=== PATIENT | female | born 1935 | race Caucasian/White ===

== ENCOUNTER → 2016-08-19 | Outpatient (CLI) | payer BC ==
[~2016-08-19] MED LIST: ALBU1AER9 IN; CALC-51 PO; CMD5 PO; DILT120C PO; FURO-85 PO; GLC500 PO; IPRASOL4 INH; MAGN500C PO; METO25TA56 PO; MULT-506 PO; OXYB15TA12 PO; PANT40TA PO; POTA20TA16 PO; RANI150T2 PO
--- NOTE | 2016-08-19 17:13 | MAMMOGRAPHY REPORT ---
BILATERAL DIGITAL SCREENING MAMMOGRAM WITH CAD: 08/19/2016 CLINICAL HISTORY: Routine screening. Patient has no complaints. TECHNIQUE: Lateral CC and MLO views were obtained. Current study was also evaluated with a Computer Aided Detection (CAD) system. COMPARISON: Comparison is made to exams dated: 02/14/2015 mammogram, 01/31/2014 mammogram, 04/18/2013 m ammogram, 01/30/2013 mammogram, 01/28/2012 mammogram, and 01/26/2011 mammogram - [facility]. BREAST COMPOSITION: The tissue of both breasts is almost entirely fatty. FINDINGS: There are diffuse vascular calcifications in the breasts. No new suspicious mass, archite ctural distortion or cluster of microcalcifications is seen. IMPRESSION: ACR BI-RADS CATEGORY 1: NEGATIVE There is no mammographic evidence of malignancy. A 1 year screening mammogram is recommended. The pa tient will receive written notification of the results. Approximately 10% of breast cancers are not detected with mammography. A negative mammographic report should not delay biopsy if a clinically suggestive mass is present. Briana Clayton M.D. ay/:08/19/2016 15:25:28 Event Marketing Assistant: Gee Mckee M, [facility] letter sent: Normal 1/2 BI-RADS Code: ACR BI-RADS Category 1: Negative
== END | disposition home or self-care (01) ==
LOC: C.MAMM 14:51
PROVIDERS: ATTEND Family Medicine
DX: Z12.31 Encounter for screening mammogram for malignant neoplasm of breast (principal)

== ENCOUNTER → 2016-10-16 | Outpatient (CLI) | payer BC, OTHER ==
[2016-10-16 16:00] LABS: ALT/SGPT 21 U/L (12-78); BLOOD UREA NITROGEN 17 mg/dl (7-18); BUN/CREATININE RATIO 24.6 (10-20); CALCIUM 8.6 mg/dl (8.5-10.1); CARBON DIOXIDE 29 mmol/L (21-32); CHLORIDE 107 mmol/L (98-107); CREATININE 0.67 mg/dl (0.60-1.20); GLUCOSE 99 mg/dl (70-99); POTASSIUM 3.9 mmol/L (3.5-5.1); SODIUM 142 mmol/L (136-145)
[2016-10-16 16:01] LABS: CHOLESTEROL 214 mg/dl (0-200); CHOLESTEROL/HDL RATIO 3.2; HDL CHOLESTEROL 67 mg/dl; LDL CHOLESTEROL CALCULATED 104 mg/dl; TRIGLYCERIDES 216 mg/dl (0-150); VERY LOW DENSITY LIPOPROT CALC 43 mg/dl
[2016-10-17 08:09] LABS: ESTIMATED AVERAGE GLUCOSE 137 mg/dl; HA1C FLAG Normal (Normal)
== END | disposition home or self-care (01) ==
LOC: C.LAB 14:29
PROVIDERS: ATTEND Family Medicine
DX: E11.9 Type 2 diabetes mellitus without complications (principal); E78.5 Hyperlipidemia, unspecified

== ENCOUNTER 2020-02-15 18:04 | Inpatient (IN) ==
[2020-02-15] MEDS ORDERED: ALBUTEROL 0.083% NEBU SOLN 3 ML VIAL INH STA (18:12)
[2020-02-15] MEDS ORDERED: methylPREDNISolone 125 MG/2 ML VIAL IV STA (18:12)
--- NOTE | 2020-02-15 18:18 | Emergency Department Note ---
History of Present Illness General Chief complaint: Shortness of Breath/Dyspnea Stated complaint: SOB, CHEST PRESSURE Time Seen by Provider: 02/15/20 18:05 Source: patient and EMS History of Present Illness Provider complaint: Shortness of breath Onset (ago): hour(s) Location: chest Pain Consistency: + now resolved Quality: + other (Shortness of breath) Relieved By: + other (CPAP and her inhaler) Associated symptoms: + chest pain and + cough (For 3 months at least); no fever/chills and no nausea/vomiting This is an 84-year-old female who presents with shortness of breath starting this afternoon. She does have a history of asthma and CHF and uses oxygen only at night. She states that this afternoon she became very short of breath. She states that she used her CPAP and her inhaler and she started to feel much better. She does have a prior history of clots in her lungs but states that she is on warfarin. She denied having any chest discomfort or pain but when questioned further she did state that her chest was uncomfortable. She states the reason she did not say she had just comfort was because she did not know if it was just from having difficulty breathing. She has had a cough for at least 3 to 4 months and states that she had a negative Covid test in the spring. She denies loss of taste or smell, myalgias, fevers, chills, abdominal pain or diarrhea. Home Medications Medication Instructions Recorded Confirmed Type albuterol sulfate 2 puff INHALATION Q4H PRN 07/14/19 02/15/20 History aspirin [Aspirin Low Dose] 81 mg PO QAM 07/14/19 02/15/20 History diltiazem HCl 120 mg PO BID 07/14/19 02/15/20 History ezetimibe 10 mg PO QAM 07/14/19 02/15/20 History metformin 750 mg PO DAILY 07/14/19 02/15/20 History warfarin See Rx Instructions .ROUTE .COMPLEX 07/14/19 02/15/20 History lisinopril 10 mg PO QAM 02/15/20 02/15/20 History Allergies Allergy/AdvReac Type Severity Reaction Status Date / Time amoxicillin [From Augmentin] Allergy Intermediate Hives Verified 02/15/20 19:44 clavulanic acid Allergy Intermediate Hives Verified 12/03/20 19:44 [From Augmentin] Penicillins Allergy Intermediate Hives Verified 02/15/20 19:44 gabapentin Allergy Unknown Itching Verified 02/15/20 19:44 Past Med/Surg History Medical History Asthma Deep vein thrombosis Myocardial Infarction Sleep apnea 1 liter o2 Surgical History History of cardiac cath History of colonoscopy History of heart artery stent History of heart valve replacement Social History Smoking Status: Never smoker Hx Alcohol Use: No Hx Substance Use: No Preferred Language: Macedonian Current Living Situation: Spouse current occupation: Retired Feels Safe at Home: Yes Review of Systems See HPI for pertinent positives & negatives. and A total of 10 systems reviewed and were otherwise negative Physical Exam Vital Signs Vital Signs - 24 hr 02/15/20 17:25 02/15/20 17:55 02/15/20 18:12 Temperature 36.7 C Temperature Source Oral Pulse Rate 96 H Pulse Rate [Right Radial] Pulse Rate from SpO2 Sensor Respiratory Rate 18 Respiratory Effort / Characteristics Non-Labored Spontaneous Respiratory Depth Normal Normal Blood Pressure 163/114 H Blood Pressure Mean 130 Pulse Oximetry 92 92 Oxygen Delivery Method Room Air Room Air Room Air Sepsis Recent Fever Within 48 Hours No Sepsis New/Unexplained Change in Mental Status No Sepsis Action Taken by Nursing No Action Required Oxygen Flow Rate - Titration Pulse Oximetry Post Tiitration 02/15/20 18:20 02/15/20 18:21 02/15/20 18:30 Temperature Temperature Source Pulse Rate 95 H 93 H 98 H Pulse Rate [Right Radial] Pulse Rate from SpO2 Sensor 94 H 87 94 H Respiratory Rate 16 20 23 Respiratory Effort / Characteristics Respiratory Depth Blood Pressure 155/83 H 148/88 H Blood Pressure Mean 122 109 Pulse Oximetry 93 92 92 Oxygen Delivery Method Sepsis Recent Fever Within 48 Hours Sepsis New/Unexplained Change in Mental Status Sepsis Action Taken by Nursing Oxygen Flow Rate - Titration Pulse Oximetry Post Tiitration 02/15/20 18:31 02/15/20 18:41 02/15/20 19:00 Temperature Temperature Source Pulse Rate 98 H 110 H Pulse Rate [Right Radial] 97 H Pulse Rate from SpO2 Sensor 97 H Respiratory Rate 19 23 24 Respiratory Effort / Characteristics Spontaneous Respiratory Depth Blood Pressure 128/73 Blood Pressure Mean 94 Pulse Oximetry 92 97 90 Oxygen Delivery Method Room Air Sepsis Recent Fever Within 48 Hours Sepsis New/Unexplained Change in Mental Status Sepsis Action Taken by Nursing Oxygen Flow Rate - Titration Pulse Oximetry Post Tiitration 02/15/20 19:01 02/15/20 19:30 02/15/20 19:31 Temperature Temperature Source Pulse Rate 110 H 106 H 106 H Pulse Rate [Right Radial] Pulse Rate from SpO2 Sensor Respiratory Rate 22 22 22 Respiratory Effort / Characteristics Respiratory Depth Blood Pressure 130/63 Blood Pressure Mean 81 Pulse Oximetry 90 93 92 Oxygen Delivery Method Sepsis Recent Fever Within 48 Hours Sepsis New/Unexplained Change in Mental Status Sepsis Action Taken by Nursing Oxygen Flow Rate - Titration Pulse Oximetry Post Tiitration 02/15/20 20:00 02/15/20 20:01 02/15/20 20:45 Temperature Temperature Source Pulse Rate 102 H 104 H Pulse Rate [Right Radial] Pulse Rate from SpO2 Sensor 103 H 104 H Respiratory Rate 16 18 Respiratory Effort / Characteristics Respiratory Depth Blood Pressure 133/65 Blood Pressure Mean 83 Pulse Oximetry 91 94 88 L Oxygen Delivery Method Nasal Cannula Sepsis Recent Fever Within 48 Hours Sepsis New/Unexplained Change in Mental Status Sepsis Action Taken by Nursing Oxygen Flow Rate - Titration 2 Pulse Oximetry Post Tiitration 95 02/15/20 20:50 02/15/20 21:00 Temperature Temperature Source Pulse Rate 108 H 112 H Pulse Rate [Right Radial] Pulse Rate from SpO2 Sensor 107 H 111 H Respiratory Rate 19 20 Respiratory Effort / Characteristics Respiratory Depth Blood Pressure 136/84 155/85 H Blood Pressure Mean 95 109 Pulse Oximetry 90 96 Oxygen Delivery Method Sepsis Recent Fever Within 48 Hours Sepsis New/Unexplained Change in Mental Status Sepsis Action Taken by Nursing Oxygen Flow Rate - Titration Pulse Oximetry Post Tiitration Constitutional: Vital signs reviewed. Eyes: Pupils are equal round reactive to light. Conjunctiva are noninjected. ENT: Pharynx is clear without erythema or exudate. Mucous membranes are moist. Neck supple without meningeal signs. Respiratory: Bibasilar rales. Breath sounds are equal bilaterally. Cardiovascular: Regular rate and rhythm. No rubs or gallops. GI: Soft, nondistended and nontender. Bowel sounds are present. Musculoskeletal: No peripheral edema. No lower extremity tenderness. Integumentary: No cyanosis. or jaundice. Neurological: The patient is awake and alert. No focal deficits. Psychiatric: Normal affect. Not anxious appearing. Course Administered Medications Lactated Ringer's (Lr) 1,000 mls @ 100 mls/hr IV .Q10H ONE Stop: 02/16/20 06:44 Last Admin: 02/15/20 21:26 Dose: 100 mls/hr Documented by: [id number] Heparin Sodium/Dextrose (Heparin Sodium/Dextrose) 25,000 units in 500 mls @ 24 mls/hr IV .[id number] [facility]; Protocol Stop: 03/16/20 21:44 Last Admin: 02/15/20 21:51 Dose: 1,200 units/hr, 24 mls/hr Documented by: [id number] Cosigned by: [id number] Discontinued Medications Albuterol (Albuterol 0.083% Nebu Soln 3 Ml Vial) 2.5 mg INH NOW STA Stop: 02/15/20 18:13 Last Admin: 02/15/20 18:40 Dose: 2.5 mg Documented by: [id number] Diltiazem HCl (Diltiazem Hcl 120 Mg Capcr) 120 mg PO NOW STA Stop: 02/15/20 19:49 Last Admin: 02/15/20 21:00 Dose: 120 mg Documented by: [id number] Heparin Sodium/Dextrose (Heparin 91184 Unit/500 Ml D5w) Confirm Administered Dose 25,000 units IV .STK-MED ONE Stop: 02/15/20 21:42 Last Admin: 02/15/20 21:45 Dose: Not Given Documented by: [id number] Doxycycline Hyclate 100 mg/ (Dextrose) 110 mls @ 50 mls/hr IV NOW STA Stop: 02/15/20 22:56 Last Admin: 02/15/20 23:06 Dose: 50 mls/hr Documented by: [id number] Ceftriaxone Sodium (Rocephin) 2,000 mg in 70 mls @ 140 mls/hr IV NOW STA Stop: 02/15/20 21:14 Last Infusion: 02/15/20 23:06 Dose: 0 mls/hr Documented by: [id number] Admin: 02/15/20 21:26 Dose: 140 mls/hr Documented by: [id number] Methylprednisolone (Methylprednisolone 125 Mg/2 Ml Vial) 125 mg IV NOW STA Stop: 02/15/20 18:13 Last Admin: 02/15/20 18:54 Dose: Not Given Documented by: [id number] Potassium Chloride (Potassium Chloride Crtab 20 Meq Tabcr) 20 meq PO NOW STA Stop: 02/15/20 20:45 Last Admin: 02/15/20 21:06 Dose: Not Given Documented by: [id number] Medical Decision Making Differential Diagnosis Asthma exacerbation, CHF exacerbation, pulmonary embolism, pneumonia, bronchitis, anemia, ACS Medical Records Attestation: I reviewed the patient's medical records. I did perform a limited focused review of portions of the patient's old chart on the electronic medical record. The patient has had no recent pertinent visits to this hospital. Home Medications Current Medication List: was personally reviewed by me Laboratory Data Attestation: I reviewed the patient's lab results. Result diagrams: 02/15/20 18:20 02/15/20 19:25 Lab Results 02/15/20 02/15/20 02/15/20 Range/Units 18:20 18:20 18:20 WBC 9.49 (4.8-10.8) K/uL RBC 4.50 (4.2-5.4) M/uL Hgb 14.2 (12.0-16.0) g/dL Hct 43.4 (37-47) % MCV 96.4 (80-100) fL MCH 31.6 (25-34) pg MCHC 32.7 (32-36) g/dL RDW Std Deviation 52.7 H (36.4-46.3) fL RDW Coeff of Linda 15.0 H (11.5-14.5) % Plt Count 283 (130-400) K/uL MPV 11.0 H (7.4-10.4) fL Immature Gran % (Auto) 0.3 % Neut % (Auto) 69.1 % Lymph % (Auto) 22.8 % Coleman % (Auto) 6.2 % Eos % (Auto) 1.4 % Baso % (Auto) 0.2 % Neut # (Auto) 6.56 H (1.4-6.5) K/uL Lymph # (Auto) 2.16 (1.2-3.4) K/uL Coleman # (Auto) 0.59 (0.11-0.59) K/uL Eos # (Auto) 0.13 (0-0.5) K/uL Baso # (Auto) 0.02 (0-0.2) K/uL Immature Gran # (Auto) 0.03 H (0.00-0.02) K/uL PT Cancelled INR Cancelled APTT Cancelled PTT Ratio Cancelled ABG pH (7.35-7.45) ABG pCO2 (35-46) mmHg ABG pO2 (80-95) mmHg ABG HCO3 (19-24) mmol/L ABG O2 Saturation (90-95) % ABG Base Excess (-9-1.8) mEq/L Melvin Test (Pos) Barometric Pressure mm/Hg Oxygen Given Sodium 139 (136-145) mmol/L Potassium (3.5-5.1) mmol/L Chloride 105 (98-107) mmol/L Carbon Dioxide 27 (21-32) mmol/L Anion Gap 7.0 (3-11) BUN 15 (7-18) mg/dl Creatinine 0.70 (0.6-1.2) mg/dl Est Cr Clr Drug Dosing 61.8 ml/min Est GFR ( Amer) 90.9 Est GFR (Non-Af Amer) 78.5 BUN/Creatinine Ratio 21.9 H (10-20) Glucose 96 (70-99) mg/dl Lactate (0.4-2.0) mmol/L Calcium 9.3 (8.5-10.1) mg/dl Magnesium (1.8-2.4) mg/dl Total Bilirubin 0.4 (0.2-1) mg/dl AST (15-37) U/L ALT 25 (12-78) U/L Alkaline Phosphatase 86 (45-117) U/L Troponin I < 0.015 (0-0.045) ng/ml NT-Pro-B Natriuret Pep 80 (0-1800) pg/ml Total Protein 7.8 (6.4-8.2) gm/dl Albumin 3.3 L (3.4-5.0) gm/dl Globulin 4.5 H (2.5-4.0) gm/dl Albumin/Globulin Ratio 0.7 L (0.9-2) COVID-19 Eval Order SARS-CoV-2, RNA, NAAT (NEGATIVE) 02/15/20 02/15/20 02/15/20 Range/Units 19:25 19:36 19:36 WBC (4.8-10.8) K/uL RBC (4.2-5.4) M/uL Hgb (12.0-16.0) g/dL Hct (37-47) % MCV (80-100) fL MCH (25-34) pg MCHC (32-36) g/dL RDW Std Deviation (36.4-46.3) fL RDW Coeff of Linda (11.5-14.5) % Plt Count (130-400) K/uL MPV (7.4-10.4) fL Immature Gran % (Auto) % Neut % (Auto) % Lymph % (Auto) % Coleman % (Auto) % Eos % (Auto) % Baso % (Auto) % Neut # (Auto) (1.4-6.5) K/uL Lymph # (Auto) (1.2-3.4) K/uL Coleman # (Auto) (0.11-0.59) K/uL Eos # (Auto) (0-0.5) K/uL Baso # (Auto) (0-0.2) K/uL Immature Gran # (Auto) (0.00-0.02) K/uL PT INR APTT PTT Ratio ABG pH (7.35-7.45) ABG pCO2 (35-46) mmHg ABG pO2 (80-95) mmHg ABG HCO3 (19-24) mmol/L ABG O2 Saturation (90-95) % ABG Base Excess (-9-1.8) mEq/L Melvin Test (Pos) Barometric Pressure mm/Hg Oxygen Given Sodium (136-145) mmol/L Potassium 3.9 (3.5-5.1) mmol/L Chloride (98-107) mmol/L Carbon Dioxide (21-32) mmol/L Anion Gap (3-11) BUN (7-18) mg/dl Creatinine (0.6-1.2) mg/dl Est Cr Clr Drug Dosing ml/min Est GFR ( Amer) Est GFR (Non-Af Amer) BUN/Creatinine Ratio (10-20) Glucose (70-99) mg/dl Lactate (0.4-2.0) mmol/L Calcium (8.5-10.1) mg/dl Magnesium 2.0 (1.8-2.4) mg/dl Total Bilirubin (0.2-1) mg/dl AST 16 (15-37) U/L ALT (12-78) U/L Alkaline Phosphatase (45-117) U/L Troponin I < 0.015 (0-0.045) ng/ml NT-Pro-B Natriuret Pep (0-1800) pg/ml Total Protein (6.4-8.2) gm/dl Albumin (3.4-5.0) gm/dl Globulin (2.5-4.0) gm/dl Albumin/Globulin Ratio (0.9-2) COVID[email or web address] SARS-[facility]-2, RNA, NAAT NEGATIVE (NEGATIVE) 02/15/20 02/15/20 02/15/20 Range/Units 20:20 21:12 21:14 WBC (4.8-10.8) K/uL RBC (4.2-5.4) M/uL Hgb (12.0-16.0) g/dL Hct (37-47) % MCV (80-100) fL MCH (25-34) pg MCHC (32-36) g/dL RDW Std Deviation (36.4-46.3) fL RDW Coeff of Linda (11.5-14.5) % Plt Count (130-400) K/uL MPV (7.4-10.4) fL Immature Gran % (Auto) % Neut % (Auto) % Lymph % (Auto) % Coleman % (Auto) % Eos % (Auto) % Baso % (Auto) % Neut # (Auto) (1.4-6.5) K/uL Lymph # (Auto) (1.2-3.4) K/uL Coleman # (Auto) (0.11-0.59) K/uL Eos # (Auto) (0-0.5) K/uL Baso # (Auto) (0-0.2) K/uL Immature Gran # (Auto) (0.00-0.02) K/uL PT 17.5 H INR 1.7 H APTT 33.9 H PTT Ratio 1.2 ABG pH 7.39 (7.35-7.45) ABG pCO2 45 (35-46) mmHg ABG pO2 89 (80-95) mmHg ABG HCO3 27 H (19-24) mmol/L ABG O2 Saturation 96.8 H (90-95) % ABG Base Excess 1.3 (-9-1.8) mEq/L Melvin Test Neg A (Pos) Barometric Pressure 736.6 mm/Hg Oxygen Given 2 LITERS Sodium (136-145) mmol/L Potassium (3.5-5.1) mmol/L Chloride (98-107) mmol/L Carbon Dioxide (21-32) mmol/L Anion Gap (3-11) BUN (7-18) mg/dl Creatinine (0.6-1.2) mg/dl Est Cr Clr Drug Dosing ml/min Est GFR ( Amer) Est GFR (Non-Af Amer) BUN/Creatinine Ratio (10-20) Glucose (70-99) mg/dl Lactate 1.9 (0.4-2.0) mmol/L Calcium (8.5-10.1) mg/dl Magnesium (1.8-2.4) mg/dl Total Bilirubin (0.2-1) mg/dl AST (15-37) U/L ALT (12-78) U/L Alkaline Phosphatase (45-117) U/L Troponin I (0-0.045) ng/ml NT-Pro-B Natriuret Pep (0-1800) pg/ml Total Protein (6.4-8.2) gm/dl Albumin (3.4-5.0) gm/dl Globulin (2.5-4.0) gm/dl Albumin/Globulin Ratio (0.9-2) COVID-19 Eval Order SARS-CoV-2, RNA, NAAT (NEGATIVE) Imaging Data Radiologist's Impression: XR chest 1V portable CLINICAL HISTORY: Dyspnea COMPARISON STUDY: 07/14/2019 FINDINGS: The cardiac and mediastinal contours remain stable. Aortic valve stent graft is again visualized. There is no failure. There is no lobar consolidation. There is bilateral interstitial thickening with subtle left basilar nodularity. Diagnostic considerations include mild interstitial edema, a pneumonia, or developing interstitial lung disease. IMPRESSION: Mild interstitial thickening with subtle left basilar nodularity. Although nonspecific, a Covid-19 pneumonia is within the differential. Clinical and radiographic follow-up is recommended ACT 112: Negative or not required by law. Electronically signed by: Frank Galloway M.D. 02/15/2020 6:36 PM Dictated: 02/15/201831 Transcribed: 02/15/201831 ECG Data Attestation: I personally reviewed and interpreted this ECG as follows: Indication: + chest pain and + SOB/dyspnea Rate (beats per minute): 94 Rhythm: + normal sinus ECG [place]: + Left axis deviation ECG ST segments: no ST elevation ECG Findings: + PVCs and + Other (Limited interpretation due to motion artifact but no obvious acute ischemic changes) MDM Narrative I did evaluate the patient as noted above. The patient initially said she did not have any chest discomfort. She later told the nurse that she did have chest discomfort. I asked her again if she had chest discomfort and she stated yes she did feel uncomfortable in her chest. This is now resolved. I did place an order for continuous cardiac monitoring. The monitor showed normal sinus rhythm at a rate of 94 bpm. I did order and personally review the patient's 12-lead EKG as described above. There are no obvious acute ischemic changes but there is some motion artifact limiting interpretation. I did order and personally reviewed the images of the patient's chest x-ray as described above. She has interstitial thickening concerning for a COVID-19 pneumonia. She was placed in respiratory isolation. I did order a COVID-19 test which came back negative later. I did order and review the patient's blood work as noted in the electronic medical record. She does not have anemia or leukocytosis. Her electrolytes are unremarkable. Troponin is negative. INR subtherapeutic at 1.7. I did discuss the test results with the patient. I did recommend hospitalization for further care and evaluation including repeat cardiac biomarkers. I did order a CT angiogram of the chest which she was agreeable with to rule out PE given her prior history of PEs and subtherapeutic INR. I did discuss case with the hospitalist and case sealer. The patient was admitted to the floor. I did see later that the CT angiogram was canceled by the hospitalist. I did discuss this with him. He stated that he would be anticoagulating her anyway and did not feel the CT angiogram was necessary at t his time. Impression & Plan Chest pain, Subtherapeutic international normalized ratio (INR), Abnormal chest x-ray Discharge Plan Visit Data Chief Complaint: Shortness of Breath/Dyspnea Stated Complaint: SOB, CHEST PRESSURE ED Provider: Glynn Rae Discharge Problem: Chest pain, Subtherapeutic international normalized ratio (INR), Abnormal chest x-ray Patient Disposition: Being Evaluated by Hospitalist Forms Stand Alone Forms: [facility] Prescriptions Prescriptions: No Action aspirin [Aspirin Low Dose] 81 mg Tablet,Delayed Release (Dr/Ec) 81 mg PO QAM RF: 0 warfarin 5 mg tablet See Rx Instructions .ROUTE .COMPLEX RF: 0 diltiazem HCl 120 mg capsule,extended release 24hr 120 mg PO BID RF: 0 albuterol sulfate 90 mcg/actuation HFA aerosol inhaler 2 puff INHALATION Q4H PRN (Reason: Wheeze/Cough) RF: 0 ezetimibe 10 mg tablet 10 mg PO QAM RF: 0 metformin 750 mg tablet extended release 24 hr 750 mg PO DAILY RF: 0 lisinopril 10 mg tablet 10 mg PO QAM RF: 0 Referrals Referrals: Jamie Vela DO [Primary Care Provider] - Discharge Problem: Chest pain Qualifiers: Chest pain type: unspecified Qualified Code(s): R07.9 - Chest pain, unspecified
[2020-02-15 18:30] LABS: Basophils # (auto) 0.02 K/uL (0-0.2); Basophils % (auto) 0.2 %; Eosinophils # (auto) 0.13 K/uL (0-0.5); Eosinophils % (auto) 1.4 %; Hematocrit (blood only) 43.4 % (37-47); Hemoglobin 14.2 g/dL (12.0-16.0); Immature Granulocytes # (auto) 0.03 K/uL (0.00-0.02); Immature Granulocytes % (auto) 0.3 %; Lymphocytes # (auto) 2.16 K/uL (1.2-3.4); Lymphocytes % (auto) 22.8 %; Mean Corpuscular Hemoglobin 31.6 pg (25-34); Mean Corpuscular Hgb Conc 32.7 g/dL (32-36); Mean Corpuscular Volume 96.4 fL (80-100); Monocytes # (auto) 0.59 K/uL (0.11-0.59); Monocytes % (auto) 6.2 %; Neutrophils # (auto) 6.56 K/uL (1.4-6.5); Neutrophils % (auto) 69.1 %; Platelet Count 283 K/uL (130-400); RDW Standard Deviation 52.7 fL (36.4-46.3); White Blood Count 9.49 K/uL (4.8-10.8)
--- NOTE | 2020-02-15 18:38 | XRay Report ---
XR chest 1V portable CLINICAL HISTORY: Dyspnea COMPARISON STUDY: 07/14/2019 FINDINGS: The cardiac and mediastinal contours remain stable. Aortic valve stent graft is again visua lized. There is no failure. There is no lobar consolidation. There is bilateral interstitial thickeni ng with subtle left basilar nodularity. Diagnostic considerations include mild interstitial edema, a pneumonia, or developing interstitial lung disease. IMPRESSION: Mild interstitial thickening with subtle left basilar nodularity. Although nonspecific, a Covid-19 pneumonia is within the differential. Clinical and radiographic follow-up is recommended ACT 112: Negative or not required by law. Electronically signed by: Frank Galloway M.D. 02/15/2020 6:36 PM
[2020-02-15 19:01] LABS: Alanine Aminotransferase 25 U/L (12-78); Albumin Globulin Ratio 0.7 (0.9-2); Albumin Level 3.3 gm/dl (3.4-5.0); Alkaline Phosphatase 86 U/L (45-117); BUN Creatinine Ratio 21.9 (10-20); Bilirubin,Total 0.4 mg/dl (0.2-1); Blood Urea Nitrogen 15 mg/dl (7-18); Calcium 9.3 mg/dl (8.5-10.1); Carbon Dioxide 27 mmol/L (21-32); Chloride 105 mmol/L (98-107); Creatinine Clr Calc Pharmacy 61.8 ml/min; Est GFR (African American) 90.9; Est GFR (Non-African American) 78.5; Globulin 4.5 gm/dl (2.5-4.0); Glucose 96 mg/dl (70-99); NT Pro B Type Natriuretic Pept 80 pg/ml (0-1800); Sodium 139 mmol/L (136-145); Total Protein 7.8 gm/dl (6.4-8.2); Troponin I < 0.015 ng/ml (0-0.045)
[2020-02-15] MEDS ORDERED: dilTIAZem HCL 120 MG CAPCR PO STA (19:48)
[2020-02-15 20:01] LABS: Potassium 3.9 mmol/L (3.5-5.1)
[2020-02-15 20:06] LABS: Aspartate Aminotransferase 16 U/L (15-37)
[2020-02-15 20:24] LABS: Troponin I < 0.015 ng/ml (0-0.045)
[2020-02-15 20:41] LABS: INR 1.7 (0.9-1.1); Partial Thromboplastin Ratio 1.2; Partial Thromboplastin Time 33.9 Seconds (21.0-31.0); Prothrombin Time 17.5 Seconds (9.0-12.0)
[2020-02-15] MEDS ORDERED: POTASSIUM CHLORIDE CRTAB 20 MEQ TABCR PO STA (20:44)
[2020-02-15] MEDS ORDERED: LACTATED RINGER'S 1,000 ML IV ONE (20:45)
[2020-02-15] MEDS ORDERED: DOXYCYCLINE HYCLATE 100 MG in DEXTROSE 5% 100 ML IV STA (20:45)
[2020-02-15] MEDS ORDERED: cefTRIAXone SODIUM 2,000 MG/70 ML BAG IV STA (20:45)
--- NOTE | 2020-02-15 20:47 | History & Physical Report ---
Date of Service February 15, 2020 Assessment & Plan (1) Acute hypoxemic respiratory failure: Secondary to COPD exacerbation secondary to community-acquired pneumonia Possible sepsis. 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 IV heparin Coumadin bridge therapy Full code Text document was generated using [employer] voice recognition software. It may contain grammatical or spelling errors. Kindly contact undersigned for clarification of any documentation item in question. History of Present Illness Chief Complaint: Worsening cough, shortness of breath Primary Care Provider: Jamie Vela DO History obtained from patient, family, and records. 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 Last confinement 2015 for recurrent PE DVT. Patient discharged on Coumadin. Patient had worsening cough productive of junky sputum and shortness of breath the last few days. No unusual fluid retention. No chest pain. Denies aspiration. No known recent COVID-19 contacts. At the ER, patient received Solu-Medrol and neb treatment for COPD exacerbation. MEDICAL HISTORY: As above. SURGERIES: TAVR, FAMILY HISTORY: Heart disease. PERSONAL AND SOCIAL HISTORY: Nonsmoker, no chronic intake of alcoholic beverages. Homemaker in her younger years. Allergies Allergy/AdvReac Type Severity Reaction Status Date / Time amoxicillin [From Augmentin] Allergy Intermediate Hives Verified 02/15/20 19:44 clavulanic acid Allergy Intermediate Hives Verified 02/15/20 19:44 [From Augmentin] Penicillins Allergy Intermediate Hives Verified 02/15/20 19:44 gabapentin Allergy Unknown Itching Verified 02/15/20 19:44 Home Medications Medication Instructions Recorded Confirmed Type albuterol sulfate 2 puff INHALATION Q4H PRN 07/14/19 02/15/20 History aspirin [Aspirin Low Dose] 81 mg PO QAM 07/14/19 02/15/20 History diltiazem HCl 120 mg PO BID 07/14/19 02/15/20 History ezetimibe 10 mg PO QAM 07/14/19 02/15/20 History metformin 750 mg PO DAILY 07/14/19 02/15/20 History warfarin See Rx Instructions .ROUTE .COMPLEX 07/14/19 02/15/20 History lisinopril 10 mg PO QAM 02/15/20 02/15/20 History Past Med/Surg History Medical History Asthma Deep vein thrombosis Myocardial Infarction Sleep apnea 1 liter o2 Surgical History History of cardiac cath History of colonoscopy History of heart artery stent History of heart valve replacement Social History Smoking Status: Never smoker Second Hand Exposure: No; Do You Dip or Chew Tobacco: No; Tobacco Cessation Education Requested by Patient: No Hx Alcohol Use: No Hx Substance Use: No Preferred Language: British Communication Ability: Effective Mat Linker Required: No Beliefs That Will Affect Care: None Current Living Situation: Spouse and Family Current Living Situation Comment: Lives w/ and son current occupation: Retired Other Information That Helps Us Care for You: No Feels Safe at Home: Yes Safety Concerns: Feels Safe At This Time Assistive Devices: Cane and CPAP Assistive Devices Comment: Wears CPAP HS at home / ambulates independently and with cane Review of Systems Review of Systems: As per HPI, all 10 systems reviewed, all other ROS negative Physical Exam Physical Exam: GENERAL: Pleasant, obese, no respiratory distress SKIN: Normal color, warm HEENT: [place] palpebral conjunctivae, no ptosis, dry buccal mucosa NECK : Supple, short neck, no tenderness CHEST : Decreased breath sounds, occasional expiratory wheezes, no tenderness HEART : RRR, no obvious murmurs ABDOMEN: Some distention, nontender EXTREMITIES : Minimal LE swelling, no LE tenderness, no other conspicuous deformities noted NEUROLOGIC : Coherent, no facial asymmetry, no other gross focality Results & Data Results & Data ([facility]) Vital Signs (Past 12 Hours) Vital Signs Temp Pulse Pulse Resp BP Pulse Ox 02/15/20 20:45 88 L 02/15/20 19:31 106 H 22 92 02/15/20 19:30 106 H 22 130/63 93 02/15/20 19:01 110 H 22 90 02/15/20 19:00 110 H 24 128/73 90 02/15/20 18:41 97 H 23 97 02/15/20 18:31 98 H 19 92 02/15/20 18:30 98 H 23 148/88 H 92 02/15/20 18:21 93 H 20 92 02/15/20 18:20 95 H 16 155/83 H 93 02/15/20 18:12 92 02/15/20 17:25 36.7 C 96 H 18 163/114 H 92 Laboratory Results Laboratory Results WBC 9.49 K/uL (4.8-10.8) 02/15/20 18:20 RBC 4.50 M/uL (4.2-5.4) 02/15/20 18:20 Hgb 14.2 g/dL (12.0-16.0) 02/15/20 18:20 Hct 43.4 % (37-47) 02/15/20 18:20 MCV 96.4 fL (80-100) 02/15/20 18:20 MCH 31.6 pg (25-34) 02/15/20 18:20 MCHC 32.7 g/dL (32-36) 02/15/20 18:20 RDW Std Deviation 52.7 fL (36.4-46.3) H 02/15/20 18:20 RDW Coeff of Linda 15.0 % (11.5-14.5) H 02/15/20 18:20 Plt Count 283 K/uL (130-400) 02/15/20 18:20 MPV 11.0 fL (7.4-10.4) H 02/15/20 18:20 Immature Gran % (Auto) 0.3 % 02/15/20 18:20 Neut % (Auto) 69.1 % 02/15/20 18:20 Lymph % (Auto) 22.8 % 02/15/20 18:20 [place] % (Auto) 6.2 % 02/15/20 18:20 Eos % (Auto) 1.4 % 02/15/20 18:20 Baso % (Auto) 0.2 % 02/15/20 18:20 Neut # (Auto) 6.56 K/uL (1.4-6.5) H 02/15/20 18:20 Lymph # (Auto) 2.16 K/uL (1.2-3.4) 02/15/20 18:20 [place] # (Auto) 0.59 K/uL (0.11-0.59) 02/15/20 18:20 Eos # (Auto) 0.13 K/uL (0-0.5) 02/15/20 18:20 Baso # (Auto) 0.02 K/uL (0-0.2) 02/15/20 18:20 Immature Gran # (Auto) 0.03 K/uL (0.00-0.02) H 02/15/20 18:20 PT 17.5 Seconds (9.0-12.0) H 02/15/20 20:20 INR 1.7 (0.9-1.1) H 02/15/20 20:20 APTT 33.9 Seconds (21.0-31.0) H 02/15/20 20:20 PTT Ratio 1.2 02/15/20 20:20 Sodium 139 mmol/L (136-145) 02/15/20 18:20 Potassium 3.9 mmol/L (3.5-5.1) 02/15/20 19:25 Chloride 105 mmol/L (98-107) 02/15/20 18:20 Carbon Dioxide 27 mmol/L (21-32) 02/15/20 18:20 Anion Gap 7.0 (3-11) 02/15/20 18:20 BUN 15 mg/dl (7-18) 02/15/20 18:20 Creatinine 0.70 mg/dl (0.6-1.2) 02/15/20 18:20 Est Cr Clr Drug Dosing 61.8 ml/min 02/15/20 18:20 Est GFR ( Amer) 90.9 02/15/20 18:20 Est GFR (Non-Af Amer) 78.5 02/15/20 18:20 BUN/Creatinine Ratio 21.9 (10-20) H 02/15/20 18:20 Glucose 96 mg/dl (70-99) 02/15/20 18:20 Calcium 9.3 mg/dl (8.5-10.1) 02/15/20 18:20 Magnesium 2.0 mg/dl (1.8-2.4) 02/15/20 19:25 Total Bilirubin 0.4 mg/dl (0.2-1) 02/15/20 18:20 AST 16 U/L (15-37) 02/15/20 19:25 ALT 25 U/L (12-78) 02/15/20 18:20 Alkaline Phosphatase 86 U/L (45-117) 02/15/20 18:20 Troponin I < 0.015 ng/ml (0-0.045) 02/15/20 19:25 NT-Pro-B Natriuret Pep 80 pg/ml (0-1800) 02/15/20 18:20 Total Protein 7.8 gm/dl (6.4-8.2) 02/15/20 18:20 Albumin 3.3 gm/dl (3.4-5.0) L 02/15/20 18:20 Globulin 4.5 gm/dl (2.5-4.0) H 02/15/20 18:20 Albumin/Globulin Ratio 0.7 (0.9-2) L 02/15/20 18:20 COVID-19 Eval Order [facility] 02/15/20 19:36 SARS-CoV-2, RNA, NAAT NEGATIVE (NEGATIVE) 02/15/20 19:36 Diagnostic Findings Chest x-ray : Mild interstitial thickening with subtle left basilar nodularity. Although nonspecific, a Covid-19 pneumonia is within the differential. Clinical and radiographic follow-up is recommended EKG as per my interpretation : Rate 95, LAD, LAFB, no ischemia, PVCs
[2020-02-15 21:29] LABS: Allen Test Neg (Pos); Base Excess ABG 1.3 mEq/L (-9-1.8); HCO3 ABG 27 mmol/L (19-24); Oxygen Saturation ABG 96.8 % (90-95); PCO2 ABG 45 mmHg (35-46); PO2 ABG 89 mmHg (80-95); pH ABG 7.39 (7.35-7.45)
[2020-02-15] MEDS ORDERED: HEPARIN 25000 UNIT/500 ML D5W IV ONE (21:41)
[2020-02-15] MEDS ORDERED: Heparin IV Standard *NO* Bolus IV SCH (21:45)
[2020-02-15] MEDS: HEPARIN SODIUM/DEXTROSE 25,000 UNITS/500 ML BAG IV SCH (21:51)
[2020-02-16] MEDS ORDERED: GLUCOSE 40% GEL 15 GM TUBE PO PRN (01:04)
[2020-02-16] MEDS ORDERED: PROMETHAZINE HCL 12.5 MG in SODIUM CHLORIDE 0.9% 50 ML IV PRN (01:04)
[2020-02-16] MEDS ORDERED: traMADol HCL 50 MG TABLET PO PRN (01:04)
[2020-02-16] MEDS ORDERED: GLUCAGON FOR INJ 1 MG VIAL SQ PRN (01:04)
[2020-02-16] MEDS ORDERED: DEXTROSE 50% 50 ML SYRINGE IV PRN (01:04)
[2020-02-16] MEDS ORDERED: XOPENEX/ATROVENT 1.25mg/0.5MG NEB COMBO NEB SCH (01:04)
[2020-02-16] MEDS ORDERED: CARBOHYDRATES FOR HYPOGLYCEMIA PO PRN (01:04)
[2020-02-16] MEDS ORDERED: GLUCOSE 10 TABS/TUBE PO PRN (01:04)
[2020-02-16] MEDS ORDERED: WARFARIN SOD 5 MG TAB PO ONE (01:04)
[2020-02-16] MEDS ORDERED: ACETAMINOPHEN 325 MG TAB PO PRN (01:04)
[2020-02-16] MEDS: LEVALBUTEROL 1.25MG/0.5ML NEB INH SCH ×4 (01:39→19:55)
[2020-02-16] MEDS: IPRATROPIUM BROMIDE NEB SOLN 0.02% 2.5 ML VIAL INH SCH ×4 (01:39→19:55)
[2020-02-16] MEDS ORDERED: dilTIAZem HCL 120 MG CAPCR PO SCH ×2 (01:40→09:00)
[2020-02-16] MEDS: DOXYCYCLINE HYCLATE 100 MG CAP PO SCH ×3 (01:59→22:08)
[2020-02-16] MEDS: INSULIN ASPART 100 UNITS/ML 3 ML PEN SC SCH ×5 (02:00→22:06)
[2020-02-16] MEDS: lisinopril 10 MG TAB PO SCH (02:00)
[2020-02-16] MEDS: INSULIN GLARGINE SOLOSTAR 100 UNITS/ML 3 ML PEN SC SCH ×2 (02:01→22:05)
[2020-02-16 02:52] LABS: Appearance Urine Clear (Clear); Bilirubin Urine Negative (Negative); Blood Urine Negative (Negative); Color Urine Yellow; Glucose Urine UA Negative (Negative); Ketones Urine Negative (Negative); Leukocyte Esterase Urine Negative (Negative); Nitrite Urine Negative (Negative); Protein Urine Negative (Negative); Specific Gravity Urine 1.026 (1.000-1.030); Urobilinogen Urine Negative (Negative)
[2020-02-16] MEDS ORDERED: SODIUM CHLORIDE 0.65% NA SOLN 45 ML (OCEAN) ONE (03:36)
[2020-02-16 04:36] LABS: Basophils # (auto) 0.02 K/uL (0-0.2); Basophils % (auto) 0.2 %; Eosinophils # (auto) 0.04 K/uL (0-0.5); Eosinophils % (auto) 0.3 %; Hematocrit (blood only) 38.3 % (37-47); Hemoglobin 12.4 g/dL (12.0-16.0); Immature Granulocytes # (auto) 0.03 K/uL (0.00-0.02); Immature Granulocytes % (auto) 0.3 %; Lymphocytes # (auto) 1.22 K/uL (1.2-3.4); Lymphocytes % (auto) 10.4 %; Mean Corpuscular Hemoglobin 31.1 pg (25-34); Mean Corpuscular Hgb Conc 32.4 g/dL (32-36); Mean Platelet Volume 10.9 fL (7.4-10.4); Monocytes # (auto) 0.74 K/uL (0.11-0.59); Monocytes % (auto) 6.3 %; Neutrophils # (auto) 9.65 K/uL (1.4-6.5); Neutrophils % (auto) 82.5 %; Platelet Count 216 K/uL (130-400); RDW Standard Deviation 52.6 fL (36.4-46.3); Red Blood Count 3.99 M/uL (4.2-5.4)
[2020-02-16 05:11] LABS: BUN Creatinine Ratio 20.5 (10-20); Calcium 8.1 mg/dl (8.5-10.1); Creatinine Clr Calc Pharmacy 59.2 ml/min; Est GFR (African American) 89.4; Est GFR (Non-African American) 77.1
[2020-02-16 05:32] LABS: INR 1.8 (0.9-1.1); Prothrombin Time 18.7 Seconds (9.0-12.0)
[2020-02-16 05:41] LABS: Partial Thromboplastin Time 54.9 Seconds (21.0-31.0)
--- NOTE | 2020-02-16 07:44 | Electrocardiogram Report ---
Test Reason : Blood Pressure : / mmHG Vent. Rate : 094 BPM Atrial Rate : 094 BPM P-R Int : 184 ms QRS Dur : 088 ms QT Int : 348 ms P-R-T Axes : 095 -46 022 degrees QTc Int : 435 ms Poor data quality, interpretation may be adversely affected Sinus rhythm with occasional Premature ventricular complexes Left anterior fascicular block Poor R wave progression, consider anterior [place] vs. lead placement vs. LVH Abnormal ECG When compared with ECG of 14-JUL-2019 08:49, Premature ventricular complexes are now Present Premature atrial complexes are no longer Present Non-specific change in ST segment in Lateral leads Confirmed by Matt Simon ([id number]) on 02/16/2020 7:44:20 AM Referred By: REFERRED SELF Confirmed By:Tommy Simon
[2020-02-16] MEDS: dilTIAZem HCL 120 MG CAPCR PO SCH ×2 (08:36→22:08)
[2020-02-16] MEDS: predniSONE 20 MG TAB PO SCH (08:37)
[2020-02-16] MEDS: EZETIMIBE 10 MG TABLET PO SCH (08:37)
[2020-02-16] MEDS: ASPIRIN 81 MG ECTAB PO SCH (08:37)
[2020-02-16] MEDS ORDERED: lisinopril 10 MG TAB PO SCH (09:00)
[2020-02-16] MEDS: WARFARIN SOD 5 MG TAB PO SCH (15:50)
--- NOTE | 2020-02-16 16:21 | Hospitalist Progress Note ---
Date of Service February 16, 2020 Assessment & Plan (1) COPD exacerbation: No wheezing on exam today and she is appearing very comfortable. Still requiring a small amount of oxygen, on 2 L/min. Continues on scheduled nebulizer treatment, antibiotics and prednisone daily. (2) Pneumonia: Rocephin, doxycycline. Blood cultures pending. Mild hypoxia present. Wean as tolerated. (3) Atrial fibrillation: Rate control with diltiazem, continue warfarin for stroke prophylaxis. (4) Current use of retirement anticoagulation: Long-term warfarin in setting of chronic pulmonary emboli. Her INR slightly subtherapeutic at 1.8 and she remains on a heparin drip. Last blood clot she reports was greater than 1 year ago, but will continue to bridge while in hospital until INR greater than 2. This also helps prevent stroke in setting of atrial fibrillation. (5) DMII (diabetes mellitus, type 2): Metformin held on admission and she was initiated on NovoLog and Lantus. Currently at inpatient goal. Continue current therapy. Repeat A1C in am. (6) S/P TAVR (transcatheter aortic valve replacement): (7) DVT prophylaxis: Coumadin Full code Dispo-to home in 1 to 2 days after resolution of hypoxia Lili Bustillos DO [facility] Hospitalist Admission and Anticipated Discharge Date Admission Date: February 15, 2020 Subjective cc: COPD exacerbation 2/2 pneumonia -patient feels better than yesterday -she is not working to breathe and denies shortness of breath -she denies any recent buildup to current illness -denies fevers -tolerating PO Review of Systems Review of Systems: All systems reviewed & are unremarkable except as noted in Subjective Physical Exam Physical Exam: CONSTITUTIONAL: obese, vitals as above, generally well- appearing EYES: normal conjunctivae, no scleral icterus ENT: external ear and nose normal, oropharynx clear, MMM RESPIRATORY: clear to auscultation bilaterally, no crackles, rales or wheezes, normal respiratory effort CARDIOVASCULAR: regular rate and rhythm, S1 and 2 heard without murmurs, gallops or rubs, no JVD, no peripheral edema GASTROINTESTINAL: normal bowel sounds, soft, nontender, nondistended, no guarding MUSCULOSKELETAL: strength 5/5 throughout, head is normocephalic and atraumatic SKIN: warm and dry NEUROLOGIC: CN 2-12 grossly intact, normal cognition, normal speech, no gross focal deficits. PSYCHIATRIC: alert cooperative and oriented to person, place and time. Results & Data Results & Data ([facility]) Vital Signs (Past 12 Hours) Vital Signs Temp Pulse Pulse Pulse Resp BP Pulse Ox 02/16/20 15:28 36.8 C 73 20 122/59 L 95 02/16/20 13:28 82 18 94 02/16/20 11:00 37.0 C 85 20 126/84 90 02/16/20 08:30 71 02/16/20 07:54 78 18 91 02/16/20 07:00 36.6 C 77 20 142/68 H 97 Laboratory Results Short CBC 02/15/20 02/16/20 Range/Units 18:20 04:00 WBC 9.49 11.70 H (4.8-10.8) K/uL Hgb 14.2 12.4 (12.0-16.0) g/dL Hct 43.4 38.3 (37-47) % Plt Count 283 216 (130-400) K/uL BMP 02/15/20 02/15/20 02/16/20 18:20 19:25 04:00 Sodium 139 138 Potassium 3.9 Chloride 105 105 Carbon Dioxide 27 29 BUN 15 14 Creatinine 0.70 0.71 Glucose 96 141 H Calcium 9.3 8.1 L 02/16/20 06:04 Sodium Potassium 3.9 Chloride Carbon Dioxide BUN Creatinine Glucose Calcium Cardiac Enzymes 02/15/20 02/15/20 Range/Units 18:20 19:25 Troponin I < 0.015 < 0.015 (0-0.045) ng/ml Liver Function 02/15/20 02/15/20 Range/Units 18:20 19:25 Total Bilirubin 0.4 (0.2-1) mg/dl AST 16 (15-37) U/L ALT 25 (12-78) U/L Alkaline Phosphatase 86 (45-117) U/L Albumin 3.3 L (3.4-5.0) gm/dl Urine 02/16/20 Range/Units 02:30 Urine Color Yellow Urine Appearance Clear (Clear) Urine pH 5.0 (4.5-7.5) Ur Specific [place] 1.026 (1.000-1.030) Urine Protein Negative (Negative) Urine Glucose (UA) Negative (Negative) Medications Administered Current Inpatient Medications Acetaminophen (Acetaminophen 325 Mg Tab) 650 mg PO Q4H PRN PRN Reason: Pain or Fever Stop: 03/17/20 01:03 Aspirin (Aspirin 81 Mg Ectab) 81 mg PO QAM [facility] Stop: 03/17/20 08:59 Last Admin: 02/16/20 08:37 Dose: 81 mg Documented by: Dextrose (Dextrose 50% 50 Ml Syringe) 25 - 50 ml IV UD PRN; Protocol PRN Reason: Hypoglycemia Protocol Stop: 03/17/20 01:03 Diltiazem HCl (Diltiazem Hcl 120 Mg Capcr) 120 mg PO BID [facility] Stop: 03/17/20 08:59 Last Admin: 02/16/20 08:36 Dose: 120 mg Documented by: Doxycycline Hyclate (Doxycycline Hyclate 100 Mg Cap) 100 mg PO BID [facility] Stop: 02/23/20 01:03 Last Admin: 02/16/20 08:37 Dose: 100 mg Documented by: Ezetimibe (Ezetimibe 10 Mg Tablet) 10 mg PO [facility] Stop: 03/17/20 08:59 Last Admin: 02/16/20 08:37 Dose: 10 mg Documented by: Glucagon (Glucagon For Inj 1 Mg Vial) 1 mg SQ UD PRN; Protocol PRN Reason: Hypoglycemia Protocol Stop: 03/17/20 01:03 Glucose (Glucose 10 Tabs/Tube) 4 - 8 tabs PO UD PRN; Protocol PRN Reason: Hypoglycemia Protocol Stop: 03/17/20 01:03 Glucose (Glucose 40% Gel 15 Gm Tube) 15 - 30 gm PO UD PRN; Protocol PRN Reason: Hypoglycemia Protocol Stop: 03/17/20 01:03 Heparin Sodium/Dextrose (Heparin Sodium/Dextrose) 25,000 units in 500 mls @ 24 mls/hr IV .[id number] [facility]; Protocol Stop: 03/16/20 21:44 Last Titration: 02/16/20 15:11 Dose: 1,200 units/hr, 24 mls/hr Documented by: Promethazine HCl 12.5 mg/ (Sodium Chloride) 50.5 mls @ 202 mls/hr IV Q6H PRN PRN Reason: Nausea And Vomiting Stop: 03/17/20 01:03 Ceftriaxone Sodium 2,000 mg/ (Dextrose) 70 mls @ 100 mls/hr IV Q24H [facility]; Protocol Stop: 12/11/20 20:59 Insulin Aspart (Insulin Aspart 100 Units/Ml 3 Ml Pen) 0 units SC ACHS [facility] Stop: 03/17/20 01:03 Last Admin: 02/16/20 12:06 Dose: 2 units Documented by: Insulin Glargine (Insulin Glargine Solostar 100 Units/Ml 3 Ml Pen) 5 units SC HS [facility] Stop: 03/17/20 01:03 Last Admin: 02/16/20 02:01 Dose: 5 units Documented by: Ipratropium Hickman (Ipratropium [place]ick[place] Neb Soln 0.02% 2.5 Ml Vial) 0.5 mg INH Q6R [facility] Stop: 03/17/20 01:03 Last Admin: 02/16/20 13:28 Dose: 0.5 mg Documented by: Levalbuterol HCl (Levalbuterol 1.25mg/0.5ml Neb) 1.25 mg INH Q6R [facility] Stop: 03/17/20 01:03 Last Admin: 02/16/20 13:28 Dose: 1.25 mg Documented by: Lisinopril (Lisinopril 10 Mg Tab) 10 mg PO QAM [facility] Stop: 03/17/20 01:49 Last Admin: 02/16/20 02:00 Dose: 10 mg Documented by: Miscellaneous (Carbohydrates For Hypoglycemia ) 15 - 30 gm PO UD PRN PRN Reason: Hypoglycemia Protocol Stop: 03/17/20 01:03 Prednisone (Prednisone 20 Mg Tab) 40 mg PO DAILY [facility] Stop: 02/20/20 08:59 Last Admin: 02/16/20 08:37 Dose: 40 mg Documented by: Tramadol HCl (Tramadol Hcl 50 Mg Tablet) 25 mg PO Q4H PRN PRN Reason: Pain Stop: 03/17/20 01:03 Warfarin Sodium (Warfarin Sod 5 Mg Tab) 5 mg PO DAILY@1600 [facility] Stop: 03/17/20 15:59 Last Admin: 02/16/20 15:50 Dose: 5 mg Documented by:
[2020-02-16] MEDS: HEPARIN SODIUM/DEXTROSE 25,000 UNITS/500 ML BAG IV SCH (17:15)
[2020-02-16] MEDS: cefTRIAXone SODIUM 2,000 MG in DEXTROSE 5% 50 ML IV SCH (22:17)
[2020-02-17] MEDS: LEVALBUTEROL 1.25MG/0.5ML NEB INH SCH ×3 (01:29→20:42)
[2020-02-17] MEDS: IPRATROPIUM BROMIDE NEB SOLN 0.02% 2.5 ML VIAL INH SCH ×3 (01:29→20:41)
[2020-02-17 04:42] LABS: Basophils # (auto) 0.01 K/uL (0-0.2); Basophils % (auto) 0.1 %; Eosinophils # (auto) 0.01 K/uL (0-0.5); Eosinophils % (auto) 0.1 %; Hematocrit (blood only) 34.5 % (37-47); Hemoglobin 11.4 g/dL (12.0-16.0); Immature Granulocytes # (auto) 0.02 K/uL (0.00-0.02); Immature Granulocytes % (auto) 0.2 %; Lymphocytes # (auto) 2.12 K/uL (1.2-3.4); Lymphocytes % (auto) 22.5 %; Mean Corpuscular Hemoglobin 31.8 pg (25-34); Mean Corpuscular Volume 96.1 fL (80-100); Mean Platelet Volume 11.2 fL (7.4-10.4); Monocytes # (auto) 0.75 K/uL (0.11-0.59); Neutrophils # (auto) 6.51 K/uL (1.4-6.5); Neutrophils % (auto) 69.1 %; Platelet Count 230 K/uL (130-400); RDW Coefficient of Variation 15.3 % (11.5-14.5); RDW Standard Deviation 53.5 fL (36.4-46.3); Red Blood Count 3.59 M/uL (4.2-5.4); White Blood Count 9.42 K/uL (4.8-10.8)
[2020-02-17] MEDS: INSULIN ASPART 100 UNITS/ML 3 ML PEN SC SCH ×5 (09:10→20:42)
[2020-02-17] MEDS: ASPIRIN 81 MG ECTAB PO SCH (09:15)
[2020-02-17] MEDS: predniSONE 20 MG TAB PO SCH (09:15)
[2020-02-17] MEDS: lisinopril 10 MG TAB PO SCH (09:15)
[2020-02-17] MEDS: dilTIAZem HCL 120 MG CAPCR PO SCH ×2 (09:15→20:40)
[2020-02-17] MEDS: DOXYCYCLINE HYCLATE 100 MG CAP PO SCH ×2 (09:15→20:40)
[2020-02-17] MEDS: EZETIMIBE 10 MG TABLET PO SCH (09:15)
[2020-02-17] MEDS ORDERED: ALBUT/IPRATROP 3MG/0.5MG NEB 3 ML VIAL INH PRN (10:00)
[2020-02-17] MEDS: WARFARIN SOD 5 MG TAB PO SCH (16:21)
[2020-02-17] MEDS: HEPARIN SODIUM/DEXTROSE 25,000 UNITS/500 ML BAG IV SCH (18:23)
[2020-02-17 20:36] LABS: Prothrombin Time 24.2 Seconds (9.0-12.0)
[2020-02-17 20:37] LABS: INR 2.4 (0.9-1.1); Partial Thromboplastin Ratio 4.9
[2020-02-17] MEDS: cefTRIAXone SODIUM 2,000 MG in DEXTROSE 5% 50 ML IV SCH (20:42)
[2020-02-17] MEDS: INSULIN GLARGINE SOLOSTAR 100 UNITS/ML 3 ML PEN SC SCH (20:43)
[2020-02-17 20:55] LABS: Partial Thromboplastin Time 138.1 Seconds (21.0-31.0)
[2020-02-18] MEDS: IPRATROPIUM BROMIDE NEB SOLN 0.02% 2.5 ML VIAL INH SCH ×2 (02:11→07:22)
[2020-02-18] MEDS: LEVALBUTEROL 1.25MG/0.5ML NEB INH SCH ×2 (02:11→07:22)
[2020-02-18 06:15] LABS: INR 2.2 (0.9-1.1); Prothrombin Time 22.1 Seconds (9.0-12.0)
[2020-02-18 06:26] LABS: Estimated Average Glucose 140 mg/dl; Hemoglobin A1C 6.5 % (4.5-5.6)
[2020-02-18] MEDS: dilTIAZem HCL 120 MG CAPCR PO SCH (09:21)
[2020-02-18] MEDS: predniSONE 20 MG TAB PO SCH (09:22)
[2020-02-18] MEDS: DOXYCYCLINE HYCLATE 100 MG CAP PO SCH (09:22)
[2020-02-18] MEDS: ASPIRIN 81 MG ECTAB PO SCH (09:22)
[2020-02-18] MEDS: EZETIMIBE 10 MG TABLET PO SCH (09:22)
[2020-02-18] MEDS: lisinopril 10 MG TAB PO SCH (09:22)
[2020-02-18] MEDS: INSULIN ASPART 100 UNITS/ML 3 ML PEN SC SCH ×2 (09:40→12:35)
--- NOTE | 2020-02-18 14:15 | Discharge Summary ---
Date of Service February 18, 2020 Admission HPI Per Admitting Provider History obtained from patient, family, and records. 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 Last confinement 2015 for recurrent PE DVT. Patient discharged on Coumadin. Patient had worsening cough productive of junky sputum and shortness of breath the last few days. No unusual fluid retention. No chest pain. Denies aspiration. No known recent COVID-19 contacts. At the ER, patient received Solu-Medrol and neb treatment for COPD exacerbation. MEDICAL HISTORY: As above. SURGERIES: TAVR, FAMILY HISTORY: Heart disease. PERSONAL AND SOCIAL HISTORY: Nonsmoker, no chronic intake of alcoholic beverages. Homemaker in her younger years. Admission Exam Per Admitting Provider GENERAL: Pleasant, obese, no respiratory distress SKIN: Normal color, warm HEENT: [place] palpebral conjunctivae, no ptosis, dry buccal mucosa NECK : Supple, short neck, no tenderness CHEST : Decreased breath sounds, occasional expiratory wheezes, no tenderness HEART : RRR, no obvious murmurs ABDOMEN: Some distention, nontender EXTREMITIES : Minimal LE swelling, no LE tenderness, no other conspicuous deformities noted NEUROLOGIC : Coherent, no facial asymmetry, no other gross focality Principal Diagnosis COPD exacerbation Pneumonia Hypoxia Discharge Exam CONSTITUTIONAL: obese, vitals as above, generally well-appearing EYES: normal conjunctivae, no scleral icterus ENT: external ear and nose normal, oropharynx clear, MMM RESPIRATORY: clear to auscultation bilaterally, no crackles, rales or wheezes, normal respiratory effort CARDIOVASCULAR: regular rate and rhythm, S1 and 2 heard without murmurs, gallops or rubs, no JVD, no peripheral edema GASTROINTESTINAL: normal bowel sounds, soft, nontender, nondistended, no guarding MUSCULOSKELETAL: strength 5/5 throughout, head is normocephalic and atraumatic SKIN: warm and dry NEUROLOGIC: CN 2-12 grossly intact, normal cognition, normal speech, no gross focal deficits. PSYCHIATRIC: alert cooperative and oriented to person, place and time. Discharge Data Allergies Allergy/AdvReac Type Severity Reaction Status Date / Time amoxicillin [From Augmentin] Allergy Intermediate Hives Verified 02/15/20 19:44 clavulanic acid Allergy Intermediate Hives Verified 02/15/20 19:44 [From Augmentin] Penicillins Allergy Intermediate Hives Verified 02/15/20 19:44 gabapentin Allergy Unknown Itching Verified 02/15/20 19:44 Consultations 02/15/20 19:24 ED Decision to Admit Stat Hospital Course (1) COPD exacerbation: (2) Pneumonia: The patient is an 84-year-old female who presented to the ER with shortness of breath and chest pressure. She was admitted to the hospitalist service for COPD exacerbation secondary to community-acquired pneumonia. The patient did not become septic during her hospital stay she felt better on hospital day 2 with treatment including Rocephin, doxycycline and bronchodilator therapy. She did require supplemental oxygen at 2 L/min for the majority of her hospital stay. On day of discharge a two-step test was performed and she was placed on 2 L/min with ambulation going home. She is notably on 2 L/min at night with sleep of oxygen at baseline. At time of discharge she was hemodynamically stable and afebrile and tolerating p.o. She was mentating and ambulating at baseline and sent home in stable condition with close primary care follow-up recommended. Total Time Total Time Spent Total Time Spent (In Minutes): 60 Total Time Includes: Examination of the Patient, Discharge Planning, Medication Reconciliation and Communication With Other Providers Discharge Plan Discharge Items Patient Disposition: Home - Self-Care Reason For Visit: RESP FAILURE, COVID NEG, DC ISOL Discharge Diagnosis: COPD exacerbation Pneumonia Hypoxia Condition on Discharge: Good Activity: Resume your previous activity Non-emergency contact: Primary Care Provider Call non-emergency contact if: you have any medication questions, your symptoms worsen, your pain is not controlled and you have a fever Follow-up/Referrals: Jamie Vela, [Primary Care Provider] - Diet: Carb Consistent or DM2 and Heart Healthy Addtl Attending Provider Instructions: Please take all medications as instructed on discharge list below. It is recommended that you follow-up with your primary care provider (PCP) within 1-2 weeks of discharge to ensure you are still doing well after going home. It is recommended that you have a repeat chest xray in 4-6 weeks to ensure complete resolution of pneumonia. Please followup with the Anticoagulation clinic some time this week for a repeat INR check. Continue warfarin dosing without changes. It was a pleasure taking care of you! Please call if you have any questions or problems. You can reach a [facility] hospitalist on duty at [facility] 24 hours a day by calling [phone]. Take care of yourself. Lili Bustillos, [facility] Hospitalist Pending Studies at Discharge: No Stand-Alone Forms: My [facility] Medications and DC Order Prescriptions: New doxycycline hyclate 100 mg Capsule 100 mg PO BID Qty: 8 RF: 0 cefdinir 300 mg capsule 300 mg PO BID Qty: 8 RF: 0 Continued aspirin [Aspirin Low Dose] 81 mg Tablet,Delayed Release (Dr/Ec) 81 mg PO QAM RF: 0 warfarin 5 mg tablet See Rx Instructions .ROUTE .COMPLEX RF: 0 diltiazem HCl 120 mg capsule,extended release 24hr 120 mg PO BID RF: 0 albuterol sulfate 90 mcg/actuation HFA aerosol inhaler 2 puff INHALATION Q4H PRN (Reason: Wheeze/Cough) RF: 0 ezetimibe 10 mg tablet 10 mg PO QAM RF: 0 metformin 750 mg tablet extended release 24 hr 750 mg PO DAILY RF: 0 lisinopril 10 mg tablet 10 mg PO QAM RF: 0 Discharge Orders: Discharge Order (Routine); Ordered 02/18/20 Ordered By: Lili Bustillos Admission Data Admit Date/Time: 02/15/20 20:49 Attending Provider: Lili Bustillos Admit Provider: Abhi Gomez Primary Care Provider: Jamie Vela Other Providers: Abhi Gomez Other Interventions: Discharge Summary Assessment (RN) Last Done: 02/18/20 15:09
== END 2020-02-18 15:44 | disposition home or self-care (01) | DRG 193 ==
LOC: ED 18:04 → 2N 20:49 → SUATTDRO 20:49 → 2N 02-16 00:05

== ENCOUNTER 2020-06-29 09:34 | Inpatient (IN) ==
--- NOTE | 2020-06-29 09:40 | Emergency Department Note ---
Impression & Plan Fall, Knee pain, Inability to walk ED Provider Note NAME: KELSI MOTA AGE: 85 SEX: F : 1935 ARRIVES VIA: Ambulance INFORMANT: patient, ED PROVIDER(S): Luciano Mccartney MD Chief Complaint: Knee pain HPI: Patient does present with right knee pain that she describes as sharp and in the posterior aspect of the knee. The patient states that yesterday she was in the kitchen between 5 and 6 PM at which point the patient was talking to her and then her knee gave out. The patient states that since then she had had some pain but had taken some Tylenol which mildly improved her symptoms. The patient does complain of some thigh pain as well. The patient states she has had some difficulty with walking. The patient denies any fevers chills chest pain shortness of breath nausea or vomiting. Patient denies any head strike. The patient does take Coumadin for history of A. fib ROS: See HPI for pertinent positives and negatives. A total of 10 systems were reviewed and otherwise negative. Past medical history: See below Surgical history: See below Social history: See below Physical Exam: GENERAL: Wearing a mask. NAD, non-toxic. EYE EXAM: Normal conjunctiva. PERRL, no anisocoria and EOM's grossly intact w/o pain. NECK: Supple, no nuchal rigidity, no adenopathy, non-tender. No signs of meningismus. LUNGS: Clear to auscultation. Normal chest wall mechanics. HEART: NSR, no MRG. ABDOMEN: Abdomen soft, non-tender, normo-active bowel sounds, no masses, no rebound or guarding. BACK: No CVA TTP. SKIN: No rashes and no bruising. UPPER EXTREMITIES: Upper extremities are grossly normal. LOWER EXTREMITIES: No obvious deformity, mild pain to the posterior aspect of the knee with no obvious patella pain, neurovascular intact distally, decreased range of motion secondary to pain, mild pain to the mid lateral thigh without obvious deformity, no hip or pelvis pain. NEURO EXAM: A&O x3, cranial nerves II-XII grossly intact, normal speech, moves all 4 extremities on command w/o issue. Differential diagnoses: Fracture, subluxation, dislocation, contusion, ligamentous injury, neurovascular, compartment syndrome, rhabdomyolysis, as well as other pathologies. Course: Patient was seen and evaluated the bedside. Full history physical exam was performed. EKG Indication: Dizziness Sinus rhythm first-degree AV block, rate 68, prolonged MO, normal QRS and QT, left axis deviation, T wave flattening in V2. No obvious ST changes. MDM: Patient was seen due to concern for knee pain. X-rays were obtained and the patient was treated symptomatically. Patient had no head strike or LOC. Patient denies any head or neck pain. Patient's x-rays are negative. The patient was unable to be ambulatory so CT of the knee was ordered. Patient did have some dizziness. EKG and BSG obtained. EKG without obvious arrhythmia. BSG 114. Patient has been nauseous Zofran was given. CT the knee is negative for acute fracture or dislocation. Given the concern for the patient's inability to walk I did speak with the case investigator to discuss possible rehab. Unable to place today. Blood work is obtained along with a Covid swab. Did speak with the on-call hospitalist and the patient was admitted by Dr. Lara. Covid flu RSV negative. Past Med/Surg History Medical History Abnormal chest x-ray Asthma Chest pain Deep vein thrombosis Myocardial Infarction Sleep apnea 1 liter o2 Subtherapeutic international normalized ratio (INR) Surgical History History of cardiac cath History of colonoscopy History of heart artery stent History of heart valve replacement Social History Smoking Status: Never smoker Second Hand Exposure: No; Hx Alcohol Use: No Hx Substance Use: No Preferred Language: Greenlandic Communication Ability: Effective Roof Technician Required: No Beliefs That Will Affect Care: None Current Living Situation: Spouse and Family Current Living Situation Comment: Lives w/ and son current occupation: Retired Feels Safe at Home: Yes Assistive Devices: Cane and Oxygen - at Night Allergies Allergies Allergy/AdvReac Type Severity Reaction Status Date / Time amoxicillin [From Augmentin] Allergy Intermediate Hives Verified 06/29/20 10:55 clavulanic acid Allergy Intermediate Hives Verified 06/29/20 10:55 [From Augmentin] Penicillins Allergy Intermediate Hives Verified 06/29/20 10:55 gabapentin Allergy Unknown Itching Verified 06/29/20 10:55 Home Meds Home Medications Medication Instructions Recorded Confirmed albuterol sulfate 2 puff INHALATION Q4H PRN 07/14/19 06/29/20 aspirin [Aspirin Low Dose] 81 mg PO QAM 07/14/19 06/29/20 diltiazem HCl 120 mg PO BID 07/14/19 06/29/20 ezetimibe 10 mg PO QAM 07/14/19 06/29/20 metformin 750 mg PO QAM 07/14/19 06/29/20 warfarin See Rx Instructions .ROUTE .COMPLEX 07/14/19 06/29/20 lisinopril 10 mg PO QAM 02/15/20 06/29/20 pantoprazole [Protonix] 40 mg PO DAILY 06/29/20 06/29/20 potassium chloride [Klor-Con] 20 meq PO DAILY 06/29/20 06/29/20 Results & Data (ED) Vital Signs Vital Signs - 24 hr 06/29/20 09:50 06/29/20 11:19 06/29/20 11:21 Temperature 36.7 C Temperature Source Oral Pulse Rate 75 Pulse Rate [Right Finger] 76 Pulse Rate from SpO2 Sensor Respiratory Rate 18 18 Respiratory Effort / Characteristics Non-Labored Respiratory Depth Normal Blood Pressure 168/94 H Blood Pressure [Right Arm] 175/66 H Blood Pressure Mean 118 Blood Pressure Mean [Right Arm] 102 Pulse Oximetry 95 95 93 Oxygen Delivery Method Room Air Room Air Room Air Oxygen Flow Rate Sepsis Recent Fever Within 48 Hours No Sepsis New/Unexplained Change in Mental Status N/A Sepsis Action Taken by Nursing No Action Required 06/29/20 13:09 06/29/20 13:12 06/29/20 13:30 Temperature Temperature Source Pulse Rate 70 63 Pulse Rate [Right Finger] Pulse Rate from SpO2 Sensor 66 63 Respiratory Rate 19 20 Respiratory Effort / Characteristics Respiratory Depth Blood Pressure 142/73 H 125/67 Blood Pressure [Right Arm] Blood Pressure Mean 96 86 Blood Pressure Mean [Right Arm] Pulse Oximetry 88 L 93 98 Oxygen Delivery Method Room Air Nasal Cannula Nasal Cannula Oxygen Flow Rate 2 2 Sepsis Recent Fever Within 48 Hours Sepsis New/Unexplained Change in Mental Status Sepsis Action Taken by [facility] Medications Current Medication List: was personally reviewed by me Laboratory Data Attestation: I reviewed the patient's lab results. Result diagrams: 06/29/20 12:39 06/29/20 12:39 Lab Results 06/29/20 06/29/20 06/29/20 Range/Units 11:15 12:39 12:39 WBC 7.74 (4.8-10.8) K/uL RBC 4.11 L (4.2-5.4) M/uL Hgb 12.8 (12.0-16.0) g/dL Hct 38.3 (37-47) % MCV 93.2 (80-100) fL MCH 31.1 (25-34) pg MCHC 33.4 (32-36) g/dL RDW Std Deviation 52.8 H (36.4-46.3) fL RDW Coeff of Linda 15.7 H (11.5-14.5) % Plt Count 242 (130-400) K/uL MPV 10.9 H (7.4-10.4) fL Immature Gran % (Auto) 0.1 % Neut % (Auto) 74.7 % Lymph % (Auto) 14.9 % [place] % (Auto) 9.2 % Eos % (Auto) 1.0 % Baso % (Auto) 0.1 % Neut # (Auto) 5.78 (1.4-6.5) K/uL Lymph # (Auto) 1.15 L (1.2-3.4) K/uL [place] # (Auto) 0.71 H (0.11-0.59) K/uL Eos # (Auto) 0.08 (0-0.5) K/uL Baso # (Auto) 0.01 (0-0.2) K/uL Immature Gran # (Auto) 0.01 (0.00-0.02) K/uL PT (9.0-12.0) Seconds INR (0.9-1.1) APTT (21.0-31.0) Seconds PTT Ratio Sodium 142 (136-145) mmol/L Potassium 4.3 (3.5-5.1) mmol/L Chloride 108 H (98-107) mmol/L Carbon Dioxide 29 (21-32) mmol/L Anion Gap 5.0 (3-11) BUN 16 (7-18) mg/dl Creatinine 0.56 L (0.6-1.2) mg/dl Est Cr Clr Drug Dosing 74.5 ml/min Est GFR ( Amer) 97.2 Est GFR (Non-Af Amer) 83.8 BUN/Creatinine Ratio 29.2 H (10-20) Glucose 125 H (70-99) mg/dl POC Glucose 114 H (70-99) mg/dl Calcium 8.6 (8.5-10.1) mg/dl TSH 0.692 (0.300-4.500) uIu/ml COVID-19 Eval Order SARS-CoV-2 (PCR) (Negative) Influenza Type A (PCR) (Neg) Influenza Type B (PCR) (Neg) RSV (RT-PCR) (Neg) 06/29/20 06/29/20 06/29/20 Range/Units 12:39 12:40 12:40 WBC (4.8-10.8) K/uL RBC (4.2-5.4) M/uL Hgb (12.0-16.0) g/dL Hct (37-47) % MCV (80-100) fL MCH (25-34) pg MCHC (32-36) g/dL RDW Std Deviation (36.4-46.3) fL RDW Coeff of Linda (11.5-14.5) % Plt Count (130-400) K/uL MPV (7.4-10.4) fL Immature Gran % (Auto) % Neut % (Auto) % Lymph % (Auto) % [place] % (Auto) % Eos % (Auto) % Baso % (Auto) % Neut # (Auto) (1.4-6.5) K/uL Lymph # (Auto) (1.2-3.4) K/uL [place] # (Auto) (0.11-0.59) K/uL Eos # (Auto) (0-0.5) K/uL Baso # (Auto) (0-0.2) K/uL Immature Gran # (Auto) (0.00-0.02) K/uL PT 19.5 H (9.0-12.0) Seconds INR 2.0 H (0.9-1.1) APTT 35.2 H (21.0-31.0) Seconds PTT Ratio 1.3 Sodium (136-145) mmol/L Potassium (3.5-5.1) mmol/L Chloride (98-107) mmol/L Carbon Dioxide (21-32) mmol/L Anion Gap (3-11) BUN (7-18) mg/dl Creatinine (0.6-1.2) mg/dl Est Cr Clr Drug Dosing ml/min Est GFR ( Amer) Est GFR (Non-Af Amer) BUN/Creatinine Ratio (10-20) Glucose (70-99) mg/dl POC Glucose (70-99) mg/dl Calcium (8.5-10.1) mg/dl TSH (0.300-4.500) uIu/ml COVID-19 Eval Order CovFluRsv at [facility] SARS-CoV-2 (PCR) NEGATIVE (Negative) Influenza Type A (PCR) Negative (Neg) Influenza Type B (PCR) Negative (Neg) RSV (RT-PCR) Negative (Neg) Administered Medications Discontinued Medications Acetaminophen (Acetaminophen 500 Mg Tab) 1,000 mg PO NOW STA Stop: 06/29/20 09:55 Last Admin: 06/29/20 10:03 Dose: 1,000 mg Documented by: [id number] Ondansetron HCl (Ondansetron Inj 2 Mg/Ml 2 Ml Vial) 4 mg IV NOW STA Stop: 06/29/20 11:57 Last Admin: 06/29/20 12:09 Dose: Not Given Documented by: [id number] Ondansetron HCl (Ondansetron 4 Mg Od Tab) 4 mg PO NOW STA Stop: 06/29/20 12:05 Last Admin: 06/29/20 12:11 Dose: 4 mg Documented by: [id number] Tramadol HCl (Tramadol Hcl 50 Mg Tablet) 50 mg PO NOW STA Stop: 06/29/20 09:55 Last Admin: 06/29/20 10:03 Dose: 50 mg Documented by: [id number] Imaging Data Radiologist's Impression: Femur X-Ray 06/29/20 09:54 XR hip RT 2V w pelvis, XR femur RT 2V routine, XR knee RT 3V HISTORY: 85 years-old Female s/p knee gave out and pain, inability to bear weig acute pelvic, right hip, femur and knee pain COMPARISON: CT abdomen and pelvis 02/04/2010 TECHNIQUE: AP view of the pelvis with 2 views of the right hip, 2 views of the right femur and 3 views of the right knee FINDINGS: PELVIS/RIGHT HIP: Demineralized appearance the bones. Mild right and zjju-qw-wnvsckuy left hip osteoarthritis. No acute fracture, dislocation or avascular necrosis. Arterial calcifications. There is a 7.3 x 2.3 cm circumscribed ovoid calcification of the central uterus which is new from comparison and likely uterine or bladder in origin. RIGHT FEMUR: No acute fracture, or dislocation. RIGHT KNEE: There are 2 subadjacent metallic density foreign bodies within the lateral tissues measuring up to 4 mm. Small joint effusion. Moderate medial with mild lateral patellofemoral compartment osteoarthritis. No acute fracture or dislocation. IMPRESSION: 1. No acute fracture or dislocation. 2. There are 2 subcentimeter metallic density foreign bodies of the lateral tissues of the knee 3. Small right knee joint effusion. 4. Osteoarthritis as above. ACT 112: Negative or not required by law. The above report was generated using voice recognition software. It may contain grammatical, syntax or spelling errors. Electronically signed by: Felix Santoyo M.D. 06/29/2020 10:47 AM Hip/Pelvis X-Ray 06/29/20 09:54 XR hip RT 2V w pelvis, XR femur RT 2V routine, XR knee RT 3V HISTORY: 85 years-old Female s/p knee gave out and pain, inability to bear weig acute pelvic, right hip, femur and knee pain COMPARISON: CT abdomen and pelvis 02/04/2010 TECHNIQUE: AP view of the pelvis with 2 views of the right hip, 2 views of the right femur and 3 views of the right knee FINDINGS: PELVIS/RIGHT HIP: Demineralized appearance the bones. Mild right and fljt-wy-jgwttwup left hip osteoarthritis. No acute fracture, dislocation or avascular necrosis. Arterial calcifications. There is a 7.3 x 2.3 cm circumscribed ovoid calcification of the central uterus which is new from comparison and likely uterine or bladder in origin. RIGHT FEMUR: No acute fracture, or dislocation. RIGHT KNEE: There are 2 subadjacent metallic density foreign bodies within the lateral tissues measuring up to 4 mm. Small joint effusion. Moderate medial with mild lateral patellofemoral compartment osteoarthritis. No acute fracture or dislocation. IMPRESSION: 1. No acute fracture or dislocation. 2. There are 2 subcentimeter metallic density foreign bodies of the lateral tissues of the knee 3. Small right knee joint effusion. 4. Osteoarthritis as above. ACT 112: Negative or not required by law. The above report was generated using voice recognition software. It may contain grammatical, syntax or spelling errors. Electronically signed by: Felix Santoyo M.D. 06/29/2020 10:47 AM Knee X-Ray 06/29/20 09:54 XR hip RT 2V w pelvis, XR femur RT 2V routine, XR knee RT 3V HISTORY: 85 years-old Female s/p knee gave out and pain, inability to bear weig acute pelvic, right hip, femur and knee pain COMPARISON: CT abdomen and pelvis 02/04/2010 TECHNIQUE: AP view of the pelvis with 2 views of the right hip, 2 views of the right femur and 3 views of the right knee FINDINGS: PELVIS/RIGHT HIP: Demineralized appearance the bones. Mild right and ygvs-[id number]-lhbltbnw left hip osteoarthritis. No acute fracture, dislocation or avascular necrosis. Arterial calcifications. There is a 7.3 x 2.3 cm circumscribed ovoid calcification of the central uterus which is new from comparison and likely uterine or bladder in origin. RIGHT FEMUR: No acute fracture, or dislocation. RIGHT KNEE: There are 2 subadjacent metallic density foreign bodies within the lateral tissues measuring up to 4 mm. Small joint effusion. Moderate medial with mild lateral patellofemoral compartment osteoarthritis. No acute fracture or dislocation. IMPRESSION: 1. No acute fracture or dislocation. 2. There are 2 subcentimeter metallic density foreign bodies of the lateral tissues of the knee 3. Small right knee joint effusion. 4. Osteoarthritis as above. ACT 112: Negative or not required by law. The above report was generated using voice recognition software. It may contain grammatical, syntax or spelling errors. Electronically signed by: Felix Santoyo M.D. 06/29/2020 10:[address] 06/29/20 11:13 CT knee RT wo con HISTORY: 85 years-old Female pain, non weight bearing, neg XRs acute right knee pain COMPARISON: Right knee radiographs of same day TECHNIQUE: Multiple axial CT images of the right knee were obtained without the use of IV contrast. A dose lowering technique was used consistent with the principals of ALARA. FINDINGS: Arterial calcifications. There are 2 subadjacent versus a single metallic density foreign body of the lateral knee subcutaneous tissues conglomerate measuring 5 x 2 mm. Mild anterior subcutaneous edema. Small to moderate joint effusion. The tendons and ligaments of the knee are not well evaluated by CT technique. No intra-articular loose body identified. No intramuscular hematoma or large Vaughan's cyst identified. Demineralized appearance of the bones. There is moderate medial with mild to moderate lateral and patellofemoral compartment osteoarthritis. No acute fractu re or dislocation. 6 mm bone island of the tibial tuberosity. No osteochondral defect. IMPRESSION: 1. No acute fracture or dislocation. 2. 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 3. Small to moderate joint effusion. 4. Two subadjacent metallic density foreign bodies of the lateral knee c onglomerate measure up to 5 mm. ACT 112: Negative or not required by law. The above report was generated using voice recognition software. It may contain grammatical, syntax or spelling errors. Electronically signed by: Felix Santoyo M.D. 06/29/2020 12:01 PM Discharge Plan Visit Data Chief Complaint: Knee Injury/Pain ED Provider: Luciano Mccartney Discharge Problem: Fall, Knee pain, Inability to walk Forms Stand Alone Forms: [id number] Prescriptions Prescriptions: No Action aspirin [Aspirin Low Dose] 81 mg Tablet,Delayed Release (Dr/Ec) 81 mg PO QAM RF: 0 warfarin 5 mg tablet See Rx Instructions .ROUTE .COMPLEX RF: 0 diltiazem HCl 120 mg capsule,extended release 24hr 120 mg PO BID RF: 0 albuterol sulfate 90 mcg/actuation HFA aerosol inhaler 2 puff INHALATION Q4H PRN (Reason: Wheeze/Cough) RF: 0 ezetimibe 10 mg tablet 10 mg PO QAM RF: 0 metformin 750 mg tablet extended release 24 hr 750 mg PO QAM RF: 0 lisinopril 10 mg tablet 10 mg PO QAM RF: 0 potassium chloride [Klor-Con] 20 mEq Packet 20 meq PO DAILY RF: 0 pantoprazole [Protonix] 40 mg Tablet,Delayed Release (Dr/Ec) 40 mg PO DAILY RF: 0 Discharge Problem: Fall Qualifiers: Encounter type: initial encounter Qualified Code(s): W19.XXXA - Unspecified fall, initial encounter Knee pain Qualifiers: Chronicity: acute Laterality: right Qualified Code(s): M25.561 - Pain in right knee
[2020-06-29] MEDS ORDERED: ACETAMINOPHEN 500 MG TAB PO STA (09:54)
[2020-06-29] MEDS ORDERED: traMADol HCL 50 MG TABLET PO STA (09:54)
--- NOTE | 2020-06-29 10:48 | XRay Report ---
XR hip RT 2V w pelvis, XR femur RT 2V routine, XR knee RT 3V HISTORY: 85 years-old Female s/p knee gave out and pain, inability to bear weig acute pelvic, right hip, femur and knee pain COMPARISON: CT abdomen and pelvis 02/04/2010 TECHNIQUE: AP view of the pelvis with 2 views of the right hip, 2 views of the right femur and 3 view s of the right knee FINDINGS: PELVIS/RIGHT HIP: Demineralized appearance the bones. Mild right and kfvu-bp-tuchennq left hip osteoarthritis. No acute fracture, dislocation or avascular necrosis. Arterial calcifications. There is a 7.3 x 2.3 cm circum scribed ovoid calcification of the central uterus which is new from comparison and likely uterine or bladder in origin. RIGHT FEMUR: No acute fracture, or dislocation. RIGHT KNEE: There are 2 subadjacent metallic density foreign bodies within the lateral tissues measuring up to 4 mm. Small joint effusion. Moderate medial with mild lateral patellofemoral compartment osteoarthritis . No acute fracture or dislocation. IMPRESSION: 1. No acute fracture or dislocation. 2. There are 2 subcentimeter metallic density foreign bodies of the lateral tissues of the knee 3. Small right knee joint effusion. 4. Osteoarthritis as above. ACT 112: Negative or not required by law. The above report was generated using voice recognition software. It may contain grammatical, syntax o r spelling errors. Electronically signed by: Felix Santoyo M.D. 06/29/2020 10:47 AM
[2020-06-29] MEDS ORDERED: ONDANSETRON INJ 2 MG/ML 2 ML VIAL IV STA (11:56)
--- NOTE | 2020-06-29 12:02 | CT Scan Report ---
CT knee RT wo con HISTORY: 85 years-old Female pain, non weight bearing, neg XRs acute right knee pain COMPARISON: Right knee radiographs of same day TECHNIQUE: Multiple axial CT images of the right knee were obtained without the use of IV contrast. A dose lowering technique was used consistent with the principals of MARCELA. FINDINGS: Arterial calcifications. There are 2 subadjacent versus a single metallic density foreign body of the lateral knee subcutaneous tissues conglomerate measuring 5 x 2 mm. Mild anterior subcutaneous edema. Small to moderate joint effusion. The tendons and ligaments of the knee are not well evaluated by CT technique. No intra-articular loose body identified. No intramuscular hematoma or large Vaughan's cyst identified. Demineralized appearance of the bones. There is moderate medial with mild to moderate lateral and pat ellofemoral compartment osteoarthritis. No acute fracture or dislocation. 6 mm bone island of the tib ial tuberosity. No osteochondral defect. IMPRESSION: 1. No acute fracture or dislocation. 2. 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 3. Small to moderate joint effusion. 4. Two subadjacent metallic density foreign bodies of the lateral knee conglomerate measure up to 5 m m. ACT 112: Negative or not required by law. The above report was generated using voice recognition software. It may contain grammatical, syntax o r spelling errors. Electronically signed by: Felix Santoyo M.D. 06/29/2020 12:01 PM
[2020-06-29] MEDS ORDERED: ONDANSETRON 4 MG OD TAB PO STA (12:04)
[2020-06-29 12:50] LABS: Basophils # (auto) 0.01 K/uL (0-0.2); Basophils % (auto) 0.1 %; Eosinophils # (auto) 0.08 K/uL (0-0.5); Hematocrit (blood only) 38.3 % (37-47); Hemoglobin 12.8 g/dL (12.0-16.0); Immature Granulocytes # (auto) 0.01 K/uL (0.00-0.02); Immature Granulocytes % (auto) 0.1 %; Lymphocytes # (auto) 1.15 K/uL (1.2-3.4); Lymphocytes % (auto) 14.9 %; Mean Corpuscular Hemoglobin 31.1 pg (25-34); Mean Corpuscular Hgb Conc 33.4 g/dL (32-36); Mean Corpuscular Volume 93.2 fL (80-100); Mean Platelet Volume 10.9 fL (7.4-10.4); Monocytes # (auto) 0.71 K/uL (0.11-0.59); Monocytes % (auto) 9.2 %; Neutrophils # (auto) 5.78 K/uL (1.4-6.5); Neutrophils % (auto) 74.7 %; Platelet Count 242 K/uL (130-400); RDW Coefficient of Variation 15.7 % (11.5-14.5); RDW Standard Deviation 52.8 fL (36.4-46.3); Red Blood Count 4.11 M/uL (4.2-5.4); White Blood Count 7.74 K/uL (4.8-10.8)
[2020-06-29 13:07] LABS: BUN Creatinine Ratio 29.2 (10-20); Calcium 8.6 mg/dl (8.5-10.1); Creatinine Clr Calc Pharmacy 74.5 ml/min; Est GFR (African American) 97.2; Est GFR (Non-African American) 83.8; Potassium 4.3 mmol/L (3.5-5.1)
[2020-06-29 13:17] LABS: Thyroid Stimulating Hormone 0.692 uIu/ml (0.300-4.500)
--- NOTE | 2020-06-29 13:38 | History & Physical Report ---
Date of Service June 29, 2020 Assessment & Plan (1) Knee pain: -Admit to [facility] on OBS -PT/OT -Pain control ordered, Tylenol, lidocaine patch, Voltaren gel, heat/ice -Start prednisone 40 mg p.o. now, possibly continue with this proves to improve her pain -Consider orthopedic consult -Patient may require home health rehab, to assist with discharge planning (2) S/P TAVR (transcatheter aortic valve replacement): -History of such in February [address] Argueta, follows with Dr. Mcarthur as an outpatient (3) Atrial fibrillation: -Continue Coumadin: Take 7.5 mg Wednesday and Wednesdays, 5 mg all other days of the week -Follow INR. today 2.0 (4) Hypertension: Hold, continue diltiazem, lisinopril (5) Dyslipidemia: -Continue acetamide 10 mg daily (6) COPD (chronic obstructive pulmonary disease): Had bout of pneumonia in March, . -Diagnosed 10 years ago, follows with pulmonology as an outpatient. Present on Admission?: No (7) DM type 2 (diabetes mellitus, type 2): -Hold Metformin [facility] = 6.9 on 03/20/2020, will check (8) GERD (gastroesophageal reflux disease): -Continue diet control, protonix 40 daily (9) Diabetic neuropathy: -History of such, stable, PT/OT (10) DVT prophylaxis: - teds, Coumadin CODE: DNR/DNI Dispo: From home, likely to remain in the hospital x 1-2 days History of Present Illness Primary Care Provider: Jamie Vela, This is an 85-year-old female with PMHx of COPD, HTN, HLD, A. fib on Coumadin, CAD, s/p TAVR, GERD, morbid obesity with BMI of 39.6, osteoarthritis, anemia, diabetic neuropathy who presents with right knee pain, generalized weakness and inability to walk well since last night s/p sliding down to the floor in the middle of her kitchen. She suddenly just could not walk like she wanted to, denies recent falls or other trauma to the R knee or leg. This was witnessed by her , denies any LOC, dizziness, lightheadedness, and did not hit her head. She typically uses a cane at home to assist with ambulation. She took a Tylenol last evening which improved her pain slightly however this morning she still was unable to walk so presented to the ER. Allergies Allergy/AdvReac Type Severity Reaction Status Date / Time amoxicillin [From Augmentin] Allergy Intermediate Hives Verified 06/29/20 10:55 clavulanic acid Allergy Intermediate Hives Verified 06/29/20 10:55 [From Augmentin] Penicillins Allergy Intermediate Hives Verified 06/29/20 10:55 gabapentin Allergy Unknown Itching Verified 06/29/20 10:55 Home Medications Medication Instructions Recorded Confirmed Type albuterol sulfate 2 puff INHALATION Q4H PRN 07/14/19 06/29/20 History aspirin [Aspirin Low Dose] 81 mg PO QAM 07/14/19 06/29/20 History diltiazem HCl 120 mg PO BID 07/14/19 06/29/20 History ezetimibe 10 mg PO QAM 07/14/19 06/29/20 History metformin 750 mg PO QAM 07/14/19 06/29/20 History warfarin See Rx Instructions .ROUTE .COMPLEX 07/14/19 06/29/20 History lisinopril 10 mg PO QAM 02/15/20 06/29/20 History pantoprazole [Protonix] 40 mg PO DAILY 06/29/20 06/29/20 History potassium chloride [Klor-Con] 20 meq PO DAILY 06/29/20 06/29/20 History Past Med/Surg History Medical History Abnormal chest x-ray Asthma Chest pain Deep vein thrombosis Myocardial Infarction Sleep apnea 1 liter o2 Subtherapeutic international normalized ratio (INR) Surgical History History of cardiac cath History of colonoscopy History of heart artery stent History of heart valve replacement Social History Smoking Status: Never smoker Second Hand Exposure: No; Hx Alcohol Use: No Hx Substance Use: No Preferred Language: [place] Zealander Communication Ability: Effective Sponsorship Coordinator Required: No Beliefs That Will Affect Care: None Current Living Situation: Spouse and Family Current Living Situation Comment: Lives w/ and son current occupation: Retired Feels Safe at Home: Yes Assistive Devices: Cane and Oxygen - at Night Review of Systems Review of Systems: Constitutional: No fever, sweats or chills Eyes: No diplopia, no worsening or blurred vision ENT: normal hearing, no trouble swallowing Respiratory: No cough, sputum, dyspnea at rest or on exertion. Wears 2 L via NC at all times, 1 L via CPAP HS for copd and stephen. Cardiovascular: No chest pain, tightness or palpitations Abdomen: No pain, nausea, vomiting, diarrhea or constipation Musculoskeletal:See HPI. R knee and calf pain, R hip weakness, Otherwise No joint pain, calf pain, swelling Neurologic: As per HPI. No weakness, numbness/tingling, or balance problems Psychiatric: No anxiety or depression Skin: No rash or itch Physical Exam Physical Exam: General: awake, alert, no apparent distress, obese with BMI 39.6 Head: Normocephalic, atraumatic ENT: PERRL, EOMI, no pharyngeal exudate, mucous membranes moist Chest: Clear to auscultation, on 2L via NC with O2 sats equal to 98%, + inspiratory and expiratory wheeze at the left base, faint rales bibasilarly. Cardiac: Regular rate and rhythm, + murmur s/p TAVR, no JVD, normal peripheral pulses, good capillary refill Abdominal: NABS x 4 quadrants, soft, nondistended, nontender to palpation, no rebound or guarding Extremities: Normal inspection, possible small right knee effusion, no pain with palpation, + pain with knee flexion, + inability to straight leg raise with right hip, no peripheral edema or erythema, calfs nontender to palpation Psych: Normal mood and affect Neuro: AAO x 3, strength intact bilaterally and rated 5/5 in upper extremities, rated 2/5 in the right hip, 3/5 in the right knee, speech is clear, no peripheral sensory deficits Results & Data Results & Data ([facility]) Vital Signs (Past 12 Hours) Vital Signs Temp Pulse Pulse Resp BP BP Pulse Ox 06/29/20 13:12 93 06/29/20 13:09 70 19 142/73 H 88 L 06/29/20 11:21 93 06/29/20 11:19 76 18 175/66 H 95 06/29/20 09:50 36.7 C 75 18 168/94 H 95 Diagnostic Findings Femur X-Ray 06/29/20 09:54 XR hip RT 2V w pelvis, XR femur RT 2V routine, XR knee RT 3V HISTORY: 85 years-old Female s/p knee gave out and pain, inability to bear weig acute pelvic, right hip, femur and knee pain COMPARISON: CT abdomen and pelvis 02/04/2010 TECHNIQUE: AP view of the pelvis with 2 views of the right hip, 2 views of the right femur and 3 views of the right knee FINDINGS: PELVIS/RIGHT HIP: Demineralized appearance the bones. Mild right and pxvn-fi-ekqxxxgk left hip osteoarthritis. No acute fracture, dislocation or avascular necrosis. Arterial calcifications. There is a 7.3 x 2.3 cm circumscribed ovoid calcification of the central uterus which is new from comparison and likely uterine or bladder in origin. RIGHT FEMUR: No acute fracture, or dislocation. RIGHT KNEE: There are 2 subadjacent metallic density foreign bodies within the lateral tissues measuring up to 4 mm. Small joint effusion. Moderate medial with mild lateral patellofemoral compartment osteoarthritis. No acute fracture or dislocation. IMPRESSION: 1. No acute fracture or dislocation. 2. There are 2 subcentimeter metallic density foreign bodies of the lateral tissues of the knee 3. Small right knee joint effusion. 4. Osteoarthritis as above. ACT 112: Negative or not required by law. The above report was generated using voice recognition software. It may contain grammatical, syntax or spelling errors. Electronically signed by: Felix Santoyo M.D. 06/29/2020 10:47 AM Hip/Pelvis X-Ray 06/29/20 09:54 XR hip RT 2V w pelvis, XR femur RT 2V routine, XR knee RT 3V HISTORY: 85 years-old Female s/p knee gave out and pain, inability to bear weig acute pelvic, right hip, femur and knee pain COMPARISON: CT abdomen and pelvis 02/04/2010 TECHNIQUE: AP view of the pelvis with 2 views of the right hip, 2 views of the right femur and 3 views of the right knee FINDINGS: PELVIS/RIGHT HIP: Demineralized appearance the bones. Mild right and iabi-pc-ohgkbxib left hip osteoarthritis. No acute fracture, dislocation or avascular necrosis. Arterial calcifications. There is a 7.3 x 2.3 cm circumscribed ovoid calcification of the central uterus which is new from comparison and likely uterine or bladder in origin. RIGHT FEMUR: No acute fracture, or dislocation. RIGHT KNEE: There are 2 subadjacent metallic density foreign bodies within the lateral tissues measuring up to 4 mm. Small joint effusion. Moderate medial with mild lateral patellofemoral compartment osteoarthritis. No acute fracture or dislocation. IMPRESSION: 1. No acute fracture or dislocation. 2. There are 2 subcentimeter metallic density foreign bodies of the lateral tissues of the knee 3. Small right knee joint effusion. 4. Osteoarthritis as above. ACT 112: Negative or not required by law. The above report was generated using voice recognition software. It may contain grammatical, syntax or spelling errors. Electronically signed by: Felix Santoyo M.D. 06/29/2020 10:47 AM Knee X-Ray 06/29/20 09:54 XR hip RT 2V w pelvis, XR femur RT 2V routine, XR knee RT 3V HISTORY: 85 years-old Female s/p knee gave out and pain, inability to bear weig acute pelvic, right hip, femur and knee pain COMPARISON: CT abdomen and pelvis 02/04/2010 TECHNIQUE: AP view of the pelvis with 2 views of the right hip, 2 views of the right femur and 3 views of the right knee FINDINGS: PELVIS/RIGHT HIP: Demineralized appearance the bones. Mild right and cjnc-ne-efpbqrhe left hip osteoarthritis. No acute fracture, dislocation or avascular necrosis. Arterial calcifications. There is a 7.3 x 2.3 cm circumscribed ovoid calcification of the central uterus which is new from comparison and likely uterine or bladder in origin. RIGHT FEMUR: No acute fracture, or dislocation. RIGHT KNEE: There are 2 subadjacent metallic density foreign bodies within the lateral tissues measuring up to 4 mm. Small joint effusion. Moderate medial with mild lateral patellofemoral compartment osteoarthritis. No acute fracture or dislocation. IMPRESSION: 1. No acute fracture or dislocation. 2. There are 2 subcentimeter metallic density foreign bodies of the lateral tissues of the knee 3. Small right knee joint effusion. 4. Osteoarthritis as above. ACT 112: Negative or not required by law. The above report was generated using voice recognition software. It may contain grammatical, syntax or spelling errors. Electronically signed by: Felix Santoyo M.D. 06/29/2020 10:[address] 06/29/20 11:13 CT knee RT wo con HISTORY: 85 years-old Female pain, non weight bearing, neg XRs acute right knee pain COMPARISON: Right knee radiographs of same day TECHNIQUE: Multiple axial CT images of the right knee were obtained without the use of IV contrast. A dose lowering technique was used consistent with the principals of MARCELA. FINDINGS: Arterial calcifications. There are 2 subadjacent versus a single metallic density foreign body of the lateral knee subcutaneous tissues conglomerate measuring 5 x 2 mm. Mild anterior subcutaneous edema. Small to moderate joint effusion. The tendons and ligaments of the knee are not well evaluated by CT technique. No intra-articular loose body identified. No intramuscular hematoma or large Vaughan's cyst identified. Demineralized appearance of the bones. There is moderate medial with mild to moderate lateral and patellofemoral compartment osteoarthritis. No acute fracture or dislocation. 6 mm bone island of the tibial tuberosity. No osteochondral defect. IMPRESSION: 1. No acute fracture or dislocation. 2. 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 3. Small to moderate joint effusion. 4. Two subadjacent metallic density foreign bodies of the lateral knee conglomerate measure up to 5 mm. ACT 112: Negative or not required by law. The above report was generated using voice recognition software. It may contain grammatical, syntax or spelling errors. Electronically signed by: Felix Santoyo M.D. 06/29/2020 12:01 PM ECG Additional Comments: 29-JUN-2020 11:17:40 [facility]-EDSTAT ROUTINE RETRIEVAL Poor data quality, interpretation may be adversely affected Sinus rhythm with 1st degree A-V block Incomplete right bundle branch block Left anterior fascicular block Cannot rule out Anterior infarct (cited on or before 29-JUN-2020) Abnormal ECG When compared with ECG of 15-FEB-2020 18:17, Premature ventricular complexes are no longer Present TN interval has increased Incomplete right bundle branch block is now Present ... 25mm/s 10mm/mV 150Hz 9.0.9 12SL 241 ALAINA: 15 Referred by: REFERRED SELF Unconfirmed Vent. rate 68 BPM TN interval 222 ms QRS duration 96 ms QT/QTc 412/438 ms Code Status & VTE Plan Code Status DNR/DNI-discussed with the patient at bedside Supervising Physician Co-Signing Physician Notes Patient seen and examined, labs and images reviewed 85-year-old female came to ER with acute onset of right knee pain weakness, No recent trauma or injury Images of right knee hip and femur shows no evidence of fracture We will admit to medical floor, for pain control/PT OT Started on a trial of low-dose prednisone for possible arthritis If symptoms continues to worsen/worsening of right knee pain, weakness - orthopedics will be consulted for further evaluation Please refer to further documentation by the when Giovana Zaldivar PA-C for discussion of other medical issues Rehana Lara MD
[2020-06-29 13:49] LABS: Partial Thromboplastin Ratio 1.3; Partial Thromboplastin Time 35.2 Seconds (21.0-31.0); Prothrombin Time 19.5 Seconds (9.0-12.0)
[2020-06-29 13:52] LABS: Influenza A virus by PCR Negative (Neg); Influenza B virus by PCR Negative (Neg); RSV by PCR Negative (Neg); SARS CoV2 RNA(COVID-19) InHosp NEGATIVE (Negative)
[2020-06-29] MEDS ORDERED: GLUCAGON FOR INJ 1 MG VIAL SQ PRN (15:53)
[2020-06-29] MEDS ORDERED: GLUCOSE 10 TABS/TUBE PO PRN (15:53)
[2020-06-29] MEDS ORDERED: GLUCOSE 40% GEL 15 GM TUBE PO PRN (15:53)
[2020-06-29] MEDS ORDERED: ALBUTEROL HFA 8 GM INHALER INH PRN (15:53)
[2020-06-29] MEDS ORDERED: CARBOHYDRATES FOR HYPOGLYCEMIA PO PRN (15:53)
[2020-06-29] MEDS ORDERED: predniSONE 20 MG TAB PO STA (15:53)
[2020-06-29] MEDS ORDERED: DEXTROSE 50% 50 ML SYRINGE IV PRN (15:53)
[2020-06-29] MEDS ORDERED: ACETAMINOPHEN 325 MG TAB PO PRN (15:53)
[2020-06-29] MEDS ORDERED: MoRPHine SULFATE 2 MG/ML CARP IV PRN (15:53)
[2020-06-29] MEDS ORDERED: ONDANSETRON INJ 2 MG/ML 2 ML VIAL IV PRN (15:53)
[2020-06-29] MEDS: WARFARIN SOD 5 MG TAB PO SCH (17:03)
[2020-06-29] MEDS: DICLOFENAC SOD 1% GEL 100 GM TUBE EXT SCH ×2 (17:04→20:58)
[2020-06-29] MEDS: INSULIN ASPART 100 UNITS/ML 3 ML PEN SC SCH ×2 (18:05→20:48)
--- NOTE | 2020-06-29 18:46 | Electrocardiogram Report ---
Test Reason : Blood Pressure : / mmHG Vent. Rate : 068 BPM Atrial Rate : 068 BPM P-R Int : 222 ms QRS Dur : 096 ms QT Int : 412 ms P-R-T Axes : 063 -46 025 degrees QTc Int : 438 ms Poor data quality, interpretation may be adversely affected Sinus rhythm with 1st degree A-V block Incomplete right bundle branch block Left anterior fascicular block Poor R wave progression, consider anterior NV vs. lead placement vs. LVH Abnormal ECG When compared with ECG of 15-FEB-2020 18:17, Premature ventricular complexes are no longer Present MN interval has increased Incomplete right bundle branch block is now Present Nonspecific T wave abnormality now evident in Anterior leads Confirmed by Matt Simon ([id number]) on 06/29/2020 6:46:11 PM Referred By: REFERRED SELF Confirmed By:Tommy Simon
[2020-06-29] MEDS: dilTIAZem HCL 120 MG CAPCR PO SCH (20:58)
[2020-06-29] MEDS ORDERED: NYSTATIN POWDER 15GM BTL EXT PRN (23:33)
[2020-06-30] MEDS ORDERED: MICONAZOLE NITRATE POWDER 43 GM EXT PRN (00:12)
[2020-06-30 06:00] LABS: Hematocrit (blood only) 37.5 % (37-47); Hemoglobin 12.4 g/dL (12.0-16.0); Mean Corpuscular Hemoglobin 31.2 pg (25-34); Mean Corpuscular Hgb Conc 33.1 g/dL (32-36); Mean Corpuscular Volume 94.2 fL (80-100); Mean Platelet Volume 10.9 fL (7.4-10.4); Platelet Count 224 K/uL (130-400); RDW Coefficient of Variation 15.7 % (11.5-14.5); RDW Standard Deviation 54.2 fL (36.4-46.3); Red Blood Count 3.98 M/uL (4.2-5.4); White Blood Count 7.23 K/uL (4.8-10.8)
[2020-06-30 06:11] LABS: INR 2.2 (0.9-1.1); Prothrombin Time 21.4 Seconds (9.0-12.0)
[2020-06-30 06:25] LABS: Albumin Level 2.9 gm/dl (3.4-5.0); Calcium 8.8 mg/dl (8.5-10.1); Creatinine Clr Calc Pharmacy 74.7 ml/min; Est GFR (African American) 96.6; Est GFR (Non-African American) 83.4; Potassium 4.2 mmol/L (3.5-5.1)
[2020-06-30 06:28] LABS: Albumin Globulin Ratio 0.8 (0.9-2); Bilirubin,Total 0.3 mg/dl (0.2-1); Globulin 3.7 gm/dl (2.5-4.0); Total Protein 6.6 gm/dl (6.4-8.2)
[2020-06-30] MEDS: dilTIAZem HCL 120 MG CAPCR PO SCH ×2 (08:41→20:53)
[2020-06-30] MEDS: lisinopril 10 MG TAB PO SCH (08:42)
[2020-06-30] MEDS: MICONAZOLE NITRATE POWDER 43 GM EXT SCH ×2 (08:42→20:54)
[2020-06-30] MEDS: EZETIMIBE 10 MG TABLET PO SCH (08:42)
[2020-06-30] MEDS: ASPIRIN 81 MG ECTAB PO SCH (08:42)
[2020-06-30] MEDS: DICLOFENAC SOD 1% GEL 100 GM TUBE EXT SCH ×3 (08:42→20:54)
[2020-06-30] MEDS: INSULIN ASPART 100 UNITS/ML 3 ML PEN SC SCH ×4 (08:43→21:05)
--- NOTE | 2020-06-30 11:58 | Hospitalist Progress Note ---
Date of Service June 30, 2020 Assessment & Plan (1) Knee pain: -Possible secondary to arthritis -Patient started on prednisone 40 mg daily-reports markedly improvement of symptoms We will try to taper down steroids from tomorrow, Continue PT OT (2) S/P TAVR (transcatheter aortic valve replacement): -History of such in February [address] Argueta, follows with Dr. Mcarthur as an outpatient No complaint of shortness of breath or chest pain (3) Atrial fibrillation: -Continue Coumadin: Take 7.5 mg Wednesday and Wednesdays, 5 mg all other days of the week INR therapeutic (4) Hypertension: , continue diltiazem, lisinopril (5) Dyslipidemia: -Continue acetamide 10 mg daily (6) COPD (chronic obstructive pulmonary disease): Had bout of pneumonia in March,. -Diagnosed 10 years ago, follows with pulmonology as an outpatient. No active issue, no cough shortness of breath no wheeze or rales (7) DM type 2 (diabetes mellitus, type 2): -Hold Metformin [facility] - (8) GERD (gastroesophageal reflux disease): -Continue diet control, protonix 40 daily (9) Diabetic neuropathy: (10) DVT prophylaxis: - teds, Coumadin CODE: DNR/DNI Dispo: Continue PT OT Case management consulted for discharge planning Admission and Anticipated Discharge Date Admission Date: June 29, 2020 Subjective Follow-up visit for right knee pain/right leg weakness: Patient seen sitting up on chair, states that she is doing much better and since yesterday No pain or discomfort on right kidney Still have a little bit weakness on right leg Worked with physical therapist this morning, feels she did well No complaint of chest pain or shortness of breath, no fever chills or cough Review of Systems Review of Systems: All systems reviewed & are unremarkable except as noted in Subjective Physical Exam Physical Exam: Physical exam: General: No acute distress, alert awake oriented x3 HEENT: PERRLA, EOMI, Heart: Regular S1-S2, no carotid bruit, no JVD, no lower extremity edema Lungs: Clear to auscultate, no wheeze or rales Abdomen: Soft nontender, no organomegaly Extremity: No cyanosis, no deformity, Right knee: No overlying swelling erythema noted, no tenderness, Right leg 4/5 strength Normal exam of left knee, normal strength on left leg Neuro: No focal neurological deficit normal speech, normal visual field, Motor strength : normal both upper and lower extremity, sensation intact Psych: Alert awake oriented x3, normal affect Results & Data Results & Data ([facility]) Vital Signs (Past 12 Hours) Vital Signs Temp Pulse Resp BP Pulse Ox 06/30/20 07:46 36.5 C 65 18 163/73 H 98
[2020-06-30] MEDS ORDERED: predniSONE 10 MG TABLET PO STA (14:32)
[2020-06-30] MEDS ORDERED: predniSONE 20 MG TAB PO ONE (15:00)
[2020-06-30] MEDS ORDERED: WARFARIN SOD 7.5 MG TAB PO SCH (16:00)
[2020-07-01 06:06] LABS: Estimated Average Glucose 151 mg/dl; Hemoglobin A1C 6.9 % (4.5-5.6)
[2020-07-01 06:26] LABS: Hematocrit (blood only) 39.8 % (37-47); Mean Corpuscular Hemoglobin 30.9 pg (25-34); Mean Corpuscular Hgb Conc 32.7 g/dL (32-36); Mean Corpuscular Volume 94.5 fL (80-100); Mean Platelet Volume 11.1 fL (7.4-10.4); Platelet Count 248 K/uL (130-400); RDW Coefficient of Variation 15.8 % (11.5-14.5); RDW Standard Deviation 54.6 fL (36.4-46.3); Red Blood Count 4.21 M/uL (4.2-5.4); White Blood Count 8.78 K/uL (4.8-10.8)
[2020-07-01 06:40] LABS: INR 2.3 (0.9-1.1); Prothrombin Time 22.2 Seconds (9.0-12.0)
[2020-07-01 06:59] LABS: Albumin Level 3.1 gm/dl (3.4-5.0); Calcium 8.4 mg/dl (8.5-10.1); Creatinine Clr Calc Pharmacy 62.6 ml/min; Est GFR (African American) 91.2; Est GFR (Non-African American) 78.6; Potassium 4.1 mmol/L (3.5-5.1)
[2020-07-01 07:02] LABS: Albumin Globulin Ratio 0.8 (0.9-2); Bilirubin,Total 0.3 mg/dl (0.2-1); Globulin 4.1 gm/dl (2.5-4.0); Total Protein 7.2 gm/dl (6.4-8.2)
[2020-07-01] MEDS: dilTIAZem HCL 120 MG CAPCR PO SCH ×2 (08:44→20:03)
[2020-07-01] MEDS: ASPIRIN 81 MG ECTAB PO SCH (08:45)
[2020-07-01] MEDS: predniSONE 10 MG TABLET PO SCH (08:45)
[2020-07-01] MEDS: EZETIMIBE 10 MG TABLET PO SCH (08:45)
[2020-07-01] MEDS: lisinopril 10 MG TAB PO SCH (08:45)
[2020-07-01] MEDS: DICLOFENAC SOD 1% GEL 100 GM TUBE EXT SCH ×3 (08:46→20:02)
[2020-07-01] MEDS: MICONAZOLE NITRATE POWDER 43 GM EXT SCH ×2 (08:46→20:02)
[2020-07-01] MEDS: PANTOprazole 40 MG TAB PO SCH (08:46)
[2020-07-01] MEDS: INSULIN ASPART 100 UNITS/ML 3 ML PEN SC SCH ×4 (08:49→21:47)
[2020-07-01] MEDS ORDERED: oxyCODONE HCL IR 5 MG TAB (IMMEDIATE RELEASE) PO PRN (12:48)
[2020-07-01] MEDS ORDERED: CYCLOBENZAPRINE HCL 10 MG TAB PO PRN (13:04)
--- NOTE | 2020-07-01 13:04 | Hospitalist Progress Note ---
Date of Service July 01, 2020 Assessment & Plan (1) Knee pain: -Presented with a right knee pain, her right leg gave away, has been experiencing weakness on her right leg and right knee for several weeks No history of trauma, no knee surgery CT of knee: Shows evidence of arthritis/avpdl-dm-liwxsflj joint effusion, no fracture -Patient started on p.o. prednisone: Knee pain has improved, still has right leg weakness Consult orthopedics for further recommendation (2) S/P TAVR (transcatheter aortic valve replacement): -History of such in February [address] Argueta, follows with Dr. Mcarthur as an outpatient Stable (3) Atrial fibrillation: -Continue Coumadin: Take 7.5 mg Wednesday and Wednesdays, 5 mg all other days of the week INR therapeutic (4) Hypertension: , continue diltiazem, lisinopril (5) Dyslipidemia: -Continue acetamide 10 mg daily (6) COPD (chronic obstructive pulmonary disease): Had bout of pneumonia in March, . -Diagnosed 10 years ago, follows with pulmonology as an outpatient. No active issue, no cough shortness of breath no wheeze or rales (7) DM type 2 (diabetes mellitus, type 2): -Hold Metformin -ISS with [facility] - (8) GERD (gastroesophageal reflux disease): -Continue diet control, protonix 40 daily (9) Diabetic neuropathy: (10) DVT prophylaxis: - teds, Coumadin CODE: DNR/DNI Dispo: Continue PT OT Case management consulted for discharge planning Admission and Anticipated Discharge Date Admission Date: June 29, 2020 Subjective Follow-up visit for right knee pain/right leg weakness: Patient reports of feeling better, Right knee pain has improved, complains of sharp pain on back of right leg when standing up. Still experiencing some weakness on the right leg, Mentions she remains standing for a bit longer time, pain radiates up to right hip No shortness of breath no cough no fever or chills Stable vitals Review of Systems Review of Systems: All systems reviewed & are unremarkable except as noted in Subjective Physical Exam Physical Exam: Physical exam: General: No acute distress, alert awake oriented x3 HEENT: PERRLA, EOMI, Heart: Regular S1-S2, no carotid bruit, no JVD, no lower extremity edema Lungs: Clear to auscultate, no wheeze or rales Abdomen: Soft nontender, no organomegaly Extremity: No cyanosis, no deformity, Right knee: No overlying swelling erythema noted, no tenderness,/right leg strength 4 out of 5 against resistance Normal exam of left knee, normal strength on left leg Neuro: No focal neurological deficit normal speech, normal visual field, Motor strength : normal both upper and lower extremity, sensation intact Psych: Alert awake oriented x3, normal affect Results & Data Results & Data ([facility]) Vital Signs (Past 12 Hours) Vital Signs Temp Pulse Resp BP Pulse Ox 07/01/20 07:37 36.4 C L 60 18 146/75 H 96
[2020-07-01] MEDS: ACETAMINOPHEN 500 MG TAB PO SCH ×2 (13:57→21:53)
--- NOTE | 2020-07-01 15:09 | Orthopedic Consultation ---
Date of Consultation July 01, 2020 Assessment & Plan (1) Inability to walk: Right lower extremity pain with ambulation. X-rays have been reviewed showing no fractures or dislocations. She does have moderate right knee osteoarthritis however this does not seem to bother her during range of motion. Mild right hip osteoarthritis again which is not bothersome to her during range of motion. She does not appear to be having radiculopathy from the lumbar spine with no obvious pains radiating down into her extremity. Patient states that since she has been on steroids medication, that she has noticed a pretty good improvement with her discomfort and her ambulation ability. This may be simply muscular in nature that occurred during the fall. I will have one of our [place] orthopedic physician see the patient this afternoon to confirm with the patient. Continue steroids at this t aura. Continue PT and OT. History of Present Illness Reason for Consultation: Right lower extremity pain Attending Physician: Rehana Lara MD History of Present Illness Patient is an 85-year-old white female with PMHx of COPD, HTN, HLD, A. fib on Coumadin, CAD, s/p TAVR, GERD, morbid obesity with BMI of 39.6, osteoarthritis, anemia, diabetic neuropathy, who was admitted over the weekend after what sounds like to be a mechanical fall. Patient states that it occurred on Wednesday evening. She had gotten up to ambulate and as she tried to walk, she felt that her leg was weak and or her knee buckled and gave out on her. She states that she did not fall quickly and was more like a sliding fall fall. She feels that her legs were twisted across each other as she fell. She states that she ended up on her buttocks. She denies loss of consciousness. She denies hitting her head. She denies any shortness of breath, chest pain, lightheadedness prior to or after the fall. She states that the time she was having difficulty doing a straight leg raise. By the following day, she was having difficulty ambulating with pain that was radiating up the leg and with some weakness and she came into the emergency room. [facility] and we have been asked to see her for right lower extremity pain. Currently she states that it is much better today. He was able to go through PT and OT and ambulate in the room. She describes the pain as sharp and would start at the posterior calf and radiate up the lateral aspect of the leg almost to the hip. She denies low back pain and denies pain radiating from the buttock downward. She denies any recent illnesses. No recent injuries. Allergies Allergy/AdvReac Type Severity Reaction Status Date / Time amoxicillin [From Augmentin] Allergy Intermediate Hives Verified 06/29/20 10:55 clavulanic acid Allergy Intermediate Hives Verified 06/29/20 10:55 [From Augmentin] Penicillins Allergy Intermediate Hives Verified 06/29/20 10:55 gabapentin Allergy Unknown Itching Verified 06/29/20 10:55 Home Medications Medication Instructions Recorded Confirmed Type albuterol sulfate 2 puff INHALATION Q4H PRN 07/14/19 06/29/20 History aspirin [Aspirin Low Dose] 81 mg PO QAM 07/14/19 06/29/20 History diltiazem HCl 120 mg PO BID 07/14/19 06/29/20 History ezetimibe 10 mg PO QAM 07/14/19 06/29/20 History metformin 750 mg PO QAM 07/14/19 06/29/20 History warfarin See Rx Instructions .ROUTE .COMPLEX 07/14/19 06/29/20 History lisinopril 10 mg PO QAM 02/15/20 06/29/20 History pantoprazole [Protonix] 40 mg PO DAILY 06/29/20 06/29/20 History potassium chloride [Klor-Con] 20 meq PO DAILY 06/29/20 06/29/20 History Patient History Medical History Abnormal chest x-ray Asthma Chest pain Deep vein thrombosis Myocardial Infarction Sleep apnea 1 liter o2 Subtherapeutic international normalized ratio (INR) Surgical History History of cardiac cath History of colonoscopy History of heart artery stent History of heart valve replacement Social History Smoking Status: Never smoker Second Hand Exposure: No; Do You Dip or Chew Tobacco: No; Hx Alcohol Use: No Hx Substance Use: No Preferred Language: Trinidadian Communication Ability: Effective Lamp Tester And Inspector Required: No Beliefs That Will Affect Care: None Current Living Situation: Spouse Current Living Situation Comment: Lives w/ and son current occupation: Retired Feels Safe at Home: Yes Safety Concerns: Feels Safe At This Time Assistive Devices: Walker Review of Systems Review of Systems: All systems reviewed & are unremarkable except as noted in HPI & below Physical Exam Physical Exam: Currently the patient is sitting in her chair at the bedside. She appears very comfortable. She denies any knee or hip pain at this time. On examining the right lower extremity starting at the ankle she has good range of motion of the ankle. Dorsiflexion and plantar flexion are strong. Some mild neuropathy. She has no pain on palpation of the ankle or foot but does states she has some discomfort in her toes which is something that is normal for her. She has no pain on palpation of the posterior calf or palpation over the anterior tibia is nontender. I can take the right knee through gentle range of motion with only mild crepitus and no pain during range of motion. Patient is able to do full extension of her knee at this time and is able to do straight leg raise off of the seat in her chair at this time but this causes a little bit of her discomfort. Passive extension of the hip elicits some discomfort starting in the calf laterally that goes proximally up to the lateral femur and stopping just prior to the hip. She denies any groin pain with range of motion of the hip. She has no pain on palpation over the lateral thigh/hip. No pain over the greater trochanteric bursa. She denies low back pain and has no pain in her right buttock. Than her neuropathy, there is no gross motor or sensory loss seen at this time. Axial loading of the right lower extremity does not cause discomfort. Homans exam is negative for discomfort up the extremity. Results & Data ([facility]) Vital Signs (Past 12 Hours) Vital Signs Temp Pulse Resp BP Pulse Ox 07/01/20 07:37 36.4 C L 60 18 146/75 H 96 Laboratory Results Laboratory Results WBC 8.78 K/uL (4.8-10.8) 07/01/20 05:56 RBC 4.21 M/uL (4.2-5.4) 07/01/20 05:56 Hgb 13.0 g/dL (12.0-16.0) 07/01/20 05:56 Hct 39.8 % (37-47) 07/01/20 05:56 MCV 94.5 fL (80-100) 07/01/20 05:56 MCH 30.9 pg (25-34) 07/01/20 05:56 MCHC 32.7 g/dL (32-36) 07/01/20 05:56 RDW Std Deviation 54.6 fL (36.4-46.3) H 07/01/20 05:56 RDW Coeff of Linda 15.8 % (11.5-14.5) H 07/01/20 05:56 Plt Count 248 K/uL (130-400) 07/01/20 05:56 MPV 11.1 fL (7.4-10.4) H 07/01/20 05:56 Immature Gran % (Auto) 0.1 % 06/29/20 12:39 Neut % (Auto) 74.7 % 06/29/20 12:39 Lymph % (Auto) 14.9 % 06/29/20 12:39 Alexander % (Auto) 9.2 % 06/29/20 12:39 Eos % (Auto) 1.0 % 06/29/20 12:39 Baso % (Auto) 0.1 % 06/29/20 12:39 Neut # (Auto) 5.78 K/uL (1.4-6.5) 06/29/20 12:39 Lymph # (Auto) 1.15 K/uL (1.2-3.4) L 06/29/20 12:39 Alexander # (Auto) 0.71 K/uL (0.11-0.59) H 06/29/20 12:39 Eos # (Auto) 0.08 K/uL (0-0.5) 06/29/20 12:39 Baso # (Auto) 0.01 K/uL (0-0.2) 06/29/20 12:39 Immature Gran # (Auto) 0.01 K/uL (0.00-0.02) 06/29/20 12:39 PT 22.2 Seconds (9.0-12.0) H 07/01/20 05:56 INR 2.3 (0.9-1.1) H 07/01/20 05:56 APTT 35.2 Seconds (21.0-31.0) H 06/29/20 12:39 PTT Ratio 1.3 06/29/20 12:39 Sodium 138 mmol/L (136-145) 07/01/20 05:56 Potassium 4.1 mmol/L (3.5-5.1) 07/01/20 05:56 Chloride 106 mmol/L (98-107) 07/01/20 05:56 Carbon Dioxide 29 mmol/L (21-32) 07/01/20 05:56 Anion Gap 3.0 (3-11) 07/01/20 05:56 BUN 24 mg/dl (7-18) H D 07/01/20 05:56 Creatinine 0.68 mg/dl (0.6-1.2) 07/01/20 05:56 Est Cr Clr Drug Dosing 62.6 ml/min 07/01/20 05:56 Est GFR ( Amer) 91.2 07/01/20 05:56 Est GFR (Non-Af Amer) 78.6 07/01/20 05:56 BUN/Creatinine Ratio 35.0 (10-20) H 07/01/20 05:56 Glucose 113 mg/dl (70-99) H 07/01/20 05:56 POC Glucose 98 mg/dl (70-99) 07/01/20 11:59 Estimat Average Glucose 151 mg/dl 06/30/20 05:23 Hemoglobin A1c 6.9 % (4.5-5.6) H 06/30/20 05:23 Calcium 8.4 mg/dl (8.5-10.1) L 07/01/20 05:56 Total Bilirubin 0.3 mg/dl (0.2-1) 07/01/20 05:56 AST 14 U/L (15-37) L 07/01/20 05:56 ALT 20 U/L (12-78) 07/01/20 05:56 Alkaline Phosphatase 71 U/L (45-117) 07/01/20 05:56 Total Protein 7.2 gm/dl (6.4-8.2) 07/01/20 05:56 Albumin 3.1 gm/dl (3.4-5.0) L 07/01/20 05:56 Globulin 4.1 gm/dl (2.5-4.0) H 07/01/20 05:56 Albumin/Globulin Ratio 0.8 (0.9-2) L 07/01/20 05:56 TSH 0.692 uIu/ml (0.300-4.500) 06/29/20 12:39 COVID-19 Eval Order CovFluRsv at [facility] 06/29/20 12:40 SARS-CoV-2 (PCR) NEGATIVE (Negative) 06/29/20 12:40 Influenza Type A (PCR) Negative (Neg) 06/29/20 12:40 Influenza Type B (PCR) Negative (Neg) 06/29/20 12:40 RSV (RT-PCR) Negative (Neg) 06/29/20 12:40 Impressions Femur X-Ray 06/29/20 09:54 XR hip RT 2V w pelvis, XR femur RT 2V routine, XR knee RT 3V HISTORY: 85 years-old Female s/p knee gave out and pain, inability to bear weig acute pelvic, right hip, femur and knee pain COMPARISON: CT abdomen and pelvis 02/04/2010 TECHNIQUE: AP view of the pelvis with 2 views of the right hip, 2 views of the right femur and 3 views of the right knee FINDINGS: PELVIS/RIGHT HIP: Demineralized appearance the bones. Mild right and [id number] left hip osteoarthritis. No acute fracture, dislocation or avascular necrosis. Arterial calcifications. There is a 7.3 x 2.3 cm circumscribed ovoid calcification of the central uterus which is new from comparison and likely uterine or bladder in origin. RIGHT FEMUR: No acute fracture, or dislocation. RIGHT KNEE: There are 2 subadjacent metallic density foreign bodies within the lateral tissues measuring up to 4 mm. Small joint effusion. Moderate medial with mild lateral patellofemoral compartment osteoarthritis. No acute fracture or dislocation. IMPRESSION: 1. No acute fracture or dislocation. 2. There are 2 subcentimeter metallic density foreign bodies of the lateral tissues of the knee 3. Small right knee joint effusion. 4. Osteoarthritis as above. ACT 112: Negative or not required by law. The above report was generated using voice recognition software. It may contain grammatical, syntax or spelling errors. Electronically signed by: Felix Santoyo M.D. 06/29/2020 10:47 AM Hip/Pelvis X-Ray 06/29/20 09:54 XR hip RT 2V w pelvis, XR femur RT 2V routine, XR knee RT 3V HISTORY: 85 years-old Female s/p knee gave out and pain, inability to bear weig acute pelvic, right hip, femur and knee pain COMPARISON: CT abdomen and pelvis 02/04/2010 TECHNIQUE: AP view of the pelvis with 2 views of the right hip, 2 views of the right femur and 3 views of the right knee FINDINGS: PELVIS/RIGHT HIP: Demineralized appearance the bones. Mild right and [id number]-sp-[id number] left hip osteoarthritis. No acute fracture, dislocation or avascular necrosis. Arterial calcifications. There is a 7.3 x 2.3 cm circumscribed ovoid calcification of the central uterus which is new from comparison and likely uterine or bladder in origin. RIGHT FEMUR: No acute fracture, or dislocation. RIGHT KNEE: There are 2 subadjacent metallic density foreign bodies within the lateral tissues measuring up to 4 mm. Small joint effusion. Moderate medial with mild lateral patellofemoral compartment osteoarthritis. No acute fracture or dislocation. IMPRESSION: 1. No acute fracture or dislocation. 2. There are 2 subcentimeter metallic density foreign bodies of the lateral tissues of the knee 3. Small right knee joint effusion. 4. Osteoarthritis as above. ACT 112: Negative or not required by law. The above report was generated using voice recognition software. It may contain grammatical, syntax or spelling errors. Electronically signed by: Felix Santoyo M.D. 06/29/2020 10:47 AM Knee X-Ray 06/29/20 09:54 XR hip RT 2V w pelvis, XR femur RT 2V routine, XR knee RT 3V HISTORY: 85 years-old Female s/p knee gave out and pain, inability to bear weig acute pelvic, right hip, femur and knee pain COMPARISON: CT abdomen and pelvis 02/04/2010 TECHNIQUE: AP view of the pelvis with 2 views of the right hip, 2 views of the right femur and 3 views of the right knee FINDINGS: PELVIS/RIGHT HIP: Demineralized appearance the bones. Mild right and maci-hb-pvxjqfwl left hip osteoarthritis. No acute fracture, dislocation or avascular necrosis. Arterial calcifications. There is a 7.3 x 2.3 cm circumscribed ovoid calcification of the central uterus which is new from comparison and likely uterine or bladder in origin. RIGHT FEMUR: No acute fracture, or dislocation. RIGHT KNEE: There are 2 subadjacent metallic density foreign bodies within the lateral tissues measuring up to 4 mm. Small joint effusion. Moderate medial with mild lateral patellofemoral compartment osteoarthritis. No acute fracture or dislocation. IMPRESSION: 1. No acute fracture or dislocation. 2. There are 2 subcentimeter metallic density foreign bodies of the lateral tissues of the knee 3. Small right knee joint effusion. 4. Osteoarthritis as above. ACT 112: Negative or not required by law. The above report was generated using voice recognition software. It may contain grammatical, syntax or spelling errors. Electronically signed by: Felix Santoyo M.D. 06/29/2020 10:[address] 06/29/20 11:13 CT knee RT wo con HISTORY: 85 years-old Female pain, non weight bearing, neg XRs acute right knee pain COMPARISON: Right knee radiographs of same day TECHNIQUE: Multiple axial CT images of the right knee were obtained without the use of IV contrast. A dose lowering technique was used consistent with the principals of ALARA. FINDINGS: Arterial calcifications. There are 2 subadjacent versus a single metallic density foreign body of the lateral knee subcutaneous tissues conglomerate measuring 5 x 2 mm. Mild anterior subcutaneous edema. Small to moderate joint effusion. The tendons and ligaments of the knee are not well evaluated by CT technique. No intra-articular loose body identified. No intramuscular hematoma or large Vaughan's cyst identified. Demineralized appearance of the bones. There is moderate medial with mild to moderate lateral and patellofemoral compartment osteoarthritis. No acute fracture or dislocation. 6 mm bone island of the tibial tuberosity. No osteochondral defect. IMPRESSION: 1. No acute fracture or dislocation. 2. 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 3. Small to moderate joint effusion. 4. Two subadjacent metallic density foreign bodies of the lateral knee conglomerate measure up to 5 mm. ACT 112: Negative or not required by law. The above report was generated using voice recognition software. It may contain grammatical, syntax or spelling errors. Electronically signed by: Felix Santoyo M.D. 06/29/2020 12:01 PM
[2020-07-01] MEDS: WARFARIN SOD 5 MG TAB PO SCH (16:23)
[2020-07-02] MEDS: ACETAMINOPHEN 500 MG TAB PO SCH (06:05)
[2020-07-02 06:28] LABS: INR 2.9 (0.9-1.1); Prothrombin Time 26.9 Seconds (9.0-12.0)
[2020-07-02] MEDS: ASPIRIN 81 MG ECTAB PO SCH (09:28)
[2020-07-02] MEDS: PANTOprazole 40 MG TAB PO SCH (09:28)
[2020-07-02] MEDS: predniSONE 10 MG TABLET PO SCH (09:28)
[2020-07-02] MEDS: lisinopril 10 MG TAB PO SCH (09:28)
[2020-07-02] MEDS: dilTIAZem HCL 120 MG CAPCR PO SCH (09:28)
[2020-07-02] MEDS: EZETIMIBE 10 MG TABLET PO SCH (09:28)
[2020-07-02] MEDS: DICLOFENAC SOD 1% GEL 100 GM TUBE EXT SCH (09:29)
[2020-07-02] MEDS: MICONAZOLE NITRATE POWDER 43 GM EXT SCH (09:29)
[2020-07-02] MEDS: INSULIN ASPART 100 UNITS/ML 3 ML PEN SC SCH ×2 (09:32→12:46)
--- NOTE | 2020-07-02 12:47 | Discharge Summary ---
Date of Service July 02, 2020 Admission HPI Per Admitting Provider This is an 85-year-old female with PMHx of COPD, HTN, HLD, A. fib on Coumadin, CAD, s/p TAVR, GERD, morbid obesity with BMI of 39.6, osteoarthritis, anemia, diabetic neuropathy who presents with right knee pain, generalized weakness and inability to walk well since last night s/p sliding down to the floor in the middle of her kitchen. She suddenly just could not walk like she wanted to, denies recent falls or other trauma to the R knee or leg. This was witnessed by her , denies any LOC, dizziness, lightheadedness, and did not hit her head. She typically uses a cane at home to assist with ambulation. She took a Tylenol last evening which improved her pain slightly however this morning she still was unable to walk so presented to the ER. Principal Diagnosis RIGHT KNEE PAIN DUE TO JOINT ARTHRITIS LOWER EXTREMITY WEAKNESS MOSTLY ON RIGHT -CAUSING AMBULATORY DYSFUNCTION HX OF AFIB ON COUMADIN Discharge Exam Physical exam: General: No acute distress, alert awake oriented x3 HEENT: PERRLA, EOMI, Heart: Regular S1-S2, no carotid bruit, no JVD, no lower extremity edema Lungs: Clear to auscultate, no wheeze or rales Abdomen: Soft nontender, no organomegaly Extremity: No cyanosis, no deformity, normal strength 5 out of 5 with upper and lower Neuro: No focal neurological deficit normal speech, normal visual field, Motor strength : normal both upper and lower extremity, sensation intact Psych: Alert awake oriented x3, normal affect Discharge Data Allergies Allergy/AdvReac Type Severity Reaction Status Date / Time amoxicillin [From Augmentin] Allergy Intermediate Hives Verified 06/29/20 10:55 clavulanic acid Allergy Intermediate Hives Verified 06/29/20 10:55 [From Augmentin] Penicillins Allergy Intermediate Hives Verified 06/29/20 10:55 gabapentin Allergy Unknown Itching Verified 06/29/20 10:55 Consultations 06/29/20 13:18 ED Decision to Admit Stat 07/01/20 12:49 Consult Orthopedic Surgery Routine Ordered Studies 06/29/20 11:13 CT knee RT wo con Stat Hospital Course (1) Knee pain: -Presented with a right knee pain, her right leg gave away, has been experiencing weakness on her right leg and right knee for several weeks No history of trauma, no knee surgery CT of knee: Shows evidence of arthritis/rdwjk-uk-oyxecckl joint effusion, no fracture -Patient started on p.o. prednisone: Knee pain has improved, still has right leg weakness Orthopedics consulted appreciate input Patient has advanced arthritis on right knee, in future may need surgery for knee replacement At present recommend continue pain control, PT OT, Clinic follow-up with orthopedics in 1 to 2 weeks (2) S/P TAVR (transcatheter aortic valve replacement): - in February [address] Argueta, follows with Dr. Mcarthur as an outpatient Stable (3) Atrial fibrillation: -Continue Coumadin: Take 7.5 mg Wednesday and Wednesdays, 5 mg all other days of the week INR therapeutic (4) Hypertension: , continue diltiazem, lisinopril (5) Dyslipidemia: -Continue acetamide 10 mg daily (6) COPD (chronic obstructive pulmonary disease): No active issue, no cough shortness of breath no wheeze or rales (7) DM type 2 (diabetes mellitus, type 2): -Hold Metformin -ISS with Accu-Cheks ACHS - (8) GERD (gastroesophageal reflux disease): -Continue diet control, protonix 40 daily (9) Diabetic neuropathy: (10) DVT prophylaxis: - teds, Coumadin CODE: DNR/DNI Dispo: Stable to be discharged home today Total Time Total Time Spent Total Time Spent (In Minutes): 35 minutes Total Time Includes: Examination of the Patient, Discharge Planning and Medication Reconciliation Discharge Plan Discharge Items Patient Disposition: Home - Home Health Services Reason For Visit: CHEST PAIN Discharge Diagnosis: RIGHT KNEE PAIN DUE TO JOINT ARTHRITIS LOWER EXTREMITY WEAKNESS MOSTLY ON RIGHT -CAUSING AMBULATORY DYSFUNCTION HX OF AFIB ON COUMADIN Activity: As commented below Activity Comment: As tolerated Non-emergency contact: Primary Care Provider Call non-emergency contact if: you have any medication questions Follow-up/Referrals: Wyatt Martin MD [Surgeon] - 07/19/20 11:40 am (ortho follow up in 2-3 weeks ) Jamie Vela DO [Primary Care Provider] - (Date & Time 07/09/2020 1:40 PM Provider Jamie Vela DO [facility] ) Diet: Heart Healthy Addtl Attending Provider Instructions: Please take all medications as instructed on discharge list below. It is recommended that you follow-up with your primary care physician within 1-2 weeks of hospital discharge to ensure you are still doing well. Please call if you have any questions or problems. You can reach a [facility] hospitalist on duty at [facility] 24 hours a day by calling [phone] Pending Studies at Discharge: No Stand-Alone Forms: My [facility], Smoking Cessation Medications and DC Order Prescriptions: New methylprednisolone [Medrol (Alexey)] 4 mg tablets,dose pack 4 mg PO UD Qty: 21 RF: 0 Continued aspirin [Aspirin Low Dose] 81 mg Tablet,Delayed Release (Dr/Ec) 81 mg PO QAM RF: 0 warfarin 5 mg tablet See Rx Instructions .ROUTE .COMPLEX RF: 0 diltiazem HCl 120 mg capsule,extended release 24hr 120 mg PO BID RF: 0 albuterol sulfate 90 mcg/actuation HFA aerosol inhaler 2 puff INHALATION Q4H PRN (Reason: Wheeze/Cough) RF: 0 ezetimibe 10 mg tablet 10 mg PO QAM RF: 0 metformin 750 mg tablet extended release 24 hr 750 mg PO QAM RF: 0 lisinopril 10 mg tablet 10 mg PO QAM RF: 0 potassium chloride [Klor-Con] 20 mEq Packet 20 meq PO DAILY RF: 0 pantoprazole [Protonix] 40 mg Tablet,Delayed Release (Dr/Ec) 40 mg PO DAILY RF: 0 Discharge Orders: Discharge Order (Routine); Ordered 07/02/20 Ordered By: Rehana Tobias/Other Patient Handouts: Managing Type 2 Diabetes, What Is Arthritis?, Living with Osteoarthritis, Managing Diabetes: The A1C Test Admission Data Admit Date/Time: 07/01/20 16:41 Attending Provider: Rehana Lara Admit Provider: Rehana Lara Primary Care Provider: Jamie Vela Other Providers: Rehana Lara ; Delmi Garcia at [facility] ; Reggie Laurent ; Jax López ; William Sousa ; Melissa Walter ; Glynn Ambrocio ; Alesha Sorensen ; Cristiano Ellis ; Man Dunaway ; Ulisses Soriano ; Arthur Hull. ; Man Williamson ; Jayy Truong ; Fletcher Solorio ; Wyatt Martin ; Cassius Ramirez ; Alesha Lazcano ; Mario Cook ; Shukri Stewart ; Anne-Marie Lombardo ; Simon Kerr ; Teresa Huynh ; [facility] Other Interventions: Discharge Summary Assessment (RN) Last Done: 07/02/20 13:12
== END 2020-07-02 14:04 | disposition home health service (06) | DRG 554 ==
LOC: ED 09:34 → 3W 09:34

== ENCOUNTER 2020-09-24 15:37 | Inpatient (IN) ==
[2020-09-24] MEDS ORDERED: dilTIAZem HCl 5 MG/ML 5 ML VIAL IV STA (15:53)
[2020-09-24] MEDS ORDERED: ALBUT/IPRATROP 3MG/0.5MG NEB 3 ML VIAL INH STA (15:53)
[2020-09-24] MEDS ORDERED: STAT IV Infusion **Titration per Protocol STA (15:53)
[2020-09-24] MEDS ORDERED: methylPREDNISolone 125 MG/2 ML VIAL IV STA (15:53)
--- NOTE | 2020-09-24 16:01 | Emergency Department Note ---
Impression & Plan SOB (shortness of breath), COPD exacerbation, Atrial fibrillation with rapid ventricular response, Failure of outpatient treatment ED Provider Note NAME: KELSI MOTA AGE: 85 SEX: F : 1935 ARRIVES VIA: Ambulance INFORMANT: [Patient][nursing] ED PROVIDER(S): [Freddy Camacho MD] CHIEF COMPLAINT: Short of breath HISTORY OF PRESENT ILLNESS: The patient is a 85-year-old female presents to the ER by EMS for shortness of breath. She was seen in the ED 2 days ago for rapid A. fib and COPD flare. She did well in the ED and was sent home. She states that yesterday, she again began noticing some dyspnea and some shortness of breath, today things were even worse. There has been no fever, she is using her inhalers as prescribed. She is on all her medications as prescribed. It appears that she was started on doxycycline and prednisone with her last ED visit. The patient states that she is not really in any pain. Is more just her difficulty breathing. She typically wears 2 L of oxygen during the day. REVIEW OF SYSTEMS: See HPI for pertinent positives and negatives. A total of ten systems were reviewed and were otherwise negative. PMHx/PSHx: See Below SOCIAL HISTORY: See Below. PHYSICAL EXAM: GENERAL: Patient is in moderate respiratory distress. HEENT: No acute trauma, normocephalic atraumatic, mucous membranes moist, no nasal congestion, no scleral icterus. NECK: No stridor, no adenopathy, no meningismus, trachea is midline. LUNGS: There is an increased respiratory rate and wheezing bilaterally. She appears in moderate respiratory distress. She speaks in very short sentences. HEART: Without murmurs gallops or rubs, irregular with a tachycardia ABDOMEN: Soft, nontender, bowel sounds positive, no hernias, no peritonitis. EXTREMITIES: No cyanosis or edema, full range of motion of all the joints without pain or difficulty, no signs for acute trauma. NEUROLOGIC: Oriented x 3, no acute motor or sensory deficits, no focal weakness. SKIN: No rash, no jaundice, no diaphoresis. DIFFERENTIAL DIAGNOSIS: Reactive airway disease, pneumonia, pneumothorax, COPD, COVID-19, dysrhythmia, A. fib or a flutter, CHF, infection, cardiac ischemia, pulmonary embolism, bronchitis, musculoskeletal, gastrointestinal, as well as other pathologies. EMERGENCY DEPARTMENT COURSE/PROCEDURES: ECG: Indication was shortness of breath. The ECG shows a rapid A. fib with a rate of 133. I see no ST elevation, there is some poor R wave progression. There are no PVCs. The QTc is 440. Continuous Cardiac Monitoring: An order was placed for continuous cardiac mo nitoring. The monitor shows a rate of 152 with rapid A. fib. Critical Care Note: I have personally spent 43 minutes of critical care time in the direct management of this patient. This includes bedside care, interpretation of diagnostic studies, and testing, discussion with consultants, patient, and family members, and other required patient management activities. This 43 minutes is in excess of all separately billable procedures. MEDICAL DECISION MAKING: There is a mild leukocytosis which could be consistent with infection or her r ecent steroid use. There is a normal hemoglobin and platelet count. INR is slightly over the therapeutic window at 3.3. There is no significant electrolyte abnormality or kidney failure. Lactic acid level was somewhat elevated, consistent with infection and/or dehydration. There were some subtle liver enzyme elevations however, the bilirubin was normal. TSH somewhat low but the T4 was normal. Covid testing was negative. BNP was not elevated making CHF less likely. ECG showed a rapid A. fib, no acute ischemia. Cardiac enzyme testing x1 is not consistent with acute cardiac injury. Chest x-ray shows some congestion to the lungs, no obvious focal pneumonia. No pneumothorax. On exam, the patient appeared in some respiratory distress. She was speaking in short sentences. She was wheezing. Her heart rate was quite quick. The patient received a DuoNeb, a second DuoNeb was given. She received a 500 cc saline bolus. She was given IV ceftriaxone as empiric antibiotic coverage. She received Solu-Medrol IV to help with her COPD flare. She was given a bolus of diltiazem IV and then placed on a diltiazem drip. The drip was titrated to effect. The patient does seem improved. She is resting more comfortably. I do think a hospital stay is warranted. She is short of breath as result of her COPD and COPD flare. She is short of breath as a result of her rapid A. fib. Further care inside the hospital is warranted. I spoke to the patient and case management. The on-call hospitalist has been consulted. Past Med/Surg History Medical History Aortic stenosis Asthma Chest pain Chronic respiratory failure with hypoxia, on home oxygen therapy COPD (chronic obstructive pulmonary disease) Deep vein thrombosis Diabetic neuropathy DM type 2 (diabetes mellitus, type 2) Dyslipidemia Incomplete uterovaginal prolapse Moderate obstructive sleep apnea Myocardial Infarction PAF (paroxysmal atrial fibrillation) Recurrent pulmonary embolism Sleep apnea 1 liter o2 Subtherapeutic international normalized ratio (INR) Surgical History History of cardiac cath History of colonoscopy History of heart artery stent History of heart valve replacement Family History Other Family history non-contributory Social History Smoking Status: Never smoker Second Hand Exposure: No; Hx Alcohol Use: No Hx Substance Use: No Preferred Language: Ukrainian Communication Ability: Effective Computer Repairer Required: No Beliefs That Will Affect Care: None Current Living Situation: Spouse Current Living Situation Comment: Lives w/ and son current occupation: Retired Other Information That Helps Us Care for You: No Feels Safe at Home: Yes Safety Concerns: Feels Safe At This Time Assistive Devices: Cane, Glasses, Oxygen - at Night, Oxygen - Continuous and Walker Allergies Allergies Allergy/AdvReac Type Severity Reaction Status Date / Time amoxicillin [From Augmentin] Allergy Intermediate Hives Verified 09/24/20 17:44 clavulanic acid Allergy Intermediate Hives Verified 09/24/20 17:44 [From Augmentin] gabapentin Allergy Intermediate Itching Verified 09/24/20 17:44 Penicillins Allergy Intermediate Hives Verified 09/24/20 17:44 Home Meds Home Medications Medication Instructions Recorded Confirmed albuterol sulfate 2 puff INHALATION Q4H PRN 07/14/19 09/24/20 aspirin [Aspirin Low Dose] 81 mg PO QAM 07/14/19 09/24/20 diltiazem HCl 120 mg PO BID 07/14/19 09/24/20 ezetimibe 10 mg PO QAM 07/14/19 09/24/20 metformin 750 mg PO QAM 07/14/19 09/24/20 warfarin See Rx Instructions .ROUTE .COMPLEX 07/14/19 09/24/20 lisinopril 10 mg PO QAM 02/15/20 09/24/20 pantoprazole [Protonix] 40 mg PO BID 06/29/20 09/24/20 acetaminophen [Tylenol Extra 500 mg PO DIRECTED PRN 09/21/20 09/24/20 Strength] diclofenac sodium 1 ea TOPICAL BID PRN 09/24/20 09/24/20 nitroglycerin [Nitrostat] 0.4 mg SUBLINGUAL UD PRN 09/24/20 09/24/20 polyethylene glycol 3350 [Miralax] 17 g PO DAILY PRN 09/24/20 09/24/20 Previous Rx's Medication Instructions Recorded doxycycline hyclate 100 mg PO BID 7 Days #14 tab 09/21/20 prednisone 60 mg PO DAILY 4 Days #12 tab 09/21/20 Results & Data (ED) Vital Signs Vital Signs - 24 hr 09/24/20 15:44 09/24/20 15:53 09/24/20 16:07 Temperature 36.4 C L Temperature Source Temporal Artery Scan Pulse Rate 133 H 143 H Pulse Rate [Right Finger] Pulse Rate from SpO2 Sensor 152 H Respiratory Rate 33 H 29 H Respiratory Effort / Characteristics Non-Labored Spontaneous Respiratory Depth Normal Blood Pressure 180/131 H 180/131 H Blood Pressure Mean 147 147 Blood Pressure Position Sitting Pulse Oximetry 93 91 Oxygen Delivery Method Nasal Cannula Nasal Cannula Nasal Cannula Oxygen Flow Rate 2 2 2 Sepsis Recent Fever Within 48 Hours No Sepsis New/Unexplained Change in Mental Status N/A Sepsis Action Taken by Nursing Physician Notified 09/24/20 16:22 09/24/20 16:32 09/24/20 16:40 Temperature Temperature Source Pulse Rate 127 H 122 H Pulse Rate [Right Finger] 119 H Pulse Rate from SpO2 Sensor 123 H 138 H Respiratory Rate 24 25 H 25 H Respiratory Effort / Characteristics Spontaneous Labored Short of Breath Respiratory Depth Blood Pressure Blood Pressure Mean Blood Pressure Position Pulse Oximetry 96 93 92 Oxygen Delivery Method Nasal Cannula Nasal Cannula Nasal Cannula Oxygen Flow Rate 2 2 2 Sepsis Recent Fever Within 48 Hours Sepsis New/Unexplained Change in Mental Status Sepsis Action Taken by Nursing 09/24/20 17:00 09/24/20 17:16 09/24/20 17:25 Temperature Temperature Source Pulse Rate 131 H 130 H Pulse Rate [Right Finger] 126 H Pulse Rate from SpO2 Sensor 136 H 122 H Respiratory Rate 24 25 H 20 Respiratory Effort / Characteristics Spontaneous Labored Respiratory Depth Blood Pressure 163/122 H 157/89 H Blood Pressure Mean 135 111 Blood Pressure Position Pulse Oximetry 93 94 95 Oxygen Delivery Method Nasal Cannula Nasal Cannula Nasal Cannula Oxygen Flow Rate 2 2 2 Sepsis Recent Fever Within 48 Hours Sepsis New/Unexplained Change in Mental Status Sepsis Action Taken by Nursing 09/24/20 17:31 09/24/20 17:46 09/24/20 18:00 Temperature Temperature Source Pulse Rate 127 H 132 H 122 H Pulse Rate [Right Finger] Pulse Rate from SpO2 Sensor 140 H 127 H 126 H Respiratory Rate 27 H 26 H 27 H Respiratory Effort / Characteristics Respiratory Depth Blood Pressure 232/185 H 170/117 H 150/110 H Blood Pressure Mean 200 134 123 Blood Pressure Position Pulse Oximetry 94 96 96 Oxygen Delivery Method Room Air Room Air Room Air Oxygen Flow Rate Sepsis Recent Fever Within 48 Hours Sepsis New/Unexplained Change in Mental Status Sepsis Action Taken by Nursing 09/24/20 18:15 Temperature Temperature Source Pulse Rate 127 H Pulse Rate [Right Finger] Pulse Rate from SpO2 Sensor 129 H Respiratory Rate 25 H Respiratory Effort / Characteristics Respiratory Depth Blood Pressure 153/104 H Blood Pressure Mean 120 Blood Pressure Position Pulse Oximetry 95 Oxygen Delivery Method Room Air Oxygen Flow Rate Sepsis Recent Fever Within 48 Hours Sepsis New/Unexplained Change in Mental Status Sepsis Action Taken by [facility] Medications Current Medication List: was personally reviewed by me Laboratory Data Attestation: I reviewed the patient's lab results. Result diagrams: 09/24/20 16:19 09/24/20 16:19 Lab Results 09/24/20 09/24/20 09/24/20 Range/Units 16:19 16:19 16:19 WBC 13.34 H (4.8-10.8) K/uL RBC 4.23 (4.2-5.4) M/uL Hgb 12.8 (12.0-16.0) g/dL Hct 40.6 (37-47) % MCV 96.0 (80-100) fL MCH 30.3 (25-34) pg MCHC 31.5 L (32-36) g/dL RDW Std Deviation 57.8 H (36.4-46.3) fL RDW Coeff of Linda 16.4 H (11.5-14.5) % Plt Count 264 (130-400) K/uL MPV 10.9 H (7.4-10.4) fL Immature Gran % (Auto) 0.1 % Neut % (Auto) 96.0 % Lymph % (Auto) 2.8 % [place] % (Auto) 1.0 % Eos % (Auto) 0.0 % Baso % (Auto) 0.1 % Neut # (Auto) 12.80 H (1.4-6.5) K/uL Lymph # (Auto) 0.38 L (1.2-3.4) K/uL [place] # (Auto) 0.13 (0.11-0.59) K/uL Eos # (Auto) 0.00 (0-0.5) K/uL Baso # (Auto) 0.01 (0-0.2) K/uL Immature Gran # (Auto) 0.02 (0.00-0.02) K/uL PT 30.5 H (9.0-12.0) Seconds INR 3.3 H (0.9-1.1) APTT 32.2 H (21.0-31.0) Seconds PTT Ratio 1.2 Sodium 139 (136-145) mmol/L Potassium 4.5 (3.5-5.1) mmol/L Chloride 107 (98-107) mmol/L Carbon Dioxide 26 (21-32) mmol/L Anion Gap 6.0 (3-11) BUN 21 H (7-18) mg/dl Creatinine 0.67 (0.6-1.2) mg/dl Est Cr Clr Drug Dosing 63.2 ml/min Est GFR ( Amer) 91.6 ml/min Est GFR (Non-Af Amer) 79.0 ml/min BUN/Creatinine Ratio 31.9 H (10-20) Glucose 192 H (70-99) mg/dl Lactate (0.4-2.0) mmol/L Calcium 8.3 L (8.5-10.1) mg/dl Magnesium 2.0 (1.8-2.4) mg/dl Total Bilirubin 0.4 (0.2-1) mg/dl AST 78 H (15-37) U/L ALT 118 H (12-78) U/L Alkaline Phosphatase 61 (45-117) U/L Troponin I < 0.015 (0-0.045) ng/ml NT-Pro-B Natriuret Pep 993 (0-1800) pg/ml Total Protein 7.0 (6.4-8.2) gm/dl Albumin 3.3 L (3.4-5.0) gm/dl Globulin 3.7 (2.5-4.0) gm/dl Albumin/Globulin Ratio 0.9 (0.9-2) TSH 0.188 L (0.300-4.500) uIu/ml Free T4 1.07 (0.8-1.6) ng/dl COVID-19 Eval Order SARS-CoV-2 (PCR) (Negative) 09/24/20 09/24/20 09/24/20 Range/Units 16:19 16:51 16:51 WBC (4.8-10.8) K/uL RBC (4.2-5.4) M/uL Hgb (12.0-16.0) g/dL Hct (37-47) % MCV (80-100) fL MCH (25-34) pg MCHC (32-36) g/dL RDW Std Deviation (36.4-46.3) fL RDW Coeff of Linda (11.5-14.5) % Plt Count (130-400) K/uL MPV (7.4-10.4) fL Immature Gran % (Auto) % Neut % (Auto) % Lymph % (Auto) % [place] % (Auto) % Eos % (Auto) % Baso % (Auto) % Neut # (Auto) (1.4-6.5) K/uL Lymph # (Auto) (1.2-3.4) K/uL [place] # (Auto) (0.11-0.59) K/uL Eos # (Auto) (0-0.5) K/uL Baso # (Auto) (0-0.2) K/uL Immature Gran # (Auto) (0.00-0.02) K/uL PT (9.0-12.0) Seconds INR (0.9-1.1) APTT (21.0-31.0) Seconds PTT Ratio Sodium (136-145) mmol/L Potassium (3.5-5.1) mmol/L Chloride (98-107) mmol/L Carbon Dioxide (21-32) mmol/L Anion Gap (3-11) BUN (7-18) mg/dl Creatinine (0.6-1.2) mg/dl Est Cr Clr Drug Dosing ml/min Est GFR ( Amer) ml/min Est GFR (Non-Af Amer) ml/min BUN/Creatinine Ratio (10-20) Glucose (70-99) mg/dl Lactate 2.4 H* (0.4-2.0) mmol/L Calcium (8.5-10.1) mg/dl Magnesium (1.8-2.4) mg/dl Total Bilirubin (0.2-1) mg/dl AST (15-37) U/L ALT (12-78) U/L Alkaline Phosphatase (45-117) U/L Troponin I (0-0.045) ng/ml NT-Pro-B Natriuret Pep (0-1800) pg/ml Total Protein (6.4-8.2) gm/dl Albumin (3.4-5.0) gm/dl Globulin (2.5-4.0) gm/dl Albumin/Globulin Ratio (0.9-2) TSH (0.300-4.500) uIu/ml Free T4 (0.8-1.6) ng/dl COVID-19 Eval Order Covid19 at [facility] [place] SARS-CoV-2 (PCR) NEGATIVE (Negative) Administered Medications Acetaminophen (Acetaminophen 325 Mg Tab) 650 mg PO Q4H PRN PRN Reason: Pain or Fever Stop: 10/24/20 21:40 Last Admin: 09/24/20 22:51 Dose: 650 mg Documented by: [id number] Guaifenesin (Guaifenesin 600 Mg Tabcr) 1,200 mg PO BID [facility] Stop: 10/24/20 21:40 Last Admin: 09/24/20 22:40 Dose: 1,200 mg Documented by: [id number] Diltiazem HCl 125 mg/ Dextrose 125 mls @ 15 mls/hr IV .[id number] BRYN; Protocol Stop: 10/24/20 15:59 Last Titration: 09/24/20 17:52 Dose: 15 mg/hr, 15 mls/hr Documented by: [id number] Cosigned by: [id number] Titration: 09/24/20 17:14 Dose: 10 mg/hr, 10 mls/hr Documented by: [id number] Cosigned by: [id number] Admin: 07/13/21 16:45 Dose: 5 mg/hr, 5 mls/hr Documented by: [id number] Cosigned by: [id number] Azithromycin 500 mg/ Dextrose 255 mls @ 125 mls/hr IV Q24H BRYN Stop: 09/27/20 00:03 Last Admin: 09/24/20 22:40 Dose: 125 mls/hr Documented by: [id number] Methylprednisolone 40 mg/ (Syringe) 0.64 mls @ 1.5 mls/min IV Q6H BRYN Stop: 10/24/20 21:59 Last Admin: 09/24/20 22:51 Dose: 1.5 mls/min Documented by: [id number] Pantoprazole Sodium (Pantoprazole 40 Mg Tab) 40 mg PO BID BRYN Stop: 10/24/20 21:40 Last Admin: 09/24/20 22:39 Dose: 40 mg Documented by: [id number] Discontinued Medications Albuterol (Albut/Ipratrop 3mg/0.5mg Neb 3 Ml Vial) 3 ml INH NOW STA Stop: 09/24/20 15:54 Last Admin: 09/24/20 16:22 Dose: 3 ml Documented by: [id number] Albuterol (Albut/Ipratrop 3mg/0.5mg Neb 3 Ml Vial) 3 ml NEB NOW STA Stop: 09/24/20 17:18 Last Admin: 09/24/20 17:25 Dose: 3 ml Documented by: [id number] Diltiazem HCl (Diltiazem Hcl 5 Mg/Ml 5 Ml Vial) 10 mg IV NOW STA Stop: 09/24/20 15:54 Last Admin: 09/24/20 16:12 Dose: 10 mg Documented by: [id number] Cosigned by: [id number] Sodium Chloride (Nss 1000ml) 500 mls @ 999 mls/hr IV .Q31M ONE Stop: 09/24/20 17:39 Last Infusion: 09/24/20 17:52 Dose: 0 mls/hr Documented by: [id number] Admin: 09/24/20 17:19 Dose: 999 mls/hr Documented by: [id number] Ceftriaxone Sodium (Rocephin) 2,000 mg in 70 mls @ 140 mls/hr IV NOW STA Stop: 09/24/20 17:38 Last Infusion: 09/24/20 17:51 Dose: 0 mls/hr Documented by: [id number] Admin: 09/24/20 17:19 Dose: 140 mls/hr Documented by: [id number] Digoxin 500 mcg/ Syringe 11 mls @ 2 mls/min IV ONE ONE Stop: 09/24/20 19:05 Last Admin: 09/24/20 19:08 Dose: 2 mls/min Documented by: [id number] Methylprednisolone (Methylprednisolone 125 Mg/2 Ml Vial) 60 mg IV NOW STA Stop: 09/24/20 15:54 Last Admin: 09/24/20 16:13 Dose: 60 mg Documented by: [id number] Imaging Data Radiologist's Impression: Chest X-Ray 09/24/20 15:53 XR chest 1V portable CLINICAL HISTORY: SOB COMPARISON STUDY: 09/21/2020 FINDINGS: The heart remains enlarged. There is persistent elevation of interstitium. Mild chronic congestive failure versus chronic interstitial lung disease.. There is no lobar consolidation. There is minor blunting of the lateral costophrenic angles. An aortic valve prosthesis is visualized. There are old left-sided rib deformities.[ IMPRESSION: 1. No significant change from the prior study 2. Stable cardiomegaly and interstitial thickening: mild congestive failure versus chronic interstitial lung disease. ACT 112: Negative or not required by law. Electronically signed by: Frank Galloway M.D. 09/24/2020 5:01 PM Discharge Plan Visit Data Chief Complaint: Cardiac Assessment ED Provider: Freddy Camacho Discharge Problem: SOB (shortness of breath), COPD exacerbation, Atrial fibrillation with rapid ventricular response, Failure of outpatient treatment Patient Disposition: Admitted As Inpatient Condition: Fair Discharge Instructions Interventions: ED Discharge Assessment Last Done: 09/24/20 19:32
[2020-09-24 16:31] LABS: Basophils # (auto) 0.01 K/uL (0-0.2); Basophils % (auto) 0.1 %; Hematocrit (blood only) 40.6 % (37-47); Hemoglobin 12.8 g/dL (12.0-16.0); Immature Granulocytes # (auto) 0.02 K/uL (0.00-0.02); Immature Granulocytes % (auto) 0.1 %; Lymphocytes # (auto) 0.38 K/uL (1.2-3.4); Lymphocytes % (auto) 2.8 %; Mean Corpuscular Hemoglobin 30.3 pg (25-34); Mean Corpuscular Hgb Conc 31.5 g/dL (32-36); Mean Platelet Volume 10.9 fL (7.4-10.4); Monocytes # (auto) 0.13 K/uL (0.11-0.59); Platelet Count 264 K/uL (130-400); RDW Coefficient of Variation 16.4 % (11.5-14.5); RDW Standard Deviation 57.8 fL (36.4-46.3); Red Blood Count 4.23 M/uL (4.2-5.4); White Blood Count 13.34 K/uL (4.8-10.8)
[2020-09-24] MEDS: dilTIAZem HCL 125 MG in DEXTROSE 5% 100 ML IV SCH (16:45)
[2020-09-24 16:47] LABS: Alanine Aminotransferase 118 U/L (12-78); Albumin Level 3.3 gm/dl (3.4-5.0); Aspartate Aminotransferase 78 U/L (15-37); BUN Creatinine Ratio 31.9 (10-20); Blood Urea Nitrogen 21 mg/dl (7-18); Calcium 8.3 mg/dl (8.5-10.1); Carbon Dioxide 26 mmol/L (21-32); Chloride 107 mmol/L (98-107); Creatinine Clr Calc Pharmacy 63.2 ml/min; Est GFR (African American) 91.6 ml/min; Glucose 192 mg/dl (70-99); INR 3.3 (0.9-1.1); Partial Thromboplastin Ratio 1.2; Partial Thromboplastin Time 32.2 Seconds (21.0-31.0); Potassium 4.5 mmol/L (3.5-5.1); Prothrombin Time 30.5 Seconds (9.0-12.0); Sodium 139 mmol/L (136-145)
[2020-09-24 16:54] LABS: Albumin Globulin Ratio 0.9 (0.9-2); Alkaline Phosphatase 61 U/L (45-117); Bilirubin,Total 0.4 mg/dl (0.2-1); Globulin 3.7 gm/dl (2.5-4.0); NT Pro B Type Natriuretic Pept 993 pg/ml (0-1800); Troponin I < 0.015 ng/ml (0-0.045)
--- NOTE | 2020-09-24 17:03 | XRay Report ---
XR chest 1V portable CLINICAL HISTORY: SOB COMPARISON STUDY: 09/21/2020 FINDINGS: The heart remains enlarged. There is persistent elevation of interstitium. Mild chronic con gestive failure versus chronic interstitial lung disease.. There is no lobar consolidation. There is minor blunting of the lateral costophrenic angles. An aortic valve prosthesis is visualized. There ar e old left-sided rib deformities.[ IMPRESSION: 1. No significant change from the prior study 2. Stable cardiomegaly and interstitial thickening: mild congestive failure versus chronic interstiti al lung disease. ACT 112: Negative or not required by law. Electronically signed by: Frank Galloway M.D. 09/24/2020 5:01 PM
[2020-09-24] MEDS ORDERED: SODIUM CHLORIDE 0.9% 1000ML 500 ML IV ONE (17:09)
[2020-09-24] MEDS ORDERED: cefTRIAXone SODIUM 2,000 MG/70 ML BAG IV STA (17:09)
[2020-09-24] MEDS ORDERED: ALBUT/IPRATROP 3MG/0.5MG NEB 3 ML VIAL NEB STA (17:17)
--- NOTE | 2020-09-24 17:57 | History & Physical Report ---
Date of Service September 24, 2020 Assessment & Plan (1) Atrial fibrillation with rapid ventricular response: h/o PAF with known valvular disease on coumadin, now with RVR in setting of a COPD exacerbation. Placed on diltiazem drip with bolus in the ER, but heart rate still 130bpm on average despite this. Discussed with cardiology who is consulted. Proceed with digoxin load. May consider very small amount of beta tho if needed later this evening but would prefer to avoid in the setting of acute bronchospasm. Cont with coumadin, INR therapeutic. Cont to monitor this daily. (2) COPD exacerbation: She has been suffering from bronchospasm, productive cough and dyspnea for the past several days now. Symptoms were not improved with recent course of doxycycline and prednisone 60mg PO daily. Convert to IV methylprednisolone 40mg IV q6h, Rocephin given in ER. Start short course of azithromycin, monitor QTc with daily EKG. (3) Chronic respiratory failure with hypoxia, on home oxygen therapy: Cont supplemental oxygen. (4) S/P TAVR (transcatheter aortic valve replacement): (5) Current use of long-term anticoagulation: cont coumadin, daily INR. Of note, she has a h/o PAF and recurrent pulmonary emboli in the past. (6) DMII (diabetes mellitus, type 2): Place on #3 tight control insulin coverage in setting of steroid administration. (7) Hypertension: Slightly uncontrolled, recheck when patient arrives on the floor. Recent bronchodilator therapies and transition from the ER may be affecting this somewhat. Cont lisinopril per home regimen. (8) Moderate obstructive sleep apnea: CPAP nightly-reports 6cm H2O home setting with 1LPM pumped through mask for support. (9) DVT prophylaxis: Coumadin Full Code as discussed with patient and her on admission. Dispo-PCU Lili Bustillos DO [facility] Hospitalist History of Present Illness Chief Complaint: SOB, fatigue, palpitations Primary Care Provider: Jamie Vela DO The patient is an 85 yo F with a h/o aortic valve stenosis s/p TAVR, PAF on coumadin, and COPD on chronic home oxygen who presented to the ER today for heart rate control. She was at her PCP office for an ER followup a few days ago and was found to be in afib with RVR with a heart rate of 143. She takes coumadin with INR 3.3 today, and takes diltiazem 120mg PO BID. She is with her today and they endorse that she has not felt well since her hospital discharge back in June 2020. Specifically, she reports chronically feeling "played out" and reports that even though she loves to cook and is an avid michelle, she has not been able to cook one full meal in three months. She reports a productive cough of yellowish mucus in the past week, fatigue, palpitations. She was given a course of doxycycline and prednisone 60mg PO daily Sat evening upon DC from the ER. She has been compliant with this, but not improved. She uses an albuterol rescue in haler at home but no other inhalers despite having Advair on her list. She denies chest pain, nausea, vomiting, abdominal discomfort. She has had some loose stools "from all the antibiotics recently." She denies any dysuria, fevers, chills, sinus pain, sore throat or other overt infectious symptoms. She does not check her blood sugar daily and takes metformin. She sleeps with a CPAP (6cm H2O) with 1LPM oxygen pumped in and uses 2L continuously during the day. She ambulates with a walker and a cane. She lives at home with her . Allergies Allergy/AdvReac Type Severity Reaction Status Date / Time amoxicillin [From Augmentin] Allergy Intermediate Hives Verified 09/24/20 17:44 clavulanic acid Allergy Intermediate Hives Verified 09/24/20 17:44 [From Augmentin] gabapentin Allergy Intermediate Itching Verified 09/24/20 17:44 Penicillins Allergy Intermediate Hives Verified 09/24/20 17:44 Home Medications Medication Instructions Recorded Confirmed Type albuterol sulfate 2 puff INHALATION Q4H PRN 07/14/19 09/24/20 History aspirin [Aspirin Low Dose] 81 mg PO QAM 07/14/19 09/24/20 History diltiazem HCl 120 mg PO BID 07/14/19 09/24/20 History ezetimibe 10 mg PO QAM 07/14/19 09/24/20 History metformin 750 mg PO QAM 07/14/19 09/24/20 History warfarin See Rx Instructions .ROUTE .COMPLEX 07/14/19 09/24/20 History lisinopril 10 mg PO QAM 02/15/20 09/24/20 History pantoprazole [Protonix] 40 mg PO BID 06/29/20 09/24/20 History acetaminophen [Tylenol Extra 500 mg PO DIRECTED PRN 09/21/20 09/24/20 History Strength] doxycycline hyclate 100 mg PO BID 7 Days #14 tab 09/21/20 09/24/20 Rx prednisone 60 mg PO DAILY 4 Days #12 tab 09/21/20 09/24/20 Rx diclofenac sodium 1 ea TOPICAL BID PRN 09/24/20 09/24/20 History nitroglycerin [Nitrostat] 0.4 mg SUBLINGUAL UD PRN 09/24/20 09/24/20 History polyethylene glycol 3350 [Miralax] 17 g PO DAILY PRN 09/24/20 09/24/20 History Past Med/Surg History Medical History Aortic stenosis Asthma Chest pain Chronic respiratory failure with hypoxia, on home oxygen therapy COPD (chronic obstructive pulmonary disease) Deep vein thrombosis Diabetic neuropathy DM type 2 (diabetes mellitus, type 2) Dyslipidemia Incomplete uterovaginal prolapse Moderate obstructive sleep apnea Myocardial Infarction PAF (paroxysmal atrial fibrillation) Recurrent pulmonary embolism Sleep apnea 1 liter o2 Subtherapeutic international normalized ratio (INR) Surgical History History of cardiac cath History of colonoscopy History of heart artery stent History of heart valve replacement Family History Other Family history non-contributory Social History Smoking Status: Unknown if ever smoked Second Hand Exposure: No; Hx Alcohol Use: No Hx Substance Use: No Preferred Language: Mongolian Communication Ability: Effective 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 Beliefs That Will Affect Care: None Current Living Situation: Spouse Current Living Situation Comment: Lives w/ and son current occupation: Retired Feels Safe at Home: Yes Assistive Devices: Walker Review of Systems Review of Systems: All systems reviewed & are unremarkable except as noted in Subjective Physical Exam Physical Exam: CONSTITUTIONAL: WNWD, vitals as above, NAD, appears euvolemic EYES: PERRL, normal conjunctivae, no scleral icterus ENT: external ear and nose normal, oropharynx clear, MMM NECK: trachea midline, no lymphadenopathy RESPIRATORY: coarse rhonchi throughout, occasional wheezes, no rales, normal respiratory effort, no conversational dyspnea on supplemental oxygen. CARDIOVASCULAR: tachy rate and irregular rhythm, S1 and 2 heard without murmurs, gallops or rubs, no JVD, no peripheral edema GASTROINTESTINAL: soft, nontender, nondistended, no guarding. MUSCULOSKELETAL: strength 5/5 throughout, head is normocephalic and atraumatic SKIN: warm and dry NEUROLOGIC: CN 2-12 grossly intact, no sensory deficit, normal cognition, normal speech, no tremor, no gross focal deficits. PSYCHIATRIC: alert cooperative and oriented to person, place and time. Results & Data Results & Data ([facility]) Vital Signs (Past 12 Hours) Vital Signs Temp Pulse Pulse Resp BP Pulse Ox 09/24/20 17:25 126 H 20 95 09/24/20 17:16 130 H 25 H 157/89 H 94 09/24/20 17:00 131 H 24 163/122 H 93 09/24/20 16:40 122 H 25 H 92 09/24/20 16:32 127 H 25 H 93 09/24/20 16:22 119 H 24 96 09/24/20 15:53 36.4 C L 143 H 29 H 180/131 H 91 09/24/20 15:44 133 H 33 H 180/131 H 93 Laboratory Results Short CBC 09/24/20 Range/Units 16:19 WBC 13.34 H (4.8-10.8) K/uL Hgb 12.8 (12.0-16.0) g/dL Hct 40.6 (37-47) % Plt Count 264 (130-400) K/uL BMP 09/24/20 16:19 Sodium 139 Potassium 4.5 Chloride 107 Carbon Dioxide 26 BUN 21 H Creatinine 0.67 Glucose 192 H Calcium 8.3 L Cardiac Enzymes 09/24/20 Range/Units 16:19 Troponin I < 0.015 (0-0.045) ng/ml Liver Function 09/24/20 Range/Units 16:19 Total Bilirubin 0.4 (0.2-1) mg/dl AST 78 H (15-37) U/L ALT 118 H (12-78) U/L Alkaline Phosphatase 61 (45-117) U/L Albumin 3.3 L (3.4-5.0) gm/dl Diagnostic Findings XR chest 1V portable CLINICAL HISTORY: SOB COMPARISON STUDY: 09/21/2020 FINDINGS: The heart remains enlarged. There is persistent elevation of interstitium. Mild chronic congestive failure versus chronic interstitial lung disease.. There is no lobar consolidation. There is minor blunting of the lateral costophrenic angles. An aortic valve prosthesis is visualized. There are old left-sided rib deformities.[ IMPRESSION: 1. No significant change from the prior study 2. Stable cardiomegaly and interstitial thickening: mild congestive failure versus chronic interstitial lung disease.
[2020-09-24 18:33] LABS: Thyroid Stimulating Hormone 0.188 uIu/ml (0.300-4.500)
[2020-09-24] MEDS ORDERED: DIGOXIN 500 MCG/2 ML AMP IV STA (18:35)
--- NOTE | 2020-09-24 18:35 | Electrocardiogram Report ---
Test Reason : Blood Pressure : / mmHG Vent. Rate : 133 BPM Atrial Rate : 156 BPM P-R Int : 000 ms QRS Dur : 090 ms QT Int : 296 ms P-R-T Axes : 000 -43 043 degrees QTc Int : 440 ms Atrial fibrillation with rapid ventricular response Left axis deviation Low voltage QRS Poor R wave progression, consider anterior FL vs. lead placement vs. LVH Abnormal ECG When compared with ECG of 21-SEP-2020 20:56, No significant change was found Confirmed by Matt Simon ([id number]) on 09/24/2020 6:34:46 PM Referred By: ED Confirmed By:Tommy Simon
[2020-09-24 18:45] LABS: T4 Free Thyroxine 1.07 ng/dl (0.8-1.6)
[2020-09-24] MEDS ORDERED: DIGOXIN 500 MCG/2 ML AMP IV ONE (18:54)
[2020-09-24] MEDS ORDERED: DIGOXIN 500 MCG in SYRINGE 9 ML IV ONE (19:00)
[2020-09-24] MEDS ORDERED: GLUCAGON FOR INJ 1 MG VIAL SQ PRN (21:41)
[2020-09-24] MEDS ORDERED: ENOXAPARIN INJ 40 MG/0.4 ML SYR SQ SCH (21:41)
[2020-09-24] MEDS ORDERED: POLYETHYLENE (MIRALAX) 17 GM PACK PO PRN (21:41)
[2020-09-24] MEDS ORDERED: DICLOFENAC SOD 1% GEL 100 GM TUBE EXT PRN (21:41)
[2020-09-24] MEDS ORDERED: GLUCOSE 40% GEL 15 GM TUBE PO PRN (21:41)
[2020-09-24] MEDS ORDERED: DEXTROSE 50% 50 ML SYRINGE IV PRN (21:41)
[2020-09-24] MEDS ORDERED: GLUCOSE 10 TABS/TUBE PO PRN (21:41)
[2020-09-24] MEDS: PANTOprazole 40 MG TAB PO SCH (22:39)
[2020-09-24] MEDS: AZITHROMYCIN 500 MG in DEXTROSE 5% 250 ML IV SCH (22:40)
[2020-09-24] MEDS: guaiFENesin 600 MG TABCR PO SCH (22:40)
[2020-09-24] MEDS: ACETAMINOPHEN 325 MG TAB PO PRN (22:51)
[2020-09-24] MEDS: methylPREDNISolone 40 MG in SYRINGE 0 ML IV SCH (22:51)
[2020-09-24] MEDS: INSULIN GLARGINE SOLOSTAR 100 UNITS/ML 3 ML PEN SC SCH (22:55)
[2020-09-24] MEDS: INSULIN ASPART 100 UNITS/ML 3 ML PEN SC SCH (22:55)
[2020-09-25] MEDS: ALBUT/IPRATROP 3MG/0.5MG NEB 3 ML VIAL INH SCH ×5 (00:14→19:15)
[2020-09-25] MEDS: dilTIAZem HCL 125 MG in DEXTROSE 5% 100 ML IV SCH ×2 (04:33→10:24)
[2020-09-25] MEDS: methylPREDNISolone 40 MG in SYRINGE 0 ML IV SCH ×4 (04:34→21:50)
[2020-09-25 07:14] LABS: Hematocrit (blood only) 41.4 % (37-47); Hemoglobin 13.2 g/dL (12.0-16.0); Mean Corpuscular Hemoglobin 29.9 pg (25-34); Mean Corpuscular Hgb Conc 31.9 g/dL (32-36); Mean Corpuscular Volume 93.7 fL (80-100); Mean Platelet Volume 10.8 fL (7.4-10.4); Platelet Count 237 K/uL (130-400); RDW Coefficient of Variation 16.2 % (11.5-14.5); RDW Standard Deviation 56.1 fL (36.4-46.3); Red Blood Count 4.42 M/uL (4.2-5.4); White Blood Count 10.18 K/uL (4.8-10.8)
[2020-09-25 07:17] LABS: Estimated Average Glucose 154 mg/dl
[2020-09-25 07:24] LABS: INR 2.7 (0.9-1.1); Prothrombin Time 25.5 Seconds (9.0-12.0)
[2020-09-25 07:49] LABS: Albumin Level 3.4 gm/dl (3.4-5.0); BUN Creatinine Ratio 24.5 (10-20); Calcium 8.6 mg/dl (8.5-10.1); Creatinine Clr Calc Pharmacy 66.9 ml/min; Est GFR (African American) 93.5 ml/min; Est GFR (Non-African American) 80.6 ml/min; Magnesium 2.2 mg/dl (1.8-2.4); Potassium 4.1 mmol/L (3.5-5.1)
[2020-09-25 07:52] LABS: Albumin Globulin Ratio 0.9 (0.9-2); Bilirubin,Total 0.5 mg/dl (0.2-1); Globulin 3.7 gm/dl (2.5-4.0); Total Protein 7.1 gm/dl (6.4-8.2)
[2020-09-25] MEDS ORDERED: DIGOXIN 0.125 MG TAB PO ONE (08:00)
[2020-09-25] MEDS: INSULIN ASPART 100 UNITS/ML 3 ML PEN SC SCH ×4 (08:52→21:49)
[2020-09-25] MEDS: EZETIMIBE 10 MG TABLET PO SCH (08:53)
[2020-09-25] MEDS: PANTOprazole 40 MG TAB PO SCH ×2 (08:53→21:50)
[2020-09-25] MEDS: lisinopril 10 MG TAB PO SCH (08:53)
[2020-09-25] MEDS: guaiFENesin 600 MG TABCR PO SCH ×2 (08:53→21:48)
[2020-09-25] MEDS: ASPIRIN 81 MG ECTAB PO SCH (08:54)
[2020-09-25] MEDS: INSULIN GLARGINE SOLOSTAR 100 UNITS/ML 3 ML PEN SC SCH ×2 (08:54→21:50)
--- NOTE | 2020-09-25 09:39 | Hospitalist Progress Note ---
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 On diltiazem drip with bolus in the ER, heart rate still low 100s. Cardiology is consulted. Digoxin load. (2) COPD exacerbation: She has been suffering from bronchospasm, productive cough and dyspnea for the past several days now. Symptoms were not improved with recent course of doxycycline and prednisone 60mg PO daily. On IV methylprednisolone 40mg IV q6h, Rocephin given in ER. Short course of azithromycin, monitor QTc with daily EKG. (3) Chronic respiratory failure with hypoxia, on home oxygen therapy: Cont supplemental oxygen. 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 Of note, she has a h/o PAF and recurrent pulmonary emboli in the past. (6) DMII (diabetes mellitus, type 2): Place on #3 tight control insulin coverage in setting of steroid administration. (7) Hypertension: Slightly uncontrolled, recheck when patient arrives on the floor. Recent bronchodilator therapies and transition from the ER may be affecting this somewhat. Cont lisinopril per home regimen. (8) Moderate obstructive sleep apnea: CPAP nightly-reports 6cm H2O home setting with 1LPM pumped through mask for support. (9) DVT prophylaxis: Coumadin Full Code was discussed with patient and her on admission. Dispo-PCU Labs Checked ROS-No Headache, No Visual Changes, No Nausea, No Vomiting, No Fever, No Chills, No Neck Pain or Stiffness, No Chest Pain, No Palpitations, No SOB, No AHN, No Cough, No Sputum, No Wheezing, +Abdominal Pain, No Diarrhea, No Hematemesis, No Hemoptysis, No Unexpected Weight Loss, No Flank pain, No Melena, No Hematochezia, No Frequency, No Urgency, No Burning, No Hematuria, No Rashes, No Diaphoresis. Appetite is Normal Physical Exam Gen-AAO x 3, NAD, Afebrile Head-NCAT, EOMI, PERRLA, Anicteric Sclera, No Posterior Pharyngeal Erythema Neck-Supple, No JVD, No Thyromegaly, No Masses, No LAD, No Bruits Lungs-Clear to Auscultation Bilaterally, No Rales, No Rhonchi, No Wheezing, No Crepitus Chest-Tachy Irreg/Irreg, No S4, +S1, +S2, No S3, No Murmurs, No Rubs, No Gallops Abdomen-Soft, Bowel Sounds Hypoactive, Tender, Non Distended, No Hepatomegaly, Incision CDI No Splenomegaly, No Palpable Masses, No Rebound, No Rigidity, No Guarding Musculoskeletal-Full Range of Motion Bilaterally, No CVAT Extremities-No Cyanosis, No Clubbing, No Edema Nuero-Cranial Nerves II-XII grossly intact, Motor WNL, DTRs WNL, Strength WNL, Non Focal Psych-Normal Mood Admission and Anticipated Discharge Date Admission Date: September 24, 2020 Results & Data Results & Data ([facility]) Vital Signs (Past 12 Hours) Vital Signs Temp Pulse Pulse Resp BP Pulse Ox 09/25/20 08:00 104 H 09/25/20 07:22 36.4 C L 103 H 19 159/95 H 95 09/25/20 07:05 99 H 16 95 09/25/20 04:56 36.6 C 103 H 18 152/94 H 94 09/24/20 21:41 36.5 C 90 24 153/80 H 94
--- NOTE | 2020-09-25 10:40 | Cardiology Consultation ---
Date of Consultation September 25, 2020 Assessment & Plan (1) COPD exacerbation: (2) Atrial fibrillation with rapid ventricular response: (3) S/P TAVR (transcatheter aortic valve replacement): (4) ASCVD (arteriosclerotic cardiovascular disease): Complex 85-year-old female with history of coronary artery disease, aortic valve stenosis status post TAVR, and paroxysmal atrial fibrillation who was admitted to the hospital with an acute on chronic obstructive pulmonary disease exacerbation, lapsing into atrial fibrillation on or prior to 09/21/2020, with a rapid ventricular response. Heart rates have improved with oral as well as IV diltiazem and digoxin. INRs have been therapeutic on chart review dating back to April 2020. Recommend continuing calcium channel tho as well as digoxin for rate control as well as maintaining proper anticoagulation with an INR goal of 2.0-3.0. Recommend avoiding beta-tho therapy at this time given observed acute bronchospasm. Suspect heart rates will improve, possibly with spontaneous conversion, with improvement in the acute pulmonary exacerbation. May need to consider referral for cardioversion after pulmonary status improved. Resting echocardiography requested to assess systolic function and TAVR. No evidence of an acute coronary syndrome. No overt evidence of volume overload. Supervising Physician Co-Signing Physician Notes I have seen and examined the patient. I have reviewed the history and medical record. I discussed the case with Mr. Ogden and agree with his assessment and plan. History of Present Illness Reason for Consultation: s/p TAVR, +CAD, afib w RVR, h/o PAF, on Coumadin Requesting Physician: Apollo Attending Physician: Dada History of Present Illness Kasie Elena is a complex 85-year-old female who is somewhat of a limited historian. She notes not feeling well over the last few days, describing trouble breathing, cough productive of yellow mucus, increased shortness of breath, malaise and fatigue. She was seen in the ER on 09/22/2019. EKG on arrival revealed atrial fibrillation with a mildly elevated ventricular response. She was given IV fluid hydration, guaifenesin, Solu-Medrol, and an hour-long nebulizer treatment. She was discharged from the ER to complete a course of doxycycline as well as prednisone for a COPD exacerbation. Unfortunately, the patient's symptoms continued despite antibiotic and steroid therapies. She returned to the ER with ongoing symptoms and was admitted. She was given IV diltiazem as well as IV digoxin with improvement in rates. This morning, she feels considerably better though continues to have cough, chest congestion, productive sputum, and intermittent expiratory wheezing. She remains in atrial fibrillation with heart rates currently in the 80s and 90s. She denies chest pain, palpitations, orthopnea, PND, peripheral edema, fevers, chills, dizziness, syncope, melena or hematochezia. Cardiac Problem List: ASCVD. Status post PCI of the mid LAD with a 2.5 x 23 mm Xience drug-eluting stent at [facility] on 01/08/2017 Aortic valve stenosis status post February 15, 2018 TAVR with a #26 mm Reed Rosaura S3 valve Paroxysmal atrial fibrillation Chronic Coumadin Anticoagulation Hypertension Dyslipidemia She also notably has a history of oxygen dependent COPD, recurrent pulmonary embolism and DVT, type II diabetes mellitus, obstructive sleep apnea on CPAP therapy with supplemental oxygen, cody's esophagus, GERD, and pulmonary nodules Allergies Allergy/AdvReac Type Severity Reaction Status Date / Time amoxicillin [From Augmentin] Allergy Intermediate Hives Verified 09/24/20 17:44 clavulanic acid Allergy Intermediate Hives Verified 09/24/20 17:44 [From Augmentin] gabapentin Allergy Intermediate Itching Verified 09/24/20 17:44 Penicillins Allergy Intermediate Hives Verified 09/24/20 17:44 Home Medications Medication Instructions Recorded Confirmed Type albuterol sulfate 90 mcg/actuation 2 puff INHALATION Q4H PRN 07/14/19 09/24/20 History aerosol inhaler aspirin 81 mg tablet,delayed 81 mg PO QAM 07/14/19 09/24/20 History release (Aspirin Low Dose) diltiazem HCl 120 mg 120 mg PO BID 07/14/19 09/24/20 History capsule,extended release 24 hr ezetimibe 10 mg tablet 10 mg PO QAM 07/14/19 09/24/20 History metformin 750 mg tablet,extended 750 mg PO QAM 07/14/19 09/24/20 History release 24 hr warfarin 5 mg tablet See Rx Instructions .ROUTE .COMPLEX 07/14/19 09/24/20 History lisinopril 10 mg tablet 10 mg PO QAM 02/15/20 09/24/20 History pantoprazole 40 mg tablet,delayed 40 mg PO BID 06/29/20 09/24/20 History release (Protonix) acetaminophen 500 mg tablet 500 mg PO DIRECTED PRN 09/21/20 09/24/20 History (Tylenol Extra Strength) doxycycline hyclate 100 mg tablet 100 mg PO BID 7 Days #14 tab 09/21/20 09/24/20 Rx prednisone 20 mg tablet 60 mg PO DAILY 4 Days #12 tab 09/21/20 09/24/20 Rx diclofenac sodium 1 % topical gel 1 ea TOPICAL BID PRN 09/24/20 09/24/20 History nitroglycerin 0.4 mg sublingual 0.4 mg SUBLINGUAL UD PRN 09/24/20 09/24/20 History tablet (Nitrostat) polyethylene glycol 3350 17 gram 17 g PO DAILY PRN 09/24/20 09/24/20 History oral powder packet (Miralax) Patient History Medical History (Updated 09/25/20 @ 10:57 by Ulisses Ogden) Aortic stenosis ASCVD (arteriosclerotic cardiovascular disease) Asthma Chest pain Chronic respiratory failure with hypoxia, on home oxygen therapy COPD (chronic obstructive pulmonary disease) Deep vein thrombosis Diabetic neuropathy DM type 2 (diabetes mellitus, type 2) Dyslipidemia Incomplete uterovaginal prolapse Moderate obstructive sleep apnea Myocardial Infarction PAF (paroxysmal atrial fibrillation) Recurrent pulmonary embolism Sleep apnea 1 liter o2 Subtherapeutic international normalized ratio (INR) Surgical History History of cardiac cath History of colonoscopy History of heart artery stent History of heart valve replacement Family History Other Family history non-contributory Social History Smoking Status: Never smoker Second Hand Exposure: No; Hx Alcohol Use: No Hx Substance Use: No Preferred Language: Portuguese Communication Ability: Effective Consumer Advocate Required: No Beliefs That Will Affect Care: None Current Living Situation: Spouse Current Living Situation Comment: Lives w/ and son current occupation: Retired Other Information That Helps Us Care for You: No Feels Safe at Home: Yes Safety Concerns: Feels Safe At This Time Assistive Devices: Cane, Glasses, Oxygen - at Night, Oxygen - Continuous and Walker Review of Systems Review of Systems: Complete Review of Systems is as stated above, negative, or noncontributory. Physical Exam Physical Exam: General: A&Ox3. NAD. Elevated BMI. HENT: Normocephalic. Atraumatic. Eyes: PER. Conjunctiva pink, sclera clear. Neck: No carotid bruits. No overt JVD. Heart: Irregularly irregular in the 80's. Grade II/ systolic ejection murmur. No rub. Lungs: Markedly diminished. Diffuse expiratory wheeze. Diffuse rhonchi. Abdomen: +BS. Soft. Nontender. No masses or organomegaly. Extremities: No clubbing, cyanosis, or edema. Limited neurological examination is without focal deficits. Pulses: radial=2/4, posterior tibial=1/4. Results & Data ([facility]) Vital Signs (Past 12 Hours) Vital Signs Temp Pulse Pulse Resp BP Pulse Ox 09/25/20 08:00 104 H 09/25/20 07:22 36.4 C L 103 H 19 159/95 H 95 09/25/20 07:05 99 H 16 95 09/25/20 04:56 36.6 C 103 H 18 152/94 H 94 Laboratory Results Laboratory Results - last 24 hr 09/24/20 09/24/20 09/24/20 16:19 16:19 16:19 WBC 13.34 H RBC 4.23 Hgb 12.8 Hct 40.6 MCV 96.0 MCH 30.3 MCHC 31.5 L RDW Std Deviation 57.8 H RDW Coeff of Linda 16.4 H Plt Count 264 MPV 10.9 H Immature Gran % (Auto) 0.1 Neut % (Auto) 96.0 Lymph % (Auto) 2.8 Amite % (Auto) 1.0 Eos % (Auto) 0.0 Baso % (Auto) 0.1 Neut # (Auto) 12.80 H Lymph # (Auto) 0.38 L Amite # (Auto) 0.13 Eos # (Auto) 0.00 Baso # (Auto) 0.01 Immature Gran # (Auto) 0.02 PT 30.5 H INR 3.3 H APTT 32.2 H PTT Ratio 1.2 Sodium 139 Potassium 4.5 Chloride 107 Carbon Dioxide 26 Anion Gap 6.0 BUN 21 H Creatinine 0.67 Est Cr Clr Drug Dosing 63.2 Est GFR ( Amer) 91.6 Est GFR (Non-Af Amer) 79.0 BUN/Creatinine Ratio 31.9 H Glucose 192 H POC Glucose Estimat Average Glucose Hemoglobin A1c Lactate Calcium 8.3 L Magnesium 2.0 Total Bilirubin 0.4 AST 78 H ALT 118 H Alkaline Phosphatase 61 Troponin I < 0.015 NT-Pro-B Natriuret Pep 993 Total Protein 7.0 Albumin 3.3 L Globulin 3.7 Albumin/Globulin Ratio 0.9 TSH 0.188 L Free T4 1.07 COVID-19 Eval Order SARS-CoV-2 (PCR) 09/24/20 09/24/20 09/24/20 16:19 16:19 16:51 WBC RBC Hgb Hct MCV MCH MCHC RDW Std Deviation RDW Coeff of Linda Plt Count MPV Immature Gran % (Auto) Neut % (Auto) Lymph % (Auto) Amite % (Auto) Eos % (Auto) Baso % (Auto) Neut # (Auto) Lymph # (Auto) Amite # (Auto) Eos # (Auto) Baso # (Auto) Immature Gran # (Auto) PT INR APTT PTT Ratio Sodium Potassium Chloride Carbon Dioxide Anion Gap BUN Creatinine Est Cr Clr Drug Dosing Est GFR ( Amer) Est GFR (Non-Af Amer) BUN/Creatinine Ratio Glucose POC Glucose Estimat Average Glucose 154 Hemoglobin A1c 7.0 H Lactate 2.4 H* Calcium Magnesium Total Bilirubin AST ALT Alkaline Phosphatase Troponin I NT-Pro-B Natriuret Pep Total Protein Albumin Globulin Albumin/Globulin Ratio TSH Free T4 COVID-19 Eval Order Covid19 at [facility] SARS-CoV-2 (PCR) 09/24/20 09/24/20 09/24/20 16:51 18:47 20:29 WBC RBC Hgb Hct MCV MCH MCHC RDW Std Deviation RDW Coeff of Linda Plt Count MPV Immature Gran % (Auto) Neut % (Auto) Lymph % (Auto) Amite % (Auto) Eos % (Auto) Baso % (Auto) Neut # (Auto) Lymph # (Auto) Amite # (Auto) Eos # (Auto) Baso # (Auto) Immature Gran # (Auto) PT INR APTT PTT Ratio Sodium Potassium Chloride Carbon Dioxide Anion Gap BUN Creatinine Est Cr Clr Drug Dosing Est GFR ( Amer) Est GFR (Non-Af Amer) BUN/Creatinine Ratio Glucose POC Glucose 176 H Estimat Average Glucose Hemoglobin A1c Lactate 2.8 H* Calcium Magnesium Total Bilirubin AST ALT Alkaline Phosphatase Troponin I NT-Pro-B Natriuret Pep Total Protein Albumin Globulin Albumin/Globulin Ratio TSH Free T4 COVID-19 Eval Order SARS-CoV-2 (PCR) NEGATIVE 09/25/20 09/25/20 09/25/20 06:58 06:58 06:58 WBC 10.18 RBC 4.42 Hgb 13.2 Hct 41.4 MCV 93.7 MCH 29.9 MCHC 31.9 L RDW Std Deviation 56.1 H RDW Coeff of Linda 16.2 H Plt Count 237 MPV 10.8 H Immature Gran % (Auto) Neut % (Auto) Lymph % (Auto) Amite % (Auto) Eos % (Auto) Baso % (Auto) Neut # (Auto) Lymph # (Auto) Amite # (Auto) Eos # (Auto) Baso # (Auto) Immature Gran # (Auto) PT 25.5 H INR 2.7 H APTT PTT Ratio Sodium 138 Potassium 4.1 Chloride 103 Carbon Dioxide 31 Anion Gap 4.0 BUN 15 Creatinine 0.63 Est Cr Clr Drug Dosing 66.9 Est GFR ( Amer) 93.5 Est GFR (Non-Af Amer) 80.6 BUN/Creatinine Ratio 24.5 H Glucose 180 H POC Glucose Estimat Average Glucose Hemoglobin A1c Lactate Calcium 8.6 Magnesium 2.2 Total Bilirubin 0.5 AST 50 H ALT 106 H Alkaline Phosphatase 62 Troponin I NT-Pro-B Natriuret Pep Total Protein 7.1 Albumin 3.4 Globulin 3.7 Albumin/Globulin Ratio 0.9 TSH Free T4 COVID-19 Eval Order SARS-CoV-2 (PCR) 09/25/20 07:26 WBC RBC Hgb Hct MCV MCH MCHC RDW Std Deviation RDW Coeff of Linda Plt Count MPV Immature Gran % (Auto) Neut % (Auto) Lymph % (Auto) Amite % (Auto) Eos % (Auto) Baso % (Auto) Neut # (Auto) Lymph # (Auto) Amite # (Auto) Eos # (Auto) Baso # (Auto) Immature Gran # (Auto) PT INR APTT PTT Ratio Sodium Potassium Chloride Carbon Dioxide Anion Gap BUN Creatinine Est Cr Clr Drug Dosing Est GFR ( Amer) Est GFR (Non-Af Amer) BUN/Creatinine Ratio Glucose POC Glucose 154 H Estimat Average Glucose Hemoglobin A1c Lactate Calcium Magnesium Total Bilirubin AST ALT Alkaline Phosphatase Troponin I NT-Pro-B Natriuret Pep Total Protein Albumin Globulin Albumin/Globulin Ratio TSH Free T4 COVID-19 Eval Order SARS-CoV-2 (PCR) Diagnostic Findings December 01, 2016 Catheterization Conclusions (as per Dr. Bhatt): LAD: 30% mLAD, 60% dLAD lesion, D1: small with a 90% lesion EKG on 06/29/2020 revealed sinus rhythm at 68 bpm with a first-degree AV block, incomplete right bundle branch block, left anterior fascicular block. QTc was 438 ms. EKG on 09/21/2020 revealed atrial fibrillation with a rapid ventricular response. Ventricular rate was 152 bpm. Left axis deviation. Low voltage QRS. Poor R wave progression across the anterior precordial leads. EKG on 09/24/2020 revealed atrial fibrillation with a rapid ventricular response. Ventricular rate 133 bpm. Left axis deviation. Low voltage QRS. Poor R wave progression. QTC is 440 ms. Continuous telemetry monitoring reveals atrial fibrillation ranging from 80 bpm to 150 bpm.
[2020-09-25] MEDS: WARFARIN SOD 5 MG TAB PO SCH (17:23)
[2020-09-25] MEDS: AZITHROMYCIN 500 MG in DEXTROSE 5% 250 ML IV SCH (21:54)
[2020-09-26] MEDS: dilTIAZem HCL 125 MG in DEXTROSE 5% 100 ML IV SCH ×2 (01:15→12:09)
[2020-09-26] MEDS: CAPSAICIN CR 0.075% 60 GM TUBE EXT SCH ×5 (01:15→20:31)
[2020-09-26] MEDS: ALBUT/IPRATROP 3MG/0.5MG NEB 3 ML VIAL INH SCH ×4 (01:18→19:02)
[2020-09-26] MEDS: methylPREDNISolone 40 MG in SYRINGE 0 ML IV SCH ×3 (04:07→17:07)
[2020-09-26 07:01] LABS: Hematocrit (blood only) 40.9 % (37-47); Hemoglobin 12.7 g/dL (12.0-16.0); Mean Corpuscular Hemoglobin 29.9 pg (25-34); Mean Corpuscular Hgb Conc 31.1 g/dL (32-36); Mean Corpuscular Volume 96.2 fL (80-100); Platelet Count 257 K/uL (130-400); RDW Coefficient of Variation 16.1 % (11.5-14.5); RDW Standard Deviation 57.2 fL (36.4-46.3); Red Blood Count 4.25 M/uL (4.2-5.4); White Blood Count 12.87 K/uL (4.8-10.8)
[2020-09-26 07:20] LABS: INR 2.6 (0.9-1.1); Prothrombin Time 24.1 Seconds (9.0-12.0)
[2020-09-26 07:39] LABS: Calcium 8.6 mg/dl (8.5-10.1); Creatinine Clr Calc Pharmacy 54.7 ml/min; Est GFR (African American) 80.5 ml/min; Est GFR (Non-African American) 69.4 ml/min; Potassium 4.1 mmol/L (3.5-5.1)
--- NOTE | 2020-09-26 07:41 | Hospitalist Progress Note ---
Date of Service September 26, 2020 Assessment & Plan (1) Atrial fibrillation with rapid ventricular response: (2) COPD exacerbation: (3) Chronic respiratory failure with hypoxia, on home oxygen therapy: (4) S/P TAVR (transcatheter aortic valve replacement): (5) Current use of jail anticoagulation: (6) DMII (diabetes mellitus, type 2): (7) Hypertension: (8) Moderate obstructive sleep apnea: (9) DVT prophylaxis: Plan: (1) Atrial fibrillation with rapid ventricular response: h/o PAF with known valvular disease on Coumadin, now with RVR in setting of a COPD exacerbation. On diltiazem drip with bolus in the ER, heart rate now in mid to high 90s. Cardiology on case. Digoxin load. (2) COPD exacerbation: She has been suffering from bronchospasm, productive cough and dyspnea for the past several days now. Symptoms were not improved with recent course of doxycycline and prednisone 60mg PO daily. On IV methylprednisolone 40mg IV q6h, Rocephin given in ER. Short course of azithromycin, monitor QTc with daily EKG. Still tight during breathing (3) Chronic respiratory failure with hypoxia, on home oxygen therapy: Cont supplemental oxygen. (4) S/P TAVR (transcatheter aortic valve replacement): (5) Current use of jail anticoagulation: cont coumadin, daily INR. Of note, she has a h/o PAF and recurrent pulmonary emboli in the past. (6) DMII (diabetes mellitus, type 2):Place on #3 tight control insulin coverage in setting of steroid administration. (7) Hypertension: Slightly uncontrolled, recheck when patient arrives on the floor. Recent bronchodilator therapies and transition from the ER may be affecting this somewhat. Cont lisinopril per home regimen. (8) Moderate obstructive sleep apnea:CPAP nightly-reports 6cm H2O home setting with 1LPM pumped through mask for support. (9) DVT prophylaxis:Coumadin Full Code was discussed with patient and her on admission. Dispo-PCU Labs Checked ROS-No Headache, No Visual Changes, No Nausea, No Vomiting, No Fever, No Chills, No Neck Pain or Stiffness, No Chest Pain, No Palpitations, + SOB, + AHN, No Cough, No Sputum, No Wheezing, +Abdominal Pain, No Diarrhea, No Hematemesis, No Hemoptysis, No Unexpected Weight Loss, No Flank pain, No Melena, No Hematochezia, No Frequency, No Urgency, No Burning, No Hematuria, No Rashes, No Diaphoresis. Appetite is Normal Physical Exam Gen-AAO x 3, NAD, Afebrile Head-NCAT, EOMI, PERRLA, Anicteric Sclera, No Posterior Pharyngeal Erythema Neck-Supple, No JVD, No Thyromegaly, No Masses, No LAD, No Bruits Lungs- +Wheezing B/L, No Crepitus Chest-Tachy Irreg/Irreg, No S4, +S1, +S2, No S3, No Murmurs, No Rubs, No Gallops Abdomen-Soft, Bowel Sounds Hypoactive, Tender, Non Distended, No Hepatomegaly, Incision CDI No Splenomegaly, No Palpable Masses, No Rebound, No Rigidity, No Guarding Musculoskeletal-Full Range of Motion Bilaterally, No CVAT Extremities-No Cyanosis, No Clubbing, No Edema Nuero-Cranial Nerves II-XII grossly intact, Motor WNL, DTRs WNL, Strength WNL, Non Focal Psych-Normal Mood Admission and Anticipated Discharge Date Admission Date: September 24, 2020 Results & Data Results & Data ([facility]) Vital Signs (Past 12 Hours) Vital Signs Temp Pulse Pulse Resp BP BP Pulse Ox 09/26/20 07:19 104 H 18 94 09/26/20 07:17 36.6 C 95 H 20 140/95 94 09/26/20 04:52 97 H 20 149/110 H 95 09/26/20 02:02 113 H 26 H 96 09/26/20 01:19 96 H 12 96 09/25/20 23:44 36.6 C 98 H 20 152/98 H 95
[2020-09-26] MEDS ORDERED: DIGOXIN 500 MCG in SYRINGE 9 ML IV STA (07:47)
[2020-09-26] MEDS: INSULIN ASPART 100 UNITS/ML 3 ML PEN SC SCH ×4 (08:06→20:23)
[2020-09-26] MEDS: INSULIN GLARGINE SOLOSTAR 100 UNITS/ML 3 ML PEN SC SCH ×2 (08:07→20:24)
[2020-09-26] MEDS: PANTOprazole 40 MG TAB PO SCH ×2 (08:09→20:31)
[2020-09-26] MEDS: lisinopril 10 MG TAB PO SCH (08:09)
[2020-09-26] MEDS: ASPIRIN 81 MG ECTAB PO SCH (08:09)
[2020-09-26] MEDS: EZETIMIBE 10 MG TABLET PO SCH (08:09)
[2020-09-26] MEDS: guaiFENesin 600 MG TABCR PO SCH ×2 (08:09→20:31)
--- NOTE | 2020-09-26 09:13 | Cardiology Progress Note ---
Date of Service September 26, 2020 Assessment & Plan (1) COPD exacerbation: (2) Atrial fibrillation with rapid ventricular response: (3) S/P TAVR (transcatheter aortic valve replacement): (4) ASCVD (arteriosclerotic cardiovascular disease): Plan: COPD exacerbation. As per Hospitalist. No overt evidence of volume overload. Paroxysmal atrial fibrillation. On IV diltiazem and digoxin. Continue as prescribed for now, likely transitioning to oral diltiazem in the morning along with digoxin. Recommend avoiding beta-tho therapy at this time given ongoing bronchospasm. Maintain proper anticoagulation (INR goal of 2.0-3.0). INR 2.6 today. Following improvement in the pulmonary exacerbation would consider referral for cardioversion versus proceeding with a rate control strategy. Aortic stenosis status post transcatheter aortic valve replacement. Arteriosclerotic cardiovascular disease. Stable. No evidence of an acute coronary syndrome. Admission and Anticipated Discharge Date Admission Date: September 24, 2020 Supervising Physician Co-Signing Physician Notes I have seen and evaluated the patient. I reviewed the medical record and discussed the case with Mr. Ogden. I agree with the plan as outlined. I do not believe that her atrial arrhythmias will improve until her underlying pneumonia and pulmonary problems have improved. Subjective Patient seen and examined. Chart, medications, and telemetry reviewed. She notes, overall, feeling better today as compared to yesterday - less trouble breathing, improved dyspnea, improved cough. She denies chest pain, palpitations, orthopnea, PND, peripheral edema, fevers, chills, dizziness, syncope, melena or hematochezia. Telemetry: Atrial fibrillation in the 80's to low 100's Review of Systems Review of Systems: Complete Review of Systems is as stated above, negative, or noncontributory. Physical Exam Physical Exam: General: A&Ox3. NAD. Elevated BMI. HENT: Normocephalic. Atraumatic. Eyes: PER. Conjunctiva pink, sclera clear. Neck: No carotid bruits. No overt JVD. Heart: Irregularly irregular in the 90's. Grade II/ systolic ejection murmur. No rub. Lungs: Markedly diminished. Diffuse expiratory wheeze. Less rhonchi Abdomen: +BS. Soft. Nontender. No masses or organomegaly. Extremities: No clubbing, cyanosis, or edema. Limited neurological examination is without focal deficits. Pulses: radial=2/4, posterior tibial=1/4. Results & Data ([facility]) Vital Signs (Past 12 Hours) Vital Signs Temp Pulse Pulse Resp BP BP Pulse Ox 09/26/20 07:19 104 H 18 94 09/26/20 07:17 36.6 C 95 H 20 140/95 94 09/26/20 04:52 97 H 20 149/110 H 95 09/26/20 02:02 113 H 26 H 96 09/26/20 01:19 96 H 12 96 09/25/20 23:44 36.6 C 98 H 20 152/98 H 95 Laboratory Results Laboratory Results - last 24 hr 09/25/20 09/25/20 09/25/20 11:21 16:21 20:51 WBC RBC Hgb Hct MCV MCH MCHC RDW Std Deviation RDW Coeff of Linda Plt Count MPV PT INR Sodium Potassium Chloride Carbon Dioxide Anion Gap BUN Creatinine Est Cr Clr Drug Dosing Est GFR ( Amer) Est GFR (Non-Af Amer) BUN/Creatinine Ratio Glucose POC Glucose 195 H 168 H 217 H Calcium 09/26/20 09/26/20 09/26/20 06:27 06:27 06:27 WBC 12.87 H RBC 4.25 Hgb 12.7 Hct 40.9 MCV 96.2 MCH 29.9 MCHC 31.1 L RDW Std Deviation 57.2 H RDW Coeff of Linda 16.1 H Plt Count 257 MPV 11.0 H PT 24.1 H INR 2.6 H Sodium 138 Potassium 4.1 Chloride 101 Carbon Dioxide 34 H Anion Gap 3.0 BUN 21 H Creatinine 0.77 Est Cr Clr Drug Dosing 54.7 Est GFR ( Amer) 80.5 Est GFR (Non-Af Amer) 69.4 BUN/Creatinine Ratio 27.0 H Glucose 180 H POC Glucose Calcium 8.6 09/26/20 07:16 WBC RBC Hgb Hct MCV MCH MCHC RDW Std Deviation RDW Coeff of Linda Plt Count MPV PT INR Sodium Potassium Chloride Carbon Dioxide Anion Gap BUN Creatinine Est Cr Clr Drug Dosing Est GFR ( Amer) Est GFR (Non-Af Amer) BUN/Creatinine Ratio Glucose POC Glucose 168 H Calcium
[2020-09-26] MEDS: WARFARIN SOD 5 MG TAB PO SCH (17:08)
[2020-09-27] MEDS: AZITHROMYCIN 500 MG in DEXTROSE 5% 250 ML IV SCH (01:19)
[2020-09-27] MEDS: methylPREDNISolone 40 MG in SYRINGE 0 ML IV SCH ×4 (01:19→17:39)
[2020-09-27] MEDS: dilTIAZem HCL 125 MG in DEXTROSE 5% 100 ML IV SCH ×4 (01:19→06:10)
[2020-09-27] MEDS: ALBUT/IPRATROP 3MG/0.5MG NEB 3 ML VIAL INH SCH ×4 (01:25→19:19)
[2020-09-27 07:58] LABS: Hematocrit (blood only) 40.7 % (37-47); Hemoglobin 12.6 g/dL (12.0-16.0); Mean Corpuscular Hemoglobin 29.8 pg (25-34); Mean Corpuscular Volume 96.2 fL (80-100); Mean Platelet Volume 10.9 fL (7.4-10.4); Platelet Count 261 K/uL (130-400); RDW Coefficient of Variation 16.2 % (11.5-14.5); RDW Standard Deviation 56.8 fL (36.4-46.3); Red Blood Count 4.23 M/uL (4.2-5.4); White Blood Count 13.53 K/uL (4.8-10.8)
[2020-09-27 08:17] LABS: INR 3.6 (0.9-1.1); Prothrombin Time 32.7 Seconds (9.0-12.0)
[2020-09-27 08:27] LABS: Calcium 8.2 mg/dl (8.5-10.1); Creatinine Clr Calc Pharmacy 63.5 ml/min; Est GFR (African American) 91.6 ml/min; Potassium 3.8 mmol/L (3.5-5.1)
[2020-09-27] MEDS: ASPIRIN 81 MG ECTAB PO SCH (08:32)
[2020-09-27] MEDS: lisinopril 10 MG TAB PO SCH (08:33)
[2020-09-27] MEDS: guaiFENesin 600 MG TABCR PO SCH ×2 (08:33→20:46)
[2020-09-27] MEDS: CAPSAICIN CR 0.075% 60 GM TUBE EXT SCH ×4 (08:33→20:47)
[2020-09-27] MEDS: EZETIMIBE 10 MG TABLET PO SCH (08:33)
[2020-09-27] MEDS: PANTOprazole 40 MG TAB PO SCH ×2 (08:34→20:45)
[2020-09-27] MEDS: INSULIN ASPART 100 UNITS/ML 3 ML PEN SC SCH ×4 (08:35→20:48)
[2020-09-27] MEDS: INSULIN GLARGINE SOLOSTAR 100 UNITS/ML 3 ML PEN SC SCH ×2 (08:35→20:47)
--- NOTE | 2020-09-27 09:36 | Cardiology Progress Note ---
Date of Service September 27, 2020 Assessment & Plan (1) COPD exacerbation: (2) Atrial fibrillation with rapid ventricular response: (3) S/P TAVR (transcatheter aortic valve replacement): (4) ASCVD (arteriosclerotic cardiovascular disease): Plan: COPD exacerbation. As per Hospitalist. No overt evidence of volume overload. Paroxysmal atrial fibrillation. Attempt conversion from IV to oral diltiazem, 180 mg twice per day. Continue digoxin. Beta-tho therapy is being avoided due to ongoing bronchospasm. Maintain proper anticoagulation. Future options of management discussed, leaning towards rate control strategy given underlying pulmonary issues and echo findings. Aortic stenosis status post transcatheter aortic valve replacement. OK via TTE. Arteriosclerotic cardiovascular disease. Stable. No evidence of an acute coronary syndrome. Admission and Anticipated Discharge Date Admission Date: September 24, 2020 Supervising Physician Co-Signing Physician Notes I have seen and evaluated the patient. I have discussed the case with Mr. Ogden and reviewed the medical record. I agree with the plan of rate control for the patient's atrial fibrillation. Subjective Patient seen and examined. Chart, medications, and telemetry reviewed. Feeling better overall. Less dyspnea and congestion. Ongoing cough productive of yellow mucus. No chest pain. No palpitations. No orthopnea or PND. No peripheral edema. No fevers or chills. No melena or hematochezia. Telemetry reviewed, revealing atrial fibrillation ranging from 80 to 140 bpm. Review of Systems Review of Systems: Complete Review of Systems is as stated above, negative, or noncontributory. Physical Exam Physical Exam: General: A&Ox3. NAD. Elevated BMI. HENT: Normocephalic. Atraumatic. Eyes: PER. Conjunctiva pink, sclera clear. Neck: No carotid bruits. No overt JVD. Heart: Irregularly irregular 120 bpm. Grade I/ systolic ejection murmur. No rub. Lungs: Diffuse expiratory wheeze. No rales. No rhonchi. Abdomen: +BS. Soft. Nontender. No masses or organomegaly. Extremities: No clubbing, cyanosis, or edema. Limited neurological examination is without focal deficits. Pulses: radial=2/4, posterior tibial=1/4. Results & Data ([facility]) Vital Signs (Past 12 Hours) Vital Signs Temp Pulse Pulse Resp BP Pulse Ox 09/27/20 08:00 36.5 C 114 H 18 159/68 H 95 09/27/20 07:06 90 19 92 09/27/20 06:20 162/92 H 09/27/20 04:30 36.2 C L 90 18 186/99 H 90 09/27/20 01:38 104 H 28 H 94 09/27/20 01:26 104 H 22 92 09/27/20 00:01 90 09/26/20 23:08 36.5 C 90 19 161/89 H 93 Laboratory Results Laboratory Results - last 24 hr 09/26/20 09/26/20 09/26/20 11:20 16:04 20:13 WBC RBC Hgb Hct MCV MCH MCHC RDW Std Deviation RDW Coeff of Linda Plt Count MPV PT INR Sodium Potassium Chloride Carbon Dioxide Anion Gap BUN Creatinine Est Cr Clr Drug Dosing Est GFR ( Amer) Est GFR (Non-Af Amer) BUN/Creatinine Ratio Glucose POC Glucose 203 H 160 H 210 H Calcium Digoxin 09/27/20 09/27/20 09/27/20 07:27 07:27 07:27 WBC 13.53 H RBC 4.23 Hgb 12.6 Hct 40.7 MCV 96.2 MCH 29.8 MCHC 31.0 L RDW Std Deviation 56.8 H RDW Coeff of Linda 16.2 H Plt Count 261 MPV 10.9 H PT 32.7 H INR 3.6 H Sodium 140 Potassium 3.8 Chloride 103 Carbon Dioxide 32 Anion Gap 5.0 BUN 20 H Creatinine 0.67 Est Cr Clr Drug Dosing 63.5 Est GFR ( Amer) 91.6 Est GFR (Non-Af Amer) 79.0 BUN/Creatinine Ratio 30.0 H Glucose 144 H POC Glucose Calcium 8.2 L Digoxin 09/27/20 09/27/20 07:27 07:49 WBC RBC Hgb Hct MCV MCH MCHC RDW Std Deviation RDW Coeff of Linda Plt Count MPV PT INR Sodium Potassium Chloride Carbon Dioxide Anion Gap BUN Creatinine Est Cr Clr Drug Dosing Est GFR ( Amer) Est GFR (Non-Af Amer) BUN/Creatinine Ratio Glucose POC Glucose 142 H Calcium Digoxin 1.2
[2020-09-27] MEDS: dilTIAZem HCL 180 MG CAPCR PO SCH ×2 (10:43→20:45)
--- NOTE | 2020-09-27 13:57 | Hospitalist Progress Note ---
Date of Service September 27, 2020 Assessment & Plan (1) Atrial fibrillation with rapid ventricular response: Plan: Convert from IV to oral diltiazem 180mg PO BID. Cont oral digoxin. Aviding betablocker therapy with ongoing bronchospasm. Cont warfarin. Daily INR. (2) COPD exacerbation: Plan: Received a short course of azithromycin. Today is Day 3 of continuous IV steroids and scheduled bronchodilator therapy, however, she still has significant coarse breath sounds and wheezing. Received Will consult pulmonology for help with optimization and further recommendations. (3) Chronic respiratory failure with hypoxia, on home oxygen therapy: Plan: Continues on her home supplemental oxygen. (4) S/P TAVR (transcatheter aortic valve replacement): Plan: valve looks stable on recent echo this admission. 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 (8) Moderate obstructive sleep apnea: Plan: cont nightly CPAP (9) DVT prophylaxis: Plan: warfarin Full Code Dispo-to home when medically stable. Will ensure PT/OT are seeing her prior to discharge given age and comorbidities. Lili Bustillos DO [facility] Hospitalist Admission and Anticipated Discharge Date Admission Date: September 24, 2020 Subjective 85 yo F admitted for a COPD exacerbation and afib with RVR. She had a coughing spell today which caused her to feel a discomfort in her throat for about an hour. She denied any worsening shortness of breath. She was seen by speech therapy and underwent a video swallow study. She has episodes of silent aspiration with thin and thick liquids due to her COPD and uncoordinated swallow. A cough does not clear the aspiration. She also has esophageal issues including dysmotility and a hiatal hernia. Speech recommendations include an easy to chew diet, thin liquids, no straws and small sips with continued speech therapy after discharge. She reports some improvement but not much, and her lung exam today reveals coarse rhonchi and wheezing throughout. She denies any pain or other issues. She remains on IV methylprednisolone and scheduled bronchodilator therapy and isn't sure how much this is helping at this point. Review of Systems Review of Systems: All systems were reviewed and negative except as indicated in HPI above. Physical Exam Physical Exam: CONSTITUTIONAL: WNWD, vitals as above, NAD, appears euvolemic EYES: normal conjunctivae, no scleral icterus ENT: external ear and nose normal, oropharynx clear, MMM NECK: trachea midline, no lymphadenopathy RESPIRATORY: coarse rhonchi throughout, occasional wheezes, no rales, normal respiratory effort, no conversational dyspnea on supplemental oxygen. CARDIOVASCULAR: tachy rate and irregular rhythm, S1 and 2 heard without murmurs, gallops or rubs, no JVD, no peripheral edema GASTROINTESTINAL: soft, nontender, nondistended, no guarding. MUSCULOSKELETAL: strength 5/5 throughout, head is normocephalic and atraumatic SKIN: warm and dry NEUROLOGIC: CN 2-12 grossly intact, no sensory deficit, normal cognition, normal speech, no tremor, no gross focal deficits. PSYCHIATRIC: alert cooperative and oriented to person, place and time. Results & Data Results & Data ([facility]) Vital Signs (Past 12 Hours) Vital Signs Temp Pulse Pulse Resp BP Pulse Ox 09/27/20 13:07 107 H 22 91 09/27/20 11:30 36.8 C 120 H 20 149/76 H 09/27/20 08:00 36.5 C 96 H 114 H 18 159/68 H 95 09/27/20 07:06 90 19 92 09/27/20 06:20 162/92 H 09/27/20 04:30 36.2 C L 90 18 186/99 H 90 Laboratory Results Short CBC 09/27/20 Range/Units 07:27 WBC 13.53 H (4.8-10.8) K/uL Hgb 12.6 (12.0-16.0) g/dL Hct 40.7 (37-47) % Plt Count 261 (130-400) K/uL BMP 09/27/20 07:27 Sodium 140 Potassium 3.8 Chloride 103 Carbon Dioxide 32 BUN 20 H Creatinine 0.67 Glucose 144 H Calcium 8.2 L Diagnostic Findings FL video swallow (09/27) HISTORY: Possible aspiration. assess for aspiration TECHNIQUE: Video fluoroscopic evaluation of swallowing was performed in the AP and lateral projections by the speech pathology staff. The patient is fed nectar-thick and thin liquid barium, a barium coated wafer, and barium pudding. FLUOROSCOPY TIME: 3.3 minutes. A cine loop submitted. COMPARISON STUDY: None. FINDINGS: There is normal hyoid excursion and epiglottic deflection. There is trace silent aspiration identified with the serial swallows of the thin liquid barium due to premature spillover. There is also likely aspiration identified with the nectar thick liquid barium. No aspiration with the barium pudding or barium coated cracker. There is moderate esophageal dysmotility. Small hiatus hernia. IMPRESSION: 1. Aspiration identified with the thin liquid and nectar thick liquid barium. 2. Please see the speech pathologist report for detailed findings and recommendations. XR chest 1V not portable (09/27) HISTORY: questionable aspiration event COMPARISON: Chest 09/24/2020. FINDINGS: No pneumothorax. No pleural effusions. There are low lung lines. The heart remains enlarged. An aortic valve stent is noted. There is diffuse interstitial thickening which appears chronic. Old, healed left-sided rib fractures. Bibasilar linear densities also remain unchanged and favor atelectasis are scarring. No new focal lung consolidations identified. IMPRESSION: 1. No change in the cardiomegaly and mild diffuse interstitial thickening. This is likely chronic. 2. No new focal lung consolidations to suggest pneumonia. ACT 112: Negative or not required by law. Medications Administered Current Inpatient Medications Acetaminophen (Acetaminophen 325 Mg Tab) 650 mg PO Q4H PRN PRN Reason: Pain or Fever Stop: 10/24/20 21:40 Last Admin: 09/24/20 22:51 Dose: 650 mg Documented by: Albuterol (Albut/Ipratrop 3mg/0.5mg Neb 3 Ml Vial) 3 ml INH Q6R [facility] Stop: 10/24/20 21:40 Last Admin: 09/27/20 13:07 Dose: 3 ml Documented by: Aspirin (Aspirin 81 Mg Ectab) 81 mg PO QAM [facility] Stop: 10/25/20 08:59 Last Admin: 09/27/20 08:32 Dose: 81 mg Documented by: Capsaicin (Capsaicin Cr 0.075% 60 Gm Tube) 1 appln EXT QID [facility] Stop: 10/26/20 00:04 Last Admin: 09/27/20 08:33 Dose: 1 appln Documented by: Dextrose (Dextrose 50% 50 Ml Syringe) 25 - 50 ml IV UD PRN; Protocol PRN Reason: Hypoglycemia Protocol Stop: 10/24/20 21:40 Diclofenac Sodium (Diclofenac Sod 1% Gel 100 Gm Tube) 1 gm EXT BID PRN PRN Reason: right knee pain Stop: 10/24/20 21:40 Digoxin (Digoxin 0.125 Mg/2.5 Ml Udp) 0.125 mg PO DAILY@1600 [facility] Stop: 10/27/20 15:59 Diltiazem HCl (Diltiazem Hcl 180 Mg Capcr) 180 mg PO BID [facility] Stop: 10/27/20 09:44 Last Admin: 09/27/20 10:43 Dose: 180 mg Documented by: Ezetimibe (Ezetimibe 10 Mg Tablet) 10 mg PO QAM [facility] Stop: 10/25/20 08:59 Last Admin: 09/27/20 08:33 Dose: 10 mg Documented by: Glucagon (Glucagon For Inj 1 Mg Vial) 1 mg SQ UD PRN; Protocol PRN Reason: Hypoglycemia Protocol Stop: 10/24/20 21:40 Glucose (Glucose 10 Tabs/Tube) 4 - 8 tabs PO UD PRN; Protocol PRN Reason: Hypoglycemia Protocol Stop: 10/24/20 21:40 Glucose (Glucose 40% Gel 15 Gm Tube) 15 - 30 gm PO UD PRN; Protocol PRN Reason: Hypoglycemia Protocol Stop: 10/24/20 21:40 Guaifenesin (Guaifenesin 600 Mg Tabcr) 1,200 mg PO BID [facility] Stop: 10/24/20 21:40 Last Admin: 09/27/20 08:33 Dose: 1,200 mg Documented by: Diltiazem HCl 125 mg/ Dextrose 125 mls @ 2.5 mls/hr IV .Q24H [facility]; Protocol Stop: 10/24/20 12:00 Last Titration: 09/27/20 13:33 Dose: 2.5 mg/hr, 2.5 mls/hr Documented by: Methylprednisolone 40 mg/ (Syringe) 0.64 mls @ 1.5 mls/min IV Q6H [facility] Stop: 10/24/20 21:59 Last Admin: 09/27/20 12:40 Dose: 1.5 mls/min Documented by: Insulin Aspart (Insulin Aspart 100 Units/Ml 3 Ml Pen) 0 units SC ACHS [facility] Stop: 10/24/20 22:14 Last Admin: 09/27/20 12:39 Dose: 6 units Documented by: Insulin Glargine (Insulin Glargine Solostar 100 Units/Ml 3 Ml Pen) 24 units SC BID [facility] Stop: 10/24/20 22:14 Last Admin: 09/27/20 08:35 Dose: 24 units Documented by: Lisinopril (Lisinopril 10 Mg Tab) 10 mg PO QAM [facility] Stop: 10/25/20 08:59 Last Admin: 09/27/20 08:33 Dose: 10 mg Documented by: Miscellaneous (Carbohydrates For Hypoglycemia ) 15 - 30 gm PO UD PRN PRN Reason: Hypoglycemia Protocol Stop: 10/24/20 21:40 Pantoprazole Sodium (Pantoprazole 40 Mg Tab) 40 mg PO BID [facility] Stop: 10/24/20 21:40 Last Admin: 09/27/20 08:34 Dose: 40 mg Documented by: Polyethylene Glycol (Polyethylene (Miralax) 17 Gm Pack) 17 gm PO DAILY PRN PRN Reason: Constipation Stop: 10/24/20 21:40 Warfarin Sodium (Warfarin Sod 5 Mg Tab) 5 mg PO DAILY@1600 [facility] Stop: 10/25/20 15:59 Last Admin: 09/26/20 17:08 Dose: 5 mg Documented by:
--- NOTE | 2020-09-27 14:46 | XRay Report ---
XR chest 1V not portable HISTORY: questionable aspiration event COMPARISON: Chest 09/24/2020. FINDINGS: No pneumothorax. No pleural effusions. There are low lung lines. The heart remains enlarged . An aortic valve stent is noted. There is diffuse interstitial thickening which appears chronic. Old , healed left-sided rib fractures. Bibasilar linear densities also remain unchanged and favor atelect asis are scarring. No new focal lung consolidations identified. IMPRESSION: 1. No change in the cardiomegaly and mild diffuse interstitial thickening. This is likely chronic. 2. No new focal lung consolidations to suggest pneumonia. ACT 112: Negative or not required by law. Electronically signed by: Ricky Tang M.D. 09/27/2020 2:44 PM
--- NOTE | 2020-09-27 15:08 | Fluoroscopy Report ---
FL video swallow HISTORY: Possible aspiration. assess for aspiration TECHNIQUE: Video fluoroscopic evaluation of swallowing was performed in the AP and lateral projection s by the speech pathology staff. The patient is fed nectar-thick and thin liquid barium, a barium coa madalyn wafer, and barium pudding. FLUOROSCOPY TIME: 3.3 minutes. A cine loop submitted. COMPARISON STUDY: None. FINDINGS: There is normal hyoid excursion and epiglottic deflection. There is trace silent aspiration identified with the serial swallows of the thin liquid barium due to premature spillover. There is a lso likely aspiration identified with the nectar thick liquid barium. No aspiration with the barium p udding or barium coated cracker. There is moderate esophageal dysmotility. Small hiatus hernia. IMPRESSION: 1. Aspiration identified with the thin liquid and nectar thick liquid barium. 2. Please see the speech pathologist report for detailed findings and recommendations. ACT 112: Negative or not required by law. Electronically signed by: Ricky Tang M.D. 09/27/2020 3:07 PM
[2020-09-27] MEDS: DIGOXIN 0.125 MG/2.5 ML UDP PO SCH (16:17)
[2020-09-28] MEDS: methylPREDNISolone 40 MG in SYRINGE 0 ML IV SCH ×2 (00:36→06:58)
[2020-09-28] MEDS: ALBUT/IPRATROP 3MG/0.5MG NEB 3 ML VIAL INH SCH ×2 (00:44→07:09)
[2020-09-28] MEDS: INSULIN ASPART 100 UNITS/ML 3 ML PEN SC SCH ×4 (07:58→22:12)
[2020-09-28] MEDS: INSULIN GLARGINE SOLOSTAR 100 UNITS/ML 3 ML PEN SC SCH ×2 (08:00→22:19)
[2020-09-28] MEDS: PANTOprazole 40 MG TAB PO SCH ×2 (08:01→22:18)
[2020-09-28] MEDS: CAPSAICIN CR 0.075% 60 GM TUBE EXT SCH ×4 (08:02→22:11)
[2020-09-28] MEDS: dilTIAZem HCL 180 MG CAPCR PO SCH ×2 (08:02→22:12)
[2020-09-28] MEDS: guaiFENesin 600 MG TABCR PO SCH ×2 (08:03→22:09)
[2020-09-28] MEDS: ASPIRIN 81 MG ECTAB PO SCH (08:03)
[2020-09-28] MEDS: EZETIMIBE 10 MG TABLET PO SCH (08:03)
[2020-09-28] MEDS: lisinopril 10 MG TAB PO SCH (08:04)
[2020-09-28 08:48] LABS: INR 3.6 (0.9-1.1); Prothrombin Time 32.9 Seconds (9.0-12.0)
[2020-09-28] MEDS: dilTIAZem HCL 125 MG in DEXTROSE 5% 100 ML IV SCH (10:31)
[2020-09-28] MEDS ORDERED: ALBUT/IPRATROP 3MG/0.5MG NEB 3 ML VIAL INH PRN (10:51)
--- NOTE | 2020-09-28 10:51 | Pulmonary Consultation ---
Date of Consultation September 28, 2020 Assessment & Plan (1) SOB (shortness of breath): Impression: 85-year-old female admitted with atrial fibrillation with rapid ventricular response. There was concern about wheezing and COPD but the patient is a lifelong non-smoker. She is never had PFTs and I question whether or not she actually has COPD. There are a multitude of clinical entities which may cause wheezing outside of COPD including heart failure, tracheomalacia, tracheobronchial secretions, vocal cord dysfunction, aspiration, viral bronchitis etc.. She does have evidence of potential obesity hypoventilation syndrome based on an elevated serum bicarb. We do not have data on her prior sleep study or compliance data. She may also have some degree of tracheomalacia. Recommendations: 1. Do not see an indication for steroids at this point time so these will be discontinued. 2. We will place the patient on Breo and Incruse to see if this offers her benefit. Change duo nebs to as needed 3. Continue supplemental oxygen titrated to keep saturations at or above 88%. Continue nocturnal CPAP BiPAP. 4. We will check blood gas for hypercarbia. If this is present, she will need close clinical follow-up in the outpatient sleep setting to ensure her positive airway pressure settings are appropriate and compliance is adequate. Weight loss is recommended as well. 5. Its possible the patient may have some degree of tracheomalacia. Do not think bronchoscopy or dynamic CT scanning is warranted at the current time. Continue CPAP and weight loss efforts. 6. The patient should have pulmonary function testing performed in the outpatient setting when she is clinically stable. Assessment of exhaled nitric oxide may also be beneficial as the patient relates a prior history of asthma. 7. History of PE: Continue lifelong anticoagulation. 8. Aspiration noted on video swallow, per primary service We will see how she does with institution of inhalers and off of the Solu- Medrol. Feel free to contact us with any clinical questions (2) Moderate obstructive sleep apnea: (3) Chronic respiratory failure with hypoxia, on home oxygen therapy: (4) Hypercapnic respiratory failure: History of Present Illness Attending Physician: Lili Bustillos, DO History of Present Illness Asked by the hospitalist to evaluate this patient with persistent wheezing and presumed COPD exacerbation. History is obtained from discussion with the patient at bedside as well as review of electronic medical record. This 85-year-old female has a complex medical history including morbid obesity, atrial fibrillation, valvular heart disease status post TAVR, diabetes, sleep disordered breathing, and prior pulmonary embolism. She was admitted to the facility 09/24 due to A. fib with RVR. She reported fatigue at that time. She had been compliant with her CPAP. She been treated with doxycycline and prednisone in the outpatient setting but did not significantly improved. She was seen by cardiology and loaded on digoxin. She has had persistent wheezing and remains on oxygen and pulmonary was consulted for additional management. Chart indicates COPD however the patient is a lifelong non-smoker. Prior pulmonary consultations from a few years ago indicate a history of asthma although no PFTs are available. The patient reports occasional shortness of breath. She is not coughing or expectorating phlegm on a regular basis. No chest pain palpitations. She does have some lower extremity edema. Allergies Allergy/AdvReac Type Severity Reaction Status Date / Time amoxicillin [From Augmentin] Allergy Intermediate Hives Verified 09/24/20 17:44 clavulanic acid Allergy Intermediate Hives Verified 09/24/20 17:44 [From Augmentin] gabapentin Allergy Intermediate Itching Verified 09/24/20 17:44 Penicillins Allergy Intermediate Hives Verified 09/24/20 17:44 Home Medications Medication Instructions Recorded Confirmed Type albuterol sulfate 90 mcg/actuation 2 puff INHALATION Q4H PRN 07/14/19 09/24/20 History aerosol inhaler aspirin 81 mg tablet,delayed 81 mg PO QAM 07/14/19 09/24/20 History release (Aspirin Low Dose) diltiazem HCl 120 mg 120 mg PO BID 07/14/19 09/24/20 History capsule,extended release 24 hr ezetimibe 10 mg tablet 10 mg PO QAM 07/14/19 09/24/20 History metformin 750 mg tablet,extended 750 mg PO QAM 07/14/19 09/24/20 History release 24 hr warfarin 5 mg tablet See Rx Instructions .ROUTE .COMPLEX 07/14/19 09/24/20 History lisinopril 10 mg tablet 10 mg PO QAM 02/15/20 09/24/20 History pantoprazole 40 mg tablet,delayed 40 mg PO BID 06/29/20 09/24/20 History release (Protonix) acetaminophen 500 mg tablet 500 mg PO DIRECTED PRN 09/21/20 09/24/20 History (Tylenol Extra Strength) doxycycline hyclate 100 mg tablet 100 mg PO BID 7 Days #14 tab 09/21/20 09/24/20 Rx prednisone 20 mg tablet 60 mg PO DAILY 4 Days #12 tab 09/21/20 09/24/20 Rx diclofenac sodium 1 % topical gel 1 ea TOPICAL BID PRN 09/24/20 09/24/20 History nitroglycerin 0.4 mg sublingual 0.4 mg SUBLINGUAL UD PRN 09/24/20 09/24/20 History tablet (Nitrostat) polyethylene glycol 3350 17 gram 17 g PO DAILY PRN 09/24/20 09/24/20 History oral powder packet (Miralax) Patient History Medical History (Updated 09/28/20 @ 10:53 by Reggie Zavala MD) Aortic stenosis ASCVD (arteriosclerotic cardiovascular disease) Asthma Chest pain Chronic respiratory failure with hypoxia, on home oxygen therapy COPD (chronic obstructive pulmonary disease) Deep vein thrombosis Diabetic neuropathy DM type 2 (diabetes mellitus, type 2) Dyslipidemia Incomplete uterovaginal prolapse Moderate obstructive sleep apnea Myocardial Infarction PAF (paroxysmal atrial fibrillation) Recurrent pulmonary embolism Sleep apnea 1 liter o2 Subtherapeutic international normalized ratio (INR) Surgical History History of cardiac cath History of colonoscopy History of heart artery stent History of heart valve replacement Family History Other Family history non-contributory Social History Smoking Status: Never smoker Second Hand Exposure: No; Hx Alcohol Use: No Hx Substance Use: No Preferred Language: Maori Communication Ability: Effective Plate Finisher Required: No Beliefs That Will Affect Care: None Current Living Situation: Spouse Current Living Situation Comment: Lives w/ and son current occupation: Retired Other Information That Helps Us Care for You: No Feels Safe at Home: Yes Safety Concerns: Feels Safe At This Time Assistive Devices: Cane, Glasses, Oxygen - at Night, Oxygen - Continuous and Walker Review of Systems Review of Systems: Please refer to hospitalist note and admission H&P. I have no additions or deletions Physical Exam Physical Exam: CONSTITUTIONAL: WNWD, vitals as above, NAD, appears euvolemic EYES: normal conjunctivae, no scleral icterus ENT: external ear and nose normal, oropharynx clear, MMM NECK: trachea midline, no lymphadenopathy RESPIRATORY: coarse rhonchi throughout, occasional wheezes, no rales, normal respiratory effort, no conversational dyspnea on supplemental oxygen. CARDIOVASCULAR: tachy rate and irregular rhythm, S1 and 2 heard without murmurs, gallops or rubs, no JVD, no peripheral edema GASTROINTESTINAL: soft, nontender, nondistended, no guarding. MUSCULOSKELETAL: strength 5/5 throughout, head is normocephalic and atraumatic SKIN: warm and dry NEUROLOGIC: CN 2-12 grossly intact, no sensory deficit, normal cognition, normal speech, no tremor, no gross focal deficits. PSYCHIATRIC: alert cooperative and oriented to person, place and time. Results & Data Results & Data ([facility]) Vital Signs (Past 12 Hours) Vital Signs Temp Pulse Pulse Pulse Resp BP Pulse Ox 09/28/20 08:00 36.5 C 74 20 145/91 H 95 09/28/20 07:09 104 H 20 90 09/28/20 03:58 37.0 C 95 H 19 127/93 86 L 09/28/20 02:32 98 H 20 94 09/28/20 00:47 96 H 22 94 09/28/20 00:45 96 H 20 94 09/28/20 00:39 36.8 C 94 H 20 125/81 90 Laboratory Results 09/27/20 07:27 09/27/20 07:27 INR 3.6 Chemistry panel shows serum bicarb in the 30-34 range Blood gas from February 2020 showed a pH 739 with a PCO2 of 45 and a PO2 of 89 Diagnostic Findings Chest x-ray was reviewed. Lung volumes are low. No hyperinflation or air stella ing. Echocardiogram this admission showed a normal gradient over her prosthetic aortic valve. EF was 55-60. Left ventricle normal systolic function. Right ventricle with normal systolic function. Left atrial dilatation with right atrial dilatation and mild mitral regurgitation. E to E prime ratio 15 consistent with diastolic dysfunction. Patient is not had prior PFTs Prior sleep study not available to review Compliance data not available. PG Care Time/CCT Total # of Minutes Spent Total Time Spent with Patient: Total time spent is greater than 50% in coordination of care (as documented) at patient's floor/unit and/or counseling patient: Coding Level of Care Code 03590 Initial Inpt Care Lvl 3 Diagnoses SOB (shortness of breath) R06.02 Moderate obstructive sleep apnea G47.33 Chronic respiratory failure with hypoxia, on home oxygen therapy J96.11; Z99.81 Hypercapnic respiratory failure J96.92
[2020-09-28 11:49] LABS: Allen Test Pos (Pos); Base Excess ABG 8.8 mEq/L (-9-1.8); HCO3 ABG 34 mmol/L (19-24); PCO2 ABG 50 mmHg (35-46); PO2 ABG 89 mmHg (80-95); pH ABG 7.45 (7.35-7.45)
--- NOTE | 2020-09-28 12:08 | Cardiology Progress Note ---
Date of Service September 28, 2020 Assessment & Plan (1) Atrial fibrillation with rapid ventricular response: Plan: Continue rate control with oral diltiazem and digoxin. Coumadin on hold today for INR > 3. Has h/o CAD, and TAVR- stable at present. Admission and Anticipated Discharge Date Admission Date: September 24, 2020 Subjective Patient seen in follow up. She is comfortable in bed. Atrial fibrillation in the 90s-100 bpm range noted on telemetry. Review of Systems Review of Systems: All systems reviewed & are unremarkable except as noted in HPI & below Physical Exam Physical Exam: Temp Pulse Resp BP Pulse Ox 36.5 C 74 20 145/91 H 95 09/28/20 08:00 09/28/20 08:00 09/28/20 08:00 09/28/20 08:00 09/28/20 08:00 Respiratory: bilateral wheezing Cardiovascular: Rate/Rhythm: + irregularly irregular Neurologic: PERRL, EOMI, accommodation nl, no face palsy, no dysarthria Results & Data ([facility]) Vital Signs (Past 12 Hours) Vital Signs Temp Pulse Pulse Pulse Resp BP Pulse Ox 09/28/20 08:00 36.5 C 74 20 145/91 H 95 09/28/20 07:09 104 H 20 90 09/28/20 03:58 37.0 C 95 H 19 127/93 86 L 09/28/20 02:32 98 H 20 94 09/28/20 00:47 96 H 22 94 09/28/20 00:45 96 H 20 94 09/28/20 00:39 36.8 C 94 H 20 125/81 90 Laboratory Results Coagulation INR 3.6 09/28/20 Range/Units 07:49 PT 32.9 H (9.0-12.0) Seconds Intake and Output 09/27/20 09/28/20 09/28/20 22:59 06:59 14:59 Intake Total 200 / 816.291 100 / 816.291 0 / 0 Output Total Balance 199 / 815.291 100 / 815.291 0 / 0 Intake: IV 0 / 0 dilTIAZem HCL 125 mg In 0 / 0 Dextrose 5% 100 ml @ 2.5 MG/HR 2.5 mls/hr IV .Q24H [facility] Rx#: [id number] Oral 200 / 700 100 / 700 Output: # Bowel Movements Other: # Unmeasured Voids 2 # Urine Diapers 1 Weight 94.6 kg Weight Measurement Method Standing Scale
[2020-09-28] MEDS: UMECLIDINIUM BROMIDE 62.5MCG/BLISTER 7 PUFFS/INHALER INH SCH (13:09)
[2020-09-28] MEDS: FLUTICASONE/VILANTEROL 100/25MCG 14 PUFFS/INHALER INH SCH (13:10)
--- NOTE | 2020-09-28 13:16 | Hospitalist Progress Note ---
Date of Service September 28, 2020 Assessment & Plan (1) Atrial fibrillation with rapid ventricular response: Plan: Converted to oral diltiazem 180mg PO BID on 09/27. Cont oral digoxin. Avoiding beta-tho therapy with ongoing bronchospasm. Rate 100-110. Cont holding warfarin with INR 3.6. Daily INR. (2) COPD exacerbation: Plan: Received a short course of azithromycin. Today is Day 4 of continuous IV steroids and scheduled bronchodilator therapy. Not much improved so pulm asked to evaluate. COPD diagnosis was questioned. Steroids stopped, started Breo and Incruse. Per outpatient record review, she did have PFTs performed in 2018 and was seen by pulmonology at that time. Assessment included recurrent PE, moderate obstructive sleep apnea, and pulmonary hypertension s/p right heart ca theterization likely 2/2 left heart disease with sleep disordered breathing possibly also contributing. Cont to monitor on changed therapy regimen and follow-up with pulmonology as outpatient. (3) Recurrent pulmonary embolism: Plan: indefinite anticoagulation recommended. (4) Chronic respiratory failure with hypoxia, on home oxygen therapy: Plan: Continues on her home supplemental oxygen. (5) S/P TAVR (transcatheter aortic valve replacement): Plan: valve looks stable on recent echo this admission. 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 (9) Moderate obstructive sleep apnea: Plan: cont nightly CPAP, weight loss advised (10) DVT prophylaxis: Plan: warfarin Full Code Dispo-to home when medically stable. Will ensure PT/OT are seeing her prior to discharge given age and comorbidities. DO [facility] Hospitalist Admission and Anticipated Discharge Date Admission Date: September 24, 2020 Subjective 85-year-old female admitted for presumed COPD exacerbation and atrial fibrillation with RVR. She was found to have silent aspiration on video swallow study performed 09/27. She has since done well with modified swallow recommendations and diet. She denies any coughing, shortness of breath or pain. She was seen this morning by pulmonology questions for COPD as a diagnosis for her. Ortiz PFTs from 2018 were scanned into the [facility] chart. Review of Systems Review of Systems: All systems were reviewed and negative except as indicated in HPI above. Physical Exam Physical Exam: CONSTITUTIONAL: obese, vitals as above, NAD, appears euvolemic EYES: normal conjunctivae, no scleral icterus ENT: external ear and nose normal, oropharynx clear, MMM NECK: trachea midline, no lymphadenopathy RESPIRATORY: coarse rhonchi improved, wheezing present throughout, no rales, normal respiratory effort, no conversational dyspnea on supplemental oxygen. CARDIOVASCULAR: tachy rate and irregular rhythm, S1 and 2 heard without murmurs, gallops or rubs, no JVD, no peripheral edema GASTROINTESTINAL: soft, nontender, nondistended, no guarding. MUSCULOSKELETAL: strength 5/5 throughout, head is normocephalic and atraumatic SKIN: warm and dry NEUROLOGIC: CN 2-12 grossly intact, no sensory deficit, normal cognition, normal speech, no tremor, no gross focal deficits. PSYCHIATRIC: alert cooperative and oriented to person, place and time. Results & Data Results & Data ([facility]) Vital Signs (Past 12 Hours) Vital Signs Temp Pulse Pulse Pulse Resp BP Pulse Ox 09/28/20 12:22 37.0 C 100 H 20 122/73 100 09/28/20 08:00 36.5 C 100 H 74 20 145/91 H 95 09/28/20 07:09 104 H 20 90 09/28/20 03:58 37.0 C 95 H 19 127/93 86 L 09/28/20 02:32 98 H 20 94 Medications Administered Current Inpatient Medications Acetaminophen (Acetaminophen 325 Mg Tab) 650 mg PO Q4H PRN PRN Reason: Pain or Fever Stop: 10/24/20 21:40 Last Admin: 09/24/20 22:51 Dose: 650 mg Documented by: Albuterol (Albut/Ipratrop 3mg/0.5mg Neb 3 Ml Vial) 3 ml INH Q6R PRN PRN Reason: Wheezing Stop: 10/24/20 21:40 Aspirin (Aspirin 81 Mg Ectab) 81 mg PO QAM [facility] Stop: 10/25/20 08:59 Last Admin: 09/28/20 08:03 Dose: 81 mg Documented by: Capsaicin (Capsaicin Cr 0.075% 60 Gm Tube) 1 appln EXT QID [facility] Stop: 10/26/20 00:04 Last Admin: 09/28/20 12:14 Dose: 1 appln Documented by: Dextrose (Dextrose 50% 50 Ml Syringe) 25 - 50 ml IV UD PRN; Protocol PRN Reason: Hypoglycemia Protocol Stop: 10/24/20 21:40 Diclofenac Sodium (Diclofenac Sod 1% Gel 100 Gm Tube) 1 gm EXT BID PRN PRN Reason: right knee pain Stop: 10/24/20 21:40 Digoxin (Digoxin 0.125 Mg/2.5 Ml Udp) 0.125 mg PO DAILY@1600 [facility] Stop: 10/27/20 15:59 Last Admin: 09/27/20 16:17 Dose: 0.125 mg Documented by: Diltiazem HCl (Diltiazem Hcl 180 Mg Capcr) 180 mg PO BID [facility] Stop: 10/27/20 09:44 Last Admin: 09/28/20 08:02 Dose: 180 mg Documented by: Ezetimibe (Ezetimibe 10 Mg Tablet) 10 mg PO QAM [facility] Stop: 10/25/20 08:59 Last Admin: 09/28/20 08:03 Dose: 10 mg Documented by: Fluticasone/Vilanterol (Fluticasone/Vilanterol 100/25mcg 14 Puffs/Inhaler) 1 puffs INH DAILY [facility] Stop: 10/28/20 10:59 Last Admin: 09/28/20 13:10 Dose: 1 puffs Documented by: Glucagon (Glucagon For Inj 1 Mg Vial) 1 mg SQ UD PRN; Protocol PRN Reason: Hypoglycemia Protocol Stop: 10/24/20 21:40 Glucose (Glucose 10 Tabs/Tube) 4 - 8 tabs PO UD PRN; Protocol PRN Reason: Hypoglycemia Protocol Stop: 10/24/20 21:40 Glucose (Glucose 40% Gel 15 Gm Tube) 15 - 30 gm PO UD PRN; Protocol PRN Reason: Hypoglycemia Protocol Stop: 10/24/20 21:40 Guaifenesin (Guaifenesin 600 Mg Tabcr) 1,200 mg PO BID [facility] Stop: 10/24/20 21:40 Last Admin: 09/28/20 08:03 Dose: 1,200 mg Documented by: Insulin Aspart (Insulin Aspart 100 Units/Ml 3 Ml Pen) 0 units SC ACHS [facility] Stop: 10/24/20 22:14 Last Admin: 09/28/20 12:12 Dose: 9 units Documented by: Insulin Glargine (Insulin Glargine Solostar 100 Units/Ml 3 Ml Pen) 24 units SC BID [facility] Stop: 10/24/20 22:14 Last Admin: 09/28/20 08:00 Dose: 24 units Documented by: Lisinopril (Lisinopril 10 Mg Tab) 10 mg PO QAM [facility] Stop: 10/25/20 08:59 Last Admin: 09/28/20 08:04 Dose: 10 mg Documented by: Miscellaneous (Carbohydrates For Hypoglycemia ) 15 - 30 gm PO UD PRN PRN Reason: Hypoglycemia Protocol Stop: 10/24/20 21:40 Pantoprazole Sodium (Pantoprazole 40 Mg Tab) 40 mg PO BID [facility] Stop: 10/24/20 21:40 Last Admin: 09/28/20 08:01 Dose: 40 mg Documented by: Polyethylene Glycol (Polyethylene (Miralax) 17 Gm Pack) 17 gm PO DAILY PRN PRN Reason: Constipation Stop: 10/24/20 21:40 Umeclidinium Carter (Umeclidinium Carter 62.5mcg/Blister 7 Puffs/Inhaler) 1 puffs INH DAILY [facility] Stop: 10/28/20 10:59 Last Admin: 09/28/20 13:09 Dose: 1 puffs Documented by: Warfarin Sodium (Warfarin Sod 5 Mg Tab) 5 mg PO DAILY@1600 [facility] Stop: 10/25/20 15:59 Last Admin: 09/26/20 17:08 Dose: 5 mg Documented by:
[2020-09-28] MEDS: DIGOXIN 0.125 MG/2.5 ML UDP PO SCH (16:50)
[2020-09-29 06:42] LABS: Prothrombin Time 28.2 Seconds (9.0-12.0)
[2020-09-29] MEDS: CARBOHYDRATES FOR HYPOGLYCEMIA PO PRN (07:55)
[2020-09-29] MEDS: INSULIN ASPART 100 UNITS/ML 3 ML PEN SC SCH ×4 (08:04→21:06)
[2020-09-29] MEDS: dilTIAZem HCL 180 MG CAPCR PO SCH ×2 (09:49→21:09)
[2020-09-29] MEDS: CAPSAICIN CR 0.075% 60 GM TUBE EXT SCH ×4 (09:49→21:14)
[2020-09-29] MEDS: ASPIRIN 81 MG ECTAB PO SCH (09:49)
[2020-09-29] MEDS: EZETIMIBE 10 MG TABLET PO SCH (09:49)
[2020-09-29] MEDS: lisinopril 10 MG TAB PO SCH (09:50)
[2020-09-29] MEDS: FLUTICASONE/VILANTEROL 100/25MCG 14 PUFFS/INHALER INH SCH (09:50)
[2020-09-29] MEDS: UMECLIDINIUM BROMIDE 62.5MCG/BLISTER 7 PUFFS/INHALER INH SCH (09:50)
[2020-09-29] MEDS: guaiFENesin 600 MG TABCR PO SCH ×2 (09:50→21:09)
[2020-09-29] MEDS: PANTOprazole 40 MG TAB PO SCH ×2 (09:50→21:12)
--- NOTE | 2020-09-29 14:05 | Pulmonology Progress Note ---
Date of Service September 29, 2020 Assessment & Plan (1) SOB (shortness of breath): Plan: Impression: 85-year-old female admitted with atrial fibrillation with rapid ventricular response. Previous spirometry demonstrates a restrictive pattern although her chart indicates COPD. She is a lifelong non-smoker. Suspect her wheezing is unrelated to his COPD. Recommendations: 1. Wheezing: Suspect component of tracheobronchial secretions and potential tracheobronchial malacia. No indication for dynamic CT scanning or bronchoscopy currently. Continue supportive care. 2. Continue Breo and Incruse as well as as needed duo nebs. 3. Continue supplemental oxygen titrated to keep saturations at or above 88%. Continue nocturnal CPAP BiPAP. 4. Blood gas does demonstrate an elevated CO2 level consistent with probable obesity hypoventilation syndrome/restrictive lung disease. Her pH is on the slightly alkalotic side so she is relatively well compensated currently. She wi ll need to follow-up with sleep medicine in the outpatient setting to review her compliance data. 5. The patient should have complete pulmonary function testing performed in the outpatient setting when she is clinically stable. Her priors spirometry was suggestive of restrictive pattern with no evidence of airflow obstruction. Assessment of exhaled nitric oxide may also be beneficial as the patient relates a prior history of asthma. 6. History of PE: Continue lifelong anticoagulation. 7. Aspiration noted on video swallow, per primary service and speech therapy She appears to be at her pulmonary baseline currently. Outpatient pulmonary and sleep medicine follow-up as noted above. (2) Moderate obstructive sleep apnea: (3) Chronic respiratory failure with hypoxia, on home oxygen therapy: (4) Hypercapnic respiratory failure: Admission and Anticipated Discharge Date Admission Date: September 24, 2020 Subjective Patient seen and examined. She is sitting up in a chair. She is awake alert and conversant. She does not appear to be in any respiratory distress. She feels that her respiratory status is improved despite having stopped the steroids yesterday. She occasionally does have some mild intermittent wheezing. She did use her positive airway pressure last evening. Review of Systems Review of Systems: Unchanged from prior Physical Exam Constitutional: WD/WN, vitals as above + obese; no acute distress Neck: trachea midline, no thyromegaly Respiratory: normal respiratory effort; no respiratory distress and no labored breathing Auscultation: + bronchial breath sounds Cardiovascular: RRR, no murmur, no edema Gastrointestinal (Abdomen): normal bowel sounds, soft, nontender, no hepatosplenomegaly Musculoskeletal: Extremities: extremities normal to inspection Skin: no rashes, warm and dry Neurologic: Nonfocal exam Lymphatic: no cervical lymphadenopathy Results & Data Results & Data ([facility]) Vital Signs (Past 12 Hours) Vital Signs Temp Pulse Pulse Resp BP Pulse Ox 09/29/20 12:00 36.9 C 68 18 150/96 H 98 09/29/20 09:00 86 09/29/20 08:00 36.6 C 79 18 129/59 L 98 09/29/20 04:00 37.0 C 75 20 144/91 H 91 09/29/20 03:15 75 16 91 Laboratory Results 09/27/20 07:27 09/27/20 07:27 09/28/20 11:35 ABG pH 7.45 ABG pCO2 50 H ABG pO2 89 ABG HCO3 34 H ABG O2 Saturation 97.0 H ABG Base Excess 8.8 H Diagnostic Findings No new imaging PFTs performed December 2017 showed a restrictive pattern with an FEV1 and FVC of forty-six and 43% predicted respectively and a ratio of eighty-one. PG Care Time/CCT Total # of Minutes Spent Total Time Spent with Patient: Total time spent is greater than 50% in coordination of care (as documented) at patient's floor/unit and/or counseling patient: Coding Level of Care Code 44810 Subseq Hosp Care Lvl 2 Diagnoses SOB (shortness of breath) R06.02 Moderate obstructive sleep apnea G47.33 Chronic respiratory failure with hypoxia, on home oxygen therapy J96.11; Z99.81 Hypercapnic respiratory failure J96.92
--- NOTE | 2020-09-29 14:19 | Cardiology Progress Note ---
Date of Service September 29, 2020 Assessment & Plan (1) Atrial fibrillation with rapid ventricular response: Plan: Ventricular rates have trended down to the 70 to 90 bpm range while awake, no bradycardia while sleeping. Bradycardia has been an issue as an outpatient, and therefore her medications had previously been reduced. For now, continue current dose of diltiazem and digoxin. On hold for INR 3. Repeat INR tomorrow. (2) Recurrent pulmonary embolism: Plan: Continue chronic Coumadin. Goal INR 23. (3) S/P TAVR (transcatheter aortic valve replacement): Plan: Stable. (4) ASCVD (arteriosclerotic cardiovascular disease): Plan: Chronic coronary heart disease, continue aspirin, ezetimibe. Admission and Anticipated Discharge Date Admission Date: September 24, 2020 Subjective Patient without complaints. Resting comfortably in bedside chair. Review of Systems Review of Systems: All systems reviewed & are unremarkable except as noted in HPI & below Physical Exam Physical Exam: Temp Pulse Resp BP Pulse Ox 36.9 C 68 18 150/96 H 98 09/29/20 12:00 09/29/20 12:00 09/29/20 12:00 09/29/20 12:00 09/29/20 12:00 Respiratory: Coarse breath sounds noted bilaterally without rales or rhonchi Cardiovascular: Rate/Rhythm: + irregularly irregular Heart Sounds: no murmur Extremities: no edema Neurologic: PERRL, EOMI, accommodation nl, no face palsy, no dysarthria Results & Data ([facility]) Vital Signs (Past 12 Hours) Vital Signs Temp Pulse Pulse Resp BP Pulse Ox 09/29/20 12:00 36.9 C 68 18 150/96 H 98 09/29/20 09:00 86 09/29/20 08:00 36.6 C 79 18 129/59 L 98 09/29/20 04:00 37.0 C 75 20 144/91 H 91 09/29/20 03:15 75 16 91 Laboratory Results INR today 3 09/29/20 Range/Units 06:08 PT 28.2 H (9.0-12.0) Seconds Intake and Output 09/28/20 09/29/20 09/29/20 22:59 06:59 14:59 Intake Total 200 / 1090 240 / 1090 Balance 200 / 540 240 / 540 Intake: Oral 200 / 1090 240 / 1090 Other: # Unmeasured Voids 1 1 2 # Urine Diapers 2
--- NOTE | 2020-09-29 15:00 | Hospitalist Progress Note ---
Date of Service September 29, 2020 Assessment & Plan (1) Atrial fibrillation with rapid ventricular response: Plan: Continue oral diltiazem at current dose. It is noted her home dose is 120 mg twice daily. We will stop digoxin with a heart rate slower today and episode of heart rate in the 40s.. Heart rate is lower today off the steroids, ranging 60- 80. Avoiding beta-tho therapy with ongoing bronchospasm. Cardiology following patient. (2) Wheezing: Plan: She is not likely to have COPD based on the evidence-appreciate pulmonary recommendations. Wheezing is suspected to be a component of tracheobronchial secretions and potential tracheobronchial malacia. Continuing with supportive care and new inhaler therapy including Breo and Incruse. DuoNebs as needed. Continue chronic supplemental oxygen and nocturnal CPAP. Recommended to follow with sleep medicine as outpatient to review her compliance data with CPAP. Complete PFT testing in the outpatient setting when clinically stable as recommended. Prior spirometry suggestive of restrictive pattern with no evidence of airflow obstruction. The patient does report a history of asthma. She also is chronically aspirating per results of recent video swallow on Wednesday. Overall she is clinically improved. (3) Recurrent pulmonary embolism: Plan: indefinite anticoagulation recommended. Warfarin restarted now that INR is 3 (4) Chronic respiratory failure with hypoxia, on home oxygen therapy: Plan: Continues on her home supplemental oxygen. (5) S/P TAVR (transcatheter aortic valve replacement): Plan: Aortic valve looks stable on recent echo this admission. (6) Current use of fdc anticoagulation: Plan: warfarin wtih goal INR 2-3, hold for INR >3.5 (7) DMII (diabetes mellitus, type 2): Plan: She had an episode of hypoglycemia this morning and was symptomatic. Lantus was held and NovoLog correction factor and carb coverage was loosened. She is feeling much better at this time. (8) Hypertension: Plan: at goal, continue current therapy. (9) Moderate obstructive sleep apnea: Plan: cont nightly CPAP, weight loss advised (10) DVT prophylaxis: Plan: warfarin Full Code Dispo-to home when medically stable, possibly tomorrow? Will ensure PT/OT are seeing her prior to discharge given age and comorbidities. Lili Bustillos DO [facility] Hospitalist Admission and Anticipated Discharge Date Admission Date: September 24, 2020 Physical Exam Physical Exam: CONSTITUTIONAL: obese, vitals as above, NAD, appears euvolemic EYES: normal conjunctivae, no scleral icterus ENT: external ear and nose normal, oropharynx clear, MMM NECK: trachea midline, no lymphadenopathy RESPIRATORY: coarse rhonchi improved, wheezing present throughout, no rales, normal respiratory effort, no conversational dyspnea on supplemental oxygen. CARDIOVASCULAR: tachy rate and irregular rhythm, S1 and 2 heard without murmurs, gallops or rubs, no JVD, no peripheral edema GASTROINTESTINAL: soft, nontender, nondistended, no guarding. MUSCULOSKELETAL: strength 5/5 throughout, head is normocephalic and atraumatic SKIN: warm and dry NEUROLOGIC: CN 2-12 grossly intact, no sensory deficit, normal cognition, normal speech, no tremor, no gross focal deficits. PSYCHIATRIC: alert cooperative and oriented to person, place and time. Results & Data Results & Data ([facility]) Vital Signs (Past 12 Hours) Vital Signs Temp Pulse Pulse Resp BP Pulse Ox 09/29/20 12:00 36.9 C 68 18 150/96 H 98 09/29/20 09:00 86 09/29/20 08:00 36.6 C 79 18 129/59 L 98 09/29/20 04:00 37.0 C 75 20 144/91 H 91 09/29/20 03:15 75 16 91 Medications Administered Current Inpatient Medications Acetaminophen (Acetaminophen 325 Mg Tab) 650 mg PO Q4H PRN PRN Reason: Pain or Fever Stop: 10/24/20 21:40 Last Admin: 09/24/20 22:51 Dose: 650 mg Documented by: Albuterol (Albut/Ipratrop 3mg/0.5mg Neb 3 Ml Vial) 3 ml INH Q6R PRN PRN Reason: Wheezing Stop: 10/24/20 21:40 Aspirin (Aspirin 81 Mg Ectab) 81 mg PO QAM [facility] Stop: 10/25/20 08:59 Last Admin: 09/29/20 09:49 Dose: 81 mg Documented by: Capsaicin (Capsaicin Cr 0.075% 60 Gm Tube) 1 appln EXT QID [facility] Stop: 10/26/20 00:04 Last Admin: 09/29/20 14:10 Dose: Not Given Documented by: Dextrose (Dextrose 50% 50 Ml Syringe) 25 - 50 ml IV UD PRN; Protocol PRN Reason: Hypoglycemia Protocol Stop: 10/24/20 21:40 Diclofenac Sodium (Diclofenac Sod 1% Gel 100 Gm Tube) 1 gm EXT BID PRN PRN Reason: right knee pain Stop: 10/24/20 21:40 Digoxin (Digoxin 0.125 Mg/2.5 Ml Udp) 0.125 mg PO DAILY@1600 [facility] Stop: 10/27/20 15:59 Last Admin: 09/28/20 16:50 Dose: 0.125 mg Documented by: Diltiazem HCl (Diltiazem Hcl 180 Mg Capcr) 180 mg PO BID [facility] Stop: 10/27/20 09:44 Last Admin: 09/29/20 09:49 Dose: 180 mg Documented by: Ezetimibe (Ezetimibe 10 Mg Tablet) 10 mg PO QAM [facility] Stop: 10/25/20 08:59 Last Admin: 09/29/20 09:49 Dose: 10 mg Documented by: Fluticasone/Vilanterol (Fluticasone/Vilanterol 100/25mcg 14 Puffs/Inhaler) 1 puffs INH DAILY [facility] Stop: 10/28/20 10:59 Last Admin: 09/29/20 09:50 Dose: 1 puffs Documented by: Glucagon (Glucagon For Inj 1 Mg Vial) 1 mg SQ UD PRN; Protocol PRN Reason: Hypoglycemia Protocol Stop: 10/24/20 21:40 Glucose (Glucose 10 Tabs/Tube) 4 - 8 tabs PO UD PRN; Protocol PRN Reason: Hypoglycemia Protocol Stop: 10/24/20 21:40 Glucose (Glucose 40% Gel 15 Gm Tube) 15 - 30 gm PO UD PRN; Protocol PRN Reason: Hypoglycemia Protocol Stop: 10/24/20 21:40 Guaifenesin (Guaifenesin 600 Mg Tabcr) 1,200 mg PO BID [facility] Stop: 10/24/20 21:40 Last Admin: 09/29/20 09:50 Dose: 1,200 mg Documented by: Insulin Aspart (Insulin Aspart 100 Units/Ml 3 Ml Pen) 0 units SC ACHS [facility] Stop: 10/24/20 22:14 Last Admin: 09/29/20 11:54 Dose: 4 units Documented by: Insulin Glargine (Insulin Glargine Solostar 100 Units/Ml 3 Ml Pen) 15 units SC BID [facility] Stop: 10/29/20 20:59 Lisinopril (Lisinopril 10 Mg Tab) 10 mg PO QAM [facility] Stop: 10/25/20 08:59 Last Admin: 09/29/20 09:50 Dose: 10 mg Documented by: Miscellaneous (Carbohydrates For Hypoglycemia ) 15 - 30 gm PO UD PRN PRN Reason: Hypoglycemia Protocol Stop: 10/24/20 21:40 Last Admin: 09/29/20 07:55 Dose: 15 gm Documented by: Pantoprazole Sodium (Pantoprazole 40 Mg Tab) 40 mg PO BID [facility] Stop: 10/24/20 21:40 Last Admin: 09/29/20 09:50 Dose: 40 mg Documented by: Polyethylene Glycol (Polyethylene (Miralax) 17 Gm Pack) 17 gm PO DAILY PRN PRN Reason: Constipation Stop: 10/24/20 21:40 Umeclidinium Barnard (Umeclidinium Barnard 62.5mcg/Blister 7 Puffs/Inhaler) 1 puffs INH DAILY [facility] Stop: 10/28/20 10:59 Last Admin: 09/29/20 09:50 Dose: 1 puffs Documented by: Warfarin Sodium (Warfarin Sod 5 Mg Tab) 5 mg PO DAILY@1600 [facility] Stop: 10/25/20 15:59 Last Admin: 09/26/20 17:08 Dose: 5 mg Documented by:
[2020-09-29] MEDS: WARFARIN SOD 5 MG TAB PO SCH (18:07)
[2020-09-29] MEDS: ACETAMINOPHEN 325 MG TAB PO PRN (21:08)
[2020-09-29] MEDS: INSULIN GLARGINE SOLOSTAR 100 UNITS/ML 3 ML PEN SC SCH (21:10)
[2020-09-30 06:27] LABS: INR 2.7 (0.9-1.1); Prothrombin Time 25.1 Seconds (9.0-12.0)
[2020-09-30] MEDS: CARBOHYDRATES FOR HYPOGLYCEMIA PO PRN (07:15)
[2020-09-30] MEDS: ASPIRIN 81 MG ECTAB PO SCH (09:38)
[2020-09-30] MEDS: dilTIAZem HCL 180 MG CAPCR PO SCH ×2 (09:39→20:48)
[2020-09-30] MEDS: EZETIMIBE 10 MG TABLET PO SCH (09:39)
[2020-09-30] MEDS: lisinopril 10 MG TAB PO SCH (09:40)
[2020-09-30] MEDS: guaiFENesin 600 MG TABCR PO SCH ×2 (09:40→20:48)
[2020-09-30] MEDS: INSULIN ASPART 100 UNITS/ML 3 ML PEN SC SCH ×4 (09:46→21:01)
[2020-09-30] MEDS: PANTOprazole 40 MG TAB PO SCH ×2 (09:49→21:28)
[2020-09-30] MEDS: UMECLIDINIUM BROMIDE 62.5MCG/BLISTER 7 PUFFS/INHALER INH SCH (09:51)
[2020-09-30] MEDS: FLUTICASONE/VILANTEROL 100/25MCG 14 PUFFS/INHALER INH SCH (09:52)
[2020-09-30] MEDS ORDERED: PHARMACY GLYCEMIC MGMT CONSULT PRN (10:01)
[2020-09-30] MEDS: CAPSAICIN CR 0.075% 60 GM TUBE EXT SCH ×4 (10:08→20:47)
--- NOTE | 2020-09-30 10:24 | Hospitalist Progress Note ---
Date of Service September 30, 2020 Assessment & Plan (1) Atrial fibrillation with rapid ventricular response: Plan: Continue oral diltiazem at current dose 180 mg bid. Home dose is 120 mg twice daily. Off after an episode of heart rate in the 40s.. Avoiding beta-tho therapy with ongoing bronchospasm. Cardiology following patient. (2) Wheezing: Plan: She is not likely to have COPD based on the evidence-appreciate pulmonary recommendations. Wheezing is suspected to be a component of tracheobronchial secretions and potential tracheobronchial malacia. Continuing with supportive care and new inhaler therapy including Breo and Incruse. DuoNebs as needed. Continue chronic supplemental oxygen and nocturnal CPAP. Recommended to follow with sleep medicine as outpatient to review her compliance data with CPAP. Complete PFT testing in the outpatient setting when clinically stable as recommended. Prior spirometry suggestive of restrictive pattern with no evidence of airflow obstruction. The patient does report a history of asthma. She also is chronically aspirating per results of recent video swallow on Wednesday. Overall she is clinically improved. (3) Recurrent pulmonary embolism: Plan: indefinite anticoagulation recommended. Warfarin restarted now that INR is 3 (4) Chronic respiratory failure with hypoxia, on home oxygen therapy: Plan: Continues on her home supplemental oxygen. (5) S/P TAVR (transcatheter aortic valve replacement): Plan: Aortic valve looks stable on recent echo this admission. (6) Current use of skilled nursing anticoagulation: Plan: warfarin wt goal INR 2-3, hold for INR >3.5 (7) DMII (diabetes mellitus, type 2): Plan: She had an episode of hypoglycemia this morning and was symptomatic. Lantus was held and NovoLog correction factor and carb coverage was loosened. She is feeling much better at this time. (8) Hypertension: Plan: at goal, continue current therapy. (9) Moderate obstructive sleep apnea: Plan: cont nightly CPAP, weight loss advised (10) DVT prophylaxis: Plan: warfarin Full Code Dispo-to home when medically stable. Will ensure PT/OT are seeing her prior to discharge given age and comorbidities. Labs checked Plan: ROS-No Headache, No Visual Changes, No Nausea, No Vomiting, No Fever, No Chills, No Neck Pain or Stiffness, No Chest Pain, No Palpitations, less SOB, +AHN, +Cough, No Sputum, No Wheezing, No Abdominal Pain, No Diarrhea, No Hematemesis, No Hemoptysis, No Unexpected Weight Loss, No Flank pain, No Melena, No Hematochezia, No Frequency, No Urgency, No Burning, No Hematuria, No Rashes, No Diaphoresis. Appetite is Normal Physical Exam Gen-AAO x 3, NAD, Afebrile Head-NCAT, EOMI, PERRLA, Anicteric Sclera, No Posterior Pharyngeal Erythema Neck-Supple, No JVD, No Thyromegaly, No Masses, No LAD, No Bruits Lungs- +Wheezing B/L, No Crepitus Chest-Tachy Irreg/Irreg, HR in 80s, No S4, +S1, +S2, No S3, No Murmurs, No Rubs, No Gallops Abdomen-Soft, Bowel Sounds Hypoactive, Tender, Non Distended, No Hepatomegaly, Incision CDI No Splenomegaly, No Palpable Masses, No Rebound, No Rigidity, No Guarding Musculoskeletal-Full Range of Motion Bilaterally, No CVAT Extremities-No Cyanosis, No Clubbing, No Edema Nuero-Cranial Nerves II-XII grossly intact, Motor WNL, DTRs WNL, Strength WNL, Non Focal Psych-Normal Mood Admission and Anticipated Discharge Date Admission Date: September 24, 2020 Results & Data Results & Data ([facility]) Vital Signs (Past 12 Hours) Vital Signs Temp Pulse Pulse Resp BP Pulse Ox 09/30/20 07:04 36.7 C 75 19 136/73 95 09/30/20 04:21 36.9 C 68 20 116/75 91 09/30/20 01:58 16 92 09/29/20 23:35 37.0 C 65 19 118/68 94 09/29/20 22:47 87 14 93
[2020-09-30] MEDS: INSULIN GLARGINE SOLOSTAR 100 UNITS/ML 3 ML PEN SC SCH ×2 (11:20→20:58)
--- NOTE | 2020-09-30 13:28 | Pulmonology Progress Note ---
Date of Service September 30, 2020 Assessment & Plan (1) SOB (shortness of breath): Plan: Impression: 85-year-old female admitted with atrial fibrillation with rapid ventricular response. Previous spirometry demonstrates a restrictive pattern although her chart indicates COPD. She is a lifelong non-smoker. Suspect her wheezing is multifactorial. Recommendations: 1. Wheezing: Possibly an exacerbation of asthma. Suspect that she likely has chronic aspiration events which is likely contributing to her increased respiratory symptoms. Recommend initiation of antireflux medication. I have started her on 40 mg daily of prednisone for exacerbation of asthma. This can be tapered by 10 mg every 2 days. Her prior spirometry did not suggest obvious obstructive lung disease, but asthma can be seen with nonobstructive spirometry. Repeat PFTs can be considered on an outpatient basis along with possible FeNO testing. 2. I am going to increase her dose of Breo Ellipta to 200 mcg. 3. Continue supplemental oxygen titrated to keep saturations at or above 88%. Continue nocturnal CPAP/BiPAP. 4. History of PE: Continue lifelong anticoagulation. 5. Aspiration noted on video swallow. Continue aspiration precautions. Recommend the initiation of antireflux medicine as noted above. Pulmonary is available should the need arise. Please call with questions. Thank you for the consult. (2) Moderate obstructive sleep apnea: (3) Chronic respiratory failure with hypoxia, on home oxygen therapy: (4) Hypercapnic respiratory failure: (5) Asthma exacerbation: Admission and Anticipated Discharge Date Admission Date: September 24, 2020 Subjective Patient seen and examined this morning. She still having cough with occasional productive sputum. She feels that her shortness of breath has improved some. She denies any chest pain, fevers or chills. No night sweats. Otherwise 10/14 point ROS negative unless noted elsewhere. Physical Exam Constitutional: WD/WN, vitals as above + obese; no acute distress Neck: trachea midline, no thyromegaly Respiratory: normal respiratory effort; no respiratory distress and no labored breathing Auscultation: + rhonchi Cardiovascular: RRR, no murmur, no edema Gastrointestinal (Abdomen): normal bowel sounds, soft, nontender, no hepatosplenomegaly Musculoskeletal: Extremities: extremities normal to inspection Skin: no rashes, warm and dry Neurologic: Nonfocal exam Lymphatic: no cervical lymphadenopathy Results & Data Results & Data ([facility]) Vital Signs (Past 12 Hours) Vital Signs Temp Pulse Pulse Resp BP Pulse Ox 09/30/20 11:13 97.5 F L 70 18 115/72 95 09/30/20 10:13 62 09/30/20 07:04 98.1 F 75 19 136/73 95 09/30/20 04:21 98.4 F 68 20 116/75 91 09/30/20 01:58 16 92 vital signs, labs and imaging reviewed Echo 09/26/2020 with evidence of previous TAVR. EF 55 to 60%. Right atrium is moderately dilated. Mild mitral regurgitation. PFT in 2018 demonstrated an FEV1 of 0.79L. Findings are more consistent with restrictive disease. PG Care Time/CCT Total # of Minutes Spent Total Time Spent with Patient: Total time spent is greater than 50% in coordination of care (as documented) at patient's floor/unit and/or counseling patient: Coding Level of Care Code 18644 Subseq Hosp Care Lvl 3 Diagnoses SOB (shortness of breath) R06.02 Moderate obstructive sleep apnea G47.33 Chronic respiratory failure with hypoxia, on home oxygen therapy J96.11; Z99.81 Hypercapnic respiratory failure J96.92 Asthma exacerbation J45.901
--- NOTE | 2020-09-30 13:30 | Pharmacy Report ---
Pharmacy Glycemic Short Note 2 - Date of Service September 30, 2020 - Glycemic Short BSG Results (Last 24 hours): 09/29/20 09/29/20 09/30/20 16:33 20:12 07:06 POC Glucose 98 112 H 61 L* 09/30/20 09/30/20 09/30/20 07:06 07:29 11:11 POC Glucose 61 L* 96 93 OUTPATIENT ANTIDIABETIC REGIMEN: * Metformin 750mg qam * A1c:7% 09-24-20 ASSESSMENT: * Patient was receiving high stress weight based lantus and novolog since 09/24 (24 units lantus BID plus novolog CF15, CR 5). Patient was also on IV solumedrol q6 at this time. The steroids were d/c'd after 2 doses on 09/28, however insulin orders not adjusted until the following day. Subsequently patient has had hypoglycemic fasting levels the past two days. * After consultation this morning, lantus 15 units BID was discontinued and novolog scale loosened. Will order a conservative lantus scale for this evening, but patient may not need any basal doses today. Patient is ordered a diet, but PO intake appears to be minimal today. PLAN FOR INPATIENT GLYCEMIC CONTROL: * Hold outpatient oral diabetes medications * Basal insulin * Lantus 0 or 10 units SQ HS based on BSG-See MAR for details * Bolus insulin * NovoLog per scale ACHS or Q6hrs while NPO * Goal Range: Low 120 mg/dL - High 150 mg/dL * Correction Factor: 25 mg/dL/unit * Nutritional / Prandial insulin per carb ratio of 1 unit per 10 grams CHO consumed PLAN FOR DISCHARGE: * Patient well controlled on outpatient regimen.
[2020-09-30] MEDS: predniSONE 20 MG TAB PO SCH (13:35)
[2020-09-30] MEDS: ACETAMINOPHEN 325 MG TAB PO PRN (13:35)
--- NOTE | 2020-09-30 14:10 | Cardiology Progress Note ---
Date of Service September 30, 2020 Assessment & Plan (1) Atrial fibrillation with rapid ventricular response: Plan: Ventricular rates have trended down to the 70 to 90 bpm range while awake. Recent Bradycardia during sleep is acceptable. INR 2.7 today. Continue dilitazem PO and coumadin. Digoxin discontinue yesterday. (2) Recurrent pulmonary embolism: Plan: Continue chronic Coumadin. Goal INR 23. (3) S/P TAVR (transcatheter aortic valve replacement): Plan: Stable. (4) ASCVD (arteriosclerotic cardiovascular disease): Plan: Chronic coronary heart disease, continue aspirin, ezetimibe. Admission and Anticipated Discharge Date Admission Date: September 24, 2020 Subjective Patient seen in cardiology follow up. Denies palpitations. Low blood sugar noted this am. Telemetry reveals rate controlled AF in the 70s, a few 3 second pauses noted in the early am hours during sleep. Physical Exam 2 Physical Exam: Temp Pulse Resp BP Pulse Ox 36.4 C L 70 18 115/72 95 09/30/20 11:13 09/30/20 11:13 09/30/20 11:13 09/30/20 11:13 09/30/20 11:13 Constitutional: WD/WN, vitals as above Respiratory: wheezing improved, now with upper airway congestion Cardiovascular: Rate/Rhythm: + irregularly irregular; not tachycardic Heart Sounds: no murmur Neurologic: PERRL, EOMI, accommodation nl, no face palsy, no dysarthria Results & Data ([facility]) Vital Signs (Past 12 Hours) Vital Signs Temp Pulse Pulse Resp BP Pulse Ox 09/30/20 11:13 36.4 C L 70 18 115/72 95 09/30/20 10:13 62 09/30/20 07:04 36.7 C 75 19 136/73 95 09/30/20 04:21 36.9 C 68 20 116/75 91
[2020-09-30] MEDS: WARFARIN SOD 5 MG TAB PO SCH (17:16)
[2020-10-01 06:55] LABS: Hematocrit (blood only) 40.6 % (37-47); Hemoglobin 12.8 g/dL (12.0-16.0); Mean Corpuscular Hemoglobin 29.2 pg (25-34); Mean Corpuscular Hgb Conc 31.5 g/dL (32-36); Mean Corpuscular Volume 92.7 fL (80-100); Mean Platelet Volume 10.2 fL (7.4-10.4); Platelet Count 257 K/uL (130-400); RDW Coefficient of Variation 15.7 % (11.5-14.5); RDW Standard Deviation 53.5 fL (36.4-46.3); Red Blood Count 4.38 M/uL (4.2-5.4); White Blood Count 10.78 K/uL (4.8-10.8)
[2020-10-01 07:12] LABS: INR 2.6 (0.9-1.1); Prothrombin Time 24.3 Seconds (9.0-12.0)
[2020-10-01 07:28] LABS: BUN Creatinine Ratio 32.8 (10-20); Calcium 8.2 mg/dl (8.5-10.1); Creatinine Clr Calc Pharmacy 86.5 ml/min; Est GFR (African American) 101.5 ml/min; Est GFR (Non-African American) 87.6 ml/min
[2020-10-01] MEDS: INSULIN ASPART 100 UNITS/ML 3 ML PEN SC SCH ×4 (08:35→21:08)
[2020-10-01] MEDS: dilTIAZem HCL 180 MG CAPCR PO SCH ×2 (08:35→21:07)
[2020-10-01] MEDS: predniSONE 20 MG TAB PO SCH (08:36)
[2020-10-01] MEDS: lisinopril 10 MG TAB PO SCH (08:36)
[2020-10-01] MEDS: ASPIRIN 81 MG ECTAB PO SCH (08:36)
[2020-10-01] MEDS: EZETIMIBE 10 MG TABLET PO SCH (08:36)
[2020-10-01] MEDS: guaiFENesin 600 MG TABCR PO SCH ×2 (08:36→21:06)
[2020-10-01] MEDS: UMECLIDINIUM BROMIDE 62.5MCG/BLISTER 7 PUFFS/INHALER INH SCH (08:53)
[2020-10-01] MEDS: CAPSAICIN CR 0.075% 60 GM TUBE EXT SCH ×4 (08:53→21:05)
[2020-10-01] MEDS: PANTOprazole 40 MG TAB PO SCH ×2 (08:53→21:06)
[2020-10-01] MEDS: FLUTICASONE/VILANTEROL 200/25MCG 14 PUFFS/INHALER INH SCH (08:54)
[2020-10-01] MEDS ORDERED: INSULIN HUMAN NPH SC SCH (09:00)
--- NOTE | 2020-10-01 09:35 | Hospitalist Progress Note ---
Date of Service October 01, 2020 Assessment & Plan (1) Atrial fibrillation with rapid ventricular response: Plan: Continue oral diltiazem at current dose 180 mg bid. Home dose is 120 mg twice daily. Off after an episode of heart rate in the 40s.. Avoiding beta-tho therapy with ongoing bronchospasm. Cardiology following patient. (2) Wheezing: Plan: She is not likely to have COPD based on the evidence-appreciate pulmonary recommendations. Wheezing is suspected to be a component of tracheobronchial secretions and potential tracheobronchial malacia. Continuing with supportive care and new inhaler therapy including Breo and Incruse. DuoNebs as needed. Continue chronic supplemental oxygen and nocturnal CPAP. Recommended to follow with sleep medicine as outpatient to review her compliance data with CPAP. Complete PFT testing in the outpatient setting when clinically stable as recommended. Prior spirometry suggestive of restrictive pattern with no evidence of airflow obstruction. The patient does report a history of asthma. She also is chronically aspirating per results of recent video swallow on Wednesday. Overall she is clinically improved. Steroids restarted by Pulmonary. (3) Recurrent pulmonary embolism: Plan: indefinite anticoagulation recommended. Warfarin, INR is therapeutic. (4) Chronic respiratory failure with hypoxia, on home oxygen therapy: Plan: Continues on her home supplemental oxygen. (5) S/P TAVR (transcatheter aortic valve replacement): Plan: Aortic valve looks stable on recent echo this admission. (6) Current use of mcc anticoagulation: Plan: warfarin (7) DMII (diabetes mellitus, type 2): Plan: Pharmacy on for blood sugars (8) Hypertension: Plan: Increase [place]-I to 20 mg. (9) Moderate obstructive sleep apnea: Plan: cont nightly CPAP, weight loss advised (10) DVT prophylaxis: Plan: warfarin Full Code Dispo-to home when medically stable. PT/OT. Labs checked Plan: ROS-No Headache, No Visual Changes, No Nausea, No Vomiting, No Fever, No Chills, No Neck Pain or Stiffness, No Chest Pain, No Palpitations, less SOB, +AHN, +Cough, No Sputum, No Wheezing, No Abdominal Pain, No Diarrhea, No Hematemesis, No Hemoptysis, No Unexpected Weight Loss, No Flank pain, No Melena, No Hematochezia, No Frequency, No Urgency, No Burning, No Hematuria, No Rashes, No Diaphoresis. Appetite is Normal Physical Exam Gen-AAO x 3, NAD, Afebrile Head-NCAT, EOMI, PERRLA, Anicteric Sclera, No Posterior Pharyngeal Erythema Neck-Supple, No JVD, No Thyromegaly, No Masses, No LAD, No Bruits Lungs- +Wheezing B/L, No Crepitus Chest-Tachy Irreg/Irreg, HR in 80s, No S4, +S1, +S2, No S3, No Murmurs, No Rubs, No Gallops Abdomen-Soft, Bowel Sounds Hypoactive, Tender, Non Distended, No Hepatomegaly, Incision CDI No Splenomegaly, No Palpable Masses, No Rebound, No Rigidity, No Guarding Musculoskeletal-Full Range of Motion Bilaterally, No CVAT Extremities-No Cyanosis, No Clubbing, No Edema Nuero-Cranial Nerves II-XII grossly intact, Motor WNL, DTRs WNL, Strength WNL, Non Focal Psych-Normal Mood Admission and Anticipated Discharge Date Admission Date: September 24, 2020 Results & Data Results & Data ([facility]) Vital Signs (Past 12 Hours) Vital Signs Temp Pulse Resp BP Pulse Ox 10/01/20 07:32 36.4 C L 82 22 177/91 H 93 10/01/20 04:00 36.8 C 79 18 178/99 H 95 09/30/20 23:20 117/86 09/30/20 23:00 36.6 C 95 H 18 94
[2020-10-01] MEDS: CARBOHYDRATES FOR HYPOGLYCEMIA PO PRN (11:48)
[2020-10-01] MEDS: lisinopril 20 MG TAB PO SCH (12:19)
--- NOTE | 2020-10-01 13:47 | Pharmacy Report ---
Pharmacy Glycemic Short Note 2 - Date of Service October 01, 2020 - Glycemic Short BSG Results (Last 24 hours): 09/30/20 09/30/20 10/01/20 16:23 20:52 06:21 Glucose 134 H POC Glucose 155 H 235 H 10/01/20 10/01/20 10/01/20 07:32 11:42 11:43 Glucose POC Glucose 101 H 64 L* 65 L* 10/01/20 12:03 Glucose POC Glucose 103 H OUTPATIENT ANTIDIABETIC REGIMEN: * Metformin 750mg qam * A1c:7% 09-24-20 ASSESSMENT: 10/01: * Patient received a total of 19 units of insulin yesterday, 10 of which were basal. Prednisone was started yesterday afternoon, likely contributing to HS BSG spike. NPH 0.3 units/kg was initiated this morning to counteract steroid effects. Unfortunately patient was mildly hypoglycemic at lunch. Will loosen novolog scale and monitor trend. Patient is ordered a diet and eating much more today. 09/30 * Patient was receiving high stress weight based lantus and novolog since 09/24 (24 units lantus BID plus novolog CF15, CR 5). Patient was also on IV solumedrol q6 at this time. The steroids were d/c'd after 2 doses on 09/28, however insulin orders not adjusted until the following day. Subsequently patient has had hypoglycemic fasting levels the past two days. * After consultation this morning, lantus 15 units BID was discontinued and novolog scale loosened. Will order a conservative lantus scale for this evening, but patient may not need any basal doses today. Patient is ordered a diet, but PO intake appears to be minimal today. PLAN FOR INPATIENT GLYCEMIC CONTROL: * Hold outpatient oral diabetes medications * Basal insulin * Lantus 0 or 10 units SQ HS based on BSG-See MAR for details * NPH 30 units qam with prednisone * Bolus insulin * NovoLog per scale ACHS or Q6hrs while NPO * Goal Range: Low 120 mg/dL - High 150 mg/dL * Correction Factor: 25 mg/dL/unit * Nutritional / Prandial insulin per carb ratio of 1 unit per 10 grams CHO consumed PLAN FOR DISCHARGE: * Patient well controlled on outpatient regimen.
--- NOTE | 2020-10-01 14:52 | Pulmonology Progress Note ---
Date of Service October 01, 2020 Assessment & Plan (1) SOB (shortness of breath): Plan: Impression: 85-year-old female admitted with atrial fibrillation with rapid ventricular response. Previous spirometry demonstrates a restrictive pattern although her chart indicates COPD. She is a lifelong non-smoker. Suspect her wheezing is multifactorial. Recommendations: 1. Wheezing: Possibly an exacerbation of asthma. Suspect that she likely has chronic aspiration events which is likely contributing to her increased respiratory symptoms. Recommend initiation of antireflux medication. Currently on prednisone 40 mg started 09/30/2020. This can be tapered by 10 mg every 2 days. Her prior spirometry did not suggest obvious obstructive lung disease, but asthma can be seen with nonobstructive spirometry. Repeat PFTs can be considered on an outpatient basis along with possible FeNO testing. 2. Continue the increased dose of Breo Ellipta. 3. Continue supplemental oxygen titrated to keep saturations at or above 88%. Continue nocturnal CPAP/BiPAP. Continue flutter valve. Order for incentive spirometry placed. 4. History of PE: Continue lifelong anticoagulation. 5. Aspiration noted on video swallow. Continue aspiration precautions. Recommend the initiation of antireflux medicine as noted above. Pulmonary is available should the need arise. Please call with questions. Thank you for the consult. (2) Moderate obstructive sleep apnea: (3) Chronic respiratory failure with hypoxia, on home oxygen therapy: (4) Hypercapnic respiratory failure: (5) Asthma exacerbation: Admission and Anticipated Discharge Date Admission Date: September 24, 2020 Subjective Patient seen and examined this afternoon. She is sitting up in chair. Feels about the same from yesterday. No new complaints. Denies chest tightness, fevers or chills. Still has mild shortness of breath. Coughs occasionally. Uses her flutter valve. Review of Systems Review of Systems: Unchanged from yesterday Physical Exam Constitutional: WD/WN, vitals as above + obese; no acute distress Neck: trachea midline, no thyromegaly Respiratory: normal respiratory effort; no respiratory distress and no labored breathing Auscultation: + rhonchi Cardiovascular: RRR, no murmur, no edema Gastrointestinal (Abdomen): normal bowel sounds, soft, nontender, no hepatosplenomegaly Musculoskeletal: Extremities: extremities normal to inspection Skin: no rashes, warm and dry Lymphatic: no cervical lymphadenopathy Results & Data Results & Data ([facility]) Vital Signs (Past 12 Hours) Vital Signs Temp Pulse Pulse Resp BP Pulse Ox 10/01/20 11:45 97.5 F L 66 18 134/84 96 10/01/20 08:00 78 10/01/20 07:32 97.5 F L 82 22 177/91 H 93 10/01/20 04:00 98.2 F 79 18 178/99 H 95 Vital signs, labs and imaging personally reviewed PG Care Time/CCT Total # of Minutes Spent Total Time Spent with Patient: Total time spent is greater than 50% in coordination of care (as documented) at patient's floor/unit and/or counseling patient: Coding Level of Care Code 78529 Subseq Hosp Care Lvl 2 Diagnoses SOB (shortness of breath) R06.02 Moderate obstructive sleep apnea G47.33 Chronic respiratory failure with hypoxia, on home oxygen therapy J96.11; Z99.81 Hypercapnic respiratory failure J96.92 Asthma exacerbation J45.901
--- NOTE | 2020-10-01 17:10 | Cardiology Progress Note ---
Date of Service October 01, 2020 Assessment & Plan (1) Atrial fibrillation with rapid ventricular response: Plan: Ventricular rates have trended down to the 70 to 90 bpm range while awake. Recent Bradycardia during sleep is acceptable. INR 2.7 today. Continue dilitazem PO and coumadin. Digoxin discontinue yesterday. (2) Recurrent pulmonary embolism: Plan: Continue chronic Coumadin. Goal INR 23. (3) S/P TAVR (transcatheter aortic valve replacement): Plan: Stable. (4) ASCVD (arteriosclerotic cardiovascular disease): Plan: Chronic coronary heart disease, continue aspirin, ezetimibe. Plan: INR 2.6 Still in AF, however rates are well controlled, and no bradycardia noted since 09/29/20. Continue Diltiazem 180 mg BID (home dose is 120 mg BID). Continue coumadin. Furosemide 20 mg IV x 1. Admission and Anticipated Discharge Date Admission Date: September 24, 2020 Subjective Patient seen in follow up. Ongoing coarse breath sounds. Trial fibrillation noted on monitor with controlled ventricular rate of 70s. Denies subjective palpitations. No additional bradycardia. Physical Exam Physical Exam: Temp Pulse Resp BP Pulse Ox 36.4 C L 75 20 153/86 H 94 10/01/20 16:00 10/01/20 16:00 10/01/20 16:00 10/01/20 16:00 10/01/20 16:00 Constitutional: + obese; no acute distress Respiratory: Auscultation: + bronchial breath sounds; no crackles Cardiovascular: Rate/Rhythm: + irregularly irregular; not tachycardic Heart Sounds: no murmur Extremities: + edema (trace edema) Neurologic: PERRL, EOMI, accommodation nl, no face palsy, no dysarthria Results & Data ([facility]) Vital Signs (Past 12 Hours) Vital Signs Temp Pulse Pulse Resp BP Pulse Ox 10/01/20 16:00 36.4 C L 75 20 153/86 H 94 10/01/20 11:45 36.4 C L 66 18 134/84 96 10/01/20 08:00 78 10/01/20 07:32 36.4 C L 82 22 177/91 H 93
[2020-10-01] MEDS ORDERED: FUROSEMIDE 20 MG in SYRINGE 0 ML IV ONE (17:30)
[2020-10-01] MEDS: WARFARIN SOD 5 MG TAB PO SCH (18:04)
[2020-10-01] MEDS: INSULIN GLARGINE SOLOSTAR 100 UNITS/ML 3 ML PEN SC SCH (21:09)
[2020-10-02 07:30] LABS: Hematocrit (blood only) 40.1 % (37-47); Hemoglobin 12.9 g/dL (12.0-16.0); Mean Corpuscular Hemoglobin 29.7 pg (25-34); Mean Corpuscular Hgb Conc 32.2 g/dL (32-36); Mean Corpuscular Volume 92.2 fL (80-100); Mean Platelet Volume 10.4 fL (7.4-10.4); Platelet Count 250 K/uL (130-400); RDW Coefficient of Variation 15.7 % (11.5-14.5); Red Blood Count 4.35 M/uL (4.2-5.4); White Blood Count 15.23 K/uL (4.8-10.8)
[2020-10-02 07:39] LABS: INR 2.9 (0.9-1.1); Prothrombin Time 27.2 Seconds (9.0-12.0)
[2020-10-02 08:04] LABS: Calcium 8.2 mg/dl (8.5-10.1); Creatinine Clr Calc Pharmacy 71.1 ml/min; Est GFR (African American) 96.1 ml/min; Est GFR (Non-African American) 82.9 ml/min; Potassium 3.7 mmol/L (3.5-5.1)
[2020-10-02] MEDS: guaiFENesin 600 MG TABCR PO SCH (08:05)
[2020-10-02] MEDS: ASPIRIN 81 MG ECTAB PO SCH (08:05)
[2020-10-02] MEDS: CAPSAICIN CR 0.075% 60 GM TUBE EXT SCH ×3 (08:05→16:06)
[2020-10-02] MEDS: EZETIMIBE 10 MG TABLET PO SCH (08:05)
[2020-10-02] MEDS: predniSONE 20 MG TAB PO SCH (08:06)
[2020-10-02] MEDS: dilTIAZem HCL 180 MG CAPCR PO SCH (08:06)
[2020-10-02] MEDS: lisinopril 20 MG TAB PO SCH (08:06)
[2020-10-02] MEDS: PANTOprazole 40 MG TAB PO SCH (08:06)
[2020-10-02] MEDS: UMECLIDINIUM BROMIDE 62.5MCG/BLISTER 7 PUFFS/INHALER INH SCH (08:08)
[2020-10-02] MEDS: FLUTICASONE/VILANTEROL 200/25MCG 14 PUFFS/INHALER INH SCH (08:08)
[2020-10-02] MEDS: INSULIN ASPART 100 UNITS/ML 3 ML PEN SC SCH ×2 (08:10→11:49)
[2020-10-02] MEDS ORDERED: INSULIN HUMAN NPH SC SCH (09:00)
--- NOTE | 2020-10-02 12:49 | Pharmacy Report ---
Pharmacy Glycemic Short Note 2 - Date of Service October 02, 2020 - Glycemic Short BSG Results (Last 24 hours): 10/01/20 10/01/20 10/02/20 16:27 20:32 06:35 Glucose 88 POC Glucose 127 H 172 H 10/02/20 10/02/20 07:37 11:27 Glucose POC Glucose 82 166 H OUTPATIENT ANTIDIABETIC REGIMEN: * Metformin 750mg qam * A1c:7% 09-24-20 ASSESSMENT: 10/02: * Patient received a total of 43 units of insulin today, 30 of which were NPH. Patient did have a mild hypoglycemic episode at lunchtime yesterday. Novolog CR was loosened at that time. Will also decrease AM NPH. Patient remains on prednisone and is ordered a diet. 10/01: * Patient received a total of 19 units of insulin yesterday, 10 of which were basal. Prednisone was started yesterday afternoon, likely contributing to HS BSG spike. NPH 0.3 units/kg was initiated this morning to counteract steroid effects. Unfortunately patient was mildly hypoglycemic at lunch. Will loosen novolog scale and monitor trend. Patient is ordered a diet and eating much more today. 09/30 * Patient was receiving high stress weight based lantus and novolog since 09/24 (24 units lantus BID plus novolog CF15, CR 5). Patient was also on IV solumedrol q6 at this time. The steroids were d/c'd after 2 doses on 09/28, however insulin orders not adjusted until the following day. Subsequently patient has had hypoglycemic fasting levels the past two days. * After consultation this morning, lantus 15 units BID was discontinued and novolog scale loosened. Will order a conservative lantus scale for this evening, but patient may not need any basal doses today. Patient is ordered a diet, but PO intake appears to be minimal today. PLAN FOR INPATIENT GLYCEMIC CONTROL: * Hold outpatient oral diabetes medications * Basal insulin * Lantus 0 or 10 units SQ HS based on BSG-See MAR for details * NPH 22 units qam with prednisone * Bolus insulin * NovoLog per scale ACHS or Q6hrs while NPO * Goal Range: Low 120 mg/dL - High 150 mg/dL * Correction Factor: 25 mg/dL/unit * Nutritional / Prandial insulin per carb ratio of 1 unit per 10 grams CHO consumed PLAN FOR DISCHARGE: * Patient well controlled on outpatient regimen.
--- NOTE | 2020-10-02 16:08 | Discharge Summary ---
Date of Service October 02, 2020 Admission HPI Per Admitting Provider The patient is an 85 yo F with a h/o aortic valve stenosis s/p TAVR, PAF on coumadin, and COPD on chronic home oxygen who presented to the ER today for heart rate control. She was at her PCP office for an ER followup a few days ago and was found to be in afib with RVR with a heart rate of 143. She takes coumadin with INR 3.3 today, and takes diltiazem 120mg PO BID. She is with her today and they endorse that she has not felt well since her hospital discharge back in June 2020. 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 She reports a productive cough of yellowish mucus in the past week, fatigue, palpitations. She was given a course of doxycycline and prednisone 60mg PO daily Sat evening upon DC from the ER. She has been compliant with this, but not improved. She uses an albuterol rescue in haler at home but no other inhalers despite having Advair on her list. She denies chest pain, nausea, vomiting, abdominal discomfort. She has had some loose stools "from all the antibiotics recently." She denies any dysuria, fevers, chills, sinus pain, sore throat or other overt infectious symptoms. She does not check her blood sugar daily and takes metformin. She sleeps with a CPAP (6cm H2O) with 1LPM oxygen pumped in and uses 2L continuously during the day. She ambulates with a walker and a cane. She lives at home with her . Admission Exam Per Admitting Provider CONSTITUTIONAL: WNWD, vitals as above, NAD, appears euvolemic EYES: PERRL, normal conjunctivae, no scleral icterus ENT: external ear and nose normal, oropharynx clear, MMM NECK: trachea midline, no lymphadenopathy RESPIRATORY: coarse rhonchi throughout, occasional wheezes, no rales, normal respiratory effort, no conversational dyspnea on supplemental oxygen. CARDIOVASCULAR: tachy rate and irregular rhythm, S1 and 2 heard without murmurs, gallops or rubs, no JVD, no peripheral edema GASTROINTESTINAL: soft, nontender, nondistended, no guarding. MUSCULOSKELETAL: strength 5/5 throughout, head is normocephalic and atraumatic SKIN: warm and dry NEUROLOGIC: CN 2-12 grossly intact, no sensory deficit, normal cognition, normal speech, no tremor, no gross focal deficits. PSYCHIATRIC: alert cooperative and oriented to person, place and time. Principal Diagnosis Asthma exacerbation Recurrent aspiration Atrial fibrillation with rapid ventricular response Chronic respiratory failure with hypoxia, on home oxygen therapy Recurrent pulmonary embolism-chronic anticoagulant use Moderate obstructive sleep apnea Discharge Exam CONSTITUTIONAL: obese, vitals as above, NAD, appears euvolemic EYES: normal conjunctivae, no scleral icterus ENT: external ear and nose normal, oropharynx clear, MMM NECK: trachea midline, no lymphadenopathy RESPIRATORY: CTA throughout, no wheezing, rales, or rhonchi with normal respiratory effort, no conversational dyspnea on supplemental oxygen. CARDIOVASCULAR: reg rate and irregular rhythm, S1 and 2 heard without murmurs, gallops or rubs, no JVD, no peripheral edema GASTROINTESTINAL: soft, nontender, nondistended, no guarding. MUSCULOSKELETAL: strength 5/5 throughout, head is normocephalic and atraumatic SKIN: warm and dry NEUROLOGIC: CN 2-12 grossly intact, no sensory deficit, normal cognition, normal speech, no tremor, no gross focal deficits. PSYCHIATRIC: alert cooperative and oriented to person, place and time. Discharge Data Allergies Allergy/AdvReac Type Severity Reaction Status Date / Time amoxicillin [From Augmentin] Allergy Intermediate Hives Verified 09/24/20 17:44 clavulanic acid Allergy Intermediate Hives Verified 09/24/20 17:44 [From Augmentin] gabapentin Allergy Intermediate Itching Verified 09/24/20 17:44 Penicillins Allergy Intermediate Hives Verified 09/24/20 17:44 Consultations 09/24/20 17:17 ED Decision to Admit Stat 09/24/20 21:41 Consult Cardiology Routine 09/27/20 20:41 Consult Pulmonology Routine Ordered Studies Laboratory Results WBC 15.23 K/uL (4.8-10.8) H 10/02/20 06:35 RBC 4.35 M/uL (4.2-5.4) 10/02/20 06:35 Hgb 12.9 g/dL (12.0-16.0) 10/02/20 06:35 Hct 40.1 % (37-47) 10/02/20 06:35 MCV 92.2 fL (80-100) 10/02/20 06:35 MCH 29.7 pg (25-34) 10/02/20 06:35 MCHC 32.2 g/dL (32-36) 10/02/20 06:35 RDW Std Deviation 54.0 fL (36.4-46.3) H 10/02/20 06:35 RDW Coeff of Linda 15.7 % (11.5-14.5) H 10/02/20 06:35 Plt Count 250 K/uL (130-400) 10/02/20 06:35 MPV 10.4 fL (7.4-10.4) 10/02/20 06:35 Immature Gran % (Auto) 0.1 % 09/24/20 16:19 Neut % (Auto) 96.0 % 09/24/20 16:19 Lymph % (Auto) 2.8 % 09/24/20 16:19 [place] % (Auto) 1.0 % 09/24/20 16:19 Eos % (Auto) 0.0 % 09/24/20 16:19 Baso % (Auto) 0.1 % 09/24/20 16:19 Neut # (Auto) 12.80 K/uL (1.4-6.5) H 09/24/20 16:19 Lymph # (Auto) 0.38 K/uL (1.2-3.4) L 09/24/20 16:19 [place] # (Auto) 0.13 K/uL (0.11-0.59) 09/24/20 16:19 Eos # (Auto) 0.00 K/uL (0-0.5) 09/24/20 16:19 Baso # (Auto) 0.01 K/uL (0-0.2) 09/24/20 16:19 Immature Gran # (Auto) 0.02 K/uL (0.00-0.02) 09/24/20 16:19 PT 27.2 Seconds (9.0-12.0) H 10/02/20 06:35 INR 2.9 (0.9-1.1) H 10/02/20 06:35 APTT 32.2 Seconds (21.0-31.0) H 09/24/20 16:19 PTT Ratio 1.2 09/24/20 16:19 ABG pH 7.45 (7.35-7.45) 09/28/20 11:35 ABG pCO2 50 mmHg (35-46) H 09/28/20 11:35 ABG pO2 89 mmHg (80-95) 09/28/20 11:35 ABG HCO3 34 mmol/L (19-24) H 09/28/20 11:35 ABG O2 Saturation 97.0 % (90-95) H 09/28/20 11:35 ABG Base Excess 8.8 mEq/L (-9-1.8) H 09/28/20 11:35 Melvin Test Pos (Pos) 09/28/20 11:35 Barometric Pressure 732.0 mm/Hg 09/28/20 11:35 Oxygen Given 2L 09/28/20 11:35 Sodium 139 mmol/L (136-145) 10/02/20 06:35 Potassium 3.7 mmol/L (3.5-5.1) 10/02/20 06:35 Chloride 101 mmol/L (98-107) 10/02/20 06:35 Carbon Dioxide 39 mmol/L (21-32) H 10/02/20 06:35 Anion Gap -1.0 (3-11) L 10/02/20 06:35 BUN 14 mg/dl (7-18) 10/02/20 06:35 Creatinine 0.58 mg/dl (0.6-1.2) L 10/02/20 06:35 Est Cr Clr Drug Dosing 71.1 ml/min 10/02/20 06:35 Est GFR ( Amer) 96.1 ml/min 10/02/20 06:35 Est GFR (Non-Af Amer) 82.9 ml/min 10/02/20 06:35 BUN/Creatinine Ratio 25.0 (10-20) H 10/02/20 06:35 Glucose 88 mg/dl (70-99) 10/02/20 06:35 POC Glucose 166 mg/dl (70-99) H 10/02/20 11:27 Estimat Average Glucose 154 mg/dl 09/24/20 16:19 Hemoglobin A1c 7.0 % (4.5-5.6) H 09/24/20 16:19 Lactate 2.8 mmol/L (0.4-2.0) H* 09/24/20 18:47 Calcium 8.2 mg/dl (8.5-10.1) L 10/02/20 06:35 Magnesium 2.2 mg/dl (1.8-2.4) 09/25/20 06:58 Total Bilirubin 0.5 mg/dl (0.2-1) 09/25/20 06:58 AST 50 U/L (15-37) H 09/25/20 06:58 ALT 106 U/L (12-78) H 09/25/20 06:58 Alkaline Phosphatase 62 U/L (45-117) 09/25/20 06:58 Troponin I < 0.015 ng/ml (0-0.045) 09/24/20 16:19 NT-Pro-B Natriuret Pep 993 pg/ml (0-1800) 09/24/20 16:19 Total Protein 7.1 gm/dl (6.4-8.2) 09/25/20 06:58 Albumin 3.4 gm/dl (3.4-5.0) 09/25/20 06:58 Globulin 3.7 gm/dl (2.5-4.0) 09/25/20 06:58 Albumin/Globulin Ratio 0.9 (0.9-2) 09/25/20 06:58 TSH 0.188 uIu/ml (0.300-4.500) L 09/24/20 16:19 Free T4 1.07 ng/dl (0.8-1.6) 09/24/20 16:19 Digoxin 1.2 ng/ml (0.8-2.0) 09/27/20 07:27 COVID-19 Eval Order Covid19 at [facility] [place] 09/24/20 16:51 SARS-CoV-2 (PCR) NEGATIVE (Negative) 09/24/20 16:51 Impressions Chest X-Ray 09/27/20 13:52 XR chest 1V not portable HISTORY: questionable aspiration event COMPARISON: Chest 09/24/2020. FINDINGS: No pneumothorax. No pleural effusions. There are low lung lines. The heart remains enlarged. An aortic valve stent is noted. There is diffuse interstitial thickening which appears chronic. Old, healed left-sided rib fractures. Bibasilar linear densities also remain unchanged and favor atelectasis are scarring. No new focal lung consolidations identified. IMPRESSION: 1. No change in the cardiomegaly and mild diffuse interstitial thickening. This is likely chronic. 2. No new focal lung consolidations to suggest pneumonia. ACT 112: Negative or not required by law. Electronically signed by: Ricky Tang M.D. 09/27/2020 2:44 PM Videofluoroscopic Swallow 09/27/20 14:00 FL video swallow HISTORY: Possible aspiration. assess for aspiration TECHNIQUE: Video fluoroscopic evaluation of swallowing was performed in the AP and lateral projections by the speech pathology staff. The patient is fed nectar-thick and thin liquid barium, a barium coated wafer, and barium pudding. FLUOROSCOPY TIME: 3.3 minutes. A cine loop submitted. COMPARISON STUDY: None. FINDINGS: There is normal hyoid excursion and epiglottic deflection. There is trace silent aspiration identified with the serial swallows of the thin liquid barium due to premature spillover. There is also likely aspiration identified with the nectar thick liquid barium. No aspiration with the barium pudding or barium coated cracker. There is moderate esophageal dysmotility. Small hiatus hernia. IMPRESSION: 1. Aspiration identified with the thin liquid and nectar thick liquid barium. 2. Please see the speech pathologist report for detailed findings and recommendations. ACT 112: Negative or not required by law. Electronically signed by: Ricky Tang M.D. 09/27/2020 3:07 PM Hospital Course (1) Asthma exacerbation: (2) Atrial fibrillation with rapid ventricular response: (3) Recurrent pulmonary embolism: (4) Chronic respiratory failure with hypoxia, on home oxygen therapy: (5) S/P TAVR (transcatheter aortic valve replacement): (6) Current use of terminal clerk anticoagulation: (7) DMII (diabetes mellitus, type 2): (8) Hypertension: (9) Moderate obstructive sleep apnea: The patient is an 85-year-old female with a history of asthma who presented with acute wheezing and atrial fibrillation with RVR. She has a history of paroxysmal atrial fibrillation with known valve disease on Coumadin. She was placed on a diltiazem drip with a bolus in the ER, however, her heart rate was still uncontrolled. She was loaded with digoxin which was continued for several days. Cardiology was consulted. INR remained therapeutic throughout her hospital stay. She was started on Solu-Medrol and given a short course of azithromycin for 3 days. After this time she was not improved and pulmonology was consulted. They did not see an indication for steroids and discontinued these. She was placed on Breo and Incruse to see if this offered her benefit. Scheduled bronchodilator therapy was changed as needed. 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 CPAP and continue weight loss efforts were recommended. She underwent a video swallow study for issues with choking on food and was found to have silent aspiration. She was continued on her home protonix twice daily antireflux medication at discharge to help prevent worsening of respiratory symptoms from uncontrolled reflux. She was restarted on prednisone for a short taper and repeat pulmonary function tests were recommended as an outpatient along with possible FeNO testing. Blood gas test did demonstrate an elevated CO2 level consistent with probable obesity hypoventilation syndrome/restrictive lung disease. Her pH was on the slightly alkalotic side so she was relatively well compensated. A follow-up with sleep medicine in the outpatient setting to review her compliance data was strongly recommended. Her heart rate improved and she actually became somewhat bradycardic; the digoxin was stopped. She remained on a dose of diltiazem of 180 mg twice daily was ultimately discharged on her home dose of 120 mg twice daily based on heart rates. At time of discharge she was hemodynamically stable and afebrile and tolerating p.o. She was mentating and ambulating at baseline and was oxygenating well on her chronic oxygen settings. Again close follow-up with sleep medicine, pulmonology, cardiology and primary care was recommended after discharge. Total Time Total Time Spent Total Time Spent (In Minutes): 60 Discharge Plan Discharge Items Patient Disposition: Home - Home Health Services Reason For Visit: AFIB WITH RVR, COPD EXACERBATION Discharge Diagnosis: Asthma exacerbation Recurrent aspiration Atrial fibrillation with rapid ventricular response Chronic respiratory failure with hypoxia, on home oxygen therapy Recurrent pulmonary embolism-chronic anticoagulant use Moderate obstructive sleep apnea Condition on Discharge: Fair Activity: Resume your previous activity Non-emergency contact: Primary Care Provider Call non-emergency contact if: you have any medication questions and your symptoms worsen Follow-up/Referrals: Jamie Vela DO [Primary Care Provider] - (Date & Time 10/07/2020 11:20 AM Provider Kaylen Calloway MD Department Family Practice [facility] ) Meseret Cruz CRNP [Nurse Practitioner] - (Date & Time 10/03/2020 2:00 PM Provider NYASIA Hammer Department Cardiology, [facility] ) Diet: Carb Consistent or DM2 and Low Sodium (2gm) Diet Texture: Easy to Chew Diet Comment: no straws Addtl Attending Provider Instructions: Please take all medications as instructed on discharge as below. You have been given 2 additional inhalers to use every day. The inhaler you have at home is for rescue breathing only if you are short of breath or w heezing. Again, these inhalers are to be used scheduled. Close follow-up with your pulmonology specialist and with sleep medicine is recommended. Repeat pulmonary function tests when you are feeling more at your baseline from a breathing standpoint is recommended. Close follow-up with primary care is recommended after this hospital stay to ensure you are tolerating the new medications without issue and have refills as appropriate. It is also to make sure you are still doing well after returning home. You were found to have some silent aspiration during the swallow study performed this admission. Although we spoke about starting an antireflux medication, you are on twice daily Protonix. Please continue this to avoid further worsening of respiratory symptoms moving forward. Please continue to follow the speech pathology swallow modifications recommended on your discharge instructions. It is also recommended that you follow-up with a speech pathologist to continue working on your swallow mechanism as outpatient. Please obtain a referral from your primary care physician on follow-up. It was a pleasure taking care of you! Please call if you have any questions or problems. You can reach a [facility] hospitalist on duty at [facility] 24 hours a day by calling [phone]. Take care of yourself. Lili Bustillos, DO [facility]ist Pending Studies at Discharge: No Stand-Alone Forms: My [facility] Medications and DC Order Prescriptions: New Incruse Ellipta 62.5 mcg/actuation Blister With Device 1 inh inhalation DAILY Qty: 30 RF: 0 prednisone 10 mg tablet 10 mg PO UD Qty: 12 RF: 0 Breo Ellipta 200-25 mcg/dose Blister With Device 1 ea inhalation DAILY Qty: 60 RF: 0 Continued aspirin [Aspirin Low Dose] 81 mg Tablet,Delayed Release (Dr/Ec) 81 mg PO QAM RF: 0 warfarin 5 mg tablet See Rx Instructions .ROUTE .COMPLEX RF: 0 diltiazem HCl 120 mg capsule,extended release 24hr 120 mg PO BID RF: 0 albuterol sulfate 90 mcg/actuation HFA aerosol inhaler 2 puff INHALATION Q4H PRN (Reason: Wheeze/Cough) RF: 0 ezetimibe 10 mg tablet 10 mg PO QAM RF: 0 metformin 750 mg tablet extended release 24 hr 750 mg PO QAM RF: 0 lisinopril 10 mg tablet 10 mg PO QAM RF: 0 acetaminophen [Tylenol Extra Strength] 500 mg Tablet 500 mg PO DIRECTED PRN (Reason: Pain) RF: 0 pantoprazole [Protonix] 40 mg Tablet,Delayed Release (Dr/Ec) 40 mg PO BID RF: 0 polyethylene glycol 3350 [Miralax] 17 gram Powder In Packet 17 g PO DAILY PRN (Reason: Constipation) RF: 0 nitroglycerin [Nitrostat] 0.4 mg Tablet, Sublingual 0.4 mg sublingual UD PRN (Reason: Chest Pain) RF: 0 diclofenac sodium 1 % gel 1 ea TOPICAL BID PRN (Reason: Pain) RF: 0 Discontinued prednisone 20 mg tablet 60 mg PO DAILY 4 Days Qty: 12 RF: 0 doxycycline hyclate 100 mg tablet 100 mg PO BID 7 Days Qty: 14 RF: 0 Discharge Orders: Discharge Order (Routine); Ordered 10/02/20 Ordered By: Lili Tobias/Other Patient Handouts: A1C, High Blood Sugar (Hyperglycemia), Hypoglycemia (Low Blood Sugar), Managing Type 2 Diabetes Admission Data Admit Date/Time: 09/24/20 18:23 Attending Provider: Lili Bustillos Admit Provider: Lili Bustillos Primary Care Provider: Jamie Vela Other Providers: Lili Bustillos ; Jayy Shore ; Reggie Zavala Other Interventions: Discharge Summary Assessment (RN) Last Done: 10/02/20 15:42 [facility] Attestation I certify that this patient is under my care and that I, or a physicians mail handler assistant working with me, had a face to-face encounter that meets the home health [id number] encounter requirements with this patient. The encounter with the patient was in whole, or in part, for the following medical condition, which is the primary reason for home health care (list medical condition): I certify that, based on my findings, the following services are medically necessary home health services: My clinical findings support the need for the above services because: Skilled Nsg Assessment Skilled Nsg Instruction New Medications Further, I certify that my clinical findings support that this patient is homebound (i.e. absences from home require considerable and taxing effort and are for medical reasons or temple services or infrequently or of short duration when for other reasons) because: Supportive Aid - Walker Certification for Home Health Services: Based on the above findings, I certify that this patient is confined to the home and needs intermittent intermediate care, physical therapy and/or speech therapy or continues to need occupational therapy. The patient is under my care, and I have initiated the establishment of the plan of care. This patient will be followed by a physician who will periodically review the plan of care.
[2020-10-02] MEDS: WARFARIN SOD 5 MG TAB PO SCH (16:54)
== END 2020-10-02 17:54 | disposition home health service (06) | DRG 309 ==
LOC: ED 15:37 → 2E 18:23 → SUATTDRO 18:23 → 2E 19:32

== ENCOUNTER 2021-12-13 20:10 | Inpatient (IN) ==
--- NOTE | 2021-12-13 20:19 | Emergency Department Note ---
History of Present Illness General Chief Complaint: Shortness of Breath/Dyspnea Stated Complaint: SHORT OF BREATH Time Seen by Provider: 12/13/21 20:11 History of Present Illness Provider Complaint: shortness of breath Onset (ago): week(s) (1) Consistency/Duration: + progressively worsening Relieved By: + oxygen and + upright position Exacerbated By: + lying flat Known history of: COPD and congestive heart failure Associated symptoms: + orthopnea; no chest pain, no pain with inspiration, no fever, no wheezing, no sputum production, no palpitations, no hemoptysis, no diaphoresis, no syncope, no abdominal pain or no dizziness Treatment prior to arrival: bronchodilator Related Data Home oxygen amount: as needed at night Home Medications Medication Instructions Recorded Confirmed Type albuterol sulfate 90 mcg/actuation 2 puff inhalation Q4H PRN 07/14/19 12/31/20 History aerosol inhaler Wheeze/Cough aspirin 81 mg tablet,delayed 81 mg PO QAM 07/14/19 12/31/20 History release (Adriana Low Dose Aspirin) diltiazem HCl 120 mg 120 mg PO BID 07/14/19 12/31/20 History capsule,extended release 24 hr ezetimibe 10 mg tablet 10 mg PO QAM 07/14/19 12/31/20 History metformin 750 mg tablet,extended 750 mg PO QAM 07/14/19 12/31/20 History release 24 hr warfarin 5 mg tablet See Rx Instructions .Route .COMPLEX 07/14/19 12/31/20 History lisinopril 10 mg tablet 10 mg PO QAM 02/15/20 12/31/20 History pantoprazole 40 mg tablet,delayed 40 mg PO BID 06/29/20 12/31/20 History release (Protonix) acetaminophen 500 mg tablet 500 mg PO DIRECTED PRN Pain 09/21/20 12/31/20 History (Tylenol Extra Strength) diclofenac sodium 1 % topical gel 1 ea topical BID PRN Pain 09/24/20 12/31/20 History nitroglycerin 0.4 mg sublingual 0.4 mg sublingual UD PRN Chest Pain 09/24/20 12/31/20 History tablet (Nitrostat) fluticasone furoate 200 1 ea inhalation DAILY #60 ea 10/02/20 12/31/20 Rx mcg-vilanterol 25 mcg/dose inhalation powder (Breo Ellipta) prednisone 10 mg tablet 10 mg PO UD #12 tabs 10/02/20 12/31/20 Rx umeclidinium 62.5 mcg/actuation 1 inh inhalation DAILY #30 ea 10/02/20 12/31/20 Rx blister powder for inhalation (Incruse Ellipta) Saccharomyces boulardii 250 mg 250 mg PO BID #20 caps 07/20/21 Rx capsule (Florastor) Allergies Allergy/AdvReac Type Severity Reaction Status Date / Time amoxicillin [From Augmentin] Allergy Intermediate Hives Verified 12/31/20 12:36 clavulanic acid Allergy Intermediate Hives Verified 12/31/20 12:36 [From Augmentin] gabapentin Allergy Intermediate Itching Verified 12/31/20 12:36 Penicillins Allergy Intermediate Hives Verified 12/31/20 12:36 Past Med/Surg History Medical History Aortic stenosis Asthma Atrial fibrillation with rapid ventricular response Atrial fibrillation with rapid ventricular response Chest pain COPD (chronic obstructive pulmonary disease) COPD exacerbation COPD exacerbation Deep vein thrombosis Diabetic neuropathy DM type 2 (diabetes mellitus, type 2) Dyslipidemia Failure of outpatient treatment Hypertension Incomplete uterovaginal prolapse Moderate obstructive sleep apnea Myocardial Infarction PAF (paroxysmal atrial fibrillation) Recurrent pulmonary embolism Sleep apnea 1 liter o2 SOB (shortness of breath) Subtherapeutic international normalized ratio (INR) Surgical History History of cardiac cath History of colonoscopy History of heart artery stent History of heart valve replacement Family History Other Family history non-contributory Social History Smoking Status: Unknown if ever smoked Second Hand Exposure: No; Hx Alcohol Use: No Hx Substance Use: No Preferred Language: Frisian Communication Ability: Effective Hotel Assistant Manager Required: No Beliefs That Will Affect Care: None Current Living Situation: Spouse Current Living Situation Comment: Lives w/ and son current occupation: Retired Feels Safe at Home: Yes Assistive Devices: Oxygen - Continuous and Walker Review of Systems A total of 10 systems reviewed and were otherwise negative Physical Exam Vital Signs: Vital Signs - 24 hr 12/13/21 20:28 12/13/21 20:33 10/01/22 20:42 Temperature 36.7 C Temperature Source Oral Pulse Rate 105 H 105 H Respiratory Rate 26 H Respiratory Effort / Characteristics Spontaneous Respiratory Depth Shallow Shallow Blood Pressure 186/113 H Blood Pressure Dayna n 137 Pulse Oximetry 91 93 Oxygen Delivery Me thod Nasal Cannula Nasal Cannula Oxygen Flow Rate 2 4 Sepsis Recent Feve r Within 48 Hours No Sepsis New/Unexpla ined Change in Men ramon Status No Sepsis Action Take n by Nursing No Action Required Physical Exam: Physical Exam GENERAL: She is oriented to person, place, and time. She appears well-developed and well-nourished. She does not appear distressed. HENT: Exam performed. -Head: Normocephalic and atraumatic. -Right Ear: External ear normal. No mastoid tenderness. -Left Ear: External ear normal. No mastoid tenderness. -Mouth/Throat: The oropharynx is clear and moist. No trismus in the jaw. No dental abscesses or uvula swelling. No oropharyngeal exudate or tonsillar abscesses. EYES: Conjunctivae and EOM are normal. Pupils are equal, round, and reactive to light. Right eye exhibits no discharge. Left eye exhibits no discharge. No scleral icterus. NECK: Normal range of motion. Neck supple. No JVD present. No spinous process tenderness present. No carotid bruit present. No rigidity. No tracheal deviation and normal range of motion present. No Brudzinski's sign and no Kernig's sign noted. CV: Normal rate, irregular rhythm, normal heart sounds and intact distal pulses. Palpable radial pulses bue. PULM/CHEST: Rales bilaterally. ABD: The abdomen is soft. Bowel sounds are normal. She has no distension. No mass is present. There is no tenderness. There is no rebound, no guarding, no Jarquin's sign and no tenderness at McBurney's point. Rovsig negative MUSC/SKEL: Normal range of motion. There is no peripheral edema, tenderness or deformity. LYMPH: No cervical adenopathy. NEURO: She is alert and oriented to person, place, and time. She has normal strength. No cranial nerve deficit or sensory deficit. Coordination and gait normal. GCS eye subscore is 4. GCS verbal subscore is 5. GCS motor subscore is 6. Cerebellar tests wnl. SKIN: Skin is warm and dry. She is not diaphoretic. PSYCH: She has a normal mood and affect. Behavior is normal. Judgment and thought content normal. Course Course 2010: The patient was evaluated in room C9. A complete history and physical exam was performed Cardiac monitoring: An order was placed for continuous cardiac monitoring. The monitor shows a rate of 100 with atrial fibrilation rhythm Found to be hypoxic on her normal 2 L. Patient's oxygen was increased to 4 L nasal cannula which improved her oxygen saturation. 215: Vital signs stable on 4 L nasal cannula. Patient's chest x-ray shows right-sided infiltrate as well as cardiomegaly with cephalization. Labs show an elevated proBNP. Troponin negative. There is a reported delay in the CBC resulting because of lab maintenance. Patient be treated with Levaquin for her pneumonia given her allergy to penicillins as well as Lasix 40 mg IV push. Discussed the case with Dr. Moran who will admit the patient. Medical Decision Making Laboratory Data Result diagrams: 12/13/21 20:45 12/13/21 20:45 Lab Results 12/13/21 12/13/21 12/13/21 Range/Units 20:45 20:45 20:45 PT 25.8 H (9.0-12.0) Seconds INR 2.5 H (0.9-1.1) APTT 34.2 H (21.0-31.0) Seconds PTT Ratio 1.2 VBG pH 7.40 (7.36-7.41) VBG pCO2 45 (38-50) mmHg VBG pO2 46 mmHg VBG HCO3 28 mmol/L VBG O2 Saturation 73.2 % VBG Base Excess 2.5 mEq/L Sodium 138 (136-145) mmol/L Potassium 4.1 (3.5-5.1) mmol/L Chloride 103 (98-107) mmol/L Carbon Dioxide 25 (21-32) mmol/L Anion Gap 10 (3-11) BUN 17 (6-23) mg/dl Creatinine 0.67 (0.6-1.2) mg/dl Est Cr Clr Drug Dosing 59.9 ml/min Est GFR ( Amer) 91.0 ml/min Est GFR (Non-Af Amer) 78.5 ml/min BUN/Creatinine Ratio 25.4 H (10-20) Glucose 189 H (70-99(Fasting)) mg/dl Calcium 8.8 (8.5-10.1) mg/dl Troponin I High Sens 9.5 (0-14) pg/ml B-Natriuretic Peptide (0-100) pg/ml Lipase 40 (11-82) U/L 12/13/21 Range/Units 20:45 PT (9.0-12.0) Seconds INR (0.9-1.1) APTT (21.0-31.0) Seconds PTT Ratio VBG pH (7.36-7.41) VBG pCO2 (38-50) mmHg VBG pO2 mmHg VBG HCO3 mmol/L VBG O2 Saturation % VBG Base Excess mEq/L Sodium (136-145) mmol/L Potassium (3.5-5.1) mmol/L Chloride (98-107) mmol/L Carbon Dioxide (21-32) mmol/L Anion Gap (3-11) BUN (6-23) mg/dl Creatinine (0.6-1.2) mg/dl Est Cr Clr Drug Dosing ml/min Est GFR ( Amer) ml/min Est GFR (Non-Af Amer) ml/min BUN/Creatinine Ratio (10-20) Glucose (70-99(Fasting)) mg/dl Calcium (8.5-10.1) mg/dl Troponin I High Sens (0-14) pg/ml B-Natriuretic Peptide 218 H (0-100) pg/ml Lipase (11-82) U/L Imaging Data My Impression: Right lung infiltrate. Cardiomegaly with cephalization. ECG Data Interpretation: Atrial fibrillation with a rate of 106. QRS and QTc intervals are within normal limits. No significant change from the EKG done in September 2020 MDM Narrative 2010: The patient was evaluated in room C9. A complete history and physical exam was performed Cardiac monitoring: An order was placed for continuous cardiac monitoring. The monitor shows a rate of 100 with atrial fibrilation rhythm Found to be hypoxic on her normal 2 L. Patient's oxygen was increased to 4 L nasal cannula which improved her oxygen saturation. 2151: Vital signs stable on 4 L nasal cannula. Patient's chest x-ray shows right-sided infiltrate as well as cardiomegaly with cephalization. Labs show an elevated proBNP. Troponin negative. There is a reported delay in the CBC resulting because of lab maintenance. Patient be treated with Levaquin for her pneumonia given her allergy to penicillins as well as Lasix 40 mg IV push. Discussed the case with Dr. Moran who will admit the patient. Impression & Plan Pneumonia, Acute exacerbation of congestive heart failure Discharge Plan Visit Data Chief Complaint: Shortness of Breath/Dyspnea Stated Complaint: SHORT OF BREATH ED Provider: Heber Eduardo Discharge Problem: Pneumonia, Acute exacerbation of congestive heart failure Patient Disposition: Admitted As Inpatient Forms Stand Alone Forms: [facility], Virtual Emergency Department, Important Visit Information Prescriptions Prescriptions: No Action aspirin [Adriana Low Dose Aspirin] 81 mg Tablet,Delayed Release (Dr/Ec) 81 mg PO QAM warfarin 5 mg tablet See Rx Instructions .ROUTE .COMPLEX Rx Instructions: UNLESS OTHERWISE DIRECTED BY ANTICOAGULATION CLINIC/MD, TAKE ONE AND ONE HALF TABLETS (7.5 MG) EVERY WEDNESDAY AND ONE TABLET (5 MG) ALL OTHER DAYS OF THE WEEK diltiazem HCl 120 mg capsule,extended release 24hr 120 mg PO BID albuterol sulfate 90 mcg/actuation HFA aerosol inhaler 2 puff INHALATION Q4H PRN (Reason: Wheeze/Cough) Rx Instructions: ADMINISTER WITH SPACER ezetimibe 10 mg tablet 10 mg PO QAM metformin 750 mg tablet extended release 24 hr 750 mg PO QAM lisinopril 10 mg tablet 10 mg PO QAM acetaminophen [Tylenol Extra Strength] 500 mg Tablet 500 mg PO DIRECTED PRN (Reason: Pain) pantoprazole [Protonix] 40 mg Tablet,Delayed Release (Dr/Ec) 40 mg PO BID nitroglycerin [Nitrostat] 0.4 mg Tablet, Sublingual 0.4 mg sublingual UD PRN (Reason: Chest Pain) diclofenac sodium 1 % gel 1 ea TOPICAL BID PRN (Reason: Pain) Incruse Ellipta 62.5 mcg/actuation Blister With Device 1 inh inhalation DAILY Qty: 30 0RF prednisone 10 mg tablet 10 mg PO UD Qty: 12 0RF Rx Instructions: Start 30mg daily on 10/03 x 2 days, then 20mg daily x 2 days, then 10mg x 2 days Breo Ellipta 200-25 mcg/dose Blister With Device 1 ea inhalation DAILY Qty: 60 0RF Saccharomyces boulardii [Florastor] 250 mg capsule 250 mg PO BID Qty: 20 0RF Rx Instructions: swallow whole Referrals Referrals: Jamie Vela, [Primary Care Provider] -
[2021-12-13 21:05] LABS: Base Excess VBG 2.5 mEq/L; HCO3 VBG 28 mmol/L; Oxygen Saturation VBG 73.2 %; PCO2 VBG 45 mmHg (38-50); PO2 VBG 46 mmHg
[2021-12-13 21:18] LABS: INR 2.5 (0.9-1.1); Partial Thromboplastin Ratio 1.2; Partial Thromboplastin Time 34.2 Seconds (21.0-31.0); Prothrombin Time 25.8 Seconds (9.0-12.0)
[2021-12-13 21:33] LABS: Troponin I High Sensitivity 9.5 pg/ml (0-14)
[2021-12-13 21:34] LABS: BUN Creatinine Ratio 25.4 (10-20); Calcium 8.8 mg/dl (8.5-10.1); Creatinine Clr Calc Pharmacy 59.9 ml/min; Est GFR (Non-African American) 78.5 ml/min; Potassium 4.1 mmol/L (3.5-5.1)
[2021-12-13] MEDS ORDERED: levoFLOXacin/D5W 750 MG/150 ML BAG IV STA (21:43)
[2021-12-13] MEDS ORDERED: FUROSEMIDE 40 MG/4 ML VIAL IV ONE (21:43)
--- NOTE | 2021-12-13 21:48 | XRay Report ---
SINGLE VIEW CHEST CLINICAL HISTORY: Atypical chest pain. FINDINGS: An AP, portable, upright chest radiograph is compared to study dated 12/31/2020 and correla madalyn with chest CT dated 02/16/2016. The examination is degraded by portable technique and patient rota tion. The heart is enlarged noting atherosclerotic calcification of the thoracic aorta. There is pulm onary vascular congestion. There are low lung volumes. Airspace consolidation is seen in the right mi d to lower lung. A small right pleural effusion is suspected. Atelectasis is seen at the left lung ba se. No pneumothorax is identified. The skeletal structures are osteopenic. There are healed left-side d rib fractures. IMPRESSION: 1. Cardiomegaly with pulmonary vascular congestion. 2. Airspace consolidation is seen in the right middle lower lung. Correlate clinically for evidence o f pneumonia/aspiration pneumonitis. Radiographic follow-up to resolution is recommended. 3. Suspected small right pleural effusion. ACT 112: Negative or not required by law. Electronically signed by: Freddy Dahl M.D. 12/13/2021 9:46 PM
[2021-12-13 22:03] LABS: Hematocrit (blood only) 47.7 % (34.1-44.9); Hemoglobin 16.4 g/dl (12.0-16.0); Mean Corpuscular Hemoglobin 32.5 pg (25.0-34.0); Mean Corpuscular Hgb Conc 34.4 g/dL (32.0-36.0); Mean Corpuscular Volume 94.5 fL (80.0-100.0); Platelet Count 198 K/uL (130-400); RDW Coefficient of Variation 14.9 % (11.5-14.5); Red Blood Count 5.05 M/uL (3.93-5.22); White Blood Count 16.82 K/ul (4.8-10.8)
[2021-12-13 22:47] LABS: Basophils # (auto) 0.04 K/uL (0-0.2); Basophils % (auto) 0.2 %; Eosinophils # (auto) 0.01 K/uL (0-0.50); Eosinophils % (auto) 0.1 %; Immature Granulocytes # (auto) 0.09 K/uL (0.00-0.02); Immature Granulocytes % (auto) 0.5 %; Lymphocytes # (auto) 0.53 K/uL (1.2-3.4); Lymphocytes % (auto) 3.2 %; Monocytes # (auto) 0.83 K/uL (0.24-0.82); Monocytes % (auto) 4.9 %; Neutrophils # (auto) 15.32 K/uL (1.4-6.5); Neutrophils % (auto) 91.1 %
--- NOTE | 2021-12-14 00:28 | CT Scan Report ---
CT SCAN OF THE CHEST WITHOUT IV CONTRAST CLINICAL HISTORY: Dyspnea. COMPARISON STUDY: Chest x-ray dated 12/13/2021. Chest CT dated 02/16/2016. TECHNIQUE: CT scan of the thorax was performed from the thoracic inlet to the upper abdomen. Images are reviewed in the axial, sagittal, and coronal planes. IV contrast was not administered for this ex amination as per the referring clinician. A dose lowering technique was utilized ad[facility] the [facility] DOSE: 476.21 mGy.cm FINDINGS: Thyroid: Normal in size and heterogeneous in attenuation. Thoracic aorta: There is atherosclerotic calcification of the thoracic aorta, which is normal in gopi jefry and demonstrates standard 3-vessel arch anatomy. Heart: There is evidence of previous aortic valve surgery. The heart is enlarged and without pericard ial effusion. The coronary arteries are densely calcified. Lungs and pleural spaces: There is patchy airspace consolidation seen throughout the right lung, grea test at the right lung base. Left lung appears clear noting basilar scarring/atelectasis. The trachea and central airways are patent. There is trace right pleural effusion. Scattered calcified granuloma s are incidentally noted. Mediastinum: There is no mediastinal lymphadenopathy. Estephanie: Not well assessed without IV contrast. Axillae: There is no axillary lymphadenopathy. Upper abdomen: There is a small hiatal hernia. Partially visualized upper abdominal viscera is otherw ise grossly unremarkable. Skeletal structures: The skeletal structures are osteopenic. Degenerative change and hyperkyphosis is noted in the thoracic spine. Advanced arthritic change is seen in the shoulders. No lytic or blastic bony lesions are seen. There are healed left-sided rib fractures. IMPRESSION: 1. Airspace consolidation throughout the right lung is typical for pneumonia. Clinical correlation wi ll be required and radiographic follow-up to resolution is recommended. 2. Cardiomegaly. 3. Trace right pleural effusion. 4. Additional findings as above. ACT 112: Negative or not required by law. Electronically signed by: Freddy Dahl M.D. 12/14/2021 12:27 AM
[2021-12-14] MEDS ORDERED: LEVALBUTEROL HCL 1.25 MG/3 ML NEB NEB PRN (00:45)
[2021-12-14] MEDS ORDERED: ACETAMINOPHEN 325 MG TAB PO PRN (00:45)
[2021-12-14] MEDS ORDERED: POLYETHYLENE (MIRALAX) 17 GM PACK PO PRN (00:45)
[2021-12-14] MEDS ORDERED: ALBUTEROL HFA 8 GM INHALER INH PRN (00:45)
[2021-12-14] MEDS ORDERED: methylPREDNISolone 125 MG/2 ML VIAL IV STA (00:45)
[2021-12-14] MEDS ORDERED: NITROGLYCERIN SL 0.4 MG/TAB TAB SL PRN (00:45)
[2021-12-14] MEDS ORDERED: DICLOFENAC SOD 1% GEL 100 GM TUBE EXT PRN (00:45)
[2021-12-14] MEDS ORDERED: methylPREDNISolone 60 MG in SYRINGE 0 ML IV STA (00:50)
[2021-12-14] MEDS ORDERED: XOPENEX/ATROVENT 1.25mg/0.5MG NEB COMBO NEB SCH (01:00)
[2021-12-14] MEDS ORDERED: INFLUENZA VACCINE HIGH DOSE PF 65+ 0.7 ML SYR IM ONE (01:17)
--- NOTE | 2021-12-14 01:29 | History and Physical Report ---
DATE OF ADMISSION: 12/13/2021. CHIEF COMPLAINT: Shortness of breath. HISTORY OF PRESENT ILLNESS: This is an 86-year-old female with past medical history significant for aortic valve stenosis, status post TAVR, history of paroxysmal atrial fibrillation, on Coumadin, history of COPD, interstitial lung disease, on chronic home oxygen 1 L during daytime and 2 L while sleeping, history of hyperlipidemia, history of diabetes, diabetic polyneuropathy, moderate sleep apnea, hypertension, history of CAD, history of pulmonary emboli, reflux esophagitis, obesity, history of urge incontinence, status post cardiac stent placement, who lives at home with her and ambulates with a walker, was brought in because she was feeling short of breath since today evening and also she has had a cough for one to two weeks, bringing yellowish whitish phlegm. In the ER, she was saturating okay on nasal cannula. The patient had some chest discomfort, but this has been resolved now. She is also having some rash at lateral aspect of the right breast and also rash under the breast and itchiness over the last one to two weeks as per the patient. She had no fever at home. Has some headache, no neck pain, no chest pain currently, no abdominal pain, no back pain. Has some discomfort in her feet, which is chronic. No nausea, no vomiting, no diarrhea or constipation. Normal bladder movements. Appetite is okay. No difficulty swallowing as per the patient. No earache, no blurred visions. Has some runny nose. No sore throat. Currently, resting comfortably, hemodynamically stable. Son and family is in the room. ALLERGIES: AUGMENTIN, GABAPENTIN, PENICILLINS. PAST MEDICAL HISTORY: As mentioned above. PAST SURGICAL HISTORY: Colonoscopy, cardiac catheterization, EGD, bioprosthetic aortic valve replacement or TAVR. MEDICATIONS: The patient is on Tylenol Extra Strength 500 mg p.o. p.r.n., albuterol 2 puffs inhalation q. 4 hours p.r.n., aspirin 81 mg p.o. daily, diclofenac sodium 4 grams topical t.i.d. p.r.n., diltiazem 120 mg p.o. b.i.d., ezetimibe 10 mg p.o. a.m., Breo Ellipta 1 inhalation daily, Lasix 20 mg p.o. daily p.r.n., lisinopril 10 mg p.o. daily, metformin 750 mg p.o. a.m., metoprolol tartrate 12.5 mg p.o. b.i.d., multivitamin 1 tablet p.o. daily, Nitrostat 0.4 mg sublingual p.r.n., Protonix 40 mg p.o. b.i.d., potassium chloride 20 mEq when taking Lasix, Incruse Ellipta inhalation daily, warfarin 5 mg p.o. daily. FAMILY HISTORY: Significant for brother had diabetes, heart disorder, in 40s; father had heart disorder, at age 65; mother has diabetes; mother has heart disorder, at age of 90; sister has stroke; sister has diabetes. SOCIAL HISTORY: . No smoking, no alcohol, no drug use. REVIEW OF SYSTEMS: As per HPI. Rest of the review of systems is negative. PHYSICAL EXAMINATION: GENERAL: The patient is old and frail, not in acute distress. VITAL SIGNS: Temperature 36.7, pulse 105, respiratory rate 20, blood pressure 162/97, oxygen 93% on nasal cannula. HEENT: Pupils equal, round and reactive to light. Oral mucosa dry. NECK: No JVD, no neck masses. CARDIOVASCULAR: S1 and S2 heard. Regular rate and rhythm. No murmur, no gallop. RESPIRATORY SYSTEM: Normal AP diameter. No accessory muscle use. Bilateral coarse crackles heard. No wheezing. ABDOMEN: Soft, bowel sounds present, nontender, no distention. CENTRAL NERVOUS SYSTEM: Alert and oriented. Speech is clear. No facial droop. Insight is good. Obeys simple commands. Moves extremities. EXTREMITIES: No edema, no erythema. LABORATORY DATA: WBC 16.8, hemoglobin 16.4, hematocrit 47.7, platelets 198. PT 25.8, INR 2.5, APTT 34.2, VBG PH 7.4. Sodium 138, potassium 4.1, chloride 103, bicarbonate 25, BUN 17, creatinine 0.6, serum glucose 199, calcium 8.8. Troponin I high sensitivity 9.5. BNP 218, lipase 40. SARS-CoV-2 PCR negative. IMAGING DATA: Chest x-ray: Cardiomegaly with pulmonary vascular congestion, airspace consolidation seen in the right middle lobe, correlate clinically for evidence of pneumonia, aspiration pneumonitis. Small right pleural effusion. EKG: AFib with rate of 106, incomplete right bundle-branch block, left anterior fascicular block, no acute ST changes seen. ASSESSMENT AND PLAN: This 86-year-old female who presents with shortness of breath. 1. Shortness of breath, acute on chronic respiratory failure, probably interstitial lung disease flare, probably acute congestive heart failure, and also pneumonia, possible aspiration pneumonitis. In the ER, she received a dose of IV Lasix 40 mg and also a dose of Levaquin. We will continue with IV invanz and doxycycline. Follow CT chest, follow echocardiogram. Continue with IV Lasix 20mg daily for now and we will give a dose of Solu-Medrol 60 mg and continue IV Solu-Medrol 40 daily , nebs around the clock and p.r.n. Continue home inhalers. Closely monitor in the tele floor. 2. History of diabetes. Placed on sliding scale insulin, holding metformin. Monitor the blood sugar while the patient is getting steroids. 3. History of coronary artery disease, status post stent, on beta tho, ezetimibe, aspirin. 4. History of paroxysmal atrial fibrillation, rate control with metoprolol,diltiazem and on Coumadin. INR therapeutic. Follow PT/INR. 5. History of pulmonary embolism, on Coumadin. 6. Hypertension, on metoprolol, lisinopril, diltiazem. We will monitor blood pressure. 7. History of aortic valve stenosis, status post TAVR. 8. Breast cellulitis. Right breast erythema with pimple like lesion. Bug bite? will do lyme screen. Antibiotics as above.Also Nystatin powder under breast for fungal rash. 9.. Deep venous thrombosis prophylaxis. On Coumadin. We will follow. Monitor PT/INR. DISPOSITION: Closely monitor in tele floor. Level 1 full code. Expect to discharge home and follow with family doctor. PT/OT prior to discharge. Social service to help with discharge planning. Job ID: [id number] [id number]
[2021-12-14] MEDS ORDERED: GLUCOSE 10 TAB/TUBE PO PRN (01:30)
[2021-12-14] MEDS ORDERED: CARBOHYDRATES FOR HYPOGLYCEMIA PO PRN (01:30)
[2021-12-14] MEDS ORDERED: GLUCAGON FOR INJ 1 MG VIAL IM PRN (01:30)
[2021-12-14] MEDS ORDERED: ERTAPENEM SODIUM 1,000 MG in SYRINGE 0 ML IV SCH (01:30)
[2021-12-14] MEDS ORDERED: DEXTROSE 50% 50 ML SYRINGE IV PRN (01:30)
[2021-12-14] MEDS ORDERED: GLUCOSE 40% GEL 15 GM TUBE PO PRN (01:30)
[2021-12-14] MEDS: NYSTATIN OINT 15 GM TUBE EXT SCH ×3 (01:34→20:43)
[2021-12-14] MEDS: IPRATROPIUM BROMIDE NEB SOLN 0.02% 2.5 ML VIAL INH SCH ×4 (01:43→20:36)
[2021-12-14] MEDS: LEVALBUTEROL 1.25MG/0.5ML NEB INH SCH ×4 (01:43→20:36)
[2021-12-14] MEDS: DOXYCYCLINE HYCLATE 100 MG in DEXTROSE 5% 100 ML IV SCH ×2 (06:15→17:36)
[2021-12-14 06:28] LABS: INR 2.3 (0.9-1.1); Prothrombin Time 23.3 Seconds (9.0-12.0)
--- NOTE | 2021-12-14 07:16 | Electrocardiogram Report ---
Test Reason : Blood Pressure : / mmHG Vent. Rate : 106 BPM Atrial Rate : 144 BPM P-R Int : 000 ms QRS Dur : 096 ms QT Int : 326 ms P-R-T Axes : 000 -53 049 degrees QTc Int : 433 ms Atrial fibrillation with rapid ventricular response Incomplete right bundle branch block Left anterior fascicular block Abnormal ECG When compared with ECG of 31-DEC-2020 09:32, Incomplete right bundle branch block is now Present Confirmed by Matt Simon ([id number]) on 12/14/2021 7:15:33 AM Referred By: REFERRED SELF Confirmed By:Tommy Simon
[2021-12-14 08:12] LABS: Lyme Ab IgG w/WB Rflx Negative (Negative); Lyme Ab IgM w/WB Rflx Negative (Negative)
[2021-12-14 08:16] LABS: Procalcitonin 0.34 ng/ml (0-0.5)
[2021-12-14 08:47] LABS: Creatinine Clr Calc Pharmacy 54.4 ml/min; Est GFR (African American) 85.2 ml/min; Est GFR (Non-African American) 73.5 ml/min
[2021-12-14] MEDS ORDERED: methylPREDNISolone 40 MG in SYRINGE 0 ML IV SCH (09:00)
[2021-12-14] MEDS ORDERED: FUROSEMIDE 40 MG/4 ML VIAL IV SCH (09:00)
[2021-12-14] MEDS ORDERED: FUROSEMIDE INJ 20 MG/2 ML VIAL IV SCH (09:00)
[2021-12-14] MEDS: ASPIRIN 81 MG ECTAB PO SCH (09:04)
[2021-12-14] MEDS: INSULIN ASPART PER UNIT SC SCH ×4 (09:04→20:40)
[2021-12-14] MEDS: dilTIAZem HCL 120 MG CAPCR PO SCH ×2 (09:04→20:43)
[2021-12-14] MEDS: FLUTICASONE/VILANTEROL 200/25MCG 14 PUFFS/INHALER INH SCH (09:05)
[2021-12-14] MEDS: lisinopril 10 MG TAB PO SCH (09:05)
[2021-12-14] MEDS: EZETIMIBE 10 MG TABLET PO SCH (09:05)
[2021-12-14] MEDS: METOPROLOL TARTRATE 25 MG TAB PO SCH ×2 (09:05→20:42)
[2021-12-14] MEDS: SACCHAROMYCES BOULARDII 250 MG CAP PO SCH ×2 (09:06→20:42)
[2021-12-14] MEDS: PANTOprazole 40 MG TAB PO SCH ×2 (09:06→20:42)
[2021-12-14] MEDS: MULTIVITAMIN TAB PO SCH (09:06)
--- NOTE | 2021-12-14 11:08 | Cardiology Consultation ---
Date of Consultation December 14, 2021 Assessment & Plan (1) Pneumonia: (2) COPD exacerbation: (3) S/P TAVR (transcatheter aortic valve replacement): (4) PAF (paroxysmal atrial fibrillation): (5) Moderate obstructive sleep apnea: Plan At this point I do not see any acute decompensation of her chronic diastolic heart failure. Recommend continued treatment for pneumonia which I will defer to the primary team. Patient in A. fib yet asymptomatic and therapeutic on Coumadin. No further treatment necessary at this time. Would expect elevated heart rates given the clinical context. History of Present Illness Reason for Consultation: Shortness of breath Requesting Physician: [facility] hospitalist group Attending Physician: Jacinto Arnett MD History of Present Illness It was my pleasure to see Mrs. Elena in cardiac consultation today December 14, 2021. She is a very pleasant 86-year-old woman who follows closely with our cardiology practice, primarily Dr. Pavon, as an outpatient. She presented to [facility] on 12/13/2021 with complaints of shortness of breath. She states that she has been having shortness of breath for the last few days but it significantly worsened on the day of presentation. She denied any associated chest discomfort, palpitations or lightheadedness. She came into the emergency department and found to have pneumonia on imaging. Currently she states that she is feeling much better since presentation. Cardiac problems 1. Remote PAF (2009) in the setting of sepsis, recurrence of atrial fibrillation in the spring setting of aspiration pneumonia 09/24/2020, [id number]- VASc score of 5 (age 1, female, hypertension, CAD), on coumadin a. Likely persistent atrial fibrillation, asymptomatic 2. CAD,s/p CLAIR to mLAD 01/08/2017 3. , s/p TAVR 4. COPD 5. Recurrent PE, on coumadin 6. GERD 7. SANDRA, on CPAP Allergies Allergy/AdvReac Type Severity Reaction Status Date / Time amoxicillin [From Augmentin] Allergy Intermediate Hives Verified 12/13/21 22:55 clavulanic acid Allergy Intermediate Hives Verified 12/13/21 22:55 [From Augmentin] gabapentin Allergy Intermediate Itching Verified 12/13/21 22:55 Penicillins Allergy Intermediate Hives Verified 12/13/21 22:55 Home Medications Medication Instructions Recorded Confirmed Type albuterol sulfate 90 mcg/actuation 2 puff inhalation Q4H PRN 07/14/19 12/13/21 History aerosol inhaler Wheeze/Cough aspirin 81 mg tablet,delayed 81 mg PO QAM 07/14/19 12/13/21 History release (Adriana Low Dose Aspirin) diltiazem HCl 120 mg 120 mg PO BID 07/14/19 12/13/21 History capsule,extended release 24 hr ezetimibe 10 mg tablet 10 mg PO QAM 07/14/19 12/13/21 History metformin 750 mg tablet,extended 750 mg PO QAM 07/14/19 12/13/21 History release 24 hr lisinopril 10 mg tablet 10 mg PO QAM 02/15/20 12/13/21 History pantoprazole 40 mg tablet,delayed 40 mg PO BID 06/29/20 12/13/21 History release (Protonix) acetaminophen 500 mg tablet 500 mg PO DIRECTED PRN Pain 09/21/20 12/13/21 History (Tylenol Extra Strength) nitroglycerin 0.4 mg sublingual 0.4 mg sublingual UD PRN Chest Pain 09/24/20 12/13/21 History tablet (Nitrostat) fluticasone furoate 200 1 ea inhalation DAILY #60 ea 10/02/20 12/13/21 Rx mcg-vilanterol 25 mcg/dose inhalation powder (Breo Ellipta) umeclidinium 62.5 mcg/actuation 1 inh inhalation DAILY #30 ea 10/02/20 12/13/21 Rx blister powder for inhalation (Incruse Ellipta) albuterol sulfate 2.5 mg/0.5 mL 2.5 mg inhalation DIRECTED PRN 12/13/21 12/13/21 History solution for nebulization Shortness Of Breath Or Wheezing albuterol sulfate 2.5 mg/3 mL 2.5 mg inhalation Q4H PRN 12/13/21 12/13/21 History (0.083 %) solution for nebulization Shortness Of Breath Or Wheezing diclofenac sodium 1 % topical gel 4 g topical TID PRN Pain 12/13/21 12/13/21 History furosemide 20 mg tablet (Lasix) 20 mg PO DAILY PRN .>fluid , 12/13/21 12/13/21 History weight gain metoprolol tartrate 25 mg tablet 12.5 mg PO BID 12/13/21 12/13/21 History multivitamin 1 tab PO DAILY 12/13/21 12/13/21 History potassium chloride 20 mEq 20 meq PO DIRECTED 12/13/21 12/13/21 History tablet,extended release warfarin 5 mg tablet 5 mg PO DAILY 12/13/21 12/13/21 History Patient History Medical History (Updated 12/14/21 @ 14:01 by Morales Garcia DO) Aortic stenosis Asthma Atrial fibrillation with rapid ventricular response Atrial fibrillation with rapid ventricular response Chest pain COPD (chronic obstructive pulmonary disease) COPD exacerbation COPD exacerbation Deep vein thrombosis Diabetic neuropathy DM type 2 (diabetes mellitus, type 2) Dyslipidemia Failure of outpatient treatment Hypertension Incomplete uterovaginal prolapse Moderate obstructive sleep apnea Myocardial Infarction PAF (paroxysmal atrial fibrillation) Recurrent pulmonary embolism Sleep apnea 1 liter o2 SOB (shortness of breath) Subtherapeutic international normalized ratio (INR) Surgical History (Updated 12/14/21 @ 14:01 by Morales Garcia DO) History of cardiac cath History of colonoscopy History of heart artery stent History of heart valve replacement Family History Other Family history non-contributory Social History Smoking Status: Never smoker Second Hand Exposure: No; Hx Alcohol Use: No Hx Substance Use: No Preferred Language: Cymraes Communication Ability: Effective Software Qa System Specialist Required: No Beliefs That Will Affect Care: None Current Living Situation: Spouse Current Living Situation Comment: Lives w/ and son current occupation: Retired Other Information That Helps Us Care for You: No Feels Safe at Home: Yes Safety Concerns: Feels Safe At This Time Assistive Devices: Cane, Oxygen - at Night and Walker Review of Systems Review of Systems: All systems reviewed & are unremarkable except as noted in HPI & below Physical Exam Physical Exam: General: Awake, alert and oriented x 3. No acute distress. HEENT: Normocephalic, atraumatic. Pupils equal, round and reactive to light and accommodation. Extraocular muscles are intact. Anicteric sclera. Moist mucous membranes. Neck: No JVD. No bruit. Cardiovascular: irregularly irregular, unable to appreciate murmur, rub or gallop. Pulmonary: Clear to auscultation bilaterally. No rales, rhonchi, or wheezing. Abdomen: Bowel sounds x 4, soft. No rebound, guarding or tenderness. No organomegaly. Extremities: No clubbing, cyanosis or edema. +2 pedal pulses bilaterally. Skin: Warm and dry. Results & Data ([facility]) Vital Signs (Past 12 Hours) Vital Signs Temp Pulse Resp BP Pulse Ox Pulse Ox O2 Del Method 12/14/21 08:01 36.5 C 124 H 17 138/77 92 Nasal Cannula 12/14/21 07:12 105 H 20 95 Nasal Cannula 12/14/21 02:46 36.9 C 109 H 21 138/81 91 Nasal Cannula 12/14/21 01:44 116 H 20 94 Nasal Cannula 12/14/21 00:45 94 12/14/21 00:45 Nasal Cannula 12/14/21 00:48 36.4 C L 67 126/104 H 94 Nasal Cannula 12/14/21 00:37 Nasal Cannula 12/14/21 00:35 94 Nasal Cannula O2 Del Method O2 Flow Rate O2 Flow Rate 12/14/21 08:01 1 12/14/21 07:12 1.5 12/14/21 02:46 2 12/14/21 01:44 2 12/14/21 00:45 Nasal Cannula 4 12/14/21 00:45 4 12/14/21 00:48 12/14/21 00:37 4 12/14/21 00:35 4 Laboratory Results Echocardiogram report from 04/10/21 Interpretation Summary The examination is adequate to evaluate the referral indication. The LV wall thickness is mildly increased (concentric). The left ventricular wall motion is normal. The qualitative LV ejection fraction is 55-59% (normal). The left atrium is severely enlarged. The right atrium is moderately enlarged. The patient is status post TAVR with Rosaura type prosthetic valve. Aortic valve prosthesis stenosis is absent. Significant aortic valve prosthesis regurgitation is absent. Mild mitral regurgitation is present. Mild tricuspid regurgitation is present. Mild pulmonary hypertension is present. The estimated pulmonary artery systolic pressure is 37mm Hg. (1) Pneumonia Laterality: right Lung location: unspecified part of lung Pneumonia type: due to unspecified organism Qualified Code(s): J18.9 - Pneumonia, unspecified organism
[2021-12-14] MEDS: CEFEPIME 2,000 MG in SYRINGE 0 ML IV SCH ×2 (12:07→23:44)
--- NOTE | 2021-12-14 14:33 | Hospitalist Progress Note ---
Date of Service December 14, 2021 Assessment & Plan (1) Aspiration pneumonia: (2) PAF (paroxysmal atrial fibrillation): (3) Acute and chronic respiratory failure: Plan Patient is a 86-year-old female with past medical history of type 2 diabetes mellitus, CAD, paroxysmal A. fib, PE on Coumadin, hypertension, aortic valve stenosis status post TAVR presented to the ED with acute on chronic respiratory failure. CT chest on admission showed airspace consolidation in right lungs typical for pneumonia. Acute on chronic respiratory failure Aspiration pneumonia Persistent atrial fibrillation -Afebrile, normotensive and saturating at 2 L/min of oxygen by nasal cannula Telemetry shows atrial fibrillation with ventricular rate in 120s to 140s CT chest as above showing airspace consolidation CBC shows leukocytosis with WBC of 16.8 Swallow evaluation concerning for aspiration. -[id number] Plan; Swallow evaluation note appreciated; maintain aspiration precautions. Diet changes as per recommendation. - Continue on Zosyn and doxycycline Discontinue Lasix and steroids for now. Cardiology recommendation appreciated. Continue nebulizer treatment with hypertonic saline for airway clearance. Chronic conditions: History of diabetes. Placed on sliding scale insulin, holding metformin. History of coronary artery disease, status post stent, on beta tho, ezetimibe, aspirin. History of paroxysmal atrial fibrillation, rate control with metoprolol,diltiazem and on Coumadin. INR therapeutic. Follow PT/INR. History of pulmonary embolism, on Coumadin. Hypertension, on metoprolol, lisinopril, diltiazem. We will monitor blood pressure. History of aortic valve stenosis, status post TAVR. Breast cellulitis. Right breast erythema with pimple like lesion.Antibiotics as above.Also Nystatin powder under breast for fungal rash. Deep venous thrombosis prophylaxis. On Coumadin. We will follow. Monitor PT/INR. Discussed plan of care with son and at bedside. Reiterated importance of aspiration precautions and changes to her diet. Patient lives at home with her son and . Admission and Anticipated Discharge Date Admission Date: December 13, 2021 Subjective Patient seen and examined at bedside. She she reports that she feels much better compared to presentation to the hospital. She is at her baseline oxygen requirement of 2 L/min by nasal cannula. Telemetry shows atrial fibrillation with ventricular rate in 120s. Review of Systems Review of Systems: All systems reviewed & are unremarkable except as noted in Subjective Physical Exam Physical Exam: Constitutional: Awake, alert orient x4. Not in any distress. Head: Normocephalic, Atraumatic Eyes: PERRL, conjunctivae normal, anicteric sclerae ENMT: external ear and nose normal, oropharynx normal Neck: trachea midline, no thyromegaly normal visual inspection Respiratory: Crackles present in right lower and mid lung robertson. Cardiovascular: Irregular, no murmur, no edema Vessels: no JVD or carotid bruit Chest: normal inspection of chest Abdomen: normal bowel sounds, soft, nontender, no hepatosplenomegaly Musculoskeletal: no cyanosis or clubbing, extremities motor strength 5/5 Skin: no rashes, warm and dry normal turgor Neurologic: PERRL, EOMI, accommodation nl, no face palsy, no dysarthria CN's II- XI intact bilaterally and moves all extremities Psychiatric: A+Ox3, euthymic affect Lymphatic: no cervical or axillary lymphadenopathy : deferred Results & Data Results & Data ([facility]) Vital Signs (Past 12 Hours) Vital Signs Temp Pulse Resp BP Pulse Ox O2 Del Method O2 Flow Rate 12/14/21 13:15 92 H 16 96 Nasal Cannula 2 12/14/21 11:17 36.3 C L 92 H 20 130/80 97 Nasal Cannula 2 12/14/21 08:01 36.5 C 124 H 17 138/77 92 Nasal Cannula 1 12/14/21 07:12 105 H 20 95 Nasal Cannula 1.5 12/14/21 02:46 36.9 C 109 H 21 138/81 91 Nasal Cannula 2 Laboratory Results Laboratory Results WBC 16.82 K/ul (4.8-10.8) H 12/13/21 20:45 RBC 5.05 M/uL (3.93-5.22) 12/13/21 20:45 Hgb 16.4 g/dl (12.0-16.0) H 12/13/21 20:45 Hct 47.7 % (34.1-44.9) H 12/13/21 20:45 MCV 94.5 fL (80.0-100.0) 12/13/21 20:45 MCH 32.5 pg (25.0-34.0) 12/13/21 20:45 MCHC 34.4 g/dL (32.0-36.0) 12/13/21 20:45 RDW Std Deviation 52.0 fL (36.4-46.3) H 12/13/21 20:45 RDW Coeff of Linda 14.9 % (11.5-14.5) H 12/13/21 20:45 Plt Count 198 K/uL (130-400) 12/13/21 20:45 MPV 11.0 fL (9.4-12.3) 12/13/21 20:45 Immature Gran % (Auto) 0.5 % 12/13/21 20:45 Neut % (Auto) 91.1 % 12/13/21 20:45 Lymph % (Auto) 3.2 % 12/13/21 20:45 [place] % (Auto) 4.9 % 12/13/21 20:45 Eos % (Auto) 0.1 % 12/13/21 20:45 Baso % (Auto) 0.2 % 12/13/21 20:45 Neut # (Auto) 15.32 K/uL (1.4-6.5) H 12/13/21 20:45 Lymph # (Auto) 0.53 K/uL (1.2-3.4) L 12/13/21 20:45 [place] # (Auto) 0.83 K/uL (0.24-0.82) H 12/13/21 20:45 Eos # (Auto) 0.01 K/uL (0-0.50) 12/13/21 20:45 Baso # (Auto) 0.04 K/uL (0-0.2) 12/13/21 20:45 Immature Gran # (Auto) 0.09 K/uL (0.00-0.02) H 12/13/21 20:45 PT 23.3 Seconds (9.0-12.0) H 12/14/21 05:54 INR 2.3 (0.9-1.1) H 12/14/21 05:54 APTT 34.2 Seconds (21.0-31.0) H 12/13/21 20:45 PTT Ratio 1.2 12/13/21 20:45 VBG pH 7.40 (7.36-7.41) 12/13/21 20:45 VBG pCO2 45 mmHg (38-50) 12/13/21 20:45 VBG pO2 46 mmHg 12/13/21 20:45 VBG HCO3 28 mmol/L 12/13/21 20:45 VBG O2 Saturation 73.2 % 12/13/21 20:45 VBG Base Excess 2.5 mEq/L 12/13/21 20:45 Sodium 138 mmol/L (136-145) 12/13/21 20:45 Potassium 4.1 mmol/L (3.5-5.1) 12/13/21 20:45 Chloride 103 mmol/L (98-107) 12/13/21 20:45 Carbon Dioxide 25 mmol/L (21-32) 12/13/21 20:45 Anion Gap 10 (3-11) 12/13/21 20:45 BUN 17 mg/dl (6-23) 12/13/21 20:45 Creatinine 0.73 mg/dl (0.6-1.2) 12/14/21 08:13 Est Cr Clr Drug Dosing 54.4 ml/min 12/14/21 08:13 Est GFR ( Amer) 85.2 ml/min 12/14/21 08:13 Est GFR (Non-Af Amer) 73.5 ml/min 12/14/21 08:13 BUN/Creatinine Ratio 25.4 (10-20) H 12/13/21 20:45 Glucose 189 mg/dl (70-99(Fasting)) H 12/13/21 20:45 POC Glucose 166 mg/dl (70-99) H 12/14/21 11:50 Calcium 8.8 mg/dl (8.5-10.1) 12/13/21 20:45 Troponin I High Sens 9.5 pg/ml (0-14) 12/13/21 20:45 B-Natriuretic Peptide 218 pg/ml (0-100) H 12/13/21 20:45 Lipase 40 U/L (11-82) 12/13/21 20:45 Procalcitonin 0.34 ng/ml (0-0.5) 12/14/21 06:45 Lyme Disease IgG Ab Negative (Negative) 12/14/21 06:45 Lyme Disease IgM Ab Negative (Negative) 12/14/21 06:45 SARS-CoV-2 (PCR) NEGATIVE (Negative) 12/13/21 20:39 Impressions Chest X-Ray 12/13/21 20:17 SINGLE VIEW CHEST CLINICAL HISTORY: Atypical chest pain. FINDINGS: An AP, portable, upright chest radiograph is compared to study dated 12/31/2020 and correlated with chest CT dated 02/16/2016. The examination is degraded by portable technique and patient rotation. The heart is enlarged noting atherosclerotic calcification of the thoracic aorta. There is pulmonary vascular congestion. There are low lung volumes. Airspace consolidation is seen in the right mid to lower lung. A small right pleural effusion is suspected. Atelectasis is seen at the left lung base. No pneumothorax is identified. The skeletal structures are osteopenic. There are healed left-sided rib fractures. IMPRESSION: 1. Cardiomegaly with pulmonary vascular congestion. 2. Airspace consolidation is seen in the right middle lower lung. Correlate clinically for evidence of pneumonia/aspiration pneumonitis. Radiographic follow-up to resolution is recommended. 3. Suspected small right pleural effusion. ACT 112: Negative or not required by law. Electronically signed by: Freddy Dahl M.D. 12/13/2021 9:[address] 12/13/21 23:00 CT SCAN OF THE CHEST WITHOUT IV CONTRAST CLINICAL HISTORY: Dyspnea. COMPARISON STUDY: Chest x-ray dated 12/13/2021. Chest CT dated 02/16/2016. TECHNIQUE: CT scan of the thorax was performed from the thoracic inlet to the upper abdomen. Images are reviewed in the axial, sagittal, and coronal planes. IV contrast was not administered for this examination as per the referring clinician. A dose lowering technique was utilized adhering to the principles of ALARA. CT DOSE: 476.21 mGy.cm FINDINGS: Thyroid: Normal in size and heterogeneous in attenuation. Thoracic aorta: There is atherosclerotic calcification of the thoracic aorta, which is normal in caliber and demonstrates standard 3-vessel arch anatomy. Heart: There is evidence of previous aortic valve surgery. The heart is enlarged and without pericardial effusion. The coronary arteries are densely calcified. Lungs and pleural spaces: There is patchy airspace consolidation seen throughout the right lung, greatest at the right lung base. Left lung appears clear noting basilar scarring/atelectasis. The trachea and central airways are patent. There is trace right pleural effusion. Scattered calcified granulomas are incidentally noted. Mediastinum: There is no mediastinal lymphadenopathy. Estephanie: Not well assessed without IV contrast. Axillae: There is no axillary lymphadenopathy. Upper abdomen: There is a small hiatal hernia. Partially visualized upper abdominal viscera is otherwise grossly unremarkable. Skeletal structures: The skeletal structures are osteopenic. Degenerative change and hyperkyphosis is noted in the thoracic spine. Advanced arthritic change is seen in the shoulders. No lytic or blastic bony lesions are seen. There are healed left-sided rib fractures. IMPRESSION: 1. Airspace consolidation throughout the right lung is typical for pneumonia. Clinical correlation will be required and radiographic follow-up to resolution is recommended. 2. Cardiomegaly. 3. Trace right pleural effusion. 4. Additional findings as above. ACT 112: Negative or not required by law. Electronically signed by: Freddy Dahl M.D. 12/14/2021 12:27 AM
[2021-12-14] MEDS: WARFARIN SOD 5 MG TAB PO SCH (17:09)
[2021-12-14] MEDS: SODIUM CHLOR 7% 4 ML NEB NEB SCH (20:36)
[2021-12-15] MEDS: IPRATROPIUM BROMIDE NEB SOLN 0.02% 2.5 ML VIAL INH SCH ×4 (02:02→21:01)
[2021-12-15] MEDS: LEVALBUTEROL 1.25MG/0.5ML NEB INH SCH ×4 (02:02→21:01)
[2021-12-15] MEDS: DOXYCYCLINE HYCLATE 100 MG in DEXTROSE 5% 100 ML IV SCH ×2 (06:42→17:39)
[2021-12-15 07:09] LABS: Hematocrit (blood only) 41.9 % (34.1-44.9); Hemoglobin 14.6 g/dl (12.0-16.0); Mean Corpuscular Hgb Conc 34.8 g/dL (32.0-36.0); Mean Corpuscular Volume 94.6 fL (80.0-100.0); Mean Platelet Volume 10.9 fL (9.4-12.3); Platelet Count 228 K/uL (130-400); RDW Coefficient of Variation 14.8 % (11.5-14.5); RDW Standard Deviation 51.8 fL (36.4-46.3); Red Blood Count 4.43 M/uL (3.93-5.22); White Blood Count 18.05 K/ul (4.8-10.8)
[2021-12-15] MEDS: SODIUM CHLOR 7% 4 ML NEB NEB SCH ×2 (07:15→21:02)
[2021-12-15 07:28] LABS: INR 1.7 (0.9-1.1); Prothrombin Time 17.2 Seconds (9.0-12.0)
[2021-12-15 07:37] LABS: BUN Creatinine Ratio 33.8 (10-20); Calcium 8.8 mg/dl (8.5-10.1); Creatinine Clr Calc Pharmacy 51.6 ml/min; Est GFR (African American) 79.9 ml/min; Est GFR (Non-African American) 68.9 ml/min; Potassium 4.2 mmol/L (3.5-5.1)
[2021-12-15 07:43] LABS: Basophils # (auto) 0.02 K/uL (0-0.2); Basophils % (auto) 0.1 %; Immature Granulocytes # (auto) 0.15 K/uL (0.00-0.02); Immature Granulocytes % (auto) 0.8 %; Lymphocytes # (auto) 0.84 K/uL (1.2-3.4); Lymphocytes % (auto) 4.7 %; Monocytes # (auto) 0.78 K/uL (0.24-0.82); Monocytes % (auto) 4.3 %; Neutrophils # (auto) 16.26 K/uL (1.4-6.5); Neutrophils % (auto) 90.1 %
[2021-12-15] MEDS: INSULIN ASPART PER UNIT SC SCH ×4 (08:40→21:20)
[2021-12-15] MEDS: dilTIAZem HCL 120 MG CAPCR PO SCH ×2 (08:40→20:12)
[2021-12-15] MEDS: ASPIRIN 81 MG ECTAB PO SCH (08:40)
[2021-12-15] MEDS: FLUTICASONE/VILANTEROL 200/25MCG 14 PUFFS/INHALER INH SCH (08:41)
[2021-12-15] MEDS: METOPROLOL TARTRATE 25 MG TAB PO SCH ×2 (08:41→20:12)
[2021-12-15] MEDS: lisinopril 10 MG TAB PO SCH (08:41)
[2021-12-15] MEDS: PANTOprazole 40 MG TAB PO SCH ×2 (08:41→20:11)
[2021-12-15] MEDS: NYSTATIN OINT 15 GM TUBE EXT SCH ×2 (08:41→23:01)
[2021-12-15] MEDS: EZETIMIBE 10 MG TABLET PO SCH (08:41)
[2021-12-15] MEDS: MULTIVITAMIN TAB PO SCH (08:41)
[2021-12-15] MEDS: SACCHAROMYCES BOULARDII 250 MG CAP PO SCH ×2 (08:42→20:11)
--- NOTE | 2021-12-15 11:48 | XRay Report ---
XR chest 1V portable HISTORY: Shortness of breath. Follow up on Infiltrates on right lung field COMPARISON: Chest CT 12/13/2021. FINDINGS: There are low lung volumes. No pneumothorax. Trace right pleural effusions persist. The hea rt remains enlarged. There is a tortuous thoracic aorta. There is mild interstitial thickening which has improved. Right lower lobe airspace opacities have also improved. Questionable trace right subdia phragmatic lucency is likely due to overlapping shadows. IMPRESSION: Interval improvement in the right lower lobe airspace opacities consistent with a resolving pneumonia . ACT 112: Negative or not required by law. Electronically signed by: Ricky Tang M.D. 12/15/2021 11:47 AM
[2021-12-15] MEDS: CEFEPIME 2,000 MG in SYRINGE 0 ML IV SCH ×2 (12:57→23:02)
--- NOTE | 2021-12-15 15:24 | Hospitalist Progress Note ---
Date of Service December 15, 2021 Assessment & Plan (1) Aspiration pneumonia: (2) PAF (paroxysmal atrial fibrillation): (3) Acute and chronic respiratory failure: Plan Patient is a 86-year-old female with past medical history of type 2 diabetes mellitus, CAD, paroxysmal A. fib, PE on Coumadin, hypertension, aortic valve stenosis status post TAVR presented to the ED with acute on chronic respiratory failure. CT chest on admission showed airspace consolidation in right lungs typical for pneumonia. Acute on chronic respiratory failure Aspiration pneumonia Persistent atrial fibrillation - Afebrile, normotensive and saturating at 2 L/min of oxygen by nasal cannula Telemetry shows atrial fibrillation with ventricular rate in 80s to 90s CT chest as above showing airspace consolidation Leukocytosis with WBC count of 18; likely secondary to steroid effect and pneumonia. Swallow evaluation concerning for aspiration. [id number] Plan; Swallow evaluation note appreciated; maintain aspiration precautions. Diet changes as per recommendation. - Continue on Zosyn and doxycycline Discontinue Lasix and steroids for now. Cardiology recommendation appreciated. Continue nebulizer treatment with hypertonic saline for airway clearance. Improvement noted in her chest x-ray from today. Chronic conditions: History of diabetes. Placed on sliding scale insulin, holding metformin. History of coronary artery disease, status post stent, on beta tho, ezetimibe, aspirin. History of paroxysmal atrial fibrillation, rate control with metoprolol,diltiazem and on Coumadin. History of pulmonary embolism, on Coumadin. Hypertension, on metoprolol, lisinopril, diltiazem. We will monitor blood pressure. History of aortic valve stenosis, status post TAVR. Breast cellulitis. Right breast erythema with pimple like lesion.Antibiotics as above.Also Nystatin powder under breast for fungal rash. Deep venous thrombosis prophylaxis. On Coumadin. We will follow. Monitor PT/INR. . Admission and Anticipated Discharge Date Admission Date: December 13, 2021 Subjective Patient seen and examined at bedside. She reports that she is coughing out sputum and feels that her breathing is better. Telemetry shows atrial fibrillation with ventricular rate in 80s. Review of Systems Review of Systems: All systems reviewed & are unremarkable except as noted in Subjective Physical Exam Physical Exam: Constitutional: Awake, alert orient x4. Not in any distress. Head: Normocephalic, Atraumatic Eyes: PERRL, conjunctivae normal, anicteric sclerae ENMT: external ear and nose normal, oropharynx normal Neck: trachea midline, no thyromegaly normal visual inspection Respiratory: Improvement in bilateral breath sound. Minimal crackle in right lower base. Cardiovascular: Irregular, no murmur, no edema Vessels: no JVD or carotid bruit Chest: normal inspection of chest Abdomen: normal bowel sounds, soft, nontender, no hepatosplenomegaly Musculoskeletal: no cyanosis or clubbing, extremities motor strength 5/5 Skin: no rashes, warm and dry normal turgor Neurologic: PERRL, EOMI, accommodation nl, no face palsy, no dysarthria CN's II- XI intact bilaterally and moves all extremities Psychiatric: A+Ox3, euthymic affect Lymphatic: no cervical or axillary lymphadenopathy : deferred Results & Data Results & Data ([facility]) Vital Signs (Past 12 Hours) Vital Signs Temp Pulse Resp BP Pulse Ox O2 Del Method O2 Flow Rate 12/15/21 13:22 80 20 98 Nasal Cannula 2 12/15/21 11:07 36.4 C L 79 18 120/78 96 Nasal Cannula 2 12/15/21 10:23 Nasal Cannula 2 12/15/21 07:28 36.4 C L 57 L 17 146/87 H 99 Nasal Cannula 2 12/15/21 07:16 88 18 91 Room Air Laboratory Results Laboratory Results WBC 18.05 K/ul (4.8-10.8) H 12/15/21 06:34 RBC 4.43 M/uL (3.93-5.22) 12/15/21 06:34 Hgb 14.6 g/dl (12.0-16.0) 12/15/21 06:34 Hct 41.9 % (34.1-44.9) 12/15/21 06:34 MCV 94.6 fL (80.0-100.0) 12/15/21 06:34 MCH 33.0 pg (25.0-34.0) 12/15/21 06:34 MCHC 34.8 g/dL (32.0-36.0) 12/15/21 06:34 RDW Std Deviation 51.8 fL (36.4-46.3) H 12/15/21 06:34 RDW Coeff of Linda 14.8 % (11.5-14.5) H 12/15/21 06:34 Plt Count 228 K/uL (130-400) 12/15/21 06:34 MPV 10.9 fL (9.4-12.3) 12/15/21 06:34 Immature Gran % (Auto) 0.8 % 12/15/21 06:34 Neut % (Auto) 90.1 % 12/15/21 06:34 Lymph % (Auto) 4.7 % 12/15/21 06:34 Millard % (Auto) 4.3 % 12/15/21 06:34 Eos % (Auto) 0.0 % 12/15/21 06:34 Baso % (Auto) 0.1 % 12/15/21 06:34 Neut # (Auto) 16.26 K/uL (1.4-6.5) H 12/15/21 06:34 Lymph # (Auto) 0.84 K/uL (1.2-3.4) L 12/15/21 06:34 Millard # (Auto) 0.78 K/uL (0.24-0.82) 12/15/21 06:34 Eos # (Auto) 0.00 K/uL (0-0.50) 12/15/21 06:34 Baso # (Auto) 0.02 K/uL (0-0.2) 12/15/21 06:34 Immature Gran # (Auto) 0.15 K/uL (0.00-0.02) H 12/15/21 06:34 PT 17.2 Seconds (9.0-12.0) H 12/15/21 06:34 INR 1.7 (0.9-1.1) H 12/15/21 06:34 APTT 34.2 Seconds (21.0-31.0) H 12/13/21 20:45 PTT Ratio 1.2 12/13/21 20:45 VBG pH 7.40 (7.36-7.41) 12/13/21 20:45 VBG pCO2 45 mmHg (38-50) 12/13/21 20:45 VBG pO2 46 mmHg 12/13/21 20:45 VBG HCO3 28 mmol/L 12/13/21 20:45 VBG O2 Saturation 73.2 % 12/13/21 20:45 VBG Base Excess 2.5 mEq/L 12/13/21 20:45 Sodium 137 mmol/L (136-145) 12/15/21 06:34 Potassium 4.2 mmol/L (3.5-5.1) 12/15/21 06:34 Chloride 102 mmol/L (98-107) 12/15/21 06:34 Carbon Dioxide 29 mmol/L (21-32) 12/15/21 06:34 Anion Gap 6 (3-11) 12/15/21 06:34 BUN 26 mg/dl (6-23) H 12/15/21 06:34 Creatinine 0.77 mg/dl (0.6-1.2) 12/15/21 06:34 Est Cr Clr Drug Dosing 51.6 ml/min 12/15/21 06:34 Est GFR ( Amer) 79.9 ml/min 12/15/21 06:34 Est GFR (Non-Af Amer) 68.9 ml/min 12/15/21 06:34 BUN/Creatinine Ratio 33.8 (10-20) H 12/15/21 06:34 Glucose 155 mg/dl (70-99(Fasting)) H 12/15/21 06:34 POC Glucose 111 mg/dl (70-99) H 12/15/21 11:56 Calcium 8.8 mg/dl (8.5-10.1) 12/15/21 06:34 Troponin I High Sens 9.5 pg/ml (0-14) 12/13/21 20:45 B-Natriuretic Peptide 218 pg/ml (0-100) H 12/13/21 20:45 Lipase 40 U/L (11-82) 12/13/21 20:45 Procalcitonin 0.34 ng/ml (0-0.5) 12/14/21 06:45 Lyme Disease IgG Ab Negative (Negative) 12/14/21 06:45 Lyme Disease IgM Ab Negative (Negative) 12/14/21 06:45 SARS-CoV-2 (PCR) NEGATIVE (Negative) 12/13/21 20:[address] 12/13/21 23:00 CT SCAN OF THE CHEST WITHOUT IV CONTRAST CLINICAL HISTORY: Dyspnea. COMPARISON STUDY: Chest x-ray dated 12/13/2021. Chest CT dated 02/16/2016. TECHNIQUE: CT scan of the thorax was performed from the thoracic inlet to the upper abdomen. Images are reviewed in the axial, sagittal, and coronal planes. IV contrast was not administered for this examination as per the referring clinician. A dose lowering technique was utilized adhering to the principles of ALARA. CT DOSE: 476.21 mGy.cm FINDINGS: Thyroid: Normal in size and heterogeneous in attenuation. Thoracic aorta: There is atherosclerotic calcification of the thoracic aorta, which is normal in caliber and demonstrates standard 3-vessel arch anatomy. Heart: There is evidence of previous aortic valve surgery. The heart is enlarged and without pericardial effusion. The coronary arteries are densely calcified. Lungs and pleural spaces: There is patchy airspace consolidation seen throughout the right lung, greatest at the right lung base. Left lung appears clear noting basilar scarring/atelectasis. The trachea and central airways are patent. There is trace right pleural effusion. Scattered calcified granulomas are incidentally noted. Mediastinum: There is no mediastinal lymphadenopathy. Estephanie: Not well assessed without IV contrast. Axillae: There is no axillary lymphadenopathy. Upper abdomen: There is a small hiatal hernia. Partially visualized upper abdominal viscera is otherwise grossly unremarkable. Skeletal structures: The skeletal structures are osteopenic. Degenerative change and hyperkyphosis is noted in the thoracic spine. Advanced arthritic change is seen in the shoulders. No lytic or blastic bony lesions are seen. There are healed left-sided rib fractures. IMPRESSION: 1. Airspace consolidation throughout the right lung is typical for pneumonia. Clinical correlation will be required and radiographic follow-up to resolution is recommended. 2. Cardiomegaly. 3. Trace right pleural effusion. 4. Additional findings as above. ACT 112: Negative or not required by law. Electronically signed by: Freddy Dahl M.D. 12/14/2021 12:27 AM Chest X-Ray 12/15/21 10:35 XR chest 1V portable HISTORY: Shortness of breath. Follow up on Infiltrates on right lung field COMPARISON: Chest CT 12/13/2021. FINDINGS: There are low lung volumes. No pneumothorax. Trace right pleural effusions persist. The heart remains enlarged. There is a tortuous thoracic aorta. There is mild interstitial thickening which has improved. Right lower lobe airspace opacities have also improved. Questionable trace right subdiaphragmatic lucency is likely due to overlapping shadows. IMPRESSION: Interval improvement in the right lower lobe airspace opacities consistent with a resolving pneumonia. ACT 112: Negative or not required by law. Electronically signed by: Ricky Tang M.D. 12/15/2021 11:47 AM
[2021-12-15] MEDS: WARFARIN SOD 5 MG TAB PO SCH (16:40)
--- NOTE | 2021-12-15 17:12 | Cardiology Progress Note ---
Date of Service December 15, 2021 Assessment & Plan (1) Pneumonia: (2) COPD exacerbation: (3) S/P TAVR (transcatheter aortic valve replacement): (4) PAF (paroxysmal atrial fibrillation): (5) Moderate obstructive sleep apnea: Plan At this point I do not see any acute decompensation of her chronic diastolic heart failure. Recommend continued treatment for pneumonia which I will defer to the primary team. Patient in A. fib yet asymptomatic and therapeutic on Coumadin. No further treatment necessary at this time. Would expect elevated heart rates given the clinical context. Admission and Anticipated Discharge Date Admission Date: December 13, 2021 Physical Exam Physical Exam: General: Awake, alert and oriented x 3. No acute distress. HEENT: Normocephalic, atraumatic. Pupils equal, round and reactive to light and accommodation. Extraocular muscles are intact. Anicteric sclera. Moist mucous membranes. Neck: No JVD. No bruit. Cardiovascular: irregularly irregular, unable to appreciate murmur, rub or gallop. Pulmonary: Clear to auscultation bilaterally. No rales, rhonchi, or wheezing. Abdomen: Bowel sounds x 4, soft. No rebound, guarding or tenderness. No organomegaly. Extremities: No clubbing, cyanosis or edema. +2 pedal pulses bilaterally. Skin: Warm and dry. Results & Data ([facility]) Vital Signs (Past 12 Hours) Vital Signs Temp Pulse Resp BP Pulse Ox O2 Del Method O2 Flow Rate 12/15/21 15:36 36.5 C 70 16 119/75 93 Nasal Cannula 3 12/15/21 13:22 80 20 98 Nasal Cannula 2 12/15/21 11:07 36.4 C L 79 18 120/78 96 Nasal Cannula 2 12/15/21 10:23 Nasal Cannula 2 12/15/21 07:28 36.4 C L 57 L 17 146/87 H 99 Nasal Cannula 2 12/15/21 07:16 88 18 91 Room Air (1) Pneumonia Laterality: right Lung location: unspecified part of lung Pneumonia type: due to unspecified organism Qualified Code(s): J18.9 - Pneumonia, unspecified organism
[2021-12-16] MEDS: LEVALBUTEROL 1.25MG/0.5ML NEB INH SCH ×3 (01:00→13:17)
[2021-12-16] MEDS: IPRATROPIUM BROMIDE NEB SOLN 0.02% 2.5 ML VIAL INH SCH ×3 (01:00→13:17)
[2021-12-16 05:20] LABS: Basophils # (auto) 0.03 K/uL (0-0.2); Basophils % (auto) 0.2 %; Eosinophils # (auto) 0.02 K/uL (0-0.50); Eosinophils % (auto) 0.1 %; Hemoglobin 13.9 g/dl (12.0-16.0); Immature Granulocytes # (auto) 0.06 K/uL (0.00-0.02); Immature Granulocytes % (auto) 0.4 %; Lymphocytes # (auto) 1.59 K/uL (1.2-3.4); Lymphocytes % (auto) 11.9 %; Mean Corpuscular Hemoglobin 32.4 pg (25.0-34.0); Mean Corpuscular Hgb Conc 33.9 g/dL (32.0-36.0); Mean Corpuscular Volume 95.6 fL (80.0-100.0); Mean Platelet Volume 10.6 fL (9.4-12.3); Monocytes # (auto) 0.82 K/uL (0.24-0.82); Monocytes % (auto) 6.1 %; Neutrophils # (auto) 10.85 K/uL (1.4-6.5); Neutrophils % (auto) 81.3 %; Platelet Count 211 K/uL (130-400); RDW Coefficient of Variation 15.2 % (11.5-14.5); RDW Standard Deviation 53.1 fL (36.4-46.3); Red Blood Count 4.29 M/uL (3.93-5.22); White Blood Count 13.37 K/ul (4.8-10.8)
[2021-12-16 05:32] LABS: INR 1.8 (0.9-1.1); Prothrombin Time 18.2 Seconds (9.0-12.0)
[2021-12-16 05:46] LABS: BUN Creatinine Ratio 40.2 (10-20); Calcium 8.3 mg/dl (8.5-10.1); Creatinine Clr Calc Pharmacy 43.2 ml/min; Est GFR (African American) 64.4 ml/min; Est GFR (Non-African American) 55.6 ml/min; Potassium 4.1 mmol/L (3.5-5.1)
[2021-12-16] MEDS: SODIUM CHLOR 7% 4 ML NEB NEB SCH (07:25)
[2021-12-16] MEDS: DOXYCYCLINE HYCLATE 100 MG in DEXTROSE 5% 100 ML IV SCH (08:30)
[2021-12-16] MEDS: INSULIN ASPART PER UNIT SC SCH ×2 (09:00→12:34)
[2021-12-16] MEDS: METOPROLOL TARTRATE 25 MG TAB PO SCH (09:35)
[2021-12-16] MEDS: PANTOprazole 40 MG TAB PO SCH (09:35)
[2021-12-16] MEDS: dilTIAZem HCL 120 MG CAPCR PO SCH (09:35)
[2021-12-16] MEDS: ASPIRIN 81 MG ECTAB PO SCH (09:36)
[2021-12-16] MEDS: NYSTATIN OINT 15 GM TUBE EXT SCH (09:36)
[2021-12-16] MEDS: EZETIMIBE 10 MG TABLET PO SCH (09:36)
[2021-12-16] MEDS: lisinopril 10 MG TAB PO SCH (09:36)
[2021-12-16] MEDS: SACCHAROMYCES BOULARDII 250 MG CAP PO SCH (09:36)
[2021-12-16] MEDS: MULTIVITAMIN TAB PO SCH (09:37)
[2021-12-16] MEDS: FLUTICASONE/VILANTEROL 200/25MCG 14 PUFFS/INHALER INH SCH (11:40)
[2021-12-16] MEDS: CEFEPIME 2,000 MG in SYRINGE 0 ML IV SCH (11:44)
--- NOTE | 2021-12-16 16:57 | Discharge Summary ---
Date of Service December 16, 2021 Admission HPI Per Admitting Provider This is an 86-year-old female with past medical history significant for aortic valve stenosis, status post TAVR, history of paroxysmal atrial fibrillation, on Coumadin, history of COPD, interstitial lung disease, on chronic home oxygen 1 L during daytime and 2 L while sleeping, history of hyperlipidemia, history of diabetes, diabetic polyneuropathy, moderate sleep apnea, hypertension, history of CAD, history of pulmonary emboli, reflux esophagitis, obesity, history of urge incontinence, status post cardiac stent placement, who lives at home with her and ambulates with a walker, was brought in because she was feeling short of breath since today evening and also she has had a cough for one to two weeks, bringing yellowish whitish phlegm. In the ER, she was saturating okay on nasal cannula. The patient had some chest discomfort, but this has been resolved now. She is also having some rash at lateral aspect of the right breast and also rash under the breast and itchiness over the last one to two we eks as per the patient. She had no fever at home. Has some headache, no neck pain, no chest pain currently, no abdominal pain, no back pain. Has some discomfort in her feet, which is chronic. No nausea, no vomiting, no diarrhea or constipation. Normal bladder movements. Appetite is okay. No difficulty swallowing as per the patient. No earache, no blurred visions. Has some runny nose. No sore throat. Currently, resting comfortably, hemodynamically stable. Son and family is in the room. Admission Exam Per Admitting Provider GENERAL: The patient is old and frail, not in acute distress. VITAL SIGNS: Temperature 36.7, pulse 105, respiratory rate 20, blood pressure 162/97, oxygen 93% on nasal cannula. HEENT: Pupils equal, round and reactive to light. Oral mucosa dry. NECK: No JVD, no neck masses. CARDIOVASCULAR: S1 and S2 heard. Regular rate and rhythm. No murmur, no gallop. RESPIRATORY SYSTEM: Normal AP diameter. No accessory muscle use. Bilateral coarse crackles heard. No wheezing. ABDOMEN: Soft, bowel sounds present, nontender, no distention. CENTRAL NERVOUS SYSTEM: Alert and oriented. Speech is clear. No facial droop. Insight is good. Obeys simple commands. Moves extremities. EXTREMITIES: No edema, no erythema. Principal Diagnosis Acute on chronic respiratory failure Aspiration pneumonia Persistent atrial fibrillation Discharge Exam Constitutional: Awake, alert orient x4. Not in any distress. Head: Normocephalic, Atraumatic Eyes: PERRL, conjunctivae normal, anicteric sclerae ENMT: external ear and nose normal, oropharynx normal Neck: trachea midline, no thyromegaly normal visual inspection Respiratory: Improvement in bilateral breath sound. Minimal crackle in right lower base. Cardiovascular: Irregular, no murmur, no edema Vessels: no JVD or carotid bruit Chest: normal inspection of chest Abdomen: normal bowel sounds, soft, nontender, no hepatosplenomegaly Musculoskeletal: no cyanosis or clubbing, extremities motor strength 5/5 Skin: no rashes, warm and dry normal turgor Neurologic: PERRL, EOMI, accommodation nl, no face palsy, no dysarthria CN's II- XI intact bilaterally and moves all extremities Psychiatric: A+Ox3, euthymic affect Lymphatic: no cervical or axillary lymphadenopathy : deferred Discharge Data Allergies Allergy/AdvReac Type Severity Reaction Status Date / Time amoxicillin [From Augmentin] Allergy Intermediate Hives Verified 12/13/21 22:55 clavulanic acid Allergy Intermediate Hives Verified 12/13/21 22:55 [From Augmentin] gabapentin Allergy Intermediate Itching Verified 12/13/21 22:55 Penicillins Allergy Intermediate Hives Verified 12/13/21 22:55 Consultations 12/13/21 21:49 ED Decision to Admit Stat 12/14/21 08:00 Consult Cardiology Routine Ordered Studies 12/13/21 23:00 CT chest diagnostic wo con Urgent Hospital Course (1) Aspiration pneumonia: (2) PAF (paroxysmal atrial fibrillation): (3) Acute and chronic respiratory failure: Plan Patient is a 86-year-old female with past medical history of type 2 diabetes mellitus, CAD, paroxysmal A. fib, PE on Coumadin, hypertension, aortic valve stenosis status post TAVR presented to the ED with acute on chronic respiratory failure. CT chest on admission showed airspace consolidation in right lungs typical for pneumonia. Patient was admitted to general medical floor. She was given IV Lasix for concern for acute on chronic diastolic heart failure. Cardiology was consulted for comanagement. Cardiology recommended that there is no acute decompensation of her chronic diastolic heart failure. Diuretics were discontinued. Patient was also started on IV Zosyn and doxycycline for aspiration pneumonia. She was started on hypertonic saline nebulization and Du oNeb for airway clearance. Swallow evaluation was done; patient was found to be in very high risk for aspiration. Aspiration precautions were maintained and patient was switched over to easy to chew diet. Follow-up x-ray during the hospitalization showed improvement in her infiltrates. Patient felt that her breathing was much better compared to admission as well. Patient was discharged home with oral cefixime and doxycycline. She was asked to follow-up with her primary care doctor. Patient had persistent atrial fibrillation during the hospitalization with ventricular rate ranging from 80s to 100. Her Coumadin was continued throughout the hospitalization. Discharge instruction were also given to her son over the phone. . Total Time Total Time Spent Total Time Spent (In Minutes): 35 Total Time Includes: Examination of the Patient, Discharge Planning, Medication Reconciliation, Communication With Other Providers and Other Discharge Plan Discharge Items Patient Disposition: Home - Self-Care Reason For Visit: SOB Non-emergency contact: Primary Care Provider Call non-emergency contact if: you have any medication questions and your symptoms worsen Follow-up/Referrals: Jamie Vela DO [Primary Care Provider] - 12/22/21 11:00 am (With Leatha MURRELL) Diet: Regular Diet Texture: Easy to Chew Addtl Attending Provider Instructions: You were admitted to the hospital with pneumonia in your right lung. The cause for your pneumonia is most likely aspiration. Please follow following dietary changes; Easy to chew diet. Add extra sauce and gravy to meals. Do not use straws [place] your teeth regularly Alternate solids and liquids, small single sips of liquid, eat small frequent meals, rest breaks when eating Use chin tuck strategy: Take 1 a small sip of liquid, hold the liquid in the mouth, tuck chin down to the chest, swallow and the chin is down. You are prescribed following antibiotics for next 4 days 1) cefixime 400 mg once daily 2) doxycycline 100 mg twice daily Please continue all your other medication as prescribed before. Please follow-up with with her primary care provider in 1 week. Pending Studies at Discharge: No Stand-Alone Forms: My Mitrionics, Smoking Cessation Medications and DC Order Prescriptions: New cefixime 400 mg capsule 400 mg PO DAILY Qty: 4 0RF doxycycline hyclate 100 mg capsule 100 mg PO BID 4 Days Qty: 8 0RF Continued aspirin [Adriana Low Dose Aspirin] 81 mg Tablet,Delayed Release (Dr/Ec) 81 mg PO QAM diltiazem HCl 120 mg capsule,extended release 24hr 120 mg PO BID albuterol sulfate 90 mcg/actuation HFA aerosol inhaler 2 puff INHALATION Q4H PRN (Reason: Wheeze/Cough) Rx Instructions: ADMINISTER WITH SPACER ezetimibe 10 mg tablet 10 mg PO QAM metformin 750 mg tablet extended release 24 hr 750 mg PO QAM lisinopril 10 mg tablet 10 mg PO QAM acetaminophen [Tylenol Extra Strength] 500 mg Tablet 500 mg PO DIRECTED PRN (Reason: Pain) albuterol sulfate 2.5 mg /3 mL (0.083 %) Solution For Nebulization 2.5 mg INHALATION Q4H PRN (Reason: Shortness Of Breath Or Wheezing) albuterol sulfate 2.5 mg/0.5 mL Solution For Nebulization 2.5 mg INHALATION DIRECTED PRN (Reason: Shortness Of Breath Or Wheezing) diclofenac sodium 1 % Gel 4 g TOPICAL TID PRN (Reason: Pain) Rx Instructions: apply to AFFECTED AREA OF FEET multivitamin Tablet 1 tab PO DAILY furosemide [Lasix] 20 mg Tablet 20 mg PO DAILY PRN (Reason: .>fluid , weight gain) metoprolol tartrate 25 mg tablet 12.5 mg PO BID potassium chloride 20 mEq Tablet Extended Release 20 meq PO DIRECTED Rx Instructions: Take on days that you take lasix warfarin 5 mg tablet 5 mg PO DAILY Rx Instructions: Patient states 5 mg every day pantoprazole [Protonix] 40 mg Tablet,Delayed Release (Dr/Ec) 40 mg PO BID nitroglycerin [Nitrostat] 0.4 mg Tablet, Sublingual 0.4 mg sublingual UD PRN (Reason: Chest Pain) Incruse Ellipta 62.5 mcg/actuation Blister With Device 1 inh inhalation DAILY Qty: 30 0RF fluticasone furoate-vilanterol [Breo Ellipta] 200-25 mcg/dose Blister With Device 1 ea inhalation DAILY Qty: 60 0RF Discharge Orders: Discharge Order (Routine); Ordered 12/16/21 Ordered By: Jacinto Arnett Admission Data Admit Date/Time: 12/13/21 22:46 Attending Provider: Jacinto Arnett Admit Provider: Damir Moran Primary Care Provider: Jamie Vela Other Providers: Damir Moran ; Morales Garcia Other Interventions: Discharge Summary Assessment (RN) Last Done: 12/16/21 13:24
== END 2021-12-16 14:20 | disposition home or self-care (01) | DRG 189 ==
LOC: ED 20:10 → 4W 22:46
DX: Z79.01 Long term (current) use of anticoagulants; Z86.711 Personal history of pulmonary embolism; N61.0 Mastitis without abscess; Z83.49 Family history of other endocrine, nutritional and metabolic diseases; I11.0 Hypertensive heart disease with heart failure; Z79.84 Long term (current) use of oral hypoglycemic drugs; I48.0 Paroxysmal atrial fibrillation; I50.9 Heart failure, unspecified; Z95.2 Presence of prosthetic heart valve; E11.42 Type 2 diabetes mellitus with diabetic polyneuropathy; I25.2 Old myocardial infarction; Z88.0 Allergy status to penicillin; J44.1 Chronic obstructive pulmonary disease with (acute) exacerbation; Z82.49 Family history of ischemic heart disease and other diseases of the circulatory system; J69.0 Pneumonitis due to inhalation of food and vomit; I25.10 Atherosclerotic heart disease of native coronary artery without angina pectoris; Z99.81 Dependence on supplemental oxygen; Z99.89 Dependence on other enabling machines and devices; Z88.8 Allergy status to other drugs, medicaments and biological substances; Z79.899 Other long term (current) drug therapy; Z79.82 Long term (current) use of aspirin; G47.33 Obstructive sleep apnea (adult) (pediatric); J96.20 Acute and chronic respiratory failure, unspecified whether with hypoxia or hypercapnia

== ENCOUNTER 2022-06-25 14:18 | Inpatient (IN) ==
--- NOTE | 2022-06-25 14:26 | ED Triage Note ---
Date of Service June 25, 2022 History of Present Illness This patient was briefly evaluated while in triage. An abbreviated physical exam was performed. This patient is a 87-year-old Female who presents to the ED for evaluation of respiratory problems. She saw her PCP this morning and was told that she has pneumonia. Has been coughing for the past week. Was seen in the ER on 06/22/22 and was diagnosed with bronchitis at that time per daughter. She is now coughing up blood in her mucous. CXR was done at [facility]. No fevers. Has SOB and just feels lousy. Wears 2L O2 at night with her CPAP. No O2 during the day. She is on Coumadin. Physical Exam GENERAL: Non-toxic and in no acute distress. HEENT: Pupils equal. No obvious scleral icterus. HEART: Regular rate and rhythm. LUNGS: Pulse ox 88% on room air. Wheezing throughout. Apparent rales on the left side, but difficult to discern due to wheezing. NEURO: Alert and oriented. No obvious neurological deficits on quick neuro exam. The patient was taken straight back to a room and placed on 2 L O2 by DC due to her hypoxia.
[2022-06-25] MEDS ORDERED: levoFLOXacin/D5W 750 MG/150 ML BAG IV STA (14:40)
[2022-06-25] MEDS ORDERED: ALBUTEROL 0.083% NEBU SOLN 3 ML VIAL NEB STA (14:41)
--- NOTE | 2022-06-25 14:43 | Emergency Department Note ---
Impression & Plan Pneumonia, Bleeding on Coumadin, Elevated troponin ED Provider Note NAME: KELSI MOTA AGE: 87 SEX: F : 1935 ARRIVES VIA: Walk-In INFORMANT: Patient, Daughter ED PROVIDER(S): Darian Muniz DO CHIEF COMPLAINT: SOB HPI: Patient is a 87-year-old female with a past medical history of asthma, COPD, status post TAVR, paroxysmal A-fib and aortic stenosis who presents to the ER for shortness of breath chronically on 1 L at night and she wears intermittent oxygen during the day. Symptoms started about 3 to 5 days ago with cough and congestion. Has been getting worse. She was seen and evaluated here and placed on steroids and antibiotics. Symptoms have gotten worse over the past 48 hours she is been coughing up blood. She was seen Jayna Peñaloza and referred in for pneumonia. She denies any recorded fevers. No belly pain, nausea, vomiting, or diarrhea. No dysuria, urgency, or frequency. No other exacerbating or remitting factors. PAST MEDICAL HISTORY:See Below PAST SURGICAL HISTORY:See Below FAMILY HISTORY:See Below SOCIAL HISTORY:See Below HOME MEDICATIONS:See Below ALLERGIES:See Below VITALS:See Below PHYSICAL EXAMINATION: GENERAL: Sitting up in bed, alert, conically ill-appearing, on 2 L nasal cannula slightly dyspneic with conversation EYE EXAM: normal conjunctiva. OROPHARYNX: no exudate, no erythema, lips, buccal mucosa, and tongue normal and mucous membranes are moist NECK: supple, no nuchal rigidity, no adenopathy, non-tender LUNGS: Diffuse wheezing throughout. Normal chest wall mechanics HEART: no murmurs, S1 normal and S2 normal ABDOMEN: abdomen soft, non-tender, normo-active bowel sounds, no masses, no rebound or guarding. SKIN: no rashes and no bruising UPPER EXTREMITIES: upper extremities are grossly normal. LOWER EXTREMITIES: No pitting edema. NEURO EXAM: Normal sensorium, cranial nerves II-XII grossly intact, normal speech, no gross weakness of arms, no gross weakness of legs. MEDICAL DECISION MAKING: Patient is an 87-year-old female who presents ER for above-stated complaint. IV was established blood work was obtained. Labs show no significant leukocytosis or anemia. BMP was unremarkable. INR 1.6. Glucose at 112 5. Troponin was elevated mildly at 14. Pro-Rajendra was negative. Patient was covered with IV antibiotics. She was given IV fluids. She was also placed on Cardizem drip and given a bolus as she did not take her Cardizem earlier today. Heart rate trended down to the upper 90s. she is currently in A-fib with RVR. X-ray shows a left midlung infiltrate. Patient was only coughing up a small amount of blood intermittently at home for the past 2 days. Do favor that this likely infectious. Will defer to the hospitalist for the CT of the chest. Patient remained on nasal cannula and was updated bedside admitted for further work-up. Triage Nursing notes reviewed. Limited review of prior medical records performed Vital Signs: reviewed and remarkable for HTN and tachy Differential diagnosis: Differential diagnoses includes but is not limited to pneumonia, bronchitis, COPD/Asthma exacerbation, pneumothorax, pulmonary embolism, congestive heart failure, acute coronary syndrome ER treatment provided: See below Diagnostics interpreted by me include EKG and cardiac monitoring as listed below: -Cardiac Monitoring: An order was placed for continuous cardiac monitoring. The monitor shows a rate of 110 with sinus rhythm. -ECG: A-fib rate of 98 Left axis No PVCs T wave inversion in septal leads QTc 434 -Laboratory studies:Interpreted by me as stated above in MDM and shown below. Imaging studies: Xrays: As interpreted by me: Portable AP upright 1 view of the chest shows a left midlung infiltrate CTs show: none Consultation(s): As described in [facility] Procedures:none PDMP:reviewed and no issues Critical Care: I have personally spent 32 minutes of critical care time in the direct management of this patient. This includes bedside care, interpretation of diagnostic studies, and testing, discussion with consultants, patient, and family members, and other required patient management activities. This 32 min utes is in excess of all separately billable procedures. 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 Deep vein thrombosis Diabetic neuropathy DM type 2 (diabetes mellitus, type 2) DMII (diabetes mellitus, type 2) DVT prophylaxis Dyslipidemia Failure of outpatient treatment Hypercapnic respiratory failure Hypertension Incomplete uterovaginal prolapse Moderate obstructive sleep apnea Myocardial Infarction PAF (paroxysmal atrial fibrillation) Pneumonia Recurrent pulmonary embolism Recurrent pulmonary embolism Sleep apnea 1 liter o2 SOB (shortness of breath) Subtherapeutic international normalized ratio (INR) Wheezing Surgical History History of cardiac cath History of colonoscopy History of heart artery stent History of heart valve replacement S/P TAVR (transcatheter aortic valve replacement) Family History Other Diabetes Family history non-contributory Heart disease Stroke Social History Smoking Status: Never smoker Second Hand Exposure: No; Hx Alcohol Use: No Hx Substance Use: No Preferred Language: Yi Communication Ability: Effective Hotel 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 current occupation: Retired Feels Safe at Home: Yes Safety Concerns: Feels Safe At This Time Assistive Devices: Cane, Glasses and Walker Allergies Allergies Allergy/AdvReac Type Severity Reaction Status Date / Time amoxicillin [From Augmentin] Allergy Intermediate Hives Verified 06/25/22 16:45 clavulanic acid Allergy Intermediate Hives Verified 06/25/22 16:45 [From Augmentin] gabapentin Allergy Intermediate Itching Verified 06/25/22 16:45 Penicillins Allergy Intermediate Hives Verified 06/25/22 16:45 Home Meds Home Medications Medication Instructions Recorded Confirmed albuterol sulfate 90 mcg/actuation 2 puff inhalation Q4H PRN 07/14/19 06/25/22 aerosol inhaler Wheeze/Cough aspirin 81 mg tablet,delayed 81 mg PO QAM 07/14/19 06/25/22 release (Adriana Low Dose Aspirin) diltiazem HCl 120 mg 120 mg PO BID 07/14/19 06/25/22 capsule,extended release 24 hr ezetimibe 10 mg tablet 10 mg PO QAM 07/14/19 06/25/22 metformin 750 mg tablet,extended 750 mg PO QAM 07/14/19 06/25/22 release 24 hr lisinopril 10 mg tablet 10 mg PO QAM 12/03/20 04/13/23 pantoprazole 40 mg tablet,delayed 40 mg PO BID 06/29/20 06/25/22 release (Protonix) acetaminophen 500 mg tablet 500 mg PO Q4 PRN Pain 09/21/20 06/25/22 (Tylenol Extra Strength) nitroglycerin 0.4 mg sublingual 0.4 mg sublingual UD PRN Chest Pain 09/24/20 06/25/22 tablet (Nitrostat) furosemide 20 mg tablet (Lasix) 40 mg PO QAM 12/13/21 06/25/22 metoprolol tartrate 25 mg tablet 12.5 mg PO BID 12/13/21 06/25/22 multivitamin 1 tab PO DAILY 12/13/21 06/25/22 potassium chloride 20 mEq 20 meq PO DAILY 12/13/21 06/25/22 tablet,extended release azithromycin 250 mg tablet 250 mg PO DAILY 06/25/22 06/25/22 nystatin 100,000 unit/gram topical 1 applic topical BID 06/25/22 06/25/22 cream prednisone 20 mg tablet 20 mg PO DAILY 06/25/22 06/25/22 warfarin 5 mg tablet 5 mg PO QPM 06/25/22 06/25/22 Previous Rx's Medication Instructions Recorded fluticasone furoate 200 1 ea inhalation DAILY #60 ea 10/02/20 mcg-vilanterol 25 mcg/dose inhalation powder (Breo Ellipta) umeclidinium 62.5 mcg/actuation 1 inh inhalation DAILY #30 ea 10/02/20 blister powder for inhalation (Incruse Ellipta) Results & Data (ED) Vital Signs Vital Signs - 24 hr 06/25/22 14:21 06/25/22 14:36 06/25/22 14:36 Temperature 36.9 C Temperature Source Temporal Artery Scan Pulse Rate 99 H Pulse Rate [Apical] 112 H Pulse Rhythm [Apical] Respiratory Rate 18 18 Respiratory Effort / Characteristics Non-Labored Spontaneous Non-Labored Respiratory Depth Normal Normal Respiratory Pattern Regular Regular Blood Pressure 150/95 H Blood Pressure [Right Arm] 143/107 H Blood Pressure Mean 113 Blood Pressure Mean [Right Arm] 119 Pulse Oximetry 88 L 95 95 Oxygen Delivery Method Room Air Room Air Room Air Oxygen Flow Rate Sepsis Recent Fever Within 48 Hours No Sepsis New/Unexplained Change in Mental Status N/A Sepsis Action Taken by Nursing No Action Required 06/25/22 14:59 06/25/22 14:41 06/25/22 15:34 Temperature Temperature Source Pulse Rate 102 H Pulse Rate [Apical] 134 H Pulse Rhythm [Apical] Regular Respiratory Rate 32 H Respiratory Effort / Characteristics Short of Breath Short of Breath Respiratory Depth Shallow Respiratory Pattern Tachypnea Tachypnea Blood Pressure Blood Pressure [Right Arm] 129/97 Blood Pressure Mean Blood Pressure Mean [Right Arm] 107 Pulse Oximetry 96 Oxygen Delivery Method Nasal Cannula Oxygen Flow Rate 2 Sepsis Recent Fever Within 48 Hours Sepsis New/Unexplained Change in Mental Status Sepsis Action Taken by Nursing Laboratory Data 06/25/22 14:30 06/25/22 14:30 Lab Results 06/25/22 06/25/22 06/25/22 Range/Units 14:30 14:30 14:35 WBC 6.73 (4.8-10.8) K/ul RBC 4.67 (4.20-5.40) M/uL Hgb 14.6 (12.0-16.0) g/dl Hct 43.1 (37.0-47.0) % MCV 92.3 (80.0-100.0) fL MCH 31.3 (25.0-34.0) pg MCHC 33.9 (32.0-36.0) g/dL RDW Std Deviation 51.9 H (36.4-46.3) fL RDW Coeff of Linda 15.3 H (11.5-14.5) % Plt Count 188 (130-400) K/uL MPV 11.4 (9.4-12.4) fL Immature Gran % (Auto) 0.4 % Neut % (Auto) 75.1 % Lymph % (Auto) 13.2 % [place] % (Auto) 11.0 % Eos % (Auto) 0.0 % Baso % (Auto) 0.3 % Neut # (Auto) 5.05 (1.40-6.50) K/uL Lymph # (Auto) 0.89 L (1.2-3.4) K/uL [place] # (Auto) 0.74 H (0.11-0.59) K/uL Eos # (Auto) 0.00 (0-0.50) K/uL Baso # (Auto) 0.02 (0-0.2) K/uL Immature Gran # (Auto) 0.03 (0.01-0.20) K/uL PT (9.0-12.0) Seconds INR (0.9-1.1) Sodium 136 (136-145) mmol/L Potassium 4.1 (3.5-5.1) mmol/L Chloride 101 (98-107) mmol/L Carbon Dioxide 29 (21-32) mmol/L Anion Gap 6 (3-11) BUN 15 (6-23) mg/dl Creatinine 0.69 (0.6-1.2) mg/dl Est Cr Clr Drug Dosing 54.3 ml/min Est GFR ( Amer) 89.5 ml/min Est GFR (Non-Af Amer) 77.2 ml/min BUN/Creatinine Ratio 21.7 H (10-20) Glucose 125 H (70-99(Fasting)) mg/dl Calcium 8.4 L (8.6-10.3) mg/dl Magnesium 1.9 (1.7-2.4) mg/dl Total Bilirubin 0.8 (0.2-1.0) mg/dl AST 24 (13-39) U/L ALT 18 (7-52) U/L Alkaline Phosphatase 59 (34-104) U/L Troponin I High Sens 14.1 H (0-14) pg/ml Total Protein 6.4 (6.0-8.3) gm/dl Albumin 3.5 (3.4-5.0) gm/dl Globulin 2.9 (2.5-4.0) gm/dl Albumin/Globulin Ratio 1.2 (0.9-2) Lipase 32 (11-82) U/L Procalcitonin (0-0.5) ng/ml SARS-CoV-2, RNA, NAAT NEGATIVE (NEGATIVE) 06/25/22 06/25/22 06/25/22 Range/Units 16:12 16:14 16:15 WBC (4.8-10.8) K/ul RBC (4.20-5.40) M/uL Hgb (12.0-16.0) g/dl Hct (37.0-47.0) % MCV (80.0-100.0) fL MCH (25.0-34.0) pg MCHC (32.0-36.0) g/dL RDW Std Deviation (36.4-46.3) fL RDW Coeff of Linda (11.5-14.5) % Plt Count (130-400) K/uL MPV (9.4-12.4) fL Immature Gran % (Auto) % Neut % (Auto) % Lymph % (Auto) % [place] % (Auto) % Eos % (Auto) % Baso % (Auto) % Neut # (Auto) (1.40-6.50) K/uL Lymph # (Auto) (1.2-3.4) K/uL [place] # (Auto) (0.11-0.59) K/uL Eos # (Auto) (0-0.50) K/uL Baso # (Auto) (0-0.2) K/uL Immature Gran # (Auto) (0.01-0.20) K/uL PT 16.7 H (9.0-12.0) Seconds INR 1.6 H (0.9-1.1) Sodium (136-145) mmol/L Potassium (3.5-5.1) mmol/L Chloride (98-107) mmol/L Carbon Dioxide (21-32) mmol/L Anion Gap (3-11) BUN (6-23) mg/dl Creatinine (0.6-1.2) mg/dl Est Cr Clr Drug Dosing ml/min Est GFR ( Amer) ml/min Est GFR (Non-Af Amer) ml/min BUN/Creatinine Ratio (10-20) Glucose (70-99(Fasting)) mg/dl Calcium (8.6-10.3) mg/dl Magnesium Cancelled (1.7-2.4) mg/dl Total Bilirubin (0.2-1.0) mg/dl AST (13-39) U/L ALT (7-52) U/L Alkaline Phosphatase (34-104) U/L Troponin I High Sens (0-14) pg/ml Total Protein (6.0-8.3) gm/dl Albumin (3.4-5.0) gm/dl Globulin (2.5-4.0) gm/dl Albumin/Globulin Ratio (0.9-2) Lipase (11-82) U/L Procalcitonin 0.07 (0-0.5) ng/ml SARS-CoV-2, RNA, NAAT (NEGATIVE) Administered Medications Diltiazem HCl 125 mg/ Dextrose 125 mls @ 10 mls/hr IV .[id number] [facility]; Protocol Stop: 07/25/22 15:59 Last Titration: 06/25/22 17:12 Dose: 10 mg/hr, 10 mls/hr Documented By: NATANAEL Co-signed By: INEZ Admin: 06/25/22 16:14 Dose: 5 mg/hr, 5 mls/hr Documented By: NATANAEL Co-signed By: INEZ Levalbuterol HCl (Levalbuterol Hcl 0.63 Mg/3 Ml Neb) 0.63 mg NEB Q6R [facility]; Protocol Stop: 07/25/22 18:59 Last Admin: 06/25/22 20:03 Dose: 0.63 mg Documented By: NDC Discontinued Medications Albuterol (Albuterol 0.083% Nebu Soln 3 Ml Vial) 5 mg NEB NOW STA; Protocol Stop: 06/25/22 14:42 Last Admin: 06/25/22 15:07 Dose: 5 mg Documented By: NATANAEL Diltiazem HCl (Diltiazem Hcl 5 Mg/Ml 5 Ml Vial) 10 mg IV NOW STA Stop: 06/25/22 15:48 Last Admin: 06/25/22 16:00 Dose: 10 mg Documented By: NATANAEL Co-signed By: INEZ Levofloxacin/Dextrose (Levaquin/D5w) 750 mg in 150 mls @ 100 mls/hr IV NOW STA Stop: 06/25/22 16:09 Last Infusion: 06/25/22 16:44 Dose: 0 mls/hr Documented By: Admin: 06/25/22 15:07 Dose: 100 mls/hr Documented By: NATANAEL Vancomycin HCl 1,750 mg/ (Sodium Chloride) 535 mls @ 200 mls/hr IV NOW ONE Stop: 06/25/22 18:26 Last Admin: 06/25/22 16:44 Dose: 200 mls/hr Documented By: NATANAEL Methylprednisolone (Methylprednisolone 40 Mg/Ml Vial) 40 mg IV NOW STA Stop: 06/25/22 14:42 Last Admin: 06/25/22 15:07 Dose: 40 mg Documented By: NATANAEL Miscellaneous (Stat Iv Infusion Titration Per Protocol) 1 each N/A NOW STA Stop: 06/25/22 15:48 Last Admin: 06/25/22 17:12 Dose: 1 each Documented By: Imaging Data Radiologist's Impression: Chest X-Ray 06/25/22 14:30 SINGLE VIEW CHEST CLINICAL HISTORY: Atypical chest pain. FINDINGS: 2 AP, portable, upright chest radiographs are compared to study dated 06/22/2022 and correlated with chest CT dated 12/13/2021. The heart is enlarged noting atherosclerotic calcification of the thoracic aorta. The pulmonary vasculature is noncongested. There is evidence of previous cardiac valve surgery. Chronic interstitial thickening is similar to previous. There is developing airspace consolidation in the left mid lung. No large pleural effusion is identified. Foci of parenchymal scarring are noted in both lung. No pneumothorax is seen. The skeletal structures are osteopenic. Degenerative change is noted in the shoulders and spine. The chronic/old left-sided rib fractures. IMPRESSION: 1. Cardiomegaly without radiographic evidence of congestive failure. 2. There is developing airspace consolidation in the left midlung. Correlate clinically for evidence of pneumonia/aspiration pneumonitis. Radiographic follow-up to resolution is recommended. ACT 112: Negative or not required by law. Electronically signed by: Freddy Dahl M.D. 06/25/2022 3:36 PM Discharge Plan Visit Data Chief Complaint: Respiratory Problems Stated Complaint: PNEUMONIA ED Provider: Darian Muniz Discharge Problem: Pneumonia, Bleeding on Coumadin, Elevated troponin Patient Disposition: Admitted As Inpatient Discharge Instructions Interventions: ED Discharge Assessment Last Done: 06/25/22 18:19
[2022-06-25 15:17] LABS: Albumin Globulin Ratio 1.2 (0.9-2); Albumin Level 3.5 gm/dl (3.4-5.0); BUN Creatinine Ratio 21.7 (10-20); Bilirubin,Total 0.8 mg/dl (0.2-1.0); Calcium 8.4 mg/dl (8.6-10.3); Creatinine Clr Calc Pharmacy 54.3 ml/min; Est GFR (African American) 89.5 ml/min; Est GFR (Non-African American) 77.2 ml/min; Globulin 2.9 gm/dl (2.5-4.0); Potassium 4.1 mmol/L (3.5-5.1); Total Protein 6.4 gm/dl (6.0-8.3)
[2022-06-25 15:24] LABS: Troponin I High Sensitivity 14.1 pg/ml (0-14)
--- NOTE | 2022-06-25 15:38 | XRay Report ---
SINGLE VIEW CHEST CLINICAL HISTORY: Atypical chest pain. FINDINGS: 2 AP, portable, upright chest radiographs are compared to study dated 06/22/2022 and correla madalyn with chest CT dated 12/13/2021. The heart is enlarged noting atherosclerotic calcification of the thoracic aorta. The pulmonary vasculature is noncongested. There is evidence of previous cardiac valv e surgery. Chronic interstitial thickening is similar to previous. There is developing airspace conso lidation in the left mid lung. No large pleural effusion is identified. Foci of parenchymal scarring are noted in both lung. No pneumothorax is seen. The skeletal structures are osteopenic. Degenerative change is noted in the shoulders and spine. The chronic/old left-sided rib fractures. IMPRESSION: 1. Cardiomegaly without radiographic evidence of congestive failure. 2. There is developing airspace consolidation in the left midlung. Correlate clinically for evidence of pneumonia/aspiration pneumonitis. Radiographic follow-up to resolution is recommended. ACT 112: Negative or not required by law. Electronically signed by: Freddy Dahl M.D. 06/25/2022 3:36 PM
[2022-06-25 15:43] LABS: Basophils # (auto) 0.02 K/uL (0-0.2); Basophils % (auto) 0.3 %; Hematocrit (blood only) 43.1 % (37.0-47.0); Hemoglobin 14.6 g/dl (12.0-16.0); Immature Granulocytes # (auto) 0.03 K/uL (0.01-0.20); Immature Granulocytes % (auto) 0.4 %; Lymphocytes # (auto) 0.89 K/uL (1.2-3.4); Lymphocytes % (auto) 13.2 %; Mean Corpuscular Hemoglobin 31.3 pg (25.0-34.0); Mean Corpuscular Hgb Conc 33.9 g/dL (32.0-36.0); Mean Corpuscular Volume 92.3 fL (80.0-100.0); Mean Platelet Volume 11.4 fL (9.4-12.4); Monocytes # (auto) 0.74 K/uL (0.11-0.59); Neutrophils # (auto) 5.05 K/uL (1.40-6.50); Neutrophils % (auto) 75.1 %; Platelet Count 188 K/uL (130-400); RDW Coefficient of Variation 15.3 % (11.5-14.5); RDW Standard Deviation 51.9 fL (36.4-46.3); Red Blood Count 4.67 M/uL (4.20-5.40); White Blood Count 6.73 K/ul (4.8-10.8)
[2022-06-25] MEDS ORDERED: VANCOMYCIN CONSULT ACTIVE PRN (15:46)
[2022-06-25] MEDS ORDERED: VANCOMYCIN HCL 1,750 MG in SODIUM CHLORIDE 0.9% 500 ML IV ONE (15:46)
[2022-06-25] MEDS ORDERED: STAT IV Infusion **Titration per Protocol STA (15:47)
[2022-06-25] MEDS ORDERED: dilTIAZem HCl 5 MG/ML 5 ML VIAL IV STA (15:47)
[2022-06-25] MEDS: dilTIAZem HCL 125 MG in DEXTROSE 5% 100 ML IV SCH (16:14)
--- NOTE | 2022-06-25 16:28 | History & Physical Report ---
Date of Service June 25, 2022 Assessment & Plan (1) Pneumonia involving left lung: (2) Acute and chronic respiratory failure: (3) Asthma: (4) S/P TAVR (transcatheter aortic valve replacement): (5) Hemoptysis: (6) DM type 2 (diabetes mellitus, type 2): (7) Moderate obstructive sleep apnea: Plan This is an 87yo F with PMH of aortic valve stenosis s/p TAVR, history of paroxysmal atrial fibrillation on Coumadin, history of COPD, interstitial lung disease, on chronic home oxygen 1 L during daytime and 2 L while sleeping, DM II, HLD, HTN, CAD, SANDRA, history of pulmonary emboli and other medical problems listed below who presents with progressive shortness of breath and was found to have developing pneumonia in left lung, hemoptysis. Pneumonia involving left lung Chronic respiratory failure with hypoxia Interstitial lung disease COPD exacerbation Saturating 94% on 2L NC (on 1-2L NC O2 at baseline) Afebrile, no leukocytosis. Procalcitonin pending Stopped taking antibiotic and steroid after two days earlier this week, likely to benefit from home health or temporary placement as is also admitted Given Levaquin and vancomycin in ED. Will switch to Rocephin and Doxy for now, follow cultures Continue Solu-Medrol 40 Q8H, Xopenex nebs, add chest percussions, incentive spirometry, Mucinex Consider pulm consult if condition does not improve Hemoptysis Blood tinged sputum x 2 days, on coumadin but INR subtherapeutic - questionable medication compliance Hgb stable at 14.6. No reports of hemoptysis since last evening. Holding coumadin and aspirin for now, repeat CBC in AM and resume as able Atrial fibrillation with RVR Missed diltiazem and Lopressor doses, resume home medication tonight HR up to 120s in ED and given 10mg IV diltiazem bolus Continue drip until home medications take effect and drip can be discontinued Monitor on telemetry Type 2 diabetes A1c 7.2 in 2021, repeat a1c in AM Hold home agents SSI while in-patient BSG AC HS Status post TAVR Diastolic heart failure Echo 04/05 with EF 55-59%. Appears euvolemic on exam but missed lasix dose today. Plan to resume tomorrow AM Moderate obstructive sleep apnea CPAP HS DVT Ppx: coumadin held in setting of hemoptysis - reevaluate tomorrow Code status: DNR per discussion with patient, daughter at bedside PCP: Dane Dispo: Admitted to PCU Patient seen in collaboration with Dr. Seth. Please see addendum. I spent a total of 85 minutes coordinating, documenting, and providing care for this patient excluding time spent in the performance of separately billed services. History of Present Illness Chief Complaint: SOB Primary Care Provider: Jamie Vela, This is an 87yo F with PMH of aortic valve stenosis s/p TAVR, history of paroxysmal atrial fibrillation on Coumadin, history of COPD, interstitial lung disease, on chronic home oxygen 1 L during daytime and 2 L while sleeping, DM II, HLD, HTN, CAD, SANDRA, history of pulmonary emboli and other medical problems listed below who presents with progressive shortness of breath. Was seen in the ED 3 days ago and discharged on a course of azithromycin and prednisone for b ronchitis. Only took medication for 2 days because she started to feel worse at home. Lives at home with who is currently admitted to hospital. Son lives upstairs and helps organize antibiotics but it is unclear what patient has been taking over the past few days. Has felt progressively weaker with cough over the past 2 days with blood-streaked sputum she is expectorating approximately dime to quarter size. States blood is dark red. Poor appetite but trying to still drink water. Also endorsing headache, congestion, wheezing. Denies any fever, chills, lightheadedness, chest pain, vomiting, abdominal pain, dysuria, diarrhea or constipation. Did not take any medications, including cardiac medications this morning. Daughter came over and had to help her out of bed to be seen by PCP, who directed her to ED for further evaluation. Lives at home with and ambulates with walker, but is reportedly currently admitted to hospital. Was directed from outpatient clinic to ED for further evaluation. Allergies Allergy/AdvReac Type Severity Reaction Status Date / Time amoxicillin [From Augmentin] Allergy Intermediate Hives Verified 06/25/22 16:45 clavulanic acid Allergy Intermediate Hives Verified 06/25/22 16:45 [From Augmentin] gabapentin Allergy Intermediate Itching Verified 06/25/22 16:45 Penicillins Allergy Intermediate Hives Verified 06/25/22 16:45 Home Medications Medication Instructions Recorded Confirmed Type albuterol sulfate 90 mcg/actuation 2 puff inhalation Q4H PRN 07/14/19 06/25/22 History aerosol inhaler Wheeze/Cough aspirin 81 mg tablet,delayed 81 mg PO QAM 07/14/19 06/25/22 History release (Adriana Low Dose Aspirin) diltiazem HCl 120 mg 120 mg PO BID 07/14/19 06/25/22 History capsule,extended release 24 hr ezetimibe 10 mg tablet 10 mg PO QAM 07/14/19 06/25/22 History metformin 750 mg tablet,extended 750 mg PO QAM 07/14/19 06/25/22 History release 24 hr lisinopril 10 mg tablet 10 mg PO QAM 02/15/20 06/25/22 History pantoprazole 40 mg tablet,delayed 40 mg PO BID 06/29/20 06/25/22 History release (Protonix) acetaminophen 500 mg tablet 500 mg PO Q4 PRN Pain 09/21/20 06/25/22 History (Tylenol Extra Strength) nitroglycerin 0.4 mg sublingual 0.4 mg sublingual UD PRN Chest Pain 09/24/20 06/25/22 History tablet (Nitrostat) fluticasone furoate 200 1 ea inhalation DAILY #60 ea 10/02/20 06/25/22 Rx mcg-vilanterol 25 mcg/dose inhalation powder (Breo Ellipta) umeclidinium 62.5 mcg/actuation 1 inh inhalation DAILY #30 ea 10/02/20 06/25/22 Rx blister powder for inhalation (Incruse Ellipta) furosemide 20 mg tablet (Lasix) 40 mg PO QAM 12/13/21 06/25/22 History metoprolol tartrate 25 mg tablet 12.5 mg PO BID 12/13/21 06/25/22 History multivitamin 1 tab PO DAILY 12/13/21 06/25/22 History potassium chloride 20 mEq 20 meq PO DAILY 12/13/21 06/25/22 History tablet,extended release azithromycin 250 mg tablet 250 mg PO DAILY 06/25/22 06/25/22 History nystatin 100,000 unit/gram topical 1 applic topical BID 06/25/22 06/25/22 History cream prednisone 20 mg tablet 20 mg PO DAILY 06/25/22 06/25/22 History warfarin 5 mg tablet 5 mg PO QPM 06/25/22 06/25/22 History Past Med/Surg History Medical History Acute exacerbation of congestive heart failure Acute hypoxemic respiratory failure Aortic stenosis ASCVD (arteriosclerotic cardiovascular disease) Aspiration pneumonia Asthma Asthma exacerbation Atrial fibrillation with rapid ventricular response Atrial fibrillation with rapid ventricular response Chest pain Chronic respiratory failure with hypoxia, on home oxygen therapy COPD (chronic obstructive pulmonary disease) COPD exacerbation COPD exacerbation Current use of senior living anticoagulation Deep vein thrombosis Diabetic neuropathy DM type 2 (diabetes mellitus, type 2) DMII (diabetes mellitus, type 2) DVT prophylaxis Dyslipidemia Failure of outpatient treatment Hypercapnic respiratory failure Hypertension Incomplete uterovaginal prolapse Moderate obstructive sleep apnea Myocardial Infarction PAF (paroxysmal atrial fibrillation) Pneumonia Recurrent pulmonary embolism Recurrent pulmonary embolism Sleep apnea 1 liter o2 SOB (shortness of breath) Subtherapeutic international normalized ratio (INR) Wheezing Surgical History History of cardiac cath History of colonoscopy History of heart artery stent History of heart valve replacement S/P TAVR (transcatheter aortic valve replacement) Family History Other Diabetes Family history non-contributory Heart disease Stroke Social History Smoking Status: Never smoker Second Hand Exposure: No; Hx Alcohol Use: No Hx Substance Use: No Preferred Language: Wallisian Communication Ability: Effective Conveyor System Dispatcher Required: No Beliefs That Will Affect Care: None Current Living Situation: Alone Current Living Situation Comment: Lives with but he is hospitalized at [facility]. current occupation: Retired Feels Safe at Home: Yes Safety Concerns: Feels Safe At This Time Assistive Devices: Cane, Glasses and Walker Review of Systems Review of Systems: At least ten systems reviewed and negative except as noted in the HPI. Physical Exam Physical Exam: General Appearance: WD/WN, vitals as above, NAD, sitting up in bed, pleasant, appears ill, coversational dyspnea Head: normocephalic, atraumatic Eyes: normal inspection, PERRL, conjunctivae normal, anicteric sclerae ENT: external ear and nose normal, oropharynx normal Neck: normal visual inspection, trachea midline, no thyromegaly Respiratory: increased respiratory effort, diffuse expiratory wheezes and rhonchi, rales L mid-base. No accessory muscle use Cardiovascular: irregular rate & rhythm, normal peripheral pulses, no BLE edema. Vessels: no JVD Chest: normal inspection of chest Abdomen/GI: normal bowel sounds, soft, nontender, no hepatosplenomegaly Extremities/Musculoskeletal: no cyanosis or clubbing, extremities motor strength 5/5 Neurologic: PERRL, EOMI, accommodation nl, no face palsy, no dysarthria, CN's II-XI intact bilaterally and moves all extremities Psychiatric: A+Ox3, euthymic affect Skin: no rashes, normal color, warm/dry Results & Data Results & Data Vital Signs (Past 12 Hours) Vital Signs Temp Pulse Pulse Resp BP BP Pulse Ox 06/25/22 15:34 134 H 32 H 129/97 96 06/25/22 14:41 102 H 06/25/22 14:36 95 06/25/22 14:36 112 H 18 143/107 H 95 06/25/22 14:21 36.9 C 99 H 18 150/95 H 88 L O2 Del Method O2 Flow Rate 06/25/22 15:34 Nasal Cannula 2 06/25/22 14:41 06/25/22 14:36 Room Air 06/25/22 14:36 Room Air 06/25/22 14:21 Room Air Laboratory Results Short CBC 06/25/22 Range/Units 14:30 WBC 6.73 (4.8-10.8) K/ul Hgb 14.6 (12.0-16.0) g/dl Hct 43.1 (37.0-47.0) % Plt Count 188 (130-400) K/uL BMP 06/25/22 14:30 Sodium 136 Potassium 4.1 Chloride 101 Carbon Dioxide 29 BUN 15 Creatinine 0.69 Glucose 125 H Calcium 8.4 L Liver Function 06/25/22 Range/Units 14:30 Total Bilirubin 0.8 (0.2-1.0) mg/dl AST 24 (13-39) U/L ALT 18 (7-52) U/L Alkaline Phosphatase 59 (34-104) U/L Albumin 3.5 (3.4-5.0) gm/dl Diagnostic Findings Chest X-Ray 06/25/22 14:30 SINGLE VIEW CHEST CLINICAL HISTORY: Atypical chest pain. FINDINGS: 2 AP, portable, upright chest radiographs are compared to study dated 06/22/2022 and correlated with chest CT dated 12/13/2021. The heart is enlarged noting atherosclerotic calcification of the thoracic aorta. The pulmonary vasculature is noncongested. There is evidence of previous cardiac valve surgery. Chronic interstitial thickening is similar to previous. There is developing airspace consolidation in the left mid lung. No large pleural effusion is identified. Foci of parenchymal scarring are noted in both lung. No pneumothorax is seen. The skeletal structures are osteopenic. Degenerative change is noted in the shoulders and spine. The chronic/old left-sided rib fractures. IMPRESSION: 1. Cardiomegaly without radiographic evidence of congestive failure. 2. There is developing airspace consolidation in the left midlung. Correlate clinically for evidence of pneumonia/aspiration pneumonitis. Radiographic follow-up to resolution is recommended. ACT 112: Negative or not required by law. Electronically signed by: Freddy Dahl M.D. 06/25/2022 3:36 PM ECG Additional Comments: EKG reviewied - A fib with RVR at 98 bpm, LAFB, no acute changes from previous Supervising Physician Co-Signing Physician Notes Patient seen and examined independently. Chart reviewed. Case discussed with GERRI. Here with left middle lobe pneumonia, hemoptysis, A fib with RVR and not taking home medications. is unfortunately also hospitalized currently. Resume home medications except coumadin and aspirin due to hemoptysis. Wean off cardizem drip. Ceftriaxone/doxycyline for coverage of CAP. Check procalcitonin , Magneseium
[2022-06-25 16:51] LABS: Magnesium 1.9 mg/dl (1.7-2.4)
[2022-06-25 17:11] LABS: INR 1.6 (0.9-1.1); Prothrombin Time 16.7 Seconds (9.0-12.0)
[2022-06-25] MEDS ORDERED: GLUCAGON FOR INJ 1 MG VIAL SQ PRN (18:42)
[2022-06-25] MEDS ORDERED: CARBOHYDRATES FOR HYPOGLYCEMIA PO PRN (18:42)
[2022-06-25] MEDS ORDERED: GLUCOSE 10 TAB/TUBE PO PRN (18:42)
[2022-06-25] MEDS ORDERED: POLYETHYLENE (MIRALAX) 17 GM PACK PO PRN (18:42)
[2022-06-25] MEDS ORDERED: ALBUTEROL HFA 8 GM INHALER INH PRN (18:42)
[2022-06-25] MEDS ORDERED: ONDANSETRON INJ 2 MG/ML 2 ML VIAL IV PRN (18:42)
[2022-06-25] MEDS ORDERED: DEXTROSE 50% 50 ML SYRINGE IV PRN (18:42)
[2022-06-25] MEDS ORDERED: GLUCOSE 40% GEL 15 GM TUBE PO PRN (18:42)
[2022-06-25] MEDS: LEVALBUTEROL HCL 0.63 MG/3 ML NEB NEB SCH (20:03)
[2022-06-25] MEDS: methylPREDNISolone 40 MG in SYRINGE 0 ML IV SCH (20:52)
[2022-06-25] MEDS: DOXYCYCLINE HYCLATE 100 MG in DEXTROSE 5% 100 ML IV SCH (20:56)
[2022-06-25] MEDS: guaiFENesin 600 MG TABCR PO SCH (21:00)
[2022-06-25] MEDS: dilTIAZem HCL 120 MG CAPCR PO SCH (21:01)
[2022-06-25] MEDS: METOPROLOL TARTRATE 25 MG TAB PO SCH (21:02)
[2022-06-25] MEDS: NYSTATIN CR 15 GM TUBE EXT SCH (21:04)
[2022-06-25] MEDS: PANTOprazole 40 MG TAB PO SCH (21:04)
[2022-06-25] MEDS: cefTRIAXone SODIUM 2,000 MG in DEXTROSE 5% 50 ML IV SCH (21:05)
[2022-06-25] MEDS: INSULIN ASPART PER UNIT CHARGE SC SCH (21:12)
[2022-06-25] MEDS: ACETAMINOPHEN 325 MG TAB PO PRN (22:40)
[2022-06-26] MEDS: LEVALBUTEROL HCL 0.63 MG/3 ML NEB NEB SCH ×4 (01:31→19:33)
[2022-06-26] MEDS: dilTIAZem HCL 125 MG in DEXTROSE 5% 100 ML IV SCH (02:49)
[2022-06-26] MEDS: methylPREDNISolone 40 MG in SYRINGE 0 ML IV SCH ×3 (02:49→20:19)
[2022-06-26] MEDS: ACETAMINOPHEN 325 MG TAB PO PRN (06:40)
[2022-06-26] MEDS: INSULIN ASPART PER UNIT CHARGE SC SCH ×4 (08:24→20:35)
[2022-06-26] MEDS: DOXYCYCLINE HYCLATE 100 MG in DEXTROSE 5% 100 ML IV SCH ×2 (08:24→20:19)
[2022-06-26] MEDS: guaiFENesin 600 MG TABCR PO SCH ×2 (08:25→20:25)
[2022-06-26] MEDS: PANTOprazole 40 MG TAB PO SCH ×2 (08:25→20:24)
[2022-06-26] MEDS: METOPROLOL TARTRATE 25 MG TAB PO SCH ×2 (08:26→20:25)
[2022-06-26] MEDS: FUROSEMIDE 40 MG TAB PO SCH (08:27)
[2022-06-26] MEDS: lisinopril 10 MG TAB PO SCH (08:27)
[2022-06-26] MEDS: EZETIMIBE 10 MG TABLET PO SCH (08:27)
[2022-06-26] MEDS: MULTIVITAMIN TAB PO SCH (08:27)
[2022-06-26] MEDS: POTASSIUM CHLORIDE CRTAB 20 MEQ TABCR PO SCH (08:27)
[2022-06-26] MEDS: dilTIAZem HCL 120 MG CAPCR PO SCH ×2 (08:27→20:25)
[2022-06-26] MEDS: UMECLIDINIUM BROMIDE 62.5MCG/BLISTER 7 PUFFS/INHALER INH SCH (08:28)
[2022-06-26] MEDS: NYSTATIN CR 15 GM TUBE EXT SCH ×2 (08:28→20:24)
[2022-06-26] MEDS: FLUTICASONE/VILANTEROL 200/25MCG 14 PUFFS/INHALER INH SCH (08:29)
[2022-06-26 08:34] LABS: Hematocrit (blood only) 40.3 % (37.0-47.0); Hemoglobin 13.8 g/dl (12.0-16.0); Mean Corpuscular Hemoglobin 31.1 pg (25.0-34.0); Mean Corpuscular Hgb Conc 34.2 g/dL (32.0-36.0); Mean Corpuscular Volume 90.8 fL (80.0-100.0); Platelet Count 183 K/uL (130-400); RDW Coefficient of Variation 15.4 % (11.5-14.5); RDW Standard Deviation 51.3 fL (36.4-46.3); Red Blood Count 4.44 M/uL (4.20-5.40); White Blood Count 3.69 K/ul (4.8-10.8)
[2022-06-26] MEDS: ASPIRIN 81 MG ECTAB PO SCH (08:43)
[2022-06-26 08:54] LABS: BUN Creatinine Ratio 21.7 (10-20); Calcium 8.4 mg/dl (8.6-10.3); Creatinine Clr Calc Pharmacy 54.1 ml/min; Est GFR (African American) 89.5 ml/min; Est GFR (Non-African American) 77.2 ml/min; Potassium 4.1 mmol/L (3.5-5.1)
[2022-06-26 09:02] LABS: Troponin I High Sensitivity 8.6 pg/ml (0-14)
[2022-06-26 09:06] LABS: INR 1.5 (0.9-1.1); Prothrombin Time 15.7 Seconds (9.0-12.0)
[2022-06-26 10:03] LABS: Estimated Average Glucose 171 mg/dl; Hemoglobin A1C 7.6 % (4.5-5.6)
[2022-06-26 13:09] LABS: Adenovirus PCR Not Detected (NotDetected); Bordetella parapertussis PCR Not Detected (NotDetected); Bordetella pertussis PCR Not Detected (NotDetected); Chlamydia pneumoniae PCR Not Detected (NotDetected); Coronavirus 229E PCR Not Detected (NotDetected); Coronavirus CoV-2 (COVID19)PCR Not Detected (NotDetected); Coronavirus HKU1 PCR Not Detected (NotDetected); Coronavirus NL63 PCR Not Detected (NotDetected); Coronavirus OC43PCR Not Detected (NotDetected); Influenza A PCR Not Detected (NotDetected); Influenza B PCR Not Detected (NotDetected); Mycoplasma pneumoniae PCR Not Detected (NotDetected); Parainfluenza Virus 1 PCR Not Detected (NotDetected); Parainfluenza Virus 2 PCR Not Detected (NotDetected); Parainfluenza Virus 3 PCR Not Detected (NotDetected); Parainfluenza Virus 4 PCR Not Detected (NotDetected); Respiratory Syncytial VirusPCR Not Detected (NotDetected); Rhinovirus/Enterovirus PCR Not Detected (NotDetected)
[2022-06-26 13:17] LABS: Human Metapneumovirus PCR DETECTED (NotDetected)
--- NOTE | 2022-06-26 14:22 | Hospitalist Progress Note ---
Date of Service June 26, 2022 Assessment & Plan (1) Pneumonia involving left lung: (2) Acute and chronic respiratory failure: (3) Asthma: (4) S/P TAVR (transcatheter aortic valve replacement): (5) Hemoptysis: (6) DM type 2 (diabetes mellitus, type 2): (7) Moderate obstructive sleep apnea: Plan This is an 87yo F with PMH of aortic valve stenosis s/p TAVR, history of paroxysmal atrial fibrillation on Coumadin, history of COPD, interstitial lung disease, on chronic home oxygen 1 L during daytime and 2 L while sleeping, DM II, HLD, HTN, CAD, SANDRA, history of pulmonary emboli and other medical problems listed below who presents with progressive shortness of breath and was found to have developing pneumonia in left lung, hemoptysis. Human metapneumovirus infection Pneumonia involving left lung Chronic respiratory failure with hypoxia Interstitial lung disease COPD exacerbation Saturating 94% on 2L NC (on 1-2L NC O2 at baseline) Afebrile, no leukocytosis. Procalcitonin within normal limits. Respiratory viral panel positive for human metapneumovirus Continue on ceftriaxone and doxycycline for now; will provide 5-day course Continue Solu-Medrol 40 Q8H, Xopenex nebs, add chest percussions, incentive spirometry, Mucinex Hemoptysis Likely due to bronchitis Blood tinged sputum x 2 days, on coumadin but INR subtherapeutic - questionable medication compliance Hgb stable at 14.6. No reports of hemoptysis since last evening. And aspirin. Atrial fibrillation with RVR Was in A-fib with RVR on admission Started on Cardizem drip Restart home Cardizem metoprolol. Stop Cardizem drip Type 2 diabetes A1c 7.2 in 2021, repeat a1c 7.6%. Hold home agents SSI while in-patient BSG AC HS Status post TAVR Diastolic heart failure Echo 04/05 with EF 55-59%. Appears euvolemic on exam Resume home dose of Lasix On lisinopril Moderate obstructive sleep apnea CPAP HS DVT Ppx: Coumadin Code status: DNR per discussion with patient, daughter at bedside PCP: Dane Dispo: Admitted to PCU Time spent evaluating patient, direct bedside care, chart review, placing orders, interpretation of diagnostic studies, discussion with consultants, patient, and family members, as well as other required patient management activities is 60 minutes Please note the above document was generated using voice recognition software. It may contain grammatical, syntax or spelling errors. Any formal questions or concerns about the content, text or information contained within the body of this dictation should be directly addressed to the provider for clarification Admission and Anticipated Discharge Date Admission Date: June 25, 2022 Subjective Patient seen and examined at bedside. She reports improvement in her symptoms today. She reports that her breathing is better and that she is less fatigued. Review of Systems Review of Systems: All systems reviewed & are unremarkable except as noted in Subjective Physical Exam Physical Exam: Constitutional: WD/WN, vitals as above, NAD, sitting up in bed, pleasant, conversing easily Respiratory: Bilateral expiratory wheeze. CVSirregular, systolic murmur present. Chest: normal inspection of chest Abdomen: normal bowel sounds, soft, nontender, no hepatosplenomegaly Musculoskeletal: no cyanosis or clubbing, extremities motor strength 5/5 Skin: no rashes, warm and dry normal turgor Neurologic: PERRL, EOMI, accommodation nl, no face palsy, no dysarthria CN's II- XI intact bilaterally and moves all extremities Psychiatric: A+Ox3, euthymic affect Lymphatic: no cervical or axillary lymphadenopathy : deferred Results & Data Results & Data Vital Signs (Past 12 Hours) Vital Signs Temp Pulse Resp BP Pulse Ox O2 Del Method O2 Flow Rate 06/26/22 13:24 82 20 96 Nasal Cannula 2 06/26/22 11:43 36.4 C L 76 19 131/90 96 Nasal Cannula 2 06/26/22 10:09 Nasal Cannula 2 06/26/22 07:06 70 18 96 Nasal Cannula 2 06/26/22 07:00 36.6 C 78 20 142/78 H 95 Room Air 06/26/22 03:00 37.0 C 20 112/59 L 92 Nasal Cannula 2 Laboratory Results Laboratory Results WBC 3.69 K/ul (4.8-10.8) L 06/26/22 08:00 RBC 4.44 M/uL (4.20-5.40) 06/26/22 08:00 Hgb 13.8 g/dl (12.0-16.0) 06/26/22 08:00 Hct 40.3 % (37.0-47.0) 06/26/22 08:00 MCV 90.8 fL (80.0-100.0) 06/26/22 08:00 MCH 31.1 pg (25.0-34.0) 06/26/22 08:00 MCHC 34.2 g/dL (32.0-36.0) 06/26/22 08:00 RDW Std Deviation 51.3 fL (36.4-46.3) H 06/26/22 08:00 RDW Coeff of Linda 15.4 % (11.5-14.5) H 06/26/22 08:00 Plt Count 183 K/uL (130-400) 06/26/22 08:00 MPV 11.0 fL (9.4-12.4) 06/26/22 08:00 Immature Gran % (Auto) 0.4 % 06/25/22 14:30 Neut % (Auto) 75.1 % 06/25/22 14:30 Lymph % (Auto) 13.2 % 06/25/22 14:30 Brewster % (Auto) 11.0 % 06/25/22 14:30 Eos % (Auto) 0.0 % 06/25/22 14:30 Baso % (Auto) 0.3 % 06/25/22 14:30 Neut # (Auto) 5.05 K/uL (1.40-6.50) 06/25/22 14:30 Lymph # (Auto) 0.89 K/uL (1.2-3.4) L 06/25/22 14:30 Brewster # (Auto) 0.74 K/uL (0.11-0.59) H 06/25/22 14:30 Eos # (Auto) 0.00 K/uL (0-0.50) 06/25/22 14:30 Baso # (Auto) 0.02 K/uL (0-0.2) 06/25/22 14:30 Immature Gran # (Auto) 0.03 K/uL (0.01-0.20) 06/25/22 14:30 PT 15.7 Seconds (9.0-12.0) H 06/26/22 07:59 INR 1.5 (0.9-1.1) H 06/26/22 07:59 Sodium 136 mmol/L (136-145) 06/26/22 08:00 Potassium 4.1 mmol/L (3.5-5.1) 06/26/22 08:00 Chloride 101 mmol/L (98-107) 06/26/22 08:00 Carbon Dioxide 27 mmol/L (21-32) 06/26/22 08:00 Anion Gap 8 (3-11) 06/26/22 08:00 BUN 15 mg/dl (6-23) 06/26/22 08:00 Creatinine 0.69 mg/dl (0.6-1.2) 06/26/22 08:00 Est Cr Clr Drug Dosing 54.1 ml/min 06/26/22 08:00 Est GFR ( Amer) 89.5 ml/min 06/26/22 08:00 Est GFR (Non-Af Amer) 77.2 ml/min 06/26/22 08:00 BUN/Creatinine Ratio 21.7 (10-20) H 06/26/22 08:00 Glucose 204 mg/dl (70-99(Fasting)) H 06/26/22 08:00 POC Glucose 142 mg/dl (70-99) H 06/26/22 11:17 Estimat Average Glucose 171 mg/dl 06/26/22 08:00 Hemoglobin A1c 7.6 % (4.5-5.6) H 06/26/22 08:00 Calcium 8.4 mg/dl (8.6-10.3) L 06/26/22 08:00 Magnesium Cancelled 06/25/22 16:15 Total Bilirubin 0.8 mg/dl (0.2-1.0) 06/25/22 14:30 AST 24 U/L (13-39) 06/25/22 14:30 ALT 18 U/L (7-52) 06/25/22 14:30 Alkaline Phosphatase 59 U/L (34-104) 06/25/22 14:30 Troponin I High Sens 8.6 pg/ml (0-14) 06/26/22 08:00 Total Protein 6.4 gm/dl (6.0-8.3) 06/25/22 14:30 Albumin 3.5 gm/dl (3.4-5.0) 06/25/22 14:30 Globulin 2.9 gm/dl (2.5-4.0) 06/25/22 14:30 Albumin/Globulin Ratio 1.2 (0.9-2) 06/25/22 14:30 Lipase 32 U/L (11-82) 06/25/22 14:30 Procalcitonin 0.07 ng/ml (0-0.5) 06/25/22 16:14 Adenovirus (PCR) Not Detected (NotDetected) 06/26/22 Unknown B. pertussis DNA (PCR) Not Detected (NotDetected) 06/26/22 Unknown B.parapertussis DNA PCR Not Detected (NotDetected) 06/26/22 Unknown C. pneumoniae DNA (PCR) Not Detected (NotDetected) 06/26/22 Unknown Coronavirus OC43 (PCR) Not Detected (NotDetected) 06/26/22 Unknown Coronavirus HKU1 (PCR) Not Detected (NotDetected) 06/26/22 Unknown Coronavirus 229E (PCR) Not Detected (NotDetected) 06/26/22 Unknown SARS-CoV-2 (PCR) Not Detected (NotDetected) 06/26/22 Unknown Coronavirus NL63 (PCR) Not Detected (NotDetected) 06/26/22 Unknown Human Metapneumovir PCR DETECTED (NotDetected) A* 06/26/22 Unknown Influenza Type A (PCR) Not Detected (NotDetected) 06/26/22 Unknown Influenza Type B (PCR) Not Detected (NotDetected) 06/26/22 Unknown M. pneumoniae (PCR) Not Detected (NotDetected) 06/26/22 Unknown Parainfluenza 1 (PCR) Not Detected (NotDetected) 06/26/22 Unknown Parainfluenza 2 (PCR) Not Detected (NotDetected) 06/26/22 Unknown Parainfluenza 3 (PCR) Not Detected (NotDetected) 06/26/22 Unknown Parainfluenza 4 (PCR) Not Detected (NotDetected) 06/26/22 Unknown RSV (PCR) Not Detected (NotDetected) 06/26/22 Unknown Entero/Rhino (PCR) Not Detected (NotDetected) 06/26/22 Unknown SARS-CoV-2, RNA, NAAT NEGATIVE (NEGATIVE) 06/25/22 14:35 Impressions Chest X-Ray 06/25/22 14:30 SINGLE VIEW CHEST CLINICAL HISTORY: Atypical chest pain. FINDINGS: 2 AP, portable, upright chest radiographs are compared to study dated 06/22/2022 and correlated with chest CT dated 12/13/2021. The heart is enlarged noting atherosclerotic calcification of the thoracic aorta. The pulmonary vasculature is noncongested. There is evidence of previous cardiac valve surgery. Chronic interstitial thickening is similar to previous. There is developing airspace consolidation in the left mid lung. No large pleural effusion is identified. Foci of parenchymal scarring are noted in both lung. No pneumothorax is seen. The skeletal structures are osteopenic. Degenerative change is noted in the shoulders and spine. The chronic/old left-sided rib fractures. IMPRESSION: 1. Cardiomegaly without radiographic evidence of congestive failure. 2. There is developing airspace consolidation in the left midlung. Correlate clinically for evidence of pneumonia/aspiration pneumonitis. Radiographic follow-up to resolution is recommended. ACT 112: Negative or not required by law. Electronically signed by: Freddy Dahl M.D. 06/25/2022 3:36 PM
[2022-06-26] MEDS: WARFARIN SOD 5 MG TAB PO SCH (16:21)
[2022-06-26] MEDS: cefTRIAXone SODIUM 2,000 MG in DEXTROSE 5% 50 ML IV SCH (20:16)
--- NOTE | 2022-06-26 22:34 | Electrocardiogram Report ---
Test Reason : Blood Pressure : / mmHG Vent. Rate : 098 BPM Atrial Rate : 079 BPM P-R Int : 000 ms QRS Dur : 098 ms QT Int : 340 ms P-R-T Axes : 000 -56 035 degrees QTc Int : 434 ms Atrial fibrillation Left anterior fascicular block Abnormal ECG When compared with ECG of 22-JUN-2022 12:01, No significant change was found Confirmed by Farrukh De Leon ([id number]) on 06/26/2022 10:34:04 PM Referred By: Jamie Vela Confirmed By:Farrukh De Leon
[2022-06-27] MEDS: LEVALBUTEROL HCL 0.63 MG/3 ML NEB NEB SCH ×4 (00:02→19:11)
[2022-06-27] MEDS: methylPREDNISolone 40 MG in SYRINGE 0 ML IV SCH ×2 (04:39→17:06)
[2022-06-27 07:41] LABS: Hematocrit (blood only) 40.8 % (37.0-47.0); Hemoglobin 13.8 g/dl (12.0-16.0); Mean Corpuscular Hemoglobin 31.2 pg (25.0-34.0); Mean Corpuscular Hgb Conc 33.8 g/dL (32.0-36.0); Mean Corpuscular Volume 92.3 fL (80.0-100.0); Mean Platelet Volume 10.6 fL (9.4-12.4); Platelet Count 199 K/uL (130-400); RDW Coefficient of Variation 15.3 % (11.5-14.5); RDW Standard Deviation 52.4 fL (36.4-46.3); Red Blood Count 4.42 M/uL (4.20-5.40); White Blood Count 7.82 K/ul (4.8-10.8)
[2022-06-27 07:53] LABS: BUN Creatinine Ratio 31.6 (10-20); Calcium 8.7 mg/dl (8.6-10.3); Creatinine Clr Calc Pharmacy 47.3 ml/min; Est GFR (African American) 76.9 ml/min; Est GFR (Non-African American) 66.4 ml/min; Potassium 4.2 mmol/L (3.5-5.1)
[2022-06-27 08:08] LABS: INR 1.7 (0.9-1.1); Prothrombin Time 17.9 Seconds (9.0-12.0)
[2022-06-27] MEDS: INSULIN ASPART PER UNIT CHARGE SC SCH ×4 (09:48→21:07)
[2022-06-27] MEDS: lisinopril 10 MG TAB PO SCH (09:49)
[2022-06-27] MEDS: PANTOprazole 40 MG TAB PO SCH ×2 (09:49→20:19)
[2022-06-27] MEDS: dilTIAZem HCL 120 MG CAPCR PO SCH ×2 (09:49→20:20)
[2022-06-27] MEDS: guaiFENesin 600 MG TABCR PO SCH ×2 (09:49→20:19)
[2022-06-27] MEDS: METOPROLOL TARTRATE 25 MG TAB PO SCH ×2 (09:49→20:19)
[2022-06-27] MEDS: ASPIRIN 81 MG ECTAB PO SCH (09:50)
[2022-06-27] MEDS: FUROSEMIDE 40 MG TAB PO SCH (09:50)
[2022-06-27] MEDS: POTASSIUM CHLORIDE CRTAB 20 MEQ TABCR PO SCH (09:50)
[2022-06-27] MEDS: MULTIVITAMIN TAB PO SCH (09:50)
[2022-06-27] MEDS: UMECLIDINIUM BROMIDE 62.5MCG/BLISTER 7 PUFFS/INHALER INH SCH (09:50)
[2022-06-27] MEDS: EZETIMIBE 10 MG TABLET PO SCH (09:50)
[2022-06-27] MEDS: NYSTATIN CR 15 GM TUBE EXT SCH ×2 (09:51→20:20)
[2022-06-27] MEDS: FLUTICASONE/VILANTEROL 200/25MCG 14 PUFFS/INHALER INH SCH (09:51)
[2022-06-27] MEDS: DOXYCYCLINE HYCLATE 100 MG CAP PO SCH ×2 (09:53→20:21)
--- NOTE | 2022-06-27 12:15 | Hospitalist Progress Note ---
Date of Service June 27, 2022 Assessment & Plan (1) Pneumonia involving left lung: (2) Acute and chronic respiratory failure: (3) Asthma: (4) S/P TAVR (transcatheter aortic valve replacement): (5) Hemoptysis: (6) DM type 2 (diabetes mellitus, type 2): (7) Moderate obstructive sleep apnea: Plan This is an 87yo F with PMH of aortic valve stenosis s/p TAVR, history of paroxysmal atrial fibrillation on Coumadin, history of COPD, interstitial lung disease, on chronic home oxygen 1 L during daytime and 2 L while sleeping, DM II, HLD, HTN, CAD, SANDRA, history of pulmonary emboli and other medical problems listed below who presents with progressive shortness of breath and was found to have developing pneumonia in left lung, hemoptysis. Human metapneumovirus infection Pneumonia involving left lung Chronic respiratory failure with hypoxia Interstitial lung disease COPD exacerbation Afebrile, no leukocytosis. Procalcitonin within normal limits. Respiratory viral panel positive for human metapneumovirus Continue on ceftriaxone and doxycycline for now; will provide 5-day course Change Solu-Medrol to oral starting tomorrow; provide 5-day course. Continue nebs, incentive spirometry and Mucinex Hemoptysis Likely due to bronchitis Blood tinged sputum x 2 days, on coumadin but INR subtherapeutic - questionable medication compliance Hgb stable.. No reports of hemoptysis Continue on warfarin and aspirin. Atrial fibrillation with RVR Was in A-fib with RVR on admission Started on Cardizem drip in the ED. Home Cardizem and metoprolol resumed. Ventricular rate well controlled. Type 2 diabetes A1c 7.2 in 2021, repeat a1c 7.6%. Hold home agents SSI while in-patient BSG AC HS Status post TAVR Diastolic heart failure Echo 04/05 with EF 55-59%. Appears euvolemic on exam Resume home dose of Lasix On lisinopril Moderate obstructive sleep apnea CPAP HS DVT Ppx: Coumadin Code status: DNR per discussion with patient, PCP: Dane Dispo: PT OT pending. Patient's is also hospitalized; and he will be going to rehab. Discussed with her daughter over the phone; would like to have her evaluated by PT OT. Possible discharge to rehab in next few days. Time spent evaluating patient, direct bedside care, chart review, placing orders, interpretation of diagnostic studies, discussion with consultants, patient, and family members, as well as other required patient management activities is 50 minutes Please note the above document was generated using voice recognition software. It may contain grammatical, syntax or spelling errors. Any formal questions or concerns about the content, text or information contained within the body of this dictation should be directly addressed to the provider for clarification Admission and Anticipated Discharge Date Admission Date: June 25, 2022 Subjective Patient seen and examined at bedside. She reports improvement in her symptoms. She no longer complains of shortness of breath; was saturating well in room air. Review of Systems Review of Systems: All systems reviewed & are unremarkable except as noted in Subjective Physical Exam Physical Exam: Constitutional: WD/WN, vitals as above, NAD, sitting up in bed, pleasant, conversing easily Respiratory: Occasional wheeze CVSirregular, systolic murmur present. Chest: normal inspection of chest Abdomen: normal bowel sounds, soft, nontender, no hepatosplenomegaly Musculoskeletal: no cyanosis or clubbing, extremities motor strength 5/5 Skin: no rashes, warm and dry normal turgor Neurologic: PERRL, EOMI, accommodation nl, no face palsy, no dysarthria CN's II- XI intact bilaterally and moves all extremities Psychiatric: A+Ox3, euthymic affect Lymphatic: no cervical or axillary lymphadenopathy : deferred Results & Data Results & Data Vital Signs (Past 12 Hours) Vital Signs Temp Pulse Pulse Resp BP Pulse Ox O2 Del Method 06/27/22 11:30 36.7 C 63 18 132/62 96 Room Air 06/27/22 08:30 80 06/27/22 08:00 36.7 C 77 18 120/74 98 Room Air 06/27/22 07:03 76 18 96 CPAP 06/27/22 03:00 36.3 C L 99 H 22 115/80 91 CPAP O2 Flow Rate 06/27/22 11:30 06/27/22 08:30 06/27/22 08:00 06/27/22 07:03 2 06/27/22 03:00 Laboratory Results Laboratory Results WBC 7.82 K/ul (4.8-10.8) 06/27/22 07:05 RBC 4.42 M/uL (4.20-5.40) 06/27/22 07:05 Hgb 13.8 g/dl (12.0-16.0) 06/27/22 07:05 Hct 40.8 % (37.0-47.0) 06/27/22 07:05 MCV 92.3 fL (80.0-100.0) 06/27/22 07:05 MCH 31.2 pg (25.0-34.0) 06/27/22 07:05 MCHC 33.8 g/dL (32.0-36.0) 06/27/22 07:05 RDW Std Deviation 52.4 fL (36.4-46.3) H 06/27/22 07:05 RDW Coeff of Linda 15.3 % (11.5-14.5) H 06/27/22 07:05 Plt Count 199 K/uL (130-400) 06/27/22 07:05 MPV 10.6 fL (9.4-12.4) 06/27/22 07:05 Immature Gran % (Auto) 0.4 % 06/25/22 14:30 Neut % (Auto) 75.1 % 06/25/22 14:30 Lymph % (Auto) 13.2 % 06/25/22 14:30 [place] % (Auto) 11.0 % 06/25/22 14:30 Eos % (Auto) 0.0 % 06/25/22 14:30 Baso % (Auto) 0.3 % 06/25/22 14:30 Neut # (Auto) 5.05 K/uL (1.40-6.50) 06/25/22 14:30 Lymph # (Auto) 0.89 K/uL (1.2-3.4) L 06/25/22 14:30 [place] # (Auto) 0.74 K/uL (0.11-0.59) H 06/25/22 14:30 Eos # (Auto) 0.00 K/uL (0-0.50) 06/25/22 14:30 Baso # (Auto) 0.02 K/uL (0-0.2) 06/25/22 14:30 Immature Gran # (Auto) 0.03 K/uL (0.01-0.20) 06/25/22 14:30 PT 17.9 Seconds (9.0-12.0) H 06/27/22 07:05 INR 1.7 (0.9-1.1) H 06/27/22 07:05 Sodium 140 mmol/L (136-145) 06/27/22 07:05 Potassium 4.2 mmol/L (3.5-5.1) 06/27/22 07:05 Chloride 103 mmol/L (98-107) 06/27/22 07:05 Carbon Dioxide 30 mmol/L (21-32) 06/27/22 07:05 Anion Gap 7 (3-11) 06/27/22 07:05 BUN 25 mg/dl (6-23) H 06/27/22 07:05 Creatinine 0.79 mg/dl (0.6-1.2) 06/27/22 07:05 Est Cr Clr Drug Dosing 47.3 ml/min 06/27/22 07:05 Est GFR ( Amer) 76.9 ml/min 06/27/22 07:05 Est GFR (Non-Af Amer) 66.4 ml/min 06/27/22 07:05 BUN/Creatinine Ratio 31.6 (10-20) H 06/27/22 07:05 Glucose 177 mg/dl (70-99(Fasting)) H 06/27/22 07:05 POC Glucose 200 mg/dl (70-99) H 06/27/22 11:16 Estimat Average Glucose 171 mg/dl 06/26/22 08:00 Hemoglobin A1c 7.6 % (4.5-5.6) H 06/26/22 08:00 Calcium 8.7 mg/dl (8.6-10.3) 06/27/22 07:05 Magnesium Cancelled 06/25/22 16:15 Total Bilirubin 0.8 mg/dl (0.2-1.0) 06/25/22 14:30 AST 24 U/L (13-39) 06/25/22 14:30 ALT 18 U/L (7-52) 06/25/22 14:30 Alkaline Phosphatase 59 U/L (34-104) 06/25/22 14:30 Troponin I High Sens 8.6 pg/ml (0-14) 06/26/22 08:00 Total Protein 6.4 gm/dl (6.0-8.3) 06/25/22 14:30 Albumin 3.5 gm/dl (3.4-5.0) 06/25/22 14:30 Globulin 2.9 gm/dl (2.5-4.0) 06/25/22 14:30 Albumin/Globulin Ratio 1.2 (0.9-2) 06/25/22 14:30 Lipase 32 U/L (11-82) 06/25/22 14:30 Procalcitonin 0.07 ng/ml (0-0.5) 06/25/22 16:14 Adenovirus (PCR) Not Detected (NotDetected) 06/26/22 Unknown B. pertussis DNA (PCR) Not Detected (NotDetected) 06/26/22 Unknown B.parapertussis DNA PCR Not Detected (NotDetected) 06/26/22 Unknown C. pneumoniae DNA (PCR) Not Detected (NotDetected) 06/26/22 Unknown Coronavirus OC43 (PCR) Not Detected (NotDetected) 06/26/22 Unknown Coronavirus HKU1 (PCR) Not Detected (NotDetected) 06/26/22 Unknown Coronavirus 229E (PCR) Not Detected (NotDetected) 06/26/22 Unknown SARS-CoV-2 (PCR) Not Detected (NotDetected) 06/26/22 Unknown Coronavirus NL63 (PCR) Not Detected (NotDetected) 06/26/22 Unknown Human Metapneumovir PCR DETECTED (NotDetected) A* 06/26/22 Unknown Influenza Type A (PCR) Not Detected (NotDetected) 06/26/22 Unknown Influenza Type B (PCR) Not Detected (NotDetected) 06/26/22 Unknown M. pneumoniae (PCR) Not Detected (NotDetected) 06/26/22 Unknown Parainfluenza 1 (PCR) Not Detected (NotDetected) 06/26/22 Unknown Parainfluenza 2 (PCR) Not Detected (NotDetected) 06/26/22 Unknown Parainfluenza 3 (PCR) Not Detected (NotDetected) 06/26/22 Unknown Parainfluenza 4 (PCR) Not Detected (NotDetected) 06/26/22 Unknown RSV (PCR) Not Detected (NotDetected) 06/26/22 Unknown Entero/Rhino (PCR) Not Detected (NotDetected) 06/26/22 Unknown SARS-CoV-2, RNA, NAAT NEGATIVE (NEGATIVE) 06/25/22 14:35 Impressions Chest X-Ray 06/25/22 14:30 SINGLE VIEW CHEST CLINICAL HISTORY: Atypical chest pain. FINDINGS: 2 AP, portable, upright chest radiographs are compared to study dated 06/22/2022 and correlated with chest CT dated 12/13/2021. The heart is enlarged noting atherosclerotic calcification of the thoracic aorta. The pulmonary vasculature is noncongested. There is evidence of previous cardiac valve surgery . Chronic interstitial thickening is similar to previous. There is developing airspace consolidation in the left mid lung. No large pleural effusion is identified. Foci of parenchymal scarring are noted in both lung. No pneumothorax is seen. The skeletal structures are osteopenic. Degenerative change is noted in the shoulders and spine. The chronic/old left-sided rib fractures. IMPRESSION: 1. Cardiomegaly without radiographic evidence of congestive failure. 2. There is developing airspace consolidation in the left midlung. Correlate clinically for evidence of pneumonia/aspiration pneumonitis. Radiographic follow-up to resolution is recommended. ACT 112: Negative or not required by law. Electronically signed by: Freddy Dahl M.D. 06/25/2022 3:36 PM
[2022-06-27] MEDS: WARFARIN SOD 5 MG TAB PO SCH (17:06)
[2022-06-27] MEDS: cefTRIAXone SODIUM 2,000 MG in DEXTROSE 5% 50 ML IV SCH (20:21)
[2022-06-28] MEDS: LEVALBUTEROL HCL 0.63 MG/3 ML NEB NEB SCH ×4 (01:26→19:35)
[2022-06-28] MEDS: methylPREDNISolone 40 MG in SYRINGE 0 ML IV SCH (03:20)
[2022-06-28] MEDS: INSULIN ASPART PER UNIT CHARGE SC SCH ×4 (08:01→21:23)
[2022-06-28] MEDS: ASPIRIN 81 MG ECTAB PO SCH (08:05)
[2022-06-28] MEDS: POTASSIUM CHLORIDE CRTAB 20 MEQ TABCR PO SCH (08:06)
[2022-06-28] MEDS: MULTIVITAMIN TAB PO SCH (08:06)
[2022-06-28] MEDS: lisinopril 10 MG TAB PO SCH (08:07)
[2022-06-28] MEDS: PANTOprazole 40 MG TAB PO SCH ×2 (08:07→20:47)
[2022-06-28] MEDS: METOPROLOL TARTRATE 25 MG TAB PO SCH ×2 (08:08→20:47)
[2022-06-28] MEDS: guaiFENesin 600 MG TABCR PO SCH ×2 (08:08→20:46)
[2022-06-28] MEDS: FLUTICASONE/VILANTEROL 200/25MCG 14 PUFFS/INHALER INH SCH (08:09)
[2022-06-28] MEDS: dilTIAZem HCL 120 MG CAPCR PO SCH ×2 (08:09→20:46)
[2022-06-28] MEDS: DOXYCYCLINE HYCLATE 100 MG CAP PO SCH ×2 (08:09→20:46)
[2022-06-28] MEDS: EZETIMIBE 10 MG TABLET PO SCH (08:10)
[2022-06-28] MEDS: UMECLIDINIUM BROMIDE 62.5MCG/BLISTER 7 PUFFS/INHALER INH SCH (08:10)
[2022-06-28] MEDS: FUROSEMIDE 40 MG TAB PO SCH (08:10)
[2022-06-28] MEDS: NYSTATIN CR 15 GM TUBE EXT SCH ×2 (08:10→20:47)
[2022-06-28 08:24] LABS: Hematocrit (blood only) 44.5 % (37.0-47.0); Hemoglobin 14.8 g/dl (12.0-16.0); Mean Corpuscular Hemoglobin 31.2 pg (25.0-34.0); Mean Corpuscular Hgb Conc 33.3 g/dL (32.0-36.0); Mean Corpuscular Volume 93.7 fL (80.0-100.0); Mean Platelet Volume 10.2 fL (9.4-12.4); Platelet Count 241 K/uL (130-400); RDW Coefficient of Variation 15.3 % (11.5-14.5); RDW Standard Deviation 52.9 fL (36.4-46.3); Red Blood Count 4.75 M/uL (4.20-5.40); White Blood Count 9.86 K/ul (4.8-10.8)
[2022-06-28 08:39] LABS: BUN Creatinine Ratio 40.3 (10-20); Calcium 8.7 mg/dl (8.6-10.3); Creatinine Clr Calc Pharmacy 51.6 ml/min; Est GFR (African American) 86.1 ml/min; Est GFR (Non-African American) 74.3 ml/min; Potassium 4.1 mmol/L (3.5-5.1)
[2022-06-28 10:14] LABS: Basophils # (auto) 0.01 K/uL (0-0.2); Basophils % (auto) 0.1 %; Echinocytes 2+; Immature Granulocytes # (auto) 0.03 K/uL (0.01-0.20); Immature Granulocytes % (auto) 0.3 %; Lymphocytes # (auto) 0.93 K/uL (1.2-3.4); Lymphocytes % (auto) 9.4 %; Monocytes # (auto) 0.23 K/uL (0.11-0.59); Monocytes % (auto) 2.3 %; Neutrophils # (auto) 8.66 K/uL (1.40-6.50); Neutrophils % (auto) 87.9 %
--- NOTE | 2022-06-28 12:07 | Hospitalist Progress Note ---
Date of Service June 28, 2022 Assessment & Plan (1) Pneumonia involving left lung: (2) Acute and chronic respiratory failure: (3) Asthma: (4) S/P TAVR (transcatheter aortic valve replacement): (5) Hemoptysis: (6) DM type 2 (diabetes mellitus, type 2): (7) Moderate obstructive sleep apnea: Plan This is an 87yo F with PMH of aortic valve stenosis s/p TAVR, history of paroxysmal atrial fibrillation on Coumadin, history of COPD, interstitial lung disease, on chronic home oxygen 1 L during daytime and 2 L while sleeping, DM II, HLD, HTN, CAD, SANDRA, history of pulmonary emboli and other medical problems listed below who presents with progressive shortness of breath and was found to have developing pneumonia in left lung, hemoptysis. Human metapneumovirus infection Pneumonia involving left lung Chronic respiratory failure with hypoxia Interstitial lung disease COPD exacerbation Afebrile, no leukocytosis. Procalcitonin within normal limits. Respiratory viral panel positive for human metapneumovirus Continue on ceftriaxone and doxycycline for now; will provide 5-day course Initially placed on Solu-Medrol; will switch to prednisone; provide 5-day course. Continue nebs, incentive spirometry and Mucinex Hemoptysis Likely due to bronchitis Blood tinged sputum x 2 days, on coumadin but INR subtherapeutic - questionable medication compliance Hgb stable.. No reports of hemoptysis since admission Continue on warfarin and aspirin. Atrial fibrillation with RVR Was in A-fib with RVR on admission Started on Cardizem drip in the ED. Home Cardizem and metoprolol resumed. Ventricular rate well controlled. Type 2 diabetes A1c 7.2 in 2021, repeat a1c 7.6%. Hold home agents SSI while in-patient BSG AC HS Status post TAVR Diastolic heart failure Echo 04/05 with EF 55-59%. Appears euvolemic on exam Resume home dose of Lasix On lisinopril Moderate obstructive sleep apnea CPAP HS DVT Ppx: Coumadin Code status: DNR per discussion with patient, PCP: Dane Dispo: PT OT evaluated the patient; recommended home with support by family. Possible discharge in a.m. Provided update to her daughter over the phone at bedside. Time spent evaluating patient, direct bedside care, chart review, placing orders, interpretation of diagnostic studies, discussion with consultants, patient, and family members, as well as other required patient management activities is 50 minutes. Please note the above document was generated using voice recognition software. It may contain grammatical, syntax or spelling errors. Any formal questions or concerns about the content, text or information contained within the body of this dictation should be directly addressed to the provider for clarification Admission and Anticipated Discharge Date Admission Date: June 25, 2022 Subjective Patient seen and examined at bedside. She is comfortably sitting up on the chair side of the bed. She denies any fever, chills or chest pain. She reports that her shortness of breath has significantly improved compared to previous days. Review of Systems Review of Systems: All systems reviewed & are unremarkable except as noted in Subjective Physical Exam Physical Exam: Constitutional: WD/WN, vitals as above, NAD, sitting up in bed, pleasant, conversing easily Respiratory: Occasional wheeze CVSirregular, systolic murmur present. Chest: normal inspection of chest Abdomen: normal bowel sounds, soft, nontender, no hepatosplenomegaly Musculoskeletal: no cyanosis or clubbing, extremities motor strength 5/5 Skin: no rashes, warm and dry normal turgor Neurologic: PERRL, EOMI, accommodation nl, no face palsy, no dysarthria CN's II- XI intact bilaterally and moves all extremities Psychiatric: A+Ox3, euthymic affect Lymphatic: no cervical or axillary lymphadenopathy : deferred Results & Data Results & Data Vital Signs (Past 12 Hours) Vital Signs Temp Pulse Pulse Pulse Resp BP Pulse Ox 06/28/22 11:30 36.8 C 95 H 83 19 96/59 L 06/28/22 09:45 77 06/28/22 09:39 06/28/22 07:30 36.8 C 76 18 124/61 97 06/28/22 07:05 60 18 92 06/28/22 03:41 36.5 C 89 116/46 L 91 06/28/22 01:28 79 18 92 O2 Del Method O2 Flow Rate 06/28/22 11:30 Nasal Cannula 1 06/28/22 09:45 06/28/22 09:39 Room Air 06/28/22 07:30 Room Air 06/28/22 07:05 Room Air 06/28/22 03:41 Nasal Cannula 3 06/28/22 01:28 Nasal Cannula 2 Laboratory Results Laboratory Results WBC 9.86 K/ul (4.8-10.8) 06/28/22 07:43 RBC 4.75 M/uL (4.20-5.40) 06/28/22 07:43 Hgb 14.8 g/dl (12.0-16.0) 06/28/22 07:43 Hct 44.5 % (37.0-47.0) 06/28/22 07:43 MCV 93.7 fL (80.0-100.0) 06/28/22 07:43 MCH 31.2 pg (25.0-34.0) 06/28/22 07:43 MCHC 33.3 g/dL (32.0-36.0) 06/28/22 07:43 RDW Std Deviation 52.9 fL (36.4-46.3) H 06/28/22 07:43 RDW Coeff of Linda 15.3 % (11.5-14.5) H 06/28/22 07:43 Plt Count 241 K/uL (130-400) 06/28/22 07:43 MPV 10.2 fL (9.4-12.4) 06/28/22 07:43 Immature Gran % (Auto) 0.3 % 06/28/22 07:43 Neut % (Auto) 87.9 % 06/28/22 07:43 Lymph % (Auto) 9.4 % 06/28/22 07:43 [place] % (Auto) 2.3 % 06/28/22 07:43 Eos % (Auto) 0.0 % 06/28/22 07:43 Baso % (Auto) 0.1 % 06/28/22 07:43 Neut # (Auto) 8.66 K/uL (1.40-6.50) H 06/28/22 07:43 Lymph # (Auto) 0.93 K/uL (1.2-3.4) L 06/28/22 07:43 [place] # (Auto) 0.23 K/uL (0.11-0.59) 06/28/22 07:43 Eos # (Auto) 0.00 K/uL (0-0.50) 06/28/22 07:43 Baso # (Auto) 0.01 K/uL (0-0.2) 06/28/22 07:43 Immature Gran # (Auto) 0.03 K/uL (0.01-0.20) 06/28/22 07:43 Echinocytes 2+ 06/28/22 07:43 PT 17.9 Seconds (9.0-12.0) H 06/27/22 07:05 INR 1.7 (0.9-1.1) H 06/27/22 07:05 Sodium 138 mmol/L (136-145) 06/28/22 07:43 Potassium 4.1 mmol/L (3.5-5.1) 06/28/22 07:43 Chloride 101 mmol/L (98-107) 06/28/22 07:43 Carbon Dioxide 28 mmol/L (21-32) 06/28/22 07:43 Anion Gap 9 (3-11) 06/28/22 07:43 BUN 29 mg/dl (6-23) H 06/28/22 07:43 Creatinine 0.72 mg/dl (0.6-1.2) 06/28/22 07:43 Est Cr Clr Drug Dosing 51.6 ml/min 06/28/22 07:43 Est GFR ( Amer) 86.1 ml/min 06/28/22 07:43 Est GFR (Non-Af Amer) 74.3 ml/min 06/28/22 07:43 BUN/Creatinine Ratio 40.3 (10-20) H 06/28/22 07:43 Glucose 248 mg/dl (70-99(Fasting)) H 06/28/22 07:43 POC Glucose 171 mg/dl (70-99) H 06/28/22 11:24 Estimat Average Glucose 171 mg/dl 06/26/22 08:00 Hemoglobin A1c 7.6 % (4.5-5.6) H 06/26/22 08:00 Calcium 8.7 mg/dl (8.6-10.3) 06/28/22 07:43 Magnesium Cancelled 06/25/22 16:15 Total Bilirubin 0.8 mg/dl (0.2-1.0) 06/25/22 14:30 AST 24 U/L (13-39) 06/25/22 14:30 ALT 18 U/L (7-52) 06/25/22 14:30 Alkaline Phosphatase 59 U/L (34-104) 06/25/22 14:30 Troponin I High Sens 8.6 pg/ml (0-14) 06/26/22 08:00 Total Protein 6.4 gm/dl (6.0-8.3) 06/25/22 14:30 Albumin 3.5 gm/dl (3.4-5.0) 06/25/22 14: Globulin 2.9 gm/dl (2.5-4.0) 06/25/22 14:30 Albumin/Globulin Ratio 1.2 (0.9-2) 06/25/22 14:30 Lipase 32 U/L (11-82) 06/25/22 14:30 Procalcitonin 0.07 ng/ml (0-0.5) 06/25/22 16:14 Adenovirus (PCR) Not Detected (NotDetected) 06/26/22 Unknown B. pertussis DNA (PCR) Not Detected (NotDetected) 06/26/22 Unknown B.parapertussis DNA PCR Not Detected (NotDetected) 06/26/22 Unknown C. pneumoniae DNA (PCR) Not Detected (NotDetected) 06/26/22 Unknown Coronavirus OC43 (PCR) Not Detected (NotDetected) 06/26/22 Unknown Coronavirus HKU1 (PCR) Not Detected (NotDetected) 06/26/22 Unknown Coronavirus 229E (PCR) Not Detected (NotDetected) 06/26/22 Unknown SARS-CoV-2 (PCR) Not Detected (NotDetected) 06/26/22 Unknown Coronavirus NL63 (PCR) Not Detected (NotDetected) 06/26/22 Unknown Human Metapneumovir PCR DETECTED (NotDetected) A* 06/26/22 Unknown Influenza Type A (PCR) Not Detected (NotDetected) 06/26/22 Unknown Influenza Type B (PCR) Not Detected (NotDetected) 06/26/22 Unknown M. pneumoniae (PCR) Not Detected (NotDetected) 06/26/22 Unknown Parainfluenza 1 (PCR) Not Detected (NotDetected) 06/26/22 Unknown Parainfluenza 2 (PCR) Not Detected (NotDetected) 06/26/22 Unknown Parainfluenza 3 (PCR) Not Detected (NotDetected) 06/26/22 Unknown Parainfluenza 4 (PCR) Not Detected (NotDetected) 06/26/22 Unknown RSV (PCR) Not Detected (NotDetected) 06/26/22 Unknown Entero/Rhino (PCR) Not Detected (NotDetected) 06/26/22 Unknown SARS-CoV-2, RNA, NAAT NEGATIVE (NEGATIVE) 06/25/22 14:35 Impressions Chest X-Ray 06/25/22 14:30 SINGLE VIEW CHEST CLINICAL HISTORY: Atypical chest pain. FINDINGS: 2 AP, portable, upright chest radiographs are compared to study dated 06/22/2022 and correlated with chest CT dated 12/13/2021. The heart is enlarged noting atherosclerotic calcification of the thoracic aorta. The pulmonary vasculature is noncongested. There is evidence of previous cardiac valve surgery. Chronic interstitial thickening is similar to previous. There is developing airspace consolidation in the left mid lung. No large pleural effusion is identified. Foci of parenchymal scarring are noted in both lung. No pneumothorax is seen. The skeletal structures are osteopenic. Degenerative change is noted in the shoulders and spine. The chronic/old left-sided rib fractures. IMPRESSION: 1. Cardiomegaly without radiographic evidence of congestive failure. 2. There is developing airspace consolidation in the left midlung. Correlate clinically for evidence of pneumonia/aspiration pneumonitis. Radiographic follow-up to resolution is recommended. ACT 112: Negative or not required by law. Electronically signed by: Freddy Dahl M.D. 06/25/2022 3:36 PM
[2022-06-28] MEDS: WARFARIN SOD 5 MG TAB PO SCH (16:20)
[2022-06-28] MEDS: cefTRIAXone SODIUM 2,000 MG in DEXTROSE 5% 50 ML IV SCH (20:45)
[2022-06-28] MEDS: ACETAMINOPHEN 325 MG TAB PO PRN (20:48)
[2022-06-29] MEDS: LEVALBUTEROL HCL 0.63 MG/3 ML NEB NEB SCH ×3 (01:33→13:20)
[2022-06-29] MEDS: ASPIRIN 81 MG ECTAB PO SCH (08:19)
[2022-06-29] MEDS: EZETIMIBE 10 MG TABLET PO SCH (08:20)
[2022-06-29] MEDS: dilTIAZem HCL 120 MG CAPCR PO SCH (08:20)
[2022-06-29] MEDS: FLUTICASONE/VILANTEROL 200/25MCG 14 PUFFS/INHALER INH SCH (08:20)
[2022-06-29] MEDS: DOXYCYCLINE HYCLATE 100 MG CAP PO SCH (08:20)
[2022-06-29] MEDS: guaiFENesin 600 MG TABCR PO SCH (08:21)
[2022-06-29] MEDS: lisinopril 10 MG TAB PO SCH (08:21)
[2022-06-29] MEDS: FUROSEMIDE 40 MG TAB PO SCH (08:21)
[2022-06-29] MEDS: METOPROLOL TARTRATE 25 MG TAB PO SCH (08:21)
[2022-06-29] MEDS: MULTIVITAMIN TAB PO SCH (08:22)
[2022-06-29] MEDS: NYSTATIN CR 15 GM TUBE EXT SCH (08:22)
[2022-06-29] MEDS: PANTOprazole 40 MG TAB PO SCH (08:22)
[2022-06-29] MEDS: POTASSIUM CHLORIDE CRTAB 20 MEQ TABCR PO SCH (08:22)
[2022-06-29] MEDS: INSULIN ASPART PER UNIT CHARGE SC SCH ×2 (08:23→11:54)
[2022-06-29] MEDS: UMECLIDINIUM BROMIDE 62.5MCG/BLISTER 7 PUFFS/INHALER INH SCH (08:23)
[2022-06-29 08:35] LABS: Hematocrit (blood only) 44.5 % (37.0-47.0); Mean Corpuscular Hemoglobin 31.1 pg (25.0-34.0); Mean Corpuscular Hgb Conc 33.7 g/dL (32.0-36.0); Mean Corpuscular Volume 92.1 fL (80.0-100.0); Mean Platelet Volume 10.8 fL (9.4-12.4); Platelet Count 245 K/uL (130-400); RDW Coefficient of Variation 15.5 % (11.5-14.5); RDW Standard Deviation 52.2 fL (36.4-46.3); Red Blood Count 4.83 M/uL (4.20-5.40); White Blood Count 10.34 K/ul (4.8-10.8)
[2022-06-29] MEDS ORDERED: predniSONE 20 MG TAB PO SCH (09:00)
[2022-06-29 09:30] LABS: Basophils # (auto) 0.01 K/uL (0-0.2); Basophils % (auto) 0.1 %; Immature Granulocytes # (auto) 0.05 K/uL (0.01-0.20); Immature Granulocytes % (auto) 0.5 %; Lymphocytes # (auto) 1.42 K/uL (1.2-3.4); Lymphocytes % (auto) 13.7 %; Monocytes # (auto) 0.58 K/uL (0.11-0.59); Monocytes % (auto) 5.6 %; Neutrophils # (auto) 8.28 K/uL (1.40-6.50); Neutrophils % (auto) 80.1 %
[2022-06-29 09:38] LABS: INR 3.5 (0.9-1.1); Prothrombin Time 35.2 Seconds (9.0-12.0)
[2022-06-29 10:00] LABS: BUN Creatinine Ratio 42.3 (10-20); Calcium 8.9 mg/dl (8.6-10.3); Creatinine Clr Calc Pharmacy 47.3 ml/min; Est GFR (African American) 78.1 ml/min; Est GFR (Non-African American) 67.4 ml/min; Potassium 4.3 mmol/L (3.5-5.1)
--- NOTE | 2022-06-29 13:48 | Discharge Summary ---
Date of Service June 29, 2022 Admission HPI Per Admitting Provider This is an 87yo F with PMH of aortic valve stenosis s/p TAVR, history of paroxysmal atrial fibrillation on Coumadin, history of COPD, interstitial lung disease, on chronic home oxygen 1 L during daytime and 2 L while sleeping, DM II, HLD, HTN, CAD, SANDRA, history of pulmonary emboli and other medical problems listed below who presents with progressive shortness of breath. Was seen in the ED 3 days ago and discharged on a course of azithromycin and prednisone for bronchitis. Only took medication for 2 days because she started to feel worse at home. Lives at home with who is currently admitted to hospital. Son lives upstairs and helps organize antibiotics but it is unclear what patient has been taking over the past few days. Has felt progressively weaker with cough over the past 2 days with blood-streaked sputum she is expectorating approximately dime to quarter size. States blood is dark red. Poor appetite but trying to still drink water. Also endorsing headache, congestion, wheezing. Denies any fever, chills, lightheadedness, chest pain, vomiting, abdominal pain, dysuria, diarrhea or constipation. Did not take any medications, including cardiac medications this morning. Daughter came over and had to help her out of bed to be seen by PCP, who directed her to ED for further evaluation. Lives at home with and ambulates with walker, but is reportedly currently admitted to hospital. Was directed from outpatient clinic to ED for further evaluation. Admission Exam Per Admitting Provider General Appearance:WD/WN, vitals as above, NAD, sitting up in bed, pleasant, appears ill, coversational dyspnea Head: normocephalic, atraumatic Eyes:normal inspection, PERRL, conjunctivae normal, anicteric sclerae ENT: external ear and nose normal, oropharynx normal Neck: normal visual inspection, trachea midline, no thyromegaly Respiratory:increased respiratory effort, diffuse expiratory wheezes and rhonchi, rales L mid-base. No accessory muscle use Cardiovascular: irregular rate & rhythm, normal peripheral pulses, no BLE edema. Vessels: no JVD Chest: normal inspection of chest Abdomen/GI: normal bowel sounds, soft, nontender, no hepatosplenomegaly Extremities/Musculoskeletal: no cyanosis or clubbing, extremities motor strength 5/5 Neurologic: PERRL, EOMI, accommodation nl, no face palsy, no dysarthria, CN's II-XI intact bilaterally and moves all extremities Psychiatric:A+Ox3, euthymic affect Skin: no rashes, normal color, warm/dry Principal Diagnosis Human metapneumovirus infection Pneumonia involving left lung Chronic respiratory failure with hypoxia Interstitial lung disease COPD exacerbation Discharge Exam Constitutional: WD/WN, vitals as above, NAD, sitting up in bed, pleasant, conversing easily Respiratory: Occasional wheeze CVSirregular, systolic murmur present. Chest: normal inspection of chest Abdomen: normal bowel sounds, soft, nontender, no hepatosplenomegaly Musculoskeletal: no cyanosis or clubbing, extremities motor strength 5/5 Skin: no rashes, warm and dry normal turgor Neurologic: PERRL, EOMI, accommodation nl, no face palsy, no dysarthria CN's II- XI intact bilaterally and moves all extremities Psychiatric: A+Ox3, euthymic affect Lymphatic: no cervical or axillary lymphadenopathy : deferred Discharge Data Allergies Allergy/AdvReac Type Severity Reaction Status Date / Time amoxicillin [From Augmentin] Allergy Intermediate Hives Verified 06/25/22 16:45 clavulanic acid Allergy Intermediate Hives Verified 06/25/22 16:45 [From Augmentin] gabapentin Allergy Intermediate Itching Verified 06/25/22 16:45 Penicillins Allergy Intermediate Hives Verified 06/25/22 16:45 Consultations 06/25/22 15:47 ED Decision to Admit Stat Hospital Course (1) Pneumonia involving left lung: (2) Acute and chronic respiratory failure: (3) Asthma: (4) S/P TAVR (transcatheter aortic valve replacement): (5) Hemoptysis: (6) DM type 2 (diabetes mellitus, type 2): (7) Moderate obstructive sleep apnea: Plan This is an 87yo F with PMH of aortic valve stenosis s/p TAVR, history of paroxysmal atrial fibrillation on Coumadin, history of COPD, interstitial lung disease, on chronic home oxygen 1 L during daytime and 2 L while sleeping, DM II, HLD, HTN, CAD, SANDRA, history of pulmonary emboli and other medical problems listed below who presents with progressive shortness of breath and was found to have developing pneumonia in left lung, hemoptysis. Patient was admitted to medical floor and treated for following condition. 1) Human metapneumovirus infection Pneumonia involving left lung COPD exacerbation Afebrile, no leukocytosis. Procalcitonin within normal limits. Respiratory viral panel positive for human metapneumovirus During the hospitalization, patient was treated with IV steroids, [id number] DuoNebs, antibiotics. Patient reported improvement in her symptoms over the course of the hospitalization; patient was discharged on oral antibiotic and oral prednisone to complete the treatment. Two-step oxygen evaluation was done; patient required 2 L on rest and exertion. PT OT evaluation was done; recommended patient to go home with assist from family. 2) Hemoptysis Likely due to bronchitis Blood tinged sputum x 2 days, on coumadin but INR subtherapeutic - questionable medication compliance No episode of hematemesis during the hospitalization Warfarin and aspirin resumed at discharge. 3) Atrial fibrillation with RVR Was in A-fib with RVR on admission Started on Cardizem drip in the ED. Home Cardizem and metoprolol resumed. Ventricular rate well controlled. All other home medications were resumed as before. Patient to follow-up with her primary care doctor Please note the above document was generated using voice recognition software. It may contain grammatical, syntax or spelling errors. Any formal questions or concerns about the content, text or information contained within the body of this dictation should be directly addressed to the provider for clarification Total Time Total Time Spent Total Time Spent (In Minutes): 35 Total Time Includes: Examination of the Patient, Discharge Planning, Medication Reconciliation, Communication With Other Providers and Other Discharge Plan Discharge Items Patient Disposition: Home - Self-Care Reason For Visit: SOB, JERI PNA, AFIB WITH RVR Discharge Diagnosis: Human metapneumovirus infection Pneumonia involving left lung Chronic respiratory failure with hypoxia Interstitial lung disease COPD exacerbation Activity: Resume your previous activity Non-emergency contact: Primary Care Provider Call non-emergency contact if: you have any medication questions and your symptoms worsen Follow-up/Referrals: Jamie Vela DO [Primary Care Provider] - Diet: Regular and Carb Consistent or DM2 Addtl Attending Provider Instructions: You were admitted to the hospital with viral infection by human metapneumovirus. You were treated here with antibiotics, breathing treatment and steroids. You are prescribed cefdinir and doxycycline to be taken twice daily for 3 more days to complete the antibiotic course. You were also prescribed prednisone 40 mg to be taken for 2 more days. Please follow-up with anticoagulation clinic to make changes on your warfarin dosing based on PT/INR results. Start taking warfarin from tomorrow. An appointment will be set up for you with your primary care doctor. Pending Studies at Discharge: No Stand-Alone Forms: My [facility], Smoking Cessation Medications and DC Order Prescriptions: New doxycycline hyclate 100 mg Capsule 100 mg PO BID 3 Days Qty: 6 0RF prednisone 20 mg Tablet 40 mg PO DAILY 2 Days Qty: 4 0RF cefdinir 300 mg capsule 300 mg PO BID 3 Days Qty: 6 0RF Continued aspirin [Adriana Low Dose Aspirin] 81 mg Tablet,Delayed Release (Dr/Ec) 81 mg PO QAM diltiazem HCl 120 mg capsule,extended release 24hr 120 mg PO BID albuterol sulfate 90 mcg/actuation HFA aerosol inhaler 2 puff INHALATION Q4H PRN (Reason: Wheeze/Cough) Rx Instructions: ADMINISTER WITH SPACER ezetimibe 10 mg tablet 10 mg PO QAM metformin 750 mg tablet extended release 24 hr 750 mg PO QAM lisinopril 10 mg tablet 10 mg PO QAM acetaminophen [Tylenol Extra Strength] 500 mg Tablet 500 mg PO Q4 PRN (Reason: Pain) multivitamin Tablet 1 tab PO DAILY furosemide [Lasix] 20 mg Tablet 40 mg PO QAM metoprolol tartrate 25 mg tablet 12.5 mg PO BID potassium chloride 20 mEq Tablet Extended Release 20 meq PO DAILY Rx Instructions: Take on days that you take lasix nystatin 100,000 unit/gram cream 1 applic TOPICAL BID warfarin 5 mg tablet 5 mg PO QPM pantoprazole [Protonix] 40 mg Tablet,Delayed Release (Dr/Ec) 40 mg PO BID nitroglycerin [Nitrostat] 0.4 mg Tablet, Sublingual 0.4 mg sublingual UD PRN (Reason: Chest Pain) Incruse Ellipta 62.5 mcg/actuation Blister With Device 1 inh inhalation DAILY Qty: 30 0RF fluticasone furoate-vilanterol [Breo Ellipta] 200-25 mcg/dose Blister With Device 1 ea inhalation DAILY Qty: 60 0RF Discontinued azithromycin 250 mg tablet 250 mg PO DAILY Rx Instructions: on day 4 prednisone 20 mg tablet 20 mg PO DAILY Discharge Orders: Discharge Order (Routine); Ordered 06/29/22 Ordered By: Jacinto Tobias/Other Patient Handouts: Managing Type 2 Diabetes Admission Data Admit Date/Time: 06/25/22 16:39 Attending Provider: Jacinto Arnett Admit Provider: Savana Seth Primary Care Provider: Jamie Vela Other Providers: Savana Seth ; O'Brien,Home [facility] Other Interventions: Discharge Summary Assessment (RN) Last Done: 06/29/22 12:48
== END 2022-06-29 14:40 | disposition home or self-care (01) | DRG 193 ==
LOC: ED 14:18 → SUATTDRO 16:39 → 2S 16:39
DX: Z95.5 Presence of coronary angioplasty implant and graft; E11.9 Type 2 diabetes mellitus without complications; Z79.01 Long term (current) use of anticoagulants; J12.3 Human metapneumovirus pneumonia; Z88.8 Allergy status to other drugs, medicaments and biological substances; I11.0 Hypertensive heart disease with heart failure; I50.30 Unspecified diastolic (congestive) heart failure; Z79.82 Long term (current) use of aspirin; Z20.822 Contact with and (suspected) exposure to COVID-19; Z95.2 Presence of prosthetic heart valve; Z66 Do not resuscitate; G47.33 Obstructive sleep apnea (adult) (pediatric); Z88.1 Allergy status to other antibiotic agents; Z88.0 Allergy status to penicillin; Z86.711 Personal history of pulmonary embolism; J96.21 Acute and chronic respiratory failure with hypoxia; E87.5 Hyperkalemia; J44.1 Chronic obstructive pulmonary disease with (acute) exacerbation; J44.0 Chronic obstructive pulmonary disease with (acute) lower respiratory infection; Z79.899 Other long term (current) drug therapy; Z79.84 Long term (current) use of oral hypoglycemic drugs; Z79.52 Long term (current) use of systemic steroids; I48.0 Paroxysmal atrial fibrillation; Z99.81 Dependence on supplemental oxygen; I25.10 Atherosclerotic heart disease of native coronary artery without angina pectoris

== ENCOUNTER 2022-08-30 15:57 | Inpatient (IN) ==
--- NOTE | 2022-08-30 15:56 | Emergency Department Note ---
Impression & Plan Aphasia, Hypoxia ED Provider Note NAME: KELSI MOTA AGE: 87 SEX: F : 1935 ARRIVES VIA: Ambulance INFORMANT: Patient, ED PROVIDER(S): Luciano Mccartney MD CHIEF COMPLAINT: Aphasia, strokelike symptoms MEDICAL DECISION MAKING: Patient presents due to concern for strokelike symptoms that are last known well was 3 PM. IV was established blood work was obtained the patient was evaluated B1. Stroke alert was initiated and telestroke consultation was initiated. I did speak Dr. Herrera or did evaluate the patient. [id number] INR is 1.6. The patient is able to move all 4 extremities but is aphasic. Dr. Stevenson did evaluate the patient. The patient's lab INR was 1.6 and the patient was consented for TNK administration. The patient was ordered labetalol as the patient was hypertensive with a systolic that was normal but the patient's diastolic was elevated. Patient was given labetalol IV. The TNK was administered at 505 within [address] onset[address] Stevenson was able to ascertain the last known well was probably 2:20 PM and the patient had an NIH of 8. Patient has a normal white count H&H and platelet counts. Kidney function is unremarkable. Mild hypocalcemia at 8. COVID-negative. CT head and CT angiography is negative. I did speak with the on-call hospitalist service Dr. Ryan. I also did speak with the daughter who stated that the patient typically supposed to wear 2 L during the day and 1 L at nighttime. She states that she typically does not wear oxygen. I did speak with the modeling teacher Dr. Merchant and the patient was admitted to the intensive care unit given the post TNK administration. There was a delay in TNK administration as the patient was already on Coumadin but we are waiting on not just the [id number] INR but a lab INR to confirm the patient was subtherapeutic prior to making a decision to administer TNK. Nursing did report that the patient did improvement in her speech. The patient was subsequently admitted to the intensive care unit. Critical Care: I have personally spent 75 minutes of critical care time in direct management of this patient. This includes bedside care, interpretation of diagnostic studies, and testing, discussion with consultants, patient, and family members, and other require inpatient management activities. This 75 minutes is in excess of all separately billable procedures. Prior /Outside records reviewed: Did review discharge summary from June and 2022. Known history of aortic valvular stenosis status post TAVR A-fib on Coumadin COPD ILD on chronic oxygen liters known history of type 2 diabetes hyperlipidemia hypertension CAD SANDRA history of PEs patient was found to have human metapneumovirus infection associa madalyn pneumonia and COPD exacerbation during her most recent admission. Differential diagnosis: Infection, dehydration, metabolic abnormality, hypo/hyperglycemia, electrolyte disturbance, anemia, hypoxia, cardiac sources, intracerebral event, toxicologic, neurologic, as well as other pathologies. Diagnostics, as interpreted by me: ECG: A-fib, rate of 83, normal QRS duration, left axis deviation no ST elevations. Cardiac monitoring: An order was placed for continuous cardiac monitoring. The monitor shows a rate of 87 with irregularly irregular rhythm. Patient was placed on pulse oximetry Medical decision rules: NIH stroke scale Imaging studies: See below I informally reviewed the patient's CT of the head which showed no obvious ICH. HPI: Patient presents in the history is gathered from nursing as well as family at the bedside. The patient's BSG in route was in the 200s. The daughter at bedside states that they just finished having a Father's Day dinner when the patient became aphasic to where she was not walking. Patient reportedly did not have any symptoms prior and had no issues prior to this. No prior history of stroke or mini stroke. No recent falls or trauma. The daughter denies any recent infectious symptoms cough fever vomiting or diarrhea. Patient has been compliant with her Coumadin. No seizure-like activity. Mildly hypoxemic at 87% upon presentation. PAST MEDICAL HISTORY: See Below PAST SURGICAL HISTORY: See Below SOCIAL HISTORY: See Below HOME MEDICATIONS: See Below ALLERGIES: See Below VITALS: See Below PHYSICAL EXAMINATION: GENERAL: No apparent distress, nontoxic EYE EXAM: Normal conjunctiva. PERRL, no anisocoria and EOM's grossly intact w/o pain. NECK: Supple, no nuchal rigidity, no adenopathy, non-tender. No signs of meningismus. FROM of the neck with good chin to chest and neck extension. No stridor. LUNGS: Clear to auscultation. Normal chest wall mechanics. HEART: Irregularly irregular, no MRG. ABDOMEN: Abdomen soft, non-tender, no masses, no rebound or guarding. BACK: No CVA TTP. SKIN: No rashes and no bruising. UPPER EXTREMITIES: Upper extremities are grossly normal. LOWER EXTREMITIES: Grossly normal, no edema. NEURO EXAM: A&O x3, cranial nerves II-XII grossly intact with exception of aphasia, moves all 4 extremities but more weak in the bilateral lower extremities which is symmetric. Past Med/Surg History Medical History Acute exacerbation of congestive heart failure Acute hypoxemic respiratory failure Aortic stenosis ASCVD (arteriosclerotic cardiovascular disease) Aspiration pneumonia Asthma Asthma exacerbation Atrial fibrillation with rapid ventricular response Atrial fibrillation with rapid ventricular response Chest pain Chronic respiratory failure with hypoxia, on home oxygen therapy COPD (chronic obstructive pulmonary disease) COPD exacerbation COPD exacerbation Current use of retirement anticoagulation Deep vein thrombosis Diabetic neuropathy DM type 2 (diabetes mellitus, type 2) DMII (diabetes mellitus, type 2) DVT prophylaxis Dyslipidemia Failure of outpatient treatment Hypercapnic respiratory failure Hypertension Incomplete uterovaginal prolapse Moderate obstructive sleep apnea Myocardial Infarction PAF (paroxysmal atrial fibrillation) Pneumonia Pneumonia Recurrent pulmonary embolism Recurrent pulmonary embolism Sleep apnea 1 liter o2 SOB (shortness of breath) Subtherapeutic international normalized ratio (INR) Wheezing Surgical History History of cardiac cath History of colonoscopy History of heart artery stent History of heart valve replacement S/P TAVR (transcatheter aortic valve replacement) Family History Other Diabetes Family history non-contributory Heart disease Stroke Social History Smoking Status: Never smoker Second Hand Exposure: No; Do You Dip or Chew Tobacco: No; Hx Alcohol Use: No Hx Substance Use: No Preferred Language: Bulgarian Communication Ability: Effective Brim Shaper Required: No Beliefs That Will Affect Care: None Current Living Situation: Spouse and Family Current Living Situation Comment: Lives with but he is hospitalized at [facility]. current occupation: Retired Feels Safe at Home: Yes Assistive Devices: CPAP and Walker Assistive Devices Comment: patients own cpap from home Allergies Allergies Allergy/AdvReac Type Severity Reaction Status Date / Time amoxicillin [From Augmentin] Allergy Intermediate Hives Verified 08/30/22 16:12 clavulanic acid Allergy Intermediate Hives Verified 08/30/22 16:12 [From Augmentin] gabapentin Allergy Intermediate ITCHY RED Verified 08/30/22 16:12 SPOTS ON FEET Penicillins Allergy Intermediate Hives Verified 08/30/22 16:12 Home Meds Home Medications Medication Instructions Recorded Confirmed albuterol sulfate 90 mcg/actuation 2 puff inhalation Q4H PRN 07/14/19 08/30/22 aerosol inhaler Wheeze/Cough aspirin 81 mg tablet,delayed 81 mg PO QAM 07/14/19 08/30/22 release (Adriana Low Dose Aspirin) diltiazem HCl 120 mg 120 mg PO QAM 07/14/19 08/30/22 capsule,extended release 24 hr ezetimibe 10 mg tablet 10 mg PO QAM 07/14/19 08/30/22 metformin 750 mg tablet,extended 750 mg PO QAM 07/14/19 08/30/22 release 24 hr lisinopril 10 mg tablet 10 mg PO QAM 02/15/20 08/30/22 pantoprazole 40 mg tablet,delayed 40 mg PO BID 06/29/20 08/30/22 release (Protonix) acetaminophen 500 mg tablet 500 mg PO Q4 PRN Pain 09/21/20 08/30/22 (Tylenol Extra Strength) nitroglycerin 0.4 mg sublingual 0.4 mg sublingual DIRECTED PRN 09/24/20 08/30/22 tablet (Nitrostat) Chest Pain furosemide 20 mg tablet (Lasix) 40 mg PO QAM 12/13/21 08/30/22 metoprolol tartrate 25 mg tablet 12.5 mg PO BID 12/13/21 08/30/22 multivitamin 1 tab PO DAILY 12/13/21 08/30/22 potassium chloride 20 mEq 20 meq PO DAILY 12/13/21 08/30/22 tablet,extended release warfarin 5 mg tablet 5 mg PO QPM 06/25/22 08/30/22 albuterol sulfate 2.5 mg/3 mL 2.5 mg inhalation DIRECTED PRN 08/30/22 08/30/22 (0.083 %) solution for nebulization Shortness Of Breath fluticasone furoate 200 1 inh inhalation DAILY 08/30/22 08/30/22 mcg-vilanterol 25 mcg/dose inhalation powder (Breo Ellipta) Previous Rx's Medication Instructions Recorded umeclidinium 62.5 mcg/actuation 1 inh inhalation DAILY #30 ea 10/02/20 blister powder for inhalation (Incruse Ellipta) Results & Data (ED) Vital Signs Vital Signs - 24 hr 08/30/22 16:00 08/30/22 16:12 08/30/22 16:15 Temperature Temperature Source Oral Pulse Rate 86 75 Pulse Rate [Apical] Pulse Rate from SpO2 Sensor 78 Respiratory Rate 20 17 Respiratory Effort / Characteristics Non-Labored Respiratory Depth Respiratory Pattern Regular Blood Pressure 165/95 H 165/95 H Blood Pressure [Right Arm] Blood Pressure Mean 118 118 Blood Pressure Mean [Right Arm] Blood Pressure Position Lying Blood Pressure Position [Right Arm] Pulse Oximetry 95 94 Oxygen Delivery Method Nasal Cannula Nasal Cannula Oxygen Flow Rate 2 2 Sepsis Recent Fever Within 48 Hours No Sepsis New/Unexplained Change in Mental Status N/A Sepsis Action Taken by Nursing No Action Required 08/30/22 16:15 08/30/22 16:30 08/30/22 16:30 Temperature Temperature Source Pulse Rate 78 77 Pulse Rate [Apical] Pulse Rate from SpO2 Sensor 78 Respiratory Rate 18 16 Respiratory Effort / Characteristics Respiratory Depth Respiratory Pattern Blood Pressure 160/103 H Blood Pressure [Right Arm] Blood Pressure Mean 122 Blood Pressure Mean [Right Arm] Blood Pressure Position Blood Pressure Position [Right Arm] Pulse Oximetry 96 Oxygen Delivery Method Nasal Cannula Oxygen Flow Rate 2 Sepsis Recent Fever Within 48 Hours Sepsis New/Unexplained Change in Mental Status Sepsis Action Taken by Nursing 08/30/22 16:42 08/30/22 17:05 08/30/22 17:05 Temperature 36.6 C 36.6 C Temperature Source Oral Oral Pulse Rate 78 Pulse Rate [Apical] 83 83 Pulse Rate from SpO2 Sensor Respiratory Rate 20 20 Respiratory Effort / Characteristics Non-Labored Non-Labored Spontaneous Respiratory Depth Normal Normal Respiratory Pattern Regular Regular Blood Pressure Blood Pressure [Right Arm] 165/98 H 165/98 H Blood Pressure Mean Blood Pressure Mean [Right Arm] 120 120 Blood Pressure Position Blood Pressure Position [Right Arm] Lying Lying Pulse Oximetry 97 97 Oxygen Delivery Method Nasal Cannula Nasal Cannula Oxygen Flow Rate 2 2 Sepsis Recent Fever Within 48 Hours Sepsis New/Unexplained Change in Mental Status Sepsis Action Taken by Nursing 08/30/22 16:40 08/30/22 16:46 08/30/22 16:46 Temperature Temperature Source Pulse Rate 83 87 Pulse Rate [Apical] Pulse Rate from SpO2 Sensor 82 91 H Respiratory Rate 22 23 Respiratory Effort / Characteristics Respiratory Depth Respiratory Pattern Blood Pressure 187/103 H Blood Pressure [Right Arm] Blood Pressure Mean 131 Blood Pressure Mean [Right Arm] Blood Pressure Position Blood Pressure Position [Right Arm] Pulse Oximetry 96 97 Oxygen Delivery Method Oxygen Flow Rate Sepsis Recent Fever Within 48 Hours Sepsis New/Unexplained Change in Mental Status Sepsis Action Taken by Nursing 08/30/22 16:50 08/30/22 16:50 08/30/22 17:00 Temperature Temperature Source Pulse Rate 83 Pulse Rate [Apical] Pulse Rate from SpO2 Sensor 87 Respiratory Rate 20 Respiratory Effort / Characteristics Respiratory Depth Respiratory Pattern Blood Pressure 160/110 H 165/98 H Blood Pressure [Right Arm] Blood Pressure Mean 126 120 Blood Pressure Mean [Right Arm] Blood Pressure Position Blood Pressure Position [Right Arm] Pulse Oximetry 89 L Oxygen Delivery Method Oxygen Flow Rate Sepsis Recent Fever Within 48 Hours Sepsis New/Unexplained Change in Mental Status Sepsis Action Taken by Nursing 08/30/22 17:00 08/30/22 17:20 08/30/22 17:20 Temperature 36.6 C Temperature Source Oral Pulse Rate 77 Pulse Rate [Apical] 85 85 Pulse Rate from SpO2 Sensor 88 Respiratory Rate 21 20 20 Respiratory Effort / Characteristics Non-Labored Non-Labored Spontaneous Respiratory Depth Normal Normal Respiratory Pattern Regular Regular Blood Pressure Blood Pressure [Right Arm] 156/100 H 156/100 H Blood Pressure Mean Blood Pressure Mean [Right Arm] 118 118 Blood Pressure Position Blood Pressure Position [Right Arm] Lying Lying Pulse Oximetry 96 95 95 Oxygen Delivery Method Nasal Cannula Nasal Cannula Oxygen Flow Rate 2 2 Sepsis Recent Fever Within 48 Hours Sepsis New/Unexplained Change in Mental Status Sepsis Action Taken by Nursing 08/30/22 17:35 08/30/22 17:50 Temperature 36.6 C 36.6 C Temperature Source Oral Oral Pulse Rate Pulse Rate [Apical] 91 H 85 Pulse Rate from SpO2 Sensor Respiratory Rate 20 17 Respiratory Effort / Characteristics Non-Labored Spontaneous Non-Labored Spontaneous Respiratory Depth Normal Normal Respiratory Pattern Regular Regular Blood Pressure Blood Pressure [Right Arm] 151/103 H 165/112 H Blood Pressure Mean Blood Pressure Mean [Right Arm] 119 129 Blood Pressure Position Blood Pressure Position [Right Arm] Lying Lying Pulse Oximetry 93 100 Oxygen Delivery Method Nasal Cannula Nebulizer Oxygen Flow Rate 2 Sepsis Recent Fever Within 48 Hours Sepsis New/Unexplained Change in Mental Status Sepsis Action Taken by [facility] Current Medication List: was personally reviewed by me Laboratory Data Attestation: I reviewed the patient's lab results. 08/30/22 16:06 08/30/22 16:06 Lab Results 08/30/22 08/30/22 08/30/22 Range/Units 16:06 16:06 16:06 WBC 7.97 (4.8-10.8) K/ul RBC 4.15 L (4.20-5.40) M/uL Hgb 13.3 (12.0-16.0) g/dl Hct 40.4 (37.0-47.0) % MCV 97.3 (80.0-100.0) fL MCH 32.0 (25.0-34.0) pg MCHC 32.9 (32.0-36.0) g/dL RDW Std Deviation 59.5 H (36.4-46.3) fL RDW Coeff of Linda 16.5 H (11.5-14.5) % Plt Count 181 (130-400) K/uL MPV 10.7 (9.4-12.4) fL Immature Gran % (Auto) 0.4 % Neut % (Auto) 69.9 % Lymph % (Auto) 18.8 % Metcalfe % (Auto) 9.2 % Eos % (Auto) 1.3 % Baso % (Auto) 0.4 % Neut # (Auto) 5.58 (1.40-6.50) K/uL Lymph # (Auto) 1.50 (1.2-3.4) K/uL Metcalfe # (Auto) 0.73 H (0.11-0.59) K/uL Eos # (Auto) 0.10 (0-0.50) K/uL Baso # (Auto) 0.03 (0-0.2) K/uL Immature Gran # (Auto) 0.03 (0.01-0.20) K/uL PT 16.9 H (9.0-12.0) Seconds POC INR (0.9-1.1) INR 1.6 H (0.9-1.1) APTT 29.2 (21.0-31.0) Seconds PTT Ratio 1.0 Sodium 137 (136-145) mmol/L Potassium 3.8 (3.5-5.1) mmol/L Chloride 105 (98-107) mmol/L Carbon Dioxide 28 (21-32) mmol/L Anion Gap 4 (3-11) BUN 20 (6-23) mg/dl Creatinine 0.78 (0.6-1.2) mg/dl Est Cr Clr Drug Dosing 50.9 ml/min Est GFR ( Amer) 78.1 ml/min Est GFR (Non-Af Amer) 67.4 ml/min BUN/Creatinine Ratio 25.6 H (10-20) Glucose 150 H (70-99(Fasting)) mg/dl POC Glucose (70-99) mg/dl Calcium 8.0 L (8.6-10.3) mg/dl Magnesium 1.7 (1.7-2.4) mg/dl Total Bilirubin 0.3 (0.2-1.0) mg/dl AST 20 (13-39) U/L ALT 16 (7-52) U/L Alkaline Phosphatase 48 (34-104) U/L Troponin I High Sens 5.9 (0-14) pg/ml Total Protein 5.6 L (6.0-8.3) gm/dl Albumin 3.1 L (3.4-5.0) gm/dl Globulin 2.5 (2.5-4.0) gm/dl Albumin/Globulin Ratio 1.2 (0.9-2) SARS-CoV-2, RNA, NAAT (NEGATIVE) 08/30/22 08/30/22 08/30/22 Range/Units 16:11 16:16 16:23 WBC (4.8-10.8) K/ul RBC (4.20-5.40) M/uL Hgb (12.0-16.0) g/dl Hct (37.0-47.0) % MCV (80.0-100.0) fL MCH (25.0-34.0) pg MCHC (32.0-36.0) g/dL RDW Std Deviation (36.4-46.3) fL RDW Coeff of Linda (11.5-14.5) % Plt Count (130-400) K/uL MPV (9.4-12.4) fL Immature Gran % (Auto) % Neut % (Auto) % Lymph % (Auto) % Metcalfe % (Auto) % Eos % (Auto) % Baso % (Auto) % Neut # (Auto) (1.40-6.50) K/uL Lymph # (Auto) (1.2-3.4) K/uL Metcalfe # (Auto) (0.11-0.59) K/uL Eos # (Auto) (0-0.50) K/uL Baso # (Auto) (0-0.2) K/uL Immature Gran # (Auto) (0.01-0.20) K/uL PT (9.0-12.0) Seconds POC INR 1.6 H (0.9-1.1) INR (0.9-1.1) APTT (21.0-31.0) Seconds PTT Ratio Sodium (136-145) mmol/L Potassium (3.5-5.1) mmol/L Chloride (98-107) mmol/L Carbon Dioxide (21-32) mmol/L Anion Gap (3-11) BUN (6-23) mg/dl Creatinine (0.6-1.2) mg/dl Est Cr Clr Drug Dosing ml/min Est GFR ( Amer) ml/min Est GFR (Non-Af Amer) ml/min BUN/Creatinine Ratio (10-20) Glucose (70-99(Fasting)) mg/dl POC Glucose 141 H (70-99) mg/dl Calcium (8.6-10.3) mg/dl Magnesium (1.7-2.4) mg/dl Total Bilirubin (0.2-1.0) mg/dl AST (13-39) U/L ALT (7-52) U/L Alkaline Phosphatase (34-104) U/L Troponin I High Sens (0-14) pg/ml Total Protein (6.0-8.3) gm/dl Albumin (3.4-5.0) gm/dl Globulin (2.5-4.0) gm/dl Albumin/Globulin Ratio (0.9-2) SARS-CoV-2, RNA, NAAT NEGATIVE (NEGATIVE) Administered Medications Magnesium Sulfate/Dextrose (Magnesium Sulfate / D5w) 1 gm in 100 mls @ 50 mls/hr IV Q2H BRYN Stop: 08/30/22 23:14 Last Admin: 08/30/22 21:47 Dose: 50 mls/hr Documented By: Infusion: 08/30/22 21:47 Dose: 50 mls/hr Documented By: Admin: 08/30/22 19:49 Dose: 50 mls/hr Documented By: ELOISE Insulin Glargine (Lantus Per Unit Charge) 0 units SQ BID BRYN; Protocol Stop: 09/29/22 20:59 Last Admin: 08/30/22 21:07 Dose: Not Given Documented By: ELOISE Discontinued Medications Albuterol (Albuterol 0.083% Nebu Soln 3 Ml Vial) 2.5 mg NEB NOW STA; Protocol Stop: 08/30/22 16:31 Last Admin: 08/30/22 17:59 Dose: Not Given Documented By: VICTORINA Tenecteplase 22 mg/ Syringe 4.4 mls @ 52.8 mls/min IV NOW ONE; Protocol Stop: 08/30/22 17:10 Last Admin: 08/30/22 17:05 Dose: 52.8 mls/min Documented By: VICTORINA Co-signed By: PROMISE Ioversol (Optiray 320 125ml) 117 ml IV ONCE ONE Stop: 08/30/22 16:09 Last Admin: 08/30/22 16:08 Dose: 117 ml Documented By: DOMENIC Labetalol HCl (Labetalol Hcl Iv 5 Mg/Ml 20ml) 10 mg IV Q10M PRN PRN Reason: SBP > 185 or DBP > 110mmHg Stop: 08/30/22 17:59 Last Admin: 08/30/22 17:59 Dose: 10 mg Documented By: VICTORINA Co-signed By: MATI Admin: 08/30/22 17:02 Dose: 10 mg Documented By: VICTORINA Co-signed By: PROMISE Labetalol HCl (Labetalol Hcl Iv 5 Mg/Ml 20ml) Confirm Administered Dose 5 mg IV .STK-MED ONE Stop: 08/30/22 17:00 Last Admin: 08/30/22 17:03 Dose: Not Given Documented By: VICTORINA Levalbuterol HCl (Levalbuterol 1.25 Mg/3 Ml Neb) 1.25 mg NEB NOW STA; Protocol Stop: 08/30/22 17:01 Last Admin: 08/30/22 17:48 Dose: 1.25 mg Documented By: VICTORINA Metoprolol Tartrate (Metoprolol Tartrate 25 Mg Tab) 12.5 mg PO BID BRYN Stop: 09/29/22 20:59 Last Admin: 08/30/22 21:07 Dose: Not Given Documented By: ELOISE Miscellaneous (Stat Iv) 1 each N/A NOW STA Stop: 08/30/22 17:00 Last Admin: 08/30/22 17:14 Dose: Not Given Documented By: VICTORINA Pantoprazole Sodium (Pantoprazole 40 Mg Tab) 40 mg PO BID BRYN Stop: 09/29/22 20:59 Last Admin: 08/30/22 21:07 Dose: Not Given Documented By: CARLYP Sodium Chloride (Sodium Chloride 0.9% 10ml Flush) 20 ml IV NOW STA Stop: 08/30/22 17:00 Last Admin: 08/30/22 17:14 Dose: 20 ml Documented By: VICTORINA Imaging Data Radiologist's Impression: Head CT 08/30/22 15:[address] OF THE BRAIN; CT ANGIOGRAM OF THE BRAIN; CT ANGIOGRAM OF THE NECK CLINICAL HISTORY: Neurological deficit. Stroke like symptoms. Aphasia. COMPARISON STUDY: CT of the brain dated 12/31/2020. TECHNIQUE: Unenhanced axial CT scan of the brain is performed. Subsequently, following the IV administration of 117 of Optiray 320, CT angiogram of the head and neck was performed from the aortic arch to the vertex. Images are reviewed in the axial, sagittal, and coronal planes. 3-D MIPS images are created and assessed. IV contrast was administered without complication. All measurements were calculated based on NASCET criteria. A dose lowering technique was utilized adhering to the principles of ALARA. CT DOSE: 1158.93 mGy.cm FINDINGS: Brain parenchyma: There is age-related involutional change noting moderate to advanced subcortical and periventricular microangiopathic disease. There is no hemorrhage, mass effect, or evidence of acute territorial ischemia by CT criteria. There is no evidence of enhancing mass lesion on the angiogram phase images. The ventricles, sulci, and cisterns are prominent secondary to involutional change. Fallon-white matter differentiation is preserved. A chronic lacunar infarct is noted in the right thalamus. No extra-axial fluid collection is seen. Thoracic aorta: There is atherosclerotic calcification of the thoracic aorta. Visualized portions of the thoracic aorta are normal in caliber. The aortic arch demonstrates standard 3-vessel anatomy. Right carotid arterial system: The right common carotid artery is widely patent, as are the right internal and external carotid arteries. Calcified plaque is noted in the carotid bulb. Left carotid arterial system: The left common carotid artery is widely patent, as are the left internal and external carotid arteries. Calcified plaque is noted in the carotid bulb. Vertebral arteries: The vertebral arteries are widely patent bilaterally noting mild right-sided dominance. Subclavian arteries: Widely patent bilaterally. Intracranial vasculature: There is atherosclerotic calcification of the cav ernous carotid and vertebral arteries. The internal carotid arteries are patent at the skull base, as are the anterior and middle cerebral arteries bilaterally. The vertebrobasilar system and posterior cerebral arteries are widely patent. The right vertebral artery is dominant. There is origin of the left posterior cerebral artery. A posterior communicating artery is seen on the right. There is no aneurysm, high-grade stenosis, or focal vessel cut off seen throughout the intracranial circulation. Jugular veins: Patent bilaterally. Dural sinuses: Patent. Lung apices: Partially visualized upper lobe lung parenchyma appears clear. Soft tissues: The visualized pharyngeal soft tissues are normal in appearance noting angiographic phase technique. The oropharyngeal airway appears widely patent. The salivary and thyroid glands are normal in appearance. No cervical lymphadenopathy is seen. Skeletal structures: The skeletal structures are osteopenic. The calvarium appears intact. The cervical spine is noting multilevel spondylosis. No lytic or blastic lesion is seen. Orbits: The bony orbits are intact. Orbital contents are normal as visualized noting bilateral ocular lens implants. Sinuses and mastoids: There is trace mucosal thickening in the right maxillary antrum. The remaining paranasal sinuses are clear. The mastoid air cells are well pneumatized. IMPRESSION: 1. There is no hemorrhage, mass effect, or evidence of acute territorial ischemia by CT criteria. 2. Unremarkable CT angiogram of the brain. 3. Unremarkable CT angiogram of the neck. ACT 112: Negative or not required by law. Electronically signed by: Freddy Dahl M.D. 08/30/2022 4:15 PM Head CTA 08/30/22 15:[address] OF THE BRAIN; CT ANGIOGRAM OF THE BRAIN; CT ANGIOGRAM OF THE NECK CLINICAL HISTORY: Neurological deficit. Stroke like symptoms. Aphasia. COMPARISON STUDY: CT of the brain dated 12/31/2020. TECHNIQUE: Unenhanced axial CT scan of the brain is performed. Subsequently, following the IV administration of 117 of Optiray 320, CT angiogram of the head and neck was performed from the aortic arch to the vertex. Images are reviewed in the axial, sagittal, and coronal planes. 3-D MIPS images are created and assessed. IV contrast was administered without complication. All measurements were calculated based on NASCET criteria. A dose lowering technique was utilized adhering to the principles of ALARA. CT DOSE: 1158.93 mGy.cm FINDINGS: Brain parenchyma: There is age-related involutional change noting moderate to advanced subcortical and periventricular microangiopathic disease. There is no hemorrhage, mass effect, or evidence of acute territorial ischemia by CT criteria. There is no evidence of enhancing mass lesion on the angiogram phase images. The ventricles, sulci, and cisterns are prominent secondary to involutional change. Fallon-white matter differentiation is preserved. A chronic lacunar infarct is noted in the right thalamus. No extra-axial fluid collection is seen. Thoracic aorta: There is atherosclerotic calcification of the thoracic aorta. Visualized portions of the thoracic aorta are normal in caliber. The aortic arch demonstrates standard 3-vessel anatomy. Right carotid arterial system: The right common carotid artery is widely patent, as are the right internal and external carotid arteries. Calcified plaque is noted in the carotid bulb. Left carotid arterial system: The left common carotid artery is widely patent, as are the left internal and external carotid arteries. Calcified plaque is noted in the carotid bulb. Vertebral arteries: The vertebral arteries are widely patent bilaterally noting mild right-sided dominance. Subclavian arteries: Widely patent bilaterally. Intracranial vasculature: There is atherosclerotic calcification of the cavernous carotid and vertebral arteries. The internal carotid arteries are patent at the skull base, as are the anterior and middle cerebral arteries bilaterally. The vertebrobasilar system and posterior cerebral arteries are wid andres patent. The right vertebral artery is dominant. There is origin of the left posterior cerebral artery. A posterior communicating artery is seen on the right. There is no aneurysm, high-grade stenosis, or focal vessel cut off seen throughout the intracranial circulation. Jugular veins: Patent bilaterally. Dural sinuses: Patent. Lung apices: Partially visualized upper lobe lung parenchyma appears clear. Soft tissues: The visualized pharyngeal soft tissues are normal in appearance noting angiographic phase technique. The oropharyngeal airway appears widely patent. The salivary and thyroid glands are normal in appearance. No cervical lymphadenopathy is seen. Skeletal structures: The skeletal structures are osteopenic. The calvarium appears intact. The cervical spine is noting multilevel spondylosis. No lytic or blastic lesion is seen. Orbits: The bony orbits are intact. Orbital contents are normal as visualized noting bilateral ocular lens implants. Sinuses and mastoids: There is trace mucosal thickening in the right maxillary antrum. The remaining paranasal sinuses are clear. The mastoid air cells are well pneumatized. IMPRESSION: 1. There is no hemorrhage, mass effect, or evidence of acute territorial ischemia by CT criteria. 2. Unremarkable CT angiogram of the brain. 3. Unremarkable CT angiogram of the neck. ACT 112: Negative or not required by law. Electronically signed by: Freddy Dahl M.D. 08/30/2022 4:15 PM Neck CTA 08/30/22 15:[address] OF THE BRAIN; CT ANGIOGRAM OF THE BRAIN; CT ANGIOGRAM OF THE NECK CLINICAL HISTORY: Neurological deficit. Stroke like symptoms. Aphasia. COMPARISON STUDY: CT of the brain dated 12/31/2020. TECHNIQUE: Unenhanced axial CT scan of the brain is performed. Subsequently, following the IV administration of 117 of Optiray 320, CT angiogram of the head and neck was performed from the aortic arch to the vertex. Images are reviewed in the axial, sagittal, and coronal planes. 3-D MIPS images are created and assessed. IV contrast was administered without complication. All measurements were calculated based on NASCET criteria. A dose lowering technique was utilized adhering to the principles of ALARA. CT DOSE: 1158.93 mGy.cm FINDINGS: Brain parenchyma: There is age-related involutional change noting moderate to advanced subcortical and periventricular microangiopathic disease. There is no hemorrhage, mass effect, or evidence of acute territorial ischemia by CT criteria. There is no evidence of enhancing mass lesion on the angiogram phase images. The ventricles, sulci, and cisterns are prominent secondary to involutional change. Fallon-white matter differentiation is preserved. A chronic lacunar infarct is noted in the right thalamus. No extra-axial fluid collection is seen. Thoracic aorta: There is atherosclerotic calcification of the thoracic aorta. Visualized portions of the thoracic aorta are normal in caliber. The aortic arch demonstrates standard 3-vessel anatomy. Right carotid arterial system: The right common carotid artery is widely patent, as are the right internal and external carotid arteries. Calcified plaque is noted in the carotid bulb. Left carotid arterial system: The left common carotid artery is widely patent, as are the left internal and external carotid arteries. Calcified plaque is noted in the carotid bulb. Vertebral arteries: The vertebral arteries are widely patent bilaterally noting mild right-sided dominance. Subclavian arteries: Widely patent bilaterally. Intracranial vasculature: There is atherosclerotic calcification of the cavernous carotid and vertebral arteries. The internal carotid arteries are patent at the skull base, as are the anterior and middle cerebral arteries bilaterally. The vertebrobasilar system and posterior cerebral arteries are widely patent. The right vertebral artery is dominant. There is origin of the left posterior cerebral artery. A posterior communicating artery is seen on the right. There is no aneurysm, high-grade stenosis, or focal vessel cut off seen throughout the intracranial circulation. Jugular veins: Patent bilaterally. Dural sinuses: Patent. Lung apices: Partially visualized upper lobe lung parenchyma appears clear. Soft tissues: The visualized pharyngeal soft tissues are normal in appearance noting angiographic phase technique. The oropharyngeal airway appears widely patent. The salivary and thyroid glands are normal in appearance. No cervical lymphadenopathy is seen. Skeletal structures: The skeletal structures are osteopenic. The calvarium appears intact. The cervical spine is noting multilevel spondylosis. No lytic or blastic lesion is seen. Orbits: The bony orbits are intact. Orbital contents are normal as visualized noting bilateral ocular lens implants. Sinuses and mastoids: There is trace mucosal thickening in the right maxillary antrum. The remaining paranasal sinuses are clear. The mastoid air cells are well pneumatized. IMPRESSION: 1. There is no hemorrhage, mass effect, or evidence of acute territorial ischemia by CT criteria. 2. Unremarkable CT angiogram of the brain. 3. Unremarkable CT angiogram of the neck. ACT 112: Negative or not required by law. Electronically signed by: Freddy Dahl M.D. 08/30/2022 4:15 PM Chest X-Ray 08/30/22 16:30 SINGLE VIEW CHEST CLINICAL HISTORY: Hypoxia. FINDINGS: 2 AP, portable, upright chest radiographs are compared to study dated 06/25/2022 and correlated with chest CT dated 12/13/2021. The examination is degraded by portable technique and patient rotation. The heart is enlarged noting atherosclerotic calcification of the thoracic aorta. There is pulmonary vascular congestion. There is evidence of previous cardiac valve surgery. C hronic interstitial thickening is similar to previous. There are low lung volumes with bibasilar scarring/atelectasis. No large pleural effusion or pneumothorax is seen. The skeletal structures are osteopenic. Degenerative change is noted in the shoulders and spine. The chronic/healed left-sided rib fractures. Excreted IV contrast is seen in the renal pelvis bilaterally. IMPRESSION: 1. Cardiomegaly with pulmonary vascular congestion. 2. No airspace consolidation or large pleural effusion is identified. ACT 112: Negative or not required by law. Electronically signed by: Freddy Dahl M.D. 08/30/2022 5:38 PM Discharge Plan Visit Data Chief Complaint: Stroke Alert ED Provider: Luciano Mccartney Discharge Problem: Aphasia, Hypoxia Patient Disposition: Admitted As Inpatient Discharge Instructions Interventions: ED Discharge Assessment Last Done: 08/30/22 18:50
[2022-08-30] MEDS ORDERED: OPTIRAY 320 125ml IV ONE (16:08)
--- NOTE | 2022-08-30 16:17 | CT Scan Report ---
UNENHANCED CT OF THE BRAIN; CT ANGIOGRAM OF THE BRAIN; CT ANGIOGRAM OF THE NECK CLINICAL HISTORY: Neurological deficit. Stroke like symptoms. Aphasia. COMPARISON STUDY: CT of the brain dated 12/31/2020. TECHNIQUE: Unenhanced axial CT scan of the brain is performed. Subsequently, following the IV adminis tration of 117 of Optiray 320, CT angiogram of the head and neck was performed from the aortic arch t o the vertex. Images are reviewed in the axial, sagittal, and coronal planes. 3-D MIPS images are cre ated and assessed. IV contrast was administered without complication. All measurements were calculate d based on NASCET criteria. A dose lowering technique was utilized adhering to the principles of ALA RA. CT DOSE: 1158.93 mGy.cm FINDINGS: Brain parenchyma: There is age-related involutional change noting moderate to advanced subcortical an d periventricular microangiopathic disease. There is no hemorrhage, mass effect, or evidence of acute territorial ischemia by CT criteria. There is no evidence of enhancing mass lesion on the angiogram phase images. The ventricles, sulci, and cisterns are prominent secondary to involutional change. Gra y-white matter differentiation is preserved. A chronic lacunar infarct is noted in the right thalamus . No extra-axial fluid collection is seen. Thoracic aorta: There is atherosclerotic calcification of the thoracic aorta. Visualized portions of the thoracic aorta are normal in caliber. The aortic arch demonstrates standard 3-vessel anatomy. Right carotid arterial system: The right common carotid artery is widely patent, as are the right int ernal and external carotid arteries. Calcified plaque is noted in the carotid bulb. Left carotid arterial system: The left common carotid artery is widely patent, as are the left regulatory affairs intern al and external carotid arteries. Calcified plaque is noted in the carotid bulb. Vertebral arteries: The vertebral arteries are widely patent bilaterally noting mild right-sided tresa nance. Subclavian arteries: Widely patent bilaterally. Intracranial vasculature: There is atherosclerotic calcification of the cavernous carotid and vertebr al arteries. The internal carotid arteries are patent at the skull base, as are the anterior and midd le cerebral arteries bilaterally. The vertebrobasilar system and posterior cerebral arteries are wide ly patent. The right vertebral artery is dominant. There is origin of the left posterior cerebr al artery. A posterior communicating artery is seen on the right. There is no aneurysm, high-grade st enosis, or focal vessel cut off seen throughout the intracranial circulation. Jugular veins: Patent bilaterally. Dural sinuses: Patent. Lung apices: Partially visualized upper lobe lung parenchyma appears clear. Soft tissues: The visualized pharyngeal soft tissues are normal in appearance noting angiographic pha se technique. The oropharyngeal airway appears widely patent. The salivary and thyroid glands are nor mal in appearance. No cervical lymphadenopathy is seen. Skeletal structures: The skeletal structures are osteopenic. The calvarium appears intact. The cervic al spine is noting multilevel spondylosis. No lytic or blastic lesion is seen. Orbits: The bony orbits are intact. Orbital contents are normal as visualized noting bilateral ocular lens implants. Sinuses and mastoids: There is trace mucosal thickening in the right maxillary antrum. The remaining paranasal sinuses are clear. The mastoid air cells are well pneumatized. IMPRESSION: 1. There is no hemorrhage, mass effect, or evidence of acute territorial ischemia by CT criteria. 2. Unremarkable CT angiogram of the brain. 3. Unremarkable CT angiogram of the neck. ACT 112: Negative or not required by law. Electronically signed by: Freddy Dahl M.D. 08/30/2022 4:15 PM
[2022-08-30 16:24] LABS: Basophils # (auto) 0.03 K/uL (0-0.2); Basophils % (auto) 0.4 %; Eosinophils % (auto) 1.3 %; Hematocrit (blood only) 40.4 % (37.0-47.0); Hemoglobin 13.3 g/dl (12.0-16.0); Immature Granulocytes # (auto) 0.03 K/uL (0.01-0.20); Immature Granulocytes % (auto) 0.4 %; Lymphocytes % (auto) 18.8 %; Mean Corpuscular Hgb Conc 32.9 g/dL (32.0-36.0); Mean Corpuscular Volume 97.3 fL (80.0-100.0); Mean Platelet Volume 10.7 fL (9.4-12.4); Monocytes # (auto) 0.73 K/uL (0.11-0.59); Monocytes % (auto) 9.2 %; Neutrophils # (auto) 5.58 K/uL (1.40-6.50); Neutrophils % (auto) 69.9 %; Platelet Count 181 K/uL (130-400); RDW Coefficient of Variation 16.5 % (11.5-14.5); RDW Standard Deviation 59.5 fL (36.4-46.3); Red Blood Count 4.15 M/uL (4.20-5.40); White Blood Count 7.97 K/ul (4.8-10.8)
[2022-08-30] MEDS ORDERED: ALBUTEROL 0.083% NEBU SOLN 3 ML VIAL NEB STA (16:30)
[2022-08-30 16:41] LABS: Albumin Globulin Ratio 1.2 (0.9-2); Albumin Level 3.1 gm/dl (3.4-5.0); BUN Creatinine Ratio 25.6 (10-20); Bilirubin,Total 0.3 mg/dl (0.2-1.0); Creatinine Clr Calc Pharmacy 50.9 ml/min; Est GFR (African American) 78.1 ml/min; Est GFR (Non-African American) 67.4 ml/min; Globulin 2.5 gm/dl (2.5-4.0); Magnesium 1.7 mg/dl (1.7-2.4); Potassium 3.8 mmol/L (3.5-5.1); Total Protein 5.6 gm/dl (6.0-8.3)
[2022-08-30 16:46] LABS: Troponin I High Sensitivity 5.9 pg/ml (0-14)
[2022-08-30 16:49] LABS: INR 1.6 (0.9-1.1); Partial Thromboplastin Time 29.2 Seconds (21.0-31.0); Prothrombin Time 16.9 Seconds (9.0-12.0)
[2022-08-30] MEDS ORDERED: LABETALOL HCL IV 5 MG/ML 20ML IV ONE (16:59)
[2022-08-30] MEDS ORDERED: STAT IV STA (16:59)
[2022-08-30] MEDS ORDERED: SODIUM CHLORIDE 0.9% 10ML FLUSH IV STA (16:59)
[2022-08-30] MEDS ORDERED: No Aspirin within 24hrs of THROMBOLYTIC-Stroke PO SCH (17:00)
[2022-08-30] MEDS ORDERED: LEVALBUTEROL 1.25 MG/3 ML NEB NEB STA (17:00)
[2022-08-30] MEDS: LABETALOL HCL IV 5 MG/ML 20ML IV PRN ×2 (17:02→17:59)
[2022-08-30] MEDS ORDERED: TENECTEPLASE 22 MG in SYRINGE 0 ML IV ONE (17:09)
--- NOTE | 2022-08-30 17:39 | XRay Report ---
SINGLE VIEW CHEST CLINICAL HISTORY: Hypoxia. FINDINGS: 2 AP, portable, upright chest radiographs are compared to study dated 06/25/2022 and correla madalyn with chest CT dated 12/13/2021. The examination is degraded by portable technique and patient rota tion. The heart is enlarged noting atherosclerotic calcification of the thoracic aorta. There is pulm onary vascular congestion. There is evidence of previous cardiac valve surgery. Chronic interstitial thickening is similar to previous. There are low lung volumes with bibasilar scarring/atelectasis. No large pleural effusion or pneumothorax is seen. The skeletal structures are osteopenic. Degenerative change is noted in the shoulders and spine. The chronic/healed left-sided rib fractures. Excreted IV contrast is seen in the renal pelvis bilaterally. IMPRESSION: 1. Cardiomegaly with pulmonary vascular congestion. 2. No airspace consolidation or large pleural effusion is identified. ACT 112: Negative or not required by law. Electronically signed by: Freddy Dahl M.D. 08/30/2022 5:38 PM
[2022-08-30] MEDS ORDERED: GLUCOSE 10 TAB/TUBE PO PRN (17:57)
[2022-08-30] MEDS ORDERED: GLUCAGON FOR INJ 1 MG VIAL SQ PRN (17:57)
[2022-08-30] MEDS ORDERED: DEXTROSE 50% 50 ML SYRINGE IV PRN (17:57)
[2022-08-30] MEDS ORDERED: GLUCOSE 40% GEL 15 GM TUBE PO PRN (17:57)
[2022-08-30] MEDS ORDERED: CARBOHYDRATES FOR HYPOGLYCEMIA PO PRN (17:57)
[2022-08-30] MEDS ORDERED: PHARMACY GLYCEMIC MGMT CONSULT PRN (17:57)
--- NOTE | 2022-08-30 17:59 | History & Physical Report ---
Date of Service August 30, 2022 Assessment & Plan (1) Stroke-like symptom: Plan 87yo F with PMH of aortic valve stenosis s/p TAVR, history of paroxysmal atrial fibrillation on Coumadin, history of COPD, interstitial lung disease, on chronic home oxygen 1 L during daytime and 2 L while sleeping, DM II, HLD, HTN, CAD, SANDRA, history of pulmonary emboli and other medical problems listed below who presents with sudden onset aphasia status post tenecteplase in the ED. She is being admitted to ICU for close monitoring and is being managed for the following: Strokelike symptoms Aphasia Status post tenecteplase Patient presents with febrile onset of aphasia around 2:40 PM 08/30/2022. Received tenecteplase in the ED. Unremarkable CT head, CTA head and neck. Holding warfarin and aspirin for next 24 hours, close neurochecks in ICU level. ICU consult. Neurology consult, MRI brain. Follow-up noncontrast CT head in 24 hours prior to resuming anticoagulation/antiplatelets. PT/OT, speech therapy consult. N.p.o. until speech evaluation. Other chronic medical conditions: Resume/continue with home meds as able A-fib RVR: Coumadin on hold due to tenecteplase use. Continue other medications. CAD: Aspirin on hold, continue other medications. DM II: Glycemic consult, sliding scale insulin. COPD: Stable, continue home nebs and meds. Continue with baseline oxygen requirement. SANDRA: Continue with home CPAP PE: Warfarin on hold DVT prophylaxis: Status post tenecteplase use at this point. DNR/DNI History of Present Illness Chief Complaint: Strokelike symptoms Primary Care Provider: Jamie Vela DO 87yo F with PMH of aortic valve stenosis s/p TAVR, history of paroxysmal atrial fibrillation on Coumadin, history of COPD, interstitial lung disease, on chronic home oxygen 1 L during daytime and 2 L while sleeping, DM II, HLD, HTN, CAD, SANDRA, history of pulmonary emboli presents 08/30 with strokelike symptoms. Patient's daughter was at bedside, patient nonverbal and not able to cooperate. Opens eyes. Most of the history obtained from ER physician, chart review and patient's daughter at bedside. Per patient's daughter they were having dinner and were done, after that they were talking and abruptly she could not speak that was around 2:40 PM. Then she was brought to the hospital, she did not appreciate any limb weakness. She did appreciate bilateral facial droop. She states that pt had been perfectly fine without any illness/runny nose/fever/cough/other visible symptoms in the last 1 week. She also states that the patient has been compliant with all of her medications. Per patient's daughter, patient did not use tobacco/drink alcohol/use illegal drugs. Medications reviewed with the patient's daughter. Currently takes Coumadin 5 mg daily. Patient uses walker for ambulation. Patient is DNR/DNI per patient's daughter at bedside. Allergies Allergy/AdvReac Type Severity Reaction Status Date / Time amoxicillin [From Augmentin] Allergy Intermediate Hives Verified 08/30/22 16:12 clavulanic acid Allergy Intermediate Hives Verified 08/30/22 16:12 [From Augmentin] gabapentin Allergy Intermediate ITCHY RED Verified 08/30/22 16:12 SPOTS ON FEET Penicillins Allergy Intermediate Hives Verified 08/30/22 16:12 Home Medications Medication Instructions Recorded Confirmed Type albuterol sulfate 90 mcg/actuation 2 puff inhalation Q4H PRN 07/14/19 08/30/22 History aerosol inhaler Wheeze/Cough aspirin 81 mg tablet,delayed 81 mg PO QAM 07/14/19 08/30/22 History release (Adriana Low Dose Aspirin) diltiazem HCl 120 mg 120 mg PO QAM 07/14/19 08/30/22 History capsule,extended release 24 hr ezetimibe 10 mg tablet 10 mg PO QAM 07/14/19 08/30/22 History metformin 750 mg tablet,extended 750 mg PO QAM 07/14/19 08/30/22 History release 24 hr lisinopril 10 mg tablet 10 mg PO QAM 02/15/20 08/30/22 History pantoprazole 40 mg tablet,delayed 40 mg PO BID 06/29/20 08/30/22 History release (Protonix) acetaminophen 500 mg tablet 500 mg PO Q4 PRN Pain 09/21/20 08/30/22 History (Tylenol Extra Strength) nitroglycerin 0.4 mg sublingual 0.4 mg sublingual DIRECTED PRN 09/24/20 08/30/22 History tablet (Nitrostat) Chest Pain umeclidinium 62.5 mcg/actuation 1 inh inhalation DAILY #30 ea 10/02/20 08/30/22 Rx blister powder for inhalation (Incruse Ellipta) furosemide 20 mg tablet (Lasix) 40 mg PO QAM 12/13/21 08/30/22 History metoprolol tartrate 25 mg tablet 12.5 mg PO BID 12/13/21 08/30/22 History multivitamin 1 tab PO DAILY 12/13/21 08/30/22 History potassium chloride 20 mEq 20 meq PO DAILY 12/13/21 08/30/22 History tablet,extended release warfarin 5 mg tablet 5 mg PO QPM 06/25/22 08/30/22 History albuterol sulfate 2.5 mg/3 mL 2.5 mg inhalation DIRECTED PRN 08/30/22 08/30/22 History (0.083 %) solution for nebulization Shortness Of Breath fluticasone furoate 200 1 inh inhalation DAILY 08/30/22 08/30/22 History mcg-vilanterol 25 mcg/dose inhalation powder (Breo Ellipta) Past Med/Surg History Medical History Acute exacerbation of congestive heart failure Acute hypoxemic respiratory failure Aortic stenosis ASCVD (arteriosclerotic cardiovascular disease) Aspiration pneumonia Asthma Asthma exacerbation Atrial fibrillation with rapid ventricular response Atrial fibrillation with rapid ventricular response Chest pain Chronic respiratory failure with hypoxia, on home oxygen therapy COPD (chronic obstructive pulmonary disease) COPD exacerbation COPD exacerbation Current use of assisted anticoagulation Deep vein thrombosis Diabetic neuropathy DM type 2 (diabetes mellitus, type 2) DMII (diabetes mellitus, type 2) DVT prophylaxis Dyslipidemia Failure of outpatient treatment Hypercapnic respiratory failure Hypertension Incomplete uterovaginal prolapse Moderate obstructive sleep apnea Myocardial Infarction PAF (paroxysmal atrial fibrillation) Pneumonia Recurrent pulmonary embolism Recurrent pulmonary embolism Sleep apnea 1 liter o2 SOB (shortness of breath) Subtherapeutic international normalized ratio (INR) Wheezing Surgical History History of cardiac cath History of colonoscopy History of heart artery stent History of heart valve replacement S/P TAVR (transcatheter aortic valve replacement) Family History Other Diabetes Family history non-contributory Heart disease Stroke Social History Smoking Status: Never smoker Second Hand Exposure: No; Do You Dip or Chew Tobacco: No; Hx Alcohol Use: No Hx Substance Use: No Preferred Language: Ethiopian Communication Ability: Effective 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. current occupation: Retired Feels Safe at Home: Yes Assistive Devices: Cane, Oxygen - at Night and Walker Review of Systems Review of Systems: Negative otherwise mentioned in HPI. Physical Exam Physical Exam: GENERAL: Alert and oriented x3. NAD, on 2L. NC O2, appears frail/weak/ill HEENT: No pallor, no icterus. Pupils equal, round and reactive to light. Oral mucosa moist. NECK: No JVD, no neck masses. HEART: S1 and S2 heard. irregular rate and rhythm. No murmur, no gallop. RESPIRATORY SYSTEM: Normal AP diameter. No accessory muscle use. No wheezing, no crackles. ABDOMEN: Soft, bowel sounds present, nontender, no distention. CENTRAL NERVOUS SYSTEM: No facial droop. aphasic, can't follow commands, opens eyes spontaneously, limb muscle tone fair. EXTREMITIES: No edema, no erythema seen. Results & Data Results & Data Vital Signs (Past 12 Hours) Vital Signs Temp Pulse Pulse Resp BP BP Pulse Ox 08/30/22 17:35 36.6 C 91 H 20 151/103 H 93 08/30/22 17:20 36.6 C 85 20 156/100 H 95 08/30/22 17:20 85 20 156/100 H 95 08/30/22 17:00 77 21 96 08/30/22 17:00 165/98 H 08/30/22 16:50 83 20 89 L 08/30/22 16:50 160/110 H 08/30/22 16:46 87 23 97 08/30/22 16:46 187/103 H 08/30/22 16:40 83 22 96 08/30/22 17:05 36.6 C 83 20 165/98 H 97 08/30/22 17:05 36.6 C 83 20 165/98 H 97 08/30/22 16:42 78 08/30/22 16:30 77 16 08/30/22 16:30 160/103 H 0618/23 16:15 78 18 96 08/30/22 16:15 165/95 H 08/30/22 16:12 75 17 94 08/30/22 16:00 86 20 165/95 H 95 O2 Del Method O2 Flow Rate 08/30/22 17:35 Nasal Cannula 2 08/30/22 17:20 Nasal Cannula 2 08/30/22 17:20 Nasal Cannula 2 08/30/22 17:00 08/30/22 17:00 08/30/22 16:50 08/30/22 16:50 08/30/22 16:46 08/30/22 16:46 08/30/22 16:40 08/30/22 17:05 Nasal Cannula 2 08/30/22 17:05 Nasal Cannula 2 08/30/22 16:42 08/30/22 16:30 08/30/22 16:30 08/30/22 16:15 Nasal Cannula 2 08/30/22 16:15 08/30/22 16:12 Nasal Cannula 2 08/30/22 16:00 Nasal Cannula 2
[2022-08-30] MEDS ORDERED: ACETAMINOPHEN 500 MG TAB PO PRN (18:52)
[2022-08-30] MEDS ORDERED: ALBUTEROL 0.083% NEBU SOLN 3 ML VIAL INH PRN (18:52)
[2022-08-30] MEDS ORDERED: NITROGLYCERIN SL 0.4 MG/TAB TAB SL PRN (18:52)
[2022-08-30] MEDS ORDERED: ALBUTEROL HFA 8 GM INHALER INH PRN (18:52)
[2022-08-30] MEDS: MAGNESIUM SULFATE / D5W 1 GM/100 ML BAG IV SCH ×2 (19:49→21:47)
--- NOTE | 2022-08-30 20:14 | Critical Care Consultation ---
Date of Consultation August 30, 2022 Assessment & Plan (1) Acute CVA (cerebrovascular accident): Impression: 87-year-old female presents to the ICU following strokelike symptoms in which she received TNKase at 1705. Now admitted to ICU for post antithrombotic 24-hour monitoring per protocol. Neuro - Acute CVA: Patient presents with left sided facial droop and moderate expressive aphasia with current NIH of 3, with previous of 11 on arrival. - Anticoagulated on Coumadin but subtherapeutic INR. - CT head, CTA head and neck unremarkable - TNKase administered at 1705. Admitted to ICU for 24-hour monitoring per protocol - Follow-up echo, follow-up MRI - Neurology consulted, will follow recommendations - Speech, PT, OT Cardiac - A-fib RVRCoumadin on hold due to TNKase administration. Continue MTP -Continuous monitoring on telemetry CADASA currently on hold Respiratory - COPDpatient on 2 L nasal cannula at baseline. Currently without any acute respiratory distress. Continue Breo Ellipta, Incruse, DuoNeb as needed -Continuous monitoring pulse ox GI - N.p.o. GERDIV famotidine RENAL/LYTES - Creatinine within normal limits, monitor routine BMPs and replete electrolytes as indicated - Strict I's and O's ENDO - DM type IIhemoglobin A1c pending, continue with sliding scale. ICU hyperglycemic protocol HEME - H&H stable, monitor for signs of bleeding. Monitor routine CBC ID - No indication for infectious process at this time LINES/IV ACCESS - Peripheral IVs DVT PROPHYLAXIS - SCDs, hold anticoagulants in the setting of TNKase CODE STATUS: DNR/DNI Thank you for allowing us to participate in the care of this patient. Please refer to my attending physician's documentation for any further recommendations. (2) S/P TAVR (transcatheter aortic valve replacement): (3) PAF (paroxysmal atrial fibrillation): (4) DM type 2 (diabetes mellitus, type 2): (5) HLD (hyperlipidemia): (6) CAD (coronary artery disease): History of Present Illness Attending Physician: Rosalia Ryan MD History of Present Illness Patient is a 87-year-old female with a past medical history of aortic valve stenosis s/p TAVR, proximal A-fib (on Coumadin), COPD and interstitial lung disease (On 2 L nasal cannula at baseline), DM type II, HTN, HLD, CAD, SANDRA, and history of pulmonary embolism who presented to the emergency department this afternoon with strokelike symptoms. After dinner, patient had witnessed episode where she became nonverbal and exhibited facial droop. She was evaluated in the emergency department and determined to be candidate for TNKase. CT head and CTA head and neck were negative for acute findings. INR was determined to be subtherapeutic. Patient received TNKase at 1705 and now presents to the ICU for further management at this time. On arrival to the ICU the patient is alert and oriented. She is noted to have mild left-sided facial droop and some expressive aphasia. Her initial NIH score on arrival to the hospital was 11 and is now determined to be 3. She currently denies headache, dizziness, syncope, changes in vision, weakness or numbness, shortness of breath, chest pain or palpitations, abdominal pain, nausea vomiting or diarrhea, swelling in hands or feet. She does report trouble finding words at times. Allergies Allergy/AdvReac Type Severity Reaction Status Date / Time amoxicillin [From Augmentin] Allergy Intermediate Hives Verified 08/30/22 16:12 clavulanic acid Allergy Intermediate Hives Verified 08/30/22 16:12 [From Augmentin] gabapentin Allergy Intermediate ITCHY RED Verified 08/30/22 16:12 SPOTS ON FEET Penicillins Allergy Intermediate Hives Verified 08/30/22 16:12 Home Medications Medication Instructions Recorded Confirmed Type albuterol sulfate 90 mcg/actuation 2 puff inhalation Q4H PRN 07/14/19 08/30/22 History aerosol inhaler Wheeze/Cough aspirin 81 mg tablet,delayed 81 mg PO QAM 07/14/19 08/30/22 History release (Adriana Low Dose Aspirin) diltiazem HCl 120 mg 120 mg PO QAM 07/14/19 08/30/22 History capsule,extended release 24 hr ezetimibe 10 mg tablet 10 mg PO QAM 07/14/19 08/30/22 History metformin 750 mg tablet,extended 750 mg PO QAM 07/14/19 08/30/22 History release 24 hr lisinopril 10 mg tablet 10 mg PO QAM 02/15/20 08/30/22 History pantoprazole 40 mg tablet,delayed 40 mg PO BID 06/29/20 08/30/22 History release (Protonix) acetaminophen 500 mg tablet 500 mg PO Q4 PRN Pain 09/21/20 08/30/22 History (Tylenol Extra Strength) nitroglycerin 0.4 mg sublingual 0.4 mg sublingual DIRECTED PRN 09/24/20 08/30/22 History tablet (Nitrostat) Chest Pain umeclidinium 62.5 mcg/actuation 1 inh inhalation DAILY #30 ea 10/02/20 08/30/22 Rx blister powder for inhalation (Incruse Ellipta) furosemide 20 mg tablet (Lasix) 40 mg PO QAM 12/13/21 08/30/22 History metoprolol tartrate 25 mg tablet 12.5 mg PO BID 12/13/21 08/30/22 History multivitamin 1 tab PO DAILY 12/13/21 08/30/22 History potassium chloride 20 mEq 20 meq PO DAILY 12/13/21 08/30/22 History tablet,extended release warfarin 5 mg tablet 5 mg PO QPM 06/25/22 08/30/22 History albuterol sulfate 2.5 mg/3 mL 2.5 mg inhalation DIRECTED PRN 08/30/22 08/30/22 History (0.083 %) solution for nebulization Shortness Of Breath fluticasone furoate 200 1 inh inhalation DAILY 08/30/22 08/30/22 History mcg-vilanterol 25 mcg/dose inhalation powder (Breo Ellipta) Patient History Medical History Acute exacerbation of congestive heart failure Acute hypoxemic respiratory failure Aortic stenosis ASCVD (arteriosclerotic cardiovascular disease) Aspiration pneumonia Asthma Asthma exacerbation Atrial fibrillation with rapid ventricular response Atrial fibrillation with rapid ventricular response Chest pain Chronic respiratory failure with hypoxia, on home oxygen therapy COPD (chronic obstructive pulmonary disease) COPD exacerbation COPD exacerbation 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 Deep vein thrombosis Diabetic neuropathy DM type 2 (diabetes mellitus, type 2) DMII (diabetes mellitus, type 2) DVT prophylaxis Dyslipidemia Failure of outpatient treatment Hypercapnic respiratory failure Hypertension Incomplete uterovaginal prolapse Moderate obstructive sleep apnea Myocardial Infarction PAF (paroxysmal atrial fibrillation) Pneumonia Recurrent pulmonary embolism Recurrent pulmonary embolism Sleep apnea 1 liter o2 SOB (shortness of breath) Subtherapeutic international normalized ratio (INR) Wheezing Surgical History History of cardiac cath History of colonoscopy History of heart artery stent History of heart valve replacement S/P TAVR (transcatheter aortic valve replacement) Family History Other Diabetes Family history non-contributory Heart disease Stroke Social History Smoking Status: Never smoker Second Hand Exposure: No; Do You Dip or Chew Tobacco: No; Hx Alcohol Use: No Hx Substance Use: No Preferred Language: Czech Communication Ability: Effective Email Campaign Specialist Required: No Beliefs That Will Affect Care: None Current Living Situation: Spouse and Family Current Living Situation Comment: Lives with but he is hospitalized at [facility]. current occupation: Retired Feels Safe at Home: Yes Assistive Devices: CPAP and Walker Assistive Devices Comment: patients own cpap from home Review of Systems Review of Systems: All systems reviewed & are unremarkable except as noted in HPI & below Physical Exam Constitutional: cooperative and comfortable; no acute distress Eyes: PERRL, conjunctivae normal, anicteric sclerae ENMT: external ear and nose normal, oropharynx normal Neck: trachea midline, no thyromegaly Respiratory: normal respiratory effort, lungs clear to auscultation Cardiovascular: RRR, no murmur, no edema Vessels: no JVD Extremities: no edema Gastrointestinal (Abdomen): normal bowel sounds, soft, nontender, no hepatosplenomegaly Skin: no rashes, warm and dry Neurologic: Left-sided facial droop, mild expressive aphasia. PERRLA. Normal strength bilaterally. No dysarthria. Psychiatric: A+Ox3, euthymic affect Results & Data Results & Data Vital Signs (Past 12 Hours) Vital Signs Temp Pulse Pulse Resp BP BP Pulse Ox 08/30/22 19:36 36.7 C 96 H 16 133/79 95 08/30/22 18:50 90 20 94 08/30/22 18:45 99 H 21 138/93 95 08/30/22 18:30 36.6 C 85 20 150/91 H 97 08/30/22 18:19 85 22 149/89 H 94 08/30/22 18:05 36.6 C 88 20 162/109 H 92 08/30/22 17:50 36.6 C 85 17 165/112 H 100 08/30/22 17:35 36.6 C 91 H 20 151/103 H 93 08/30/22 17:20 36.6 C 85 20 156/100 H 95 08/30/22 17:20 85 20 156/100 H 95 08/30/22 17:00 77 21 96 08/30/22 17:00 165/98 H 08/30/22 16:50 83 20 89 L 08/30/22 16:50 160/110 H 08/30/22 16:46 87 23 97 08/30/22 16:46 187/103 H 08/30/22 16:40 83 22 96 08/30/22 17:05 36.6 C 83 20 165/98 H 97 08/30/22 17:05 36.6 C 83 20 165/98 H 97 08/30/22 16:42 78 08/30/22 16:30 77 16 08/30/22 16:30 160/103 H 08/30/22 16:15 78 18 96 08/30/22 16:15 165/95 H 08/30/22 16:12 75 17 94 08/30/22 16:00 86 20 165/95 H 95 O2 Del Method O2 Flow Rate 08/30/22 19:36 Nasal Cannula 2 08/30/22 18:50 08/30/22 18:45 08/30/22 18:30 Nasal Cannula 2 08/30/22 18:19 Nasal Cannula 2 08/30/22 18:05 Nasal Cannula 2 08/30/22 17:50 Nebulizer 08/30/22 17:35 Nasal Cannula 2 08/30/22 17:20 Nasal Cannula 2 08/30/22 17:20 Nasal Cannula 2 08/30/22 17:00 08/30/22 17:00 08/30/22 16:50 08/30/22 16:50 08/30/22 16:46 08/30/22 16:46 08/30/22 16:40 08/30/22 17:05 Nasal Cannula 2 08/30/22 17:05 Nasal Cannula 2 08/30/22 16:42 08/30/22 16:30 08/30/22 16:30 08/30/22 16:15 Nasal Cannula 2 08/30/22 16:15 08/30/22 16:12 Nasal Cannula 2 08/30/22 16:00 Nasal Cannula 2 Coding Level of Care Code 90015 IN/OBS CONSULT LVL 3,45M Diagnoses Acute CVA (cerebrovascular accident) I63.9 S/P TAVR (transcatheter aortic valve replacement) Z95.2 PAF (paroxysmal atrial fibrillation) I48.0 DM type 2 (diabetes mellitus, type 2) E11.9 HLD (hyperlipidemia) E78.5 CAD (coronary artery disease) I25.10 Time Spent (min) 45
[2022-08-30] MEDS ORDERED: METOPROLOL TARTRATE 25 MG TAB PO SCH (21:00)
[2022-08-30] MEDS ORDERED: ICU Protocol for HYPERglycemia SCH (21:00)
[2022-08-30] MEDS ORDERED: INSULIN ASPART PER UNIT CHARGE SC SCH (21:00)
[2022-08-30] MEDS ORDERED: PANTOprazole 40 MG TAB PO SCH (21:00)
[2022-08-30] MEDS: LANTUS PER UNIT CHARGE SQ SCH (21:07)
[2022-08-30] MEDS: INSULIN ASPART PER UNIT CHARGE SC SCH (23:41)
[2022-08-30] MEDS: METOPROLOL TARTRATE 1 MG/ML VIAL IV SCH (23:45)
--- NOTE | 2022-08-31 00:39 | Magnetic Resonance Report ---
Exam(s): MRI HEAD Without Contrast EXAM: MR Head Without Intravenous Contrast CLINICAL HISTORY: Reason for exam: stroke like symptoms. TECHNIQUE: Magnetic resonance images of the head/brain without intravenous contrast in multiple planes. COMPARISON: CT head from August 30, 2022 FINDINGS: Brain: There is moderate patchy periventricular and deep white matter T2 hyperintensity throughout the cerebrum consistent with chronic small vessel disease and/or senescent changes. 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 No areas of diffusion restriction are seen to indicate acute stroke. No hemorrhage. Ventricles: Unremarkable. No ventriculomegaly. Bones/joints: Unremarkable. Sinuses: Unremarkable as visualized. No acute sinusitis. Mastoid air cells: Unremarkable as visualized. No mastoid effusion. Orbits: Unremarkable as visualized. Other findings: No hemorrhage is identified. IMPRESSION: There is moderate patchy periventricular and deep white matter T2 hyperintensity throughout the cerebrum consistent with chronic small vessel disease and/or senescent changes. 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 No areas of diffusion restriction are seen to indicate acute stroke. Electronically signed by: Arthur Bingham MD 08/31/22 00:37 AM
[2022-08-31] MEDS: PLASMA-LYTE A 1,000 ML IV SCH ×2 (00:47→13:15)
[2022-08-31 05:50] LABS: Hematocrit (blood only) 39.9 % (37.0-47.0); Hemoglobin 13.6 g/dl (12.0-16.0); Mean Corpuscular Hemoglobin 32.7 pg (25.0-34.0); Mean Corpuscular Hgb Conc 34.1 g/dL (32.0-36.0); Mean Corpuscular Volume 95.9 fL (80.0-100.0); Mean Platelet Volume 12.2 fL (9.4-12.4); Platelet Count 271 K/uL (130-400); RDW Coefficient of Variation 16.6 % (11.5-14.5); RDW Standard Deviation 58.8 fL (36.4-46.3); Red Blood Count 4.16 M/uL (4.20-5.40); White Blood Count 8.31 K/ul (4.8-10.8)
[2022-08-31] MEDS: INSULIN ASPART PER UNIT CHARGE SC SCH ×4 (05:58→20:44)
[2022-08-31] MEDS: METOPROLOL TARTRATE 1 MG/ML VIAL IV SCH ×3 (05:59→17:45)
[2022-08-31 07:07] LABS: Estimated Average Glucose 157 mg/dl; Hemoglobin A1C 7.1 % (4.5-5.6)
[2022-08-31] MEDS: EZETIMIBE 10 MG TABLET PO SCH (08:28)
[2022-08-31] MEDS: dilTIAZem HCL 120 MG CAPCR PO SCH (08:28)
[2022-08-31] MEDS: lisinopril 10 MG TAB PO SCH (08:29)
[2022-08-31] MEDS: FUROSEMIDE 40 MG TAB PO SCH (08:32)
[2022-08-31] MEDS: POTASSIUM CHLORIDE CRTAB 20 MEQ TABCR PO SCH (08:33)
[2022-08-31] MEDS: POTASSIUM CHLORIDE / WTR 10 MEQ/100 ML PLCT IV SCH ×2 (08:39→09:44)
--- NOTE | 2022-08-31 08:45 | Critical Care Progress Note ---
Date of Service August 31, 2022 Assessment & Plan (1) Word finding difficulty: (2) Acute CVA (cerebrovascular accident): Plan: Status post TNKase. Repeat CT head around 5:00 today to ensure no bleeding. MRI brain imaging reviewed without any acute findings. Follow-up neurology input, PT, OT and speech therapy. Plan Downgrade after CT head as long as no signs of worsening. Admission and Anticipated Discharge Date Admission Date: August 30, 2022 Subjective Patient laying in bed comfortably. No acute events overnight. Denies chest pain, shortness of breath or nausea. Bedside nursing reports word finding difficulties per the patient. Review of Systems Review of Systems: All systems reviewed & are unremarkable except as noted in HPI & below Physical Exam Constitutional: cooperative and comfortable; no acute distress Eyes: PERRL, conjunctivae normal, anicteric sclerae ENMT: external ear and nose normal, oropharynx normal Neck: trachea midline, no thyromegaly Respiratory: normal respiratory effort, lungs clear to auscultation Cardiovascular: RRR, no murmur, no edema Vessels: no JVD Extremities: no edema Gastrointestinal (Abdomen): normal bowel sounds, soft, nontender, no hepatosplenomegaly Skin: no rashes, warm and dry Neurologic: mild expressive aphasia. PERRLA. Normal strength bilaterally. No dysarthria. Psychiatric: A+Ox3, euthymic affect Results & Data Results & Data Vital Signs (Past 12 Hours) Vital Signs Temp Pulse Pulse Resp BP BP Pulse Ox 08/31/22 06:05 92 H 19 145/103 H 96 08/31/22 05:05 36.4 C L 88 18 144/82 H 93 08/31/22 05:59 95 H 144/82 H 08/31/22 04:05 87 17 125/79 91 08/31/22 03:05 90 22 117/91 92 08/31/22 01:05 90 22 143/102 H 93 08/31/22 00:35 92 H 18 143/102 H 95 08/31/22 00:00 93 H 08/31/22 00:05 89 17 143/85 H 95 08/30/22 23:35 92 H 20 168/85 H 95 08/30/22 23:05 90 20 165/78 H 95 08/30/22 22:35 36.5 C 85 19 147/68 H 93 08/30/22 23:45 95 H 157/93 H 08/30/22 22:05 97 H 19 137/112 H 94 08/30/22 21:35 101 H 22 150/84 H 95 08/30/22 21:05 91 H 20 144/92 H 96 08/30/22 21:15 O2 Del Method O2 Flow Rate 08/31/22 06:05 Nasal Cannula 2 08/31/22 05:05 CPAP 2 08/31/22 05:59 08/31/22 04:05 CPAP 2 08/31/22 03:05 CPAP 2 08/31/22 01:05 CPAP 2 08/31/22 00:35 CPAP 2 08/31/22 00:00 08/31/22 00:05 CPAP 2 08/30/22 23:35 Nasal Cannula 2 08/30/22 23:05 Nasal Cannula 2 08/30/22 22:35 Nasal Cannula 2 08/30/22 23:45 08/30/22 22:05 Nasal Cannula 2 08/30/22 21:35 Nasal Cannula 2 08/30/22 21:05 Nasal Cannula 2 08/30/22 21:15 Nasal Cannula 2 Coding Level of Care Code 77503 SUB INP/OBS CARE 04/08MIN Diagnoses Word finding difficulty R47.89 Acute CVA (cerebrovascular accident) I63.9
[2022-08-31] MEDS: ATORVASTATIN 40 MG TAB PO SCH (09:43)
[2022-08-31] MEDS: FAMOTIDINE 20 MG in SYRINGE 3 ML IV SCH ×2 (09:45→20:15)
[2022-08-31] MEDS: FLUTICASONE/VILANTEROL 200/25MCG 14 PUFFS/INHALER INH SCH (09:45)
[2022-08-31] MEDS: UMECLIDINIUM BROMIDE 62.5MCG/BLISTER 7 PUFFS/INHALER INH SCH (09:49)
[2022-08-31] MEDS: LANTUS PER UNIT CHARGE SQ SCH ×2 (10:09→20:45)
--- NOTE | 2022-08-31 11:20 | Hospitalist Progress Note ---
Date of Service August 31, 2022 Assessment & Plan (1) Stroke-like symptom: Plan 87yo F with PMH of aortic valve stenosis s/p TAVR, history of paroxysmal atrial fibrillation on Coumadin, history of COPD, interstitial lung disease, on chronic home oxygen 1 L during daytime and 2 L while sleeping, DM II, HLD, HTN, CAD, SANDRA, history of pulmonary emboli who presented to the ED 08/30 with sudden onset aphasia and is s/p tenecteplase in the ED. She was admitted to ICU post tPA for closer monitoring: MRI Brain 08/31: There is moderate patchy periventricular and deep white matter T2 hyperintensity throughout the cerebrum consistent with chronic small vessel disease and/or senescent changes. 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 No areas of diffusion restriction are seen to indicate acute stroke. CT, CTA head/neck- 1. There is no hemorrhage, mass effect, or evidence of acute territorial ischemia by CT criteria. 2. Unremarkable CT angiogram of the brain. 3. Unremarkable CT angiogram of the neck. TIA status post tPA-presented with sudden onset aphasia and is status post tPA 08/30 which probably aborted the CVA per neurology. TIA likely in setting of Afib with sub therapeutic INR. Neuro recommended switching from coumadin to eliquis- patient and family agreeable- cadet check per CM. Being monitored in ICU. Imaging finding as above. Plan for repeat CT head later today- if unremarkable, downgrade and start eliquis from tonight per neuro. PT OT evaluation. OP neuro f/u in 6-8 wks Chronic A fib- continue cardizem, lopressor. Coumadin to switch to eliquis H/o CAD: chronic, stable. DM II: Insulin management per glycemic pharmacist COPD: Stable, continue inhalers. Continue with baseline oxygen requirement. SANDRA: Continue with home CPAP RLS- check iron studies, replete if deficient- otherwise tylenol/ibuprofen or low dose requip. DVT prophylaxis: SCD- eliquis likely from tonight DNR/DNI Admission and Anticipated Discharge Date Admission Date: August 30, 2022 Subjective Patient was seen and examined at bedside. She is back to her baseline. Her aphasia is resolved after tPA. She has been struggling with restless leg syndrome and would appreciate if will help with her symptoms. No other neurological symptoms. Review of Systems Review of Systems: All systems reviewed & are unremarkable except as noted in Subjective Physical Exam Physical Exam: General: Lying comfortably in bed, constantly moving her legs due to RLS, on NC HEENT: EOMI, CINDY, MMM Chest: Clear breath sounds bilaterally, no wheezes or crackles CVS: Irregular, normal heart sounds, no murmur Abdomen: Soft, non tender, not distended, normal bowel sounds Neuro: Awake, alert, oriented, conversing well, non focal. Aphasia resolved Extremities: No cyanosis, clubbing or edema, varicosities noted in leg Results & Data Results & Data Vital Signs (Past 12 Hours) Vital Signs Temp Pulse Pulse Resp BP BP Pulse Ox 08/31/22 11:05 86 16 150/109 H 94 08/31/22 10:05 85 17 141/96 H 94 08/31/22 09:05 76 20 159/102 H 97 08/31/22 08:05 88 18 154/88 H 96 08/31/22 07:05 82 20 149/115 H 98 08/31/22 08:00 90 08/31/22 06:05 92 H 19 145/103 H 96 08/31/22 05:05 36.4 C L 88 18 144/82 H 93 08/31/22 05:59 95 H 144/82 H 08/31/22 04:05 87 17 125/79 91 08/31/22 03:05 90 22 117/91 92 08/31/22 01:05 90 22 143/102 H 93 08/31/22 00:35 92 H 18 143/102 H 95 08/31/22 00:00 93 H 08/31/22 00:05 89 17 143/85 H 95 08/30/22 23:35 92 H 20 168/85 H 95 08/30/22 23:45 95 H 157/93 H O2 Del Method O2 Flow Rate 08/31/22 11:05 Nasal Cannula 2 08/31/22 10:05 Nasal Cannula 2 08/31/22 09:05 Nasal Cannula 2 08/31/22 08:05 Nasal Cannula 2 08/31/22 07:05 Nasal Cannula 2 08/31/22 08:00 08/31/22 06:05 Nasal Cannula 2 08/31/22 05:05 CPAP 2 08/31/22 05:59 08/31/22 04:05 CPAP 2 08/31/22 03:05 CPAP 2 08/31/22 01:05 CPAP 2 08/31/22 00:35 CPAP 2 08/31/22 00:00 08/31/22 00:05 CPAP 2 08/30/22 23:35 Nasal Cannula 2 08/30/22 23:45 Laboratory Results Short CBC 08/30/22 08/31/22 Range/Units 16:06 05:20 WBC 7.97 8.31 (4.8-10.8) K/ul Hgb 13.3 13.6 (12.0-16.0) g/dl Hct 40.4 39.9 (37.0-47.0) % Plt Count 181 271 (130-400) K/uL BMP 08/30/22 08/31/22 16:06 05:20 Sodium 137 Cancelled Potassium 3.8 Cancelled Chloride 105 Cancelled Carbon Dioxide 28 Cancelled BUN 20 Cancelled Creatinine 0.78 Cancelled Glucose 150 H Cancelled Calcium 8.0 L Cancelled Liver Function 08/30/22 Range/Units 16:06 Total Bilirubin 0.3 (0.2-1.0) mg/dl AST 20 (13-39) U/L ALT 16 (7-52) U/L Alkaline Phosphatase 48 (34-104) U/L Albumin 3.1 L (3.4-5.0) gm/dl Diagnostic Findings Brain MRI 08/30/22 18:06 Exam(s): MRI HEAD Without Contrast EXAM: MR Head Without Intravenous Contrast CLINICAL HISTORY: Reason for exam: stroke like symptoms. TECHNIQUE: Magnetic resonance images of the head/brain without intravenous contrast in multiple planes. COMPARISON: CT head from August 30, 2022 FINDINGS: Brain: There is moderate patchy periventricular and deep white matter T2 hyperintensity throughout the cerebrum consistent with chronic small vessel disease and/or senescent changes. 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 No areas of diffusion restriction are seen to indicate acute stroke. No hemorrhage. Ventricles: Unremarkable. No ventriculomegaly. Bones/joints: Unremarkable. Sinuses: Unremarkable as visualized. No acute sinusitis. Mastoid air cells: Unremarkable as visualized. No mastoid effusion. Orbits: Unremarkable as visualized. Other findings: No hemorrhage is identified. IMPRESSION: There is moderate patchy periventricular and deep white matter T2 hyperintensity throughout the cerebrum consistent with chronic small vessel disease and/or senescent changes. 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 No areas of diffusion restriction are seen to indicate acute stroke. Electronically signed by: Arthur Bingham MD 08/31/22 00:37 AM Medications Administered Current Inpatient Medications Acetaminophen (Acetaminophen 500 Mg Tab) 500 mg PO Q4 PRN PRN Reason: Pain Stop: 09/29/22 18:51 Albuterol (Albuterol 0.083% Nebu Soln 3 Ml Vial) 2.5 mg INH Q4R PRN; Protocol PRN Reason: Shortness Of Breath Stop: 09/29/22 18:51 Albuterol (Albuterol Hfa 8 Gm Inhaler) 2 puffs INH Q4R PRN PRN Reason: Wheeze/Cough Stop: 09/29/22 18:51 Aspirin (No Aspirin Within 24hrs Of Thrombolytic-Stroke) 1 each PO UD BRYN Stop: 08/31/22 16:59 Atorvastatin Calcium (Atorvastatin 40 Mg Tab) 40 mg PO QAM BRYN Stop: 09/30/22 08:59 Last Admin: 08/31/22 09:43 Dose: Not Given Dextrose (Dextrose 50% 50 Ml Syringe) 25 - 50 ml IV UD PRN; Protocol PRN Reason: Hypoglycemia Protocol Stop: 09/29/22 17:56 Diltiazem HCl (Diltiazem Hcl 120 Mg Capcr) 120 mg PO QAM BRYN Stop: 09/30/22 08:59 Last Admin: 08/31/22 08:28 Dose: Not Given Ezetimibe (Ezetimibe 10 Mg Tablet) 10 mg PO QAM BRYN Stop: 09/30/22 08:59 Last Admin: 08/31/22 08:28 Dose: Not Given Fluticasone/Vilanterol (Fluticasone/Vilanterol 200/25mcg 14 Puffs/Inhaler) 1 puffs INH DAILY RBYN Stop: 09/30/22 08:59 Last Admin: 08/31/22 09:45 Dose: 1 puffs Furosemide (Furosemide 40 Mg Tab) 40 mg PO QAM BRYN Stop: 09/30/22 08:59 Last Admin: 08/31/22 08:32 Dose: Not Given Glucagon (Glucagon For Inj 1 Mg Vial) 1 mg SQ UD PRN; Protocol PRN Reason: Hypoglycemia Protocol Stop: 09/29/22 17:56 Glucose (Glucose 10 Tab/Tube) 4 - 8 tab PO UD PRN; Protocol PRN Reason: Hypoglycemia Treatment Stop: 09/29/22 17:56 Glucose (Glucose 40% Gel 15 Gm Tube) 15 - 30 gm PO UD PRN; Protocol PRN Reason: Hypoglycemia Protocol Stop: 09/29/22 17:56 Famotidine 20 mg/ Syringe 5 mls @ 2.5 mls/min IV BID [facility] Stop: 09/30/22 08:59 Last Admin: 08/31/22 09:45 Dose: 2.5 mls/min Parenteral Electrolytes (Plasma-Lyte A Ph 7.4) 1,000 mls @ 80 mls/hr IV .[id number] [facility] Stop: 09/29/22 23:44 Last Admin: 08/31/22 00:47 Dose: 80 mls/hr Insulin Aspart (Insulin Aspart Per Unit Charge) 0 units SC Q6 [facility] Stop: 09/29/22 20:59 Last Admin: 08/31/22 10:10 Dose: Not Given Insulin Glargine (Lantus Per Unit Charge) 0 units SQ BID [facility]; Protocol Stop: 09/29/22 20:59 Last Admin: 08/31/22 10:09 Dose: Not Given Lisinopril (Lisinopril 10 Mg Tab) 10 mg PO QAM [facility] Stop: 09/30/22 08:59 Last Admin: 08/31/22 08:29 Dose: Not Given Metoprolol Tartrate (Metoprolol Tartrate 1 Mg/Ml Vial) 2.5 mg IV Q6 [facility] Stop: 09/30/22 00:00 Last Admin: 08/31/22 05:59 Dose: 2.5 mg Miscellaneous (Carbohydrates For Hypoglycemia ) 15 - 30 gm PO UD PRN PRN Reason: Hypoglycemia Protocol Stop: 09/29/22 17:56 Miscellaneous Information (Pharmacy Glycemic Mgmt Consult) 1 each N/A UD PRN; Protocol PRN Reason: Consult Stop: 09/29/22 17:56 Nitroglycerin (Nitroglycerin Sl 0.4 Mg/Tab Tab) 0.4 mg SL UD PRN PRN Reason: Chest Pain Stop: 09/29/22 18:51 Potassium Chloride (Potassium Chloride Crtab 20 Meq Tabcr) 20 meq PO DAILY [facility] Stop: 09/30/22 08:59 Last Admin: 08/31/22 08:33 Dose: Not Given Umeclidinium [place] (Umeclidinium [place] 62.5mcg/Blister 7 Puffs/Inhaler) 1 puffs INH DAILY BRYN Stop: 09/30/22 08:59 Last Admin: 08/31/22 09:49 Dose: 1 puffs
--- NOTE | 2022-08-31 11:58 | Neurology Consultation ---
Date of Consultation August 31, 2022 Assessment & Plan (1) TIA (transient ischemic attack): Patient's transient word finding difficulties likely represent TIA (TNK aborted stroke) in the setting of afib with low INR. Discussed possible switch to NOAC (eliquis) with patient and family who are very interested in switching from warfarin. Otherwise patient appears at her baseline and can likely return home. -- Switch to eliquis 5mg BID from warfarin after [address] head post-TNK -- Follow-up with neurology in 6-8 weeks (2) Restless leg: Significant RLS noted on exam today, appears chronic and otherwise untreated. Recommend iron studies and supplementation as first line. While she meets criteria for moderate RLS, could perhaps try tylenol/ibuprofen which can be helpful intermittently. If not, would not hesitate to start a domainergic agent such as low dose ropinirole. Would address further at neurology follow-up visit. Telehealth Consultation Telehealth Information Telehealth Information: I performed this visit using a real-time telehealth connection between my location and the patients location ([facility]). After connecting through interactive tele-video, patient was identified by name and date of and/or wristband check.Patient (or authorized healthcare indirect sales representative) was informed that this was a telemedicine visit and it was being conducted confidentially over secure lines. My office door was closed and no one else was present in the room with me.Patient (or authorized healthcare indirect sales representative) provided consent to proceed with the visit, expressed an understanding of privacy and security of the telemedicine visit, and gave permission to have a hospital indirect sales representative in the room in order to assist with the visit and to conduct portions of the visit, as needed. I informed the patient (or authorized healthcare indirect sales representative) that I reviewed their record and presented the opportunity for them to ask any questions regarding the visit today. The patient agreed to participate. History of Present Illness Reason for Consultation: Word finding difficulties Requesting Physician: Dr. Crouch Attending Physician: Glenn Crouch MD History of Present Illness Kasie Elena is an 87 yo F presenting with word finding difficulties yesterday, now s/p TNK in the setting of a subtherapeutic INR to 1.6. The patient states that her warfarin dosing was changed but that she hadnt started the new regimen when this event happened. She believes her speech returned to normal soon after the TNK and denies any new symptoms of weakness, numbness, vision changes. During the encounter significant dyskinesias were noted in the lower extremities. She and her family report that her feet are always moving. She is able to control them somewhat but it does bother her significantly. Hot showers seem to help the movements temporarily. They all note that the foot movements have been ongoing for years. Allergies Allergy/AdvReac Type Severity Reaction Status Date / Time amoxicillin [From Augmentin] Allergy Intermediate Hives Verified 08/30/22 16:12 clavulanic acid Allergy Intermediate Hives Verified 08/30/22 16:12 [From Augmentin] gabapentin Allergy Intermediate ITCHY RED Verified 08/30/22 16:12 SPOTS ON FEET Penicillins Allergy Intermediate Hives Verified 08/30/22 16:12 Home Medications Medication Instructions Recorded Confirmed Type albuterol sulfate 90 mcg/actuation 2 puff inhalation Q4H PRN 07/14/19 08/30/22 History aerosol inhaler Wheeze/Cough aspirin 81 mg tablet,delayed 81 mg PO QAM 07/14/19 08/30/22 History release (Adriana Low Dose Aspirin) diltiazem HCl 120 mg 120 mg PO QAM 07/14/19 08/30/22 History capsule,extended release 24 hr ezetimibe 10 mg tablet 10 mg PO QAM 07/14/19 08/30/22 History metformin 750 mg tablet,extended 750 mg PO QAM 07/14/19 08/30/22 History release 24 hr lisinopril 10 mg tablet 10 mg PO QAM 02/15/20 08/30/22 History pantoprazole 40 mg tablet,delayed 40 mg PO BID 06/29/20 08/30/22 History release (Protonix) acetaminophen 500 mg tablet 500 mg PO Q4 PRN Pain 09/21/20 08/30/22 History (Tylenol Extra Strength) nitroglycerin 0.4 mg sublingual 0.4 mg sublingual DIRECTED PRN 09/24/20 08/30/22 History tablet (Nitrostat) Chest Pain umeclidinium 62.5 mcg/actuation 1 inh inhalation DAILY #30 ea 10/02/20 08/30/22 Rx blister powder for inhalation (Incruse Ellipta) furosemide 20 mg tablet (Lasix) 40 mg PO QAM 12/13/21 08/30/22 History metoprolol tartrate 25 mg tablet 12.5 mg PO BID 12/13/21 08/30/22 History multivitamin 1 tab PO DAILY 12/13/21 08/30/22 History potassium chloride 20 mEq 20 meq PO DAILY 12/13/21 08/30/22 History tablet,extended release warfarin 5 mg tablet 5 mg PO QPM 06/25/22 08/30/22 History albuterol sulfate 2.5 mg/3 mL 2.5 mg inhalation DIRECTED PRN 08/30/22 08/30/22 History (0.083 %) solution for nebulization Shortness Of Breath fluticasone furoate 200 1 inh inhalation DAILY 08/30/22 08/30/22 History mcg-vilanterol 25 mcg/dose inhalation powder (Breo Ellipta) Patient History Medical History (Updated 08/31/22 @ 11:55 by Jacob Sierra MD) Acute exacerbation of congestive heart failure Acute hypoxemic respiratory failure Aortic stenosis ASCVD (arteriosclerotic cardiovascular disease) Aspiration pneumonia Asthma Asthma exacerbation Atrial fibrillation with rapid ventricular response Atrial fibrillation with rapid ventricular response Chest pain Chronic respiratory failure with hypoxia, on home oxygen therapy COPD (chronic obstructive pulmonary disease) COPD exacerbation COPD exacerbation Current use of watermaster anticoagulation Deep vein thrombosis Diabetic neuropathy DM type 2 (diabetes mellitus, type 2) DMII (diabetes mellitus, type 2) DVT prophylaxis Dyslipidemia Failure of outpatient treatment Hypercapnic respiratory failure Hypertension Incomplete uterovaginal prolapse Moderate obstructive sleep apnea Myocardial Infarction PAF (paroxysmal atrial fibrillation) Pneumonia Pneumonia Recurrent pulmonary embolism Recurrent pulmonary embolism Sleep apnea 1 liter o2 SOB (shortness of breath) Subtherapeutic international normalized ratio (INR) Wheezing Word finding difficulty Surgical History History of cardiac cath History of colonoscopy History of heart artery stent History of heart valve replacement S/P TAVR (transcatheter aortic valve replacement) Family History Other Diabetes Family history non-contributory Heart disease Stroke Social History Smoking Status: Never smoker Second Hand Exposure: No; Do You Dip or Chew Tobacco: No; Hx Alcohol Use: No Hx Substance Use: No Preferred Language: Slovak Communication Ability: Effective Service Coordinator Elderly Facility Required: No Beliefs That Will Affect Care: None Current Living Situation: Spouse and Family Current Living Situation Comment: Lives with but he is hospitalized at [facility]. current occupation: Retired Feels Safe at Home: Yes Assistive Devices: CPAP and Walker Assistive Devices Comment: patients own cpap from home Review of Systems +word finding difficulty (resolved) Physical Exam Neurological Examination: Mental Status: Awake and alert. Oriented to person, place, and time. Fluent. Comprehension intact. Affect appropriate. Cranial Nerves: II: Reads NIHSS cards, robertson grossly intact. III/IV/: Versions intact without nystagmus, no gaze preference. V: Facial sensation symmetric to light touch VII: Facial expression symmetric VIII: Hearing intact to voice IX/X: Palate elevates symmetrically XI: Shoulder shrug symmetric XII: Tongue midline Motor: Strength was symmetric and antigravity throughout. Pronator drift was absent. Significant lower extremity dyskinesias noted. Sensory: Sensation to light touch was intact. Coordination: Finger to nose and heel to penaloza were intact. Reflexes: Unable to assess over telemedicine Results & Data Vital Signs (Past 12 Hours) Vital Signs Temp Pulse Pulse Resp BP BP Pulse Ox 08/31/22 11:05 86 16 150/109 H 94 08/31/22 10:05 85 17 141/96 H 94 08/31/22 09:05 76 20 159/102 H 97 08/31/22 08:05 88 18 154/88 H 96 08/31/22 07:05 82 20 149/115 H 98 08/31/22 08:00 90 08/31/22 06:05 92 H 19 145/103 H 96 08/31/22 05:05 36.4 C L 88 18 144/82 H 93 08/31/22 05:59 95 H 144/82 H 08/31/22 04:05 87 17 125/79 91 08/31/22 03:05 90 22 117/91 92 08/31/22 01:05 90 22 143/102 H 93 08/31/22 00:35 92 H 18 143/102 H 95 08/31/22 00:00 93 H 08/31/22 00:05 89 17 143/85 H 95 O2 Del Method O2 Flow Rate 08/31/22 11:05 Nasal Cannula 2 08/31/22 10:05 Nasal Cannula 2 08/31/22 09:05 Nasal Cannula 2 08/31/22 08:05 Nasal Cannula 2 08/31/22 07:05 Nasal Cannula 2 08/31/22 08:00 08/31/22 06:05 Nasal Cannula 2 08/31/22 05:05 CPAP 2 08/31/22 05:59 08/31/22 04:05 CPAP 2 08/31/22 03:05 CPAP 2 08/31/22 01:05 CPAP 2 08/31/22 00:35 CPAP 2 08/31/22 00:00 08/31/22 00:05 CPAP 2 Laboratory Results Abnormal lab results 08/30/22 08/30/22 08/30/22 Range/Units 16:06 16:06 16:06 RBC 4.15 L (4.20-5.40) M/uL RDW Std Deviation 59.5 H (36.4-46.3) fL RDW Coeff of Linda 16.5 H (11.5-14.5) % Stephenson # (Auto) 0.73 H (0.11-0.59) K/uL PT 16.9 H (9.0-12.0) Seconds POC INR (0.9-1.1) INR 1.6 H (0.9-1.1) BUN/Creatinine Ratio 25.6 H (10-20) Glucose 150 H (70-99(Fasting)) mg/dl POC Glucose (70-99) mg/dl Hemoglobin A1c (4.5-5.6) % Calcium 8.0 L (8.6-10.3) mg/dl Total Protein 5.6 L (6.0-8.3) gm/dl Albumin 3.1 L (3.4-5.0) gm/dl 08/30/22 08/30/22 08/30/22 Range/Units 16:11 16:16 21:01 RBC (4.20-5.40) M/uL RDW Std Deviation (36.4-46.3) fL RDW Coeff of Linda (11.5-14.5) % Stephenson # (Auto) (0.11-0.59) K/uL PT (9.0-12.0) Seconds POC INR 1.6 H (0.9-1.1) INR (0.9-1.1) BUN/Creatinine Ratio (10-20) Glucose (70-99(Fasting)) mg/dl POC Glucose 141 H 133 H (70-99) mg/dl Hemoglobin A1c (4.5-5.6) % Calcium (8.6-10.3) mg/dl Total Protein (6.0-8.3) gm/dl Albumin (3.4-5.0) gm/dl 08/31/22 08/31/22 08/31/22 Range/Units 05:20 05:20 05:26 RBC 4.16 L (4.20-5.40) M/uL RDW Std Deviation 58.8 H (36.4-46.3) fL RDW Coeff of Linda 16.6 H (11.5-14.5) % Stephenson # (Auto) (0.11-0.59) K/uL PT (9.0-12.0) Seconds POC INR (0.9-1.1) INR (0.9-1.1) BUN/Creatinine Ratio (10-20) Glucose (70-99(Fasting)) mg/dl POC Glucose 125 H (70-99) mg/dl Hemoglobin A1c 7.1 H (4.5-5.6) % Calcium (8.6-10.3) mg/dl Total Protein (6.0-8.3) gm/dl Albumin (3.4-5.0) gm/dl Diagnostic Findings CT/ CTA - Unremarkable MRI brain - Unremarkable
--- NOTE | 2022-08-31 13:14 | Electrocardiogram Report ---
Test Reason : Blood Pressure : / mmHG Vent. Rate : 083 BPM Atrial Rate : 000 BPM P-R Int : 000 ms QRS Dur : 100 ms QT Int : 378 ms P-R-T Axes : 000 -54 047 degrees QTc Int : 444 ms Atrial fibrillation Incomplete right bundle branch block Left anterior fascicular block Abnormal ECG When compared with ECG of 25-JUN-2022 14:58, No significant change was found Confirmed by Kwesi Osullivan ([id number]) on 08/31/2022 1:14:34 PM Referred By: REFERRED SELF Confirmed By:Kwesi Osullivan
--- NOTE | 2022-08-31 14:02 | Pharmacy Report ---
Pharmacy Glycemic Short Note 2 - Date of Service August 31, 2022 - Glycemic Short BSG Results (Last 24 hours): 08/30/22 08/30/22 08/30/22 16:06 16:11 21:01 Glucose 150 H POC Glucose 141 H 133 H 08/31/22 08/31/22 05:20 05:26 Glucose Cancelled POC Glucose 125 H OUTPATIENT ANTIDIABETIC REGIMEN: * metformin 750 mg PO BID * HbA1C = 7.1% (08/31/22) ASSESSMENT: * Ms Elena is an 87 y/o F with a PMH of T2DM on metformin who presents with a stroke s/p TNK administration. * Patient was NPO this morning; now ordered diet. Fasting was 125 mg/dL. * For Lantus, scale with values of 0-15 units (none to weight-based stress of 2). * Novolog weight-based stress of 2. PLAN FOR INPATIENT GLYCEMIC CONTROL: * Hold outpatient oral diabetes medications * Basal insulin * Lantus 0-15 units SQ BID * Bolus insulin * NovoLog per scale ACHS or Q6hrs while NPO * Goal Range: Low 140 mg/dL - High 180 mg/dL * Correction Factor: 30 mg/dL/unit * Nutritional / Prandial insulin per carb ratio of 1 unit per 15 grams CHO consumed
--- NOTE | 2022-08-31 17:31 | CT Scan Report ---
CT SCAN OF THE BRAIN WITHOUT IV CONTRAST CLINICAL HISTORY: 24 hour follow-up status post thrombolysis. COMPARISON STUDY: CT and MRI of the brain dated 08/30/2022. TECHNIQUE: Unenhanced axial CT scan of the brain is performed from the vertex to the skull base. A do se lowering technique was utilized adhering to the principles of ALARA. CT DOSE: 703.85 mGy.cm FINDINGS: Brain parenchyma: There is age-related involutional change noting moderate to advanced subcortical an d periventricular microangiopathic disease. There is no hemorrhage, mass effect, or evidence of acute territorial ischemia by CT criteria. Fallon-white matter differentiation is preserved. No extra-axial fluid collection is seen. A chronic lacunar infarct is again seen in the right thalamus. Ventricles, sulci, cisterns: Prominent secondary to involutional change. Intracranial vasculature: There is atherosclerotic calcification of the cavernous carotid and vertebr al artery. Calvarium: Unremarkable. Sinuses and mastoids: The paranasal sinuses are clear. The mastoid air cells are well pneumatized. Orbits: The bony orbits are grossly intact. There are bilateral ocular lens implants. IMPRESSION: There is no hemorrhage, mass effect, or evidence of acute territorial ischemia by CT parris bernstein. ACT 112: Negative or not required by law. Electronically signed by: Freddy Dahl M.D. 08/31/2022 5:29 PM
[2022-08-31 17:50] LABS: Calcium 8.8 mg/dl (8.6-10.3); Creatinine Clr Calc Pharmacy 48.5 ml/min; Est GFR (African American) 75.8 ml/min; Est GFR (Non-African American) 65.4 ml/min; Phosphorus 3.3 mg/dl (2.5-4.9); Potassium 4.1 mmol/L (3.5-5.1)
[2022-08-31 18:10] LABS: Ferritin 44.3 ng/ml (8-388)
[2022-08-31] MEDS ORDERED: ONDANSETRON INJ 2 MG/ML 2 ML VIAL IV PRN (18:33)
[2022-08-31] MEDS ORDERED: ONDANSETRON INJ 2 MG/ML 2 ML VIAL ONE (18:35)
[2022-08-31] MEDS: METOPROLOL TARTRATE 25 MG TAB PO SCH (20:15)
[2022-08-31] MEDS: APIXABAN 5 MG TABLET PO SCH (20:15)
[2022-08-31] MEDS ORDERED: NYSTATIN POWDER 15GM BTL EXT PRN (22:21)
[2022-08-31] MEDS ORDERED: FUROSEMIDE INJ 20 MG/2 ML VIAL IV ONE ×2 (22:23→23:51)
[2022-08-31] MEDS ORDERED: XOPENEX/ATROVENT 1.25mg/0.5MG NEB COMBO NEB STA (22:25)
[2022-08-31] MEDS ORDERED: LEVALBUTEROL 1.25 MG/3 ML NEB NEB STA (22:25)
[2022-08-31] MEDS ORDERED: IPRATROPIUM BROMIDE NEB SOLN 0.02% 2.5 ML VIAL INH STA (22:25)
[2022-08-31] MEDS ORDERED: OLANZapine 10 MG/2.1 ML SDV IM STA ×2 (22:34→23:19)
[2022-09-01 02:05] LABS: Appearance Urine Turbid (Clear); Bacteria Urine Automated 4+ (Negative); Bilirubin Urine Negative (Negative); Blood Urine 3+ (Negative); Color Urine Yellow; Epithelial Cell Urine Auto >30 /lpf (0-5); Glucose Urine UA Negative (Negative); Ketones Urine Negative (Negative); Leukocyte Esterase Urine 3+ (Negative); Nitrite Urine Negative (Negative); Protein Urine 2+ (Negative); RBC Urine Automated >30 /hpf (0-4); Urobilinogen Urine Negative (Negative); WBC Urine Automated >30 /hpf (0-5); pH Urine 5.5 (4.5-7.5)
[2022-09-01 05:55] LABS: Hematocrit (blood only) 44.5 % (37.0-47.0); Hemoglobin 14.9 g/dl (12.0-16.0); Mean Corpuscular Hemoglobin 32.3 pg (25.0-34.0); Mean Corpuscular Hgb Conc 33.5 g/dL (32.0-36.0); Mean Corpuscular Volume 96.5 fL (80.0-100.0); Platelet Count 186 K/uL (130-400); RDW Coefficient of Variation 16.1 % (11.5-14.5); RDW Standard Deviation 57.3 fL (36.4-46.3); Red Blood Count 4.61 M/uL (4.20-5.40); White Blood Count 11.38 K/ul (4.8-10.8)
[2022-09-01 06:12] LABS: BUN Creatinine Ratio 15.2 (10-20); Calcium 9.2 mg/dl (8.6-10.3); Creatinine Clr Calc Pharmacy 58.8 ml/min; Est GFR (African American) 90.8 ml/min; Est GFR (Non-African American) 78.3 ml/min; Potassium 3.8 mmol/L (3.5-5.1)
[2022-09-01] MEDS ORDERED: METOPROLOL TARTRATE 1 MG/ML VIAL IV STA (06:48)
[2022-09-01] MEDS ORDERED: ACETAMINOPHEN 1,000 MG/100 ML VIAL IV STA (06:48)
--- NOTE | 2022-09-01 06:51 | XRay Report ---
XR chest 1V portable CLINICAL HISTORY: low o2 COMPARISON STUDY: Chest CT December 13, 2021. Chest radiograph August 30, 2022. FINDINGS: There is no pneumothorax or pleural effusion. Cardiomegaly is noted. Mild interstitial pulm onary edema is suspected. There is a prosthetic aortic valve. Old left-sided rib fractures are incide ntally noted. IMPRESSION: Cardiomegaly with mild interstitial pulmonary edema, slightly increased since prior chest radiograph. ACT 112: Negative or not required by law. Electronically signed by: Sukhwinder Chadwick M.D. 09/01/2022 6:49 AM
--- NOTE | 2022-09-01 07:12 | Communication Note ---
Date of Service: August 31, 2022 Late entry Overnight developments 09/01 1999 Transfer orders entered to stepdown unit (med telemetry) from ICU with normal CT of the head and clinical stability as per TRAFFIC ASSISTANT request. Plasma-Lyte IV fluid DC'd due to congestion on a.m. chest x-ray. Patient without respiratory complaints at time of transfer. 2219 Patient later noted to be hypoxemic and tachypneic. Patient agitated as per RN. [facility] delirium Fluid overload Zyprexa as needed agitation IV Lasix and neb treatment administered. Med telemetry bed request changed to PCU 09/01 6:30 AM Patient noted to be febrile, tachycardic. UA from last night WBC est AP Sepsis secondary to complicated UTI Urine CS, Cefepime
[2022-09-01] MEDS: CEFEPIME 2,000 MG in SYRINGE 0 ML IV SCH ×2 (07:35→20:44)
[2022-09-01] MEDS: dilTIAZem HCL 120 MG CAPCR PO SCH (08:08)
[2022-09-01] MEDS: ATORVASTATIN 40 MG TAB PO SCH (08:08)
[2022-09-01] MEDS: INSULIN ASPART PER UNIT CHARGE SC SCH ×4 (08:08→21:38)
[2022-09-01] MEDS: APIXABAN 5 MG TABLET PO SCH (08:08)
[2022-09-01] MEDS: EZETIMIBE 10 MG TABLET PO SCH (08:09)
[2022-09-01] MEDS: UMECLIDINIUM BROMIDE 62.5MCG/BLISTER 7 PUFFS/INHALER INH SCH (08:09)
[2022-09-01] MEDS: FUROSEMIDE 40 MG TAB PO SCH (08:09)
[2022-09-01] MEDS: METOPROLOL TARTRATE 25 MG TAB PO SCH (08:09)
[2022-09-01] MEDS: FLUTICASONE/VILANTEROL 200/25MCG 14 PUFFS/INHALER INH SCH (08:09)
[2022-09-01] MEDS: lisinopril 10 MG TAB PO SCH (08:09)
[2022-09-01] MEDS: POTASSIUM CHLORIDE CRTAB 20 MEQ TABCR PO SCH (08:09)
[2022-09-01] MEDS: FAMOTIDINE 20 MG in SYRINGE 3 ML IV SCH ×2 (09:43→21:30)
[2022-09-01] MEDS: LANTUS PER UNIT CHARGE SQ SCH (09:43)
[2022-09-01] MEDS ORDERED: ACETAMINOPHEN 325 MG TAB PO PRN (11:30)
--- NOTE | 2022-09-01 11:52 | Hospitalist Progress Note ---
Date of Service September 01, 2022 Assessment & Plan (1) Stroke-like symptom: Plan 87yo F with PMH of aortic valve stenosis s/p TAVR, history of paroxysmal atrial fibrillation on Coumadin, history of COPD, interstitial lung disease, on chronic home oxygen 1 L during daytime and 2 L while sleeping, DM II, HLD, HTN, CAD, SANDRA, history of pulmonary emboli who presented to the ED 08/30 with sudden onset aphasia and is s/p tenecteplase in the ED. She was admitted to ICU post tPA for closer monitoring: MRI Brain 08/31: There is moderate patchy periventricular and deep white matter T2 hyperintensity throughout the cerebrum consistent with chronic small vessel disease and/or senescent changes. 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 No areas of diffusion restriction are seen to indicate acute stroke. CT, CTA head/neck- 1. There is no hemorrhage, mass effect, or evidence of acute territorial ischemia by CT criteria. 2. Unremarkable CT angiogram of the brain. 3. Unremarkable CT angiogram of the neck. TIA status post tPA-presented with sudden onset aphasia and is status post tPA 08/30 which probably aborted the CVA per neurology. TIA likely in setting of Afib with sub therapeutic INR. Seen by neuro and recommendations noted. Repeat [address] head unremarkable and anticoag started as per neuro recommendation. Eliquis started last night but today unable to give today due to her delirium/AMS. Started on heparin drip while off of eliquis. OP neuro f/u in 6-8 wks UTI- On cefepime pending urine clx results Delirium- overnight events noted and received multiple doses of zyprexa. Chronic A fib- continue cardizem, lopressor. Will switch po lopressor to IV given unable to give po. Resume eliquis when able to take po. H/o CAD: chronic, stable. DM II: Insulin management per glycemic pharmacist COPD: Stable, continue inhalers. Continue with baseline oxygen requirement. SANDRA: Continue with home CPAP RLS- Iron studies show some iron deficiency. Will hold off on iron in setting of infection. Can consider tylenol/ibuprofen or low dose requip. OP follow up with neuro. DVT prophylaxis: Heparin drip DNR/DNI Dispo- Continue current level of care- empiric ABx for UTI, supportive care for delirium Admission and Anticipated Discharge Date Admission Date: August 30, 2022 Subjective Patient was seen and examined at bedside. Overnight events noted. Patient was apparently agitated and delirious overnight requiring IM Zyprexa and restraints. Overnight fever and UTI noted. Currently she is sedated, confused and disoriented. Review of Systems Review of Systems: Unobtainable due to cognitive status Physical Exam Physical Exam: General: Sleeping in bed, not in acute distress, on NC HEENT: EOMI, CINDY, MMM Chest: Clear breath sounds bilaterally, no wheezes or crackles CVS: Irregular, normal heart sounds, no murmur Abdomen: Soft, non tender, not distended, normal bowel sounds Neuro: Sleepy, arousable but goes back to sleep immediately, garbled speech Extremities: No cyanosis, clubbing or edema, varicosities noted in leg Results & Data Results & Data Vital Signs (Past 12 Hours) Vital Signs Temp Pulse Pulse Resp BP Pulse Ox O2 Del Method 09/01/22 09:30 37.5 C 91 H 20 94 09/01/22 09:00 37.5 C 97 H 22 94 09/01/22 08:30 37.6 C H 105 H 20 95 09/01/22 08:00 37.7 C H 89 17 91 09/01/22 08:00 150/105 H 09/01/22 07:30 38.0 C H 94 H 21 99 09/01/22 07:00 37.9 C H 85 22 95 09/01/22 06:38 37.7 C H 104 H 21 97 09/01/22 06:38 186/122 H 09/01/22 06:35 179/134 H 09/01/22 06:35 37.7 C H 103 H 23 09/01/22 06:33 194/116 H 09/01/22 06:33 37.7 C H 97 H 23 92 09/01/22 06:30 37.6 C H 100 H 16 09/01/22 06:15 37.5 C 103 H 21 90 09/01/22 06:00 37.5 C 97 H 21 93 09/01/22 05:45 37.4 C 101 H 32 H 90 09/01/22 05:30 37.4 C 104 H 22 95 09/01/22 05:15 37.3 C 98 H 26 H 96 09/01/22 05:00 37.3 C 103 H 23 92 09/01/22 04:45 37.2 C 103 H 23 90 09/01/22 07:11 92 H 140/68 09/01/22 04:30 37.2 C 106 H 27 H 90 09/01/22 04:20 37.2 C 101 H 21 09/01/22 04:10 37.2 C 100 H 28 H 90 09/01/22 04:02 158/108 H 09/01/22 04:02 37.2 C 96 H 21 95 09/01/22 04:00 37.2 C 97 H 22 94 09/01/22 03:50 37.2 C 104 H 22 95 09/01/22 03:40 37.2 C 96 H 23 96 09/01/22 03:30 37.2 C 108 H 20 96 09/01/22 03:20 37.1 C 101 H 29 H 90 09/01/22 03:10 37.2 C 101 H 24 93 09/01/22 03:00 37.2 C 102 H 26 H 94 09/01/22 02:50 37.3 C 106 H 19 92 09/01/22 02:40 37.3 C 100 H 25 H 94 09/01/22 02:30 37.3 C 103 H 17 09/01/22 02:20 37.3 C 99 H 22 96 09/01/22 02:10 37.3 C 100 H 24 09/01/22 02:00 37.4 C 104 H 22 94 09/01/22 01:50 37.3 C 104 H 28 H 94 09/01/22 01:40 37.4 C 100 H 27 H 95 09/01/22 01:30 37.4 C 112 H 13 92 09/01/22 01:20 37.4 C 96 H 26 H 91 09/01/22 01:10 37.4 C 96 H 20 93 09/01/22 01:00 37.2 C 106 H 22 09/01/22 00:50 37.4 C 98 H 21 95 09/01/22 00:40 37.3 C 99 H 27 H 96 09/01/22 00:39 128/95 09/01/22 00:39 37.2 C 103 H 21 94 09/01/22 00:30 100 H 22 99 09/01/22 00:28 171/73 H 09/01/22 00:28 96 H 24 09/01/22 00:20 100 H 27 H 09/01/22 00:10 97 H 23 92 09/01/22 00:00 104 H 35 H 09/01/22 02:00 37.4 C 98 H 09/01/22 00:39 104 H 09/01/22 01:35 103 H 20 90 Nasal Cannula O2 Flow Rate 09/01/22 09:30 09/01/22 09:00 09/01/22 08:30 09/01/22 08:00 09/01/22 08:00 09/01/22 07:30 09/01/22 07:00 09/01/22 06:38 09/01/22 06:38 09/01/22 06:35 09/01/22 06:35 09/01/22 06:33 09/01/22 06:33 09/01/22 06:30 09/01/22 06:15 09/01/22 06:00 09/01/22 05:45 09/01/22 05:30 09/01/22 05:15 09/01/22 05:00 09/01/22 04:45 09/01/22 07:11 09/01/22 04:30 09/01/22 04:20 09/01/22 04:10 09/01/22 04:02 09/01/22 04:02 09/01/22 04:00 09/01/22 03:50 09/01/22 03:40 09/01/22 03:30 09/01/22 03:20 09/01/22 03:10 09/01/22 03:00 09/01/22 02:50 09/01/22 02:40 09/01/22 02:30 09/01/22 02:20 09/01/22 02:10 09/01/22 02:00 09/01/22 01:50 09/01/22 01:40 09/01/22 01:30 09/01/22 01:20 09/01/22 01:10 09/01/22 01:00 09/01/22 00:50 09/01/22 00:40 09/01/22 00:39 09/01/22 00:39 09/01/22 00:30 09/01/22 00:28 09/01/22 00:28 09/01/22 00:20 09/01/22 00:10 09/01/22 00:00 09/01/22 02:00 09/01/22 00:39 09/01/22 01:35 4
[2022-09-01] MEDS: METOPROLOL TARTRATE 1 MG/ML VIAL IV SCH ×2 (11:57→17:42)
[2022-09-01] MEDS: ACETAMINOPHEN 1,000 MG/100 ML VIAL IV PRN ×2 (11:57→20:44)
[2022-09-01] MEDS ORDERED: Heparin IV Adult Wt-Based Low-Dose *NO* Bolus Protocol IV SCH (12:04)
[2022-09-01] MEDS ORDERED: HEPARIN SODIUM/DEXTROSE 25,000 UNITS/500 ML BAG IV SCH (12:15)
[2022-09-01] MEDS ORDERED: HEPARIN 25000 UNIT/500 ML D5W IV ONE (12:17)
--- NOTE | 2022-09-01 12:23 | Pharmacy Report ---
Pharmacy Glycemic Short Note 2 - Date of Service September 01, 2022 - Glycemic Short BSG Results (Last 24 hours): 08/31/22 08/31/22 08/31/22 17:08 17:13 20:43 Glucose 135 H POC Glucose 130 H 114 H 09/01/22 09/01/22 09/01/22 05:30 07:15 11:13 Glucose 123 H POC Glucose 115 H 135 H OUTPATIENT ANTIDIABETIC REGIMEN: * metformin 750 mg PO BID * HbA1C = 7.1% (08/31/22) ASSESSMENT: 09/01 * BSGs 125-130-114 mg/dL with no insulin administered * Will remove basal scale, hold for now- fasting 115 mg/dL this AM * Will loosen carb ratio as patient has not required- may remove if BSGs remain stable * Starting heparin infusion (in dextrose). Continue to monitor 08/31 * Ms Elena is an 87 y/o F with a PMH of T2DM on metformin who presents with a stroke s/p TNK administration. * Patient was NPO this morning; now ordered diet. Fasting was 125 mg/dL. * For Lantus, scale with values of 0-15 units (none to weight-based stress of 2). * Novolog weight-based stress of 2. PLAN FOR INPATIENT GLYCEMIC CONTROL: * Hold outpatient oral diabetes medications * Basal insulin * HOLD * Bolus insulin * NovoLog per scale ACHS or Q6hrs while NPO * Goal Range: Low 140 mg/dL - High 180 mg/dL * Correction Factor: 30 mg/dL/unit * Nutritional / Prandial insulin per carb ratio of 1 unit per 15 grams CHO consumed
[2022-09-01 12:41] LABS: Basophils # (auto) 0.04 K/uL (0-0.2); Basophils % (auto) 0.4 %; Eosinophils # (auto) 0.02 K/uL (0-0.50); Eosinophils % (auto) 0.2 %; Hemoglobin 14.5 g/dl (12.0-16.0); Immature Granulocytes # (auto) 0.04 K/uL (0.01-0.20); Immature Granulocytes % (auto) 0.4 %; Lymphocytes # (auto) 0.89 K/uL (1.2-3.4); Lymphocytes % (auto) 8.5 %; Mean Corpuscular Hemoglobin 32.1 pg (25.0-34.0); Mean Corpuscular Hgb Conc 33.7 g/dL (32.0-36.0); Mean Corpuscular Volume 95.1 fL (80.0-100.0); Mean Platelet Volume 11.3 fL (9.4-12.4); Monocytes # (auto) 0.72 K/uL (0.11-0.59); Monocytes % (auto) 6.9 %; Neutrophils # (auto) 8.71 K/uL (1.40-6.50); Neutrophils % (auto) 83.6 %; Platelet Count 180 K/uL (130-400); RDW Coefficient of Variation 16.1 % (11.5-14.5); RDW Standard Deviation 56.6 fL (36.4-46.3); Red Blood Count 4.52 M/uL (4.20-5.40); White Blood Count 10.42 K/ul (4.8-10.8)
[2022-09-01 13:05] LABS: INR 1.5 (0.9-1.1); Partial Thromboplastin Ratio 1.1; Partial Thromboplastin Time 30.9 Seconds (21.0-31.0); Prothrombin Time 15.9 Seconds (9.0-12.0)
--- NOTE | 2022-09-01 17:19 | CT Scan Report ---
CT head/brain wo con CLINICAL HISTORY: 87 years-old Female with AMS post tPA- r/o intracranial bleed. Acutely altered men ramon status TECHNIQUE: Multiple axial CT images of the head were obtained without contrast. A dose lowering tech nique was utilized adhering to the principles of ALARA. CT DOSE: 625.80 mGy.cm COMPARISON: None. FINDINGS: No acute intracranial hemorrhage, midline shift, intracranial mass, hydrocephalus, territorial ischem ia or abnormal extra-axial collection. Involutional changes with chronic microvascular ischemic disea se. Chronic right thalamic lacunar infarct. Mildly motion degraded exam. The calvarium is intact. Prior bilateral lens repair. The paranasal sinuses, mastoid air cells, and m iddle ear cavities are clear. IMPRESSION: No acute intracranial abnormality. ACT 112: Negative or not required by law. The above report was generated using voice recognition software. It may contain grammatical, syntax o r spelling errors. Electronically signed by: Gurjit Santoyo M.D. 09/01/2022 5:17 PM
[2022-09-01 19:49] LABS: Partial Thromboplastin Ratio 1.3; Partial Thromboplastin Time 35.8 Seconds (21.0-31.0)
[2022-09-01] MEDS ORDERED: HEPARIN IV BOLUS 3,000 UNITS in SYRINGE 0 ML IV ONE (19:50)
--- NOTE | 2022-09-01 20:52 | Communication Note ---
Date of Service: September 01, 2022 IV heparin held temporarily with note of R thigh bruising/right knee swelling. CBC and RLE CT pending
--- NOTE | 2022-09-01 23:11 | CT Scan Report ---
Exam(s): CT EXTREMITY RIGHT LOWER Without Contrast EXAM: CT Right Lower Extremity Without Intravenous Contrast CLINICAL HISTORY: Reason for exam: R thigh pain, heparin. TECHNIQUE: Axial computed tomography images of the right lower extremity without intravenous contrast. Automated exposure control was utilized for the study. A dose lowering technique was utilized adhering to the principles of ALARA. COMPARISON: None. FINDINGS: Bones/joints: Diffuse osteoporosis. Degenerative disease of bilateral hips. Degenerative disease at the level of the knee. The femur is normal with no distinct fracture or subluxation. Trace joint effusion. Soft tissues: Unremarkable. Vasculature: Vascular calcifications consistent with peripheral arterial disease. IMPRESSION: 1. Peripheral arterial disease. 2. Diffuse osteoporosis with degenerative disease of the right hip and knee. 3. No acute fracture or subluxation. Electronically signed by: Griselda Horvath MD 09/01/22 23:10 PM
--- NOTE | 2022-09-01 23:12 | CT Scan Report ---
Exam(s): CT RIGHT KNEE Without Contrast EXAM: CT Right Lower Extremity Without Intravenous Contrast, Knee CLINICAL HISTORY: Reason for exam: pain, heparin. TECHNIQUE: Axial computed tomography images of the right knee without intravenous contrast. Automated exposure control was utilized for the study. A dose lowering technique was utilized adhering to the principles of ALARA. COMPARISON: None. FINDINGS: Bones/joints: Trace joint effusion. Diffuse osteoporosis. Degenerative arthrosis of the proximal tibiofibular articulation. Mild to moderate narrowing of the lateral joint compartment with mild narrowing of the medial joint compartment. Subchondral cystic changes along the posterior patella with mild narrowing of the patellofemoral space. No acute fracture. No dislocation. Soft tissues: Unremarkable. Vasculature: Vascular calcifications consistent with peripheral arterial disease. Tortuous venous structures along the medial aspect of the knee most compatible with nonspecific varicose veins. IMPRESSION: 1. Diffuse osteopenia with degenerative disease as described. 2. Trace joint effusion with no acute fracture or subluxation seen. 3. Peripheral arterial disease. Electronically signed by: Griselda Horvath MD 09/01/22 23:11 PM
[2022-09-02] MEDS: METOPROLOL TARTRATE 1 MG/ML VIAL IV SCH (00:44)
[2022-09-02 00:49] LABS: Hematocrit (blood only) 39.8 % (37.0-47.0); Hemoglobin 13.3 g/dl (12.0-16.0); Mean Corpuscular Hemoglobin 32.5 pg (25.0-34.0); Mean Corpuscular Hgb Conc 33.4 g/dL (32.0-36.0); Mean Corpuscular Volume 97.3 fL (80.0-100.0); Mean Platelet Volume 11.2 fL (9.4-12.4); Platelet Count 174 K/uL (130-400); RDW Coefficient of Variation 16.3 % (11.5-14.5); RDW Standard Deviation 58.6 fL (36.4-46.3); Red Blood Count 4.09 M/uL (4.20-5.40); White Blood Count 9.58 K/ul (4.8-10.8)
[2022-09-02 00:50] LABS: Basophils # (auto) 0.05 K/uL (0-0.2); Basophils % (auto) 0.5 %; Eosinophils # (auto) 0.15 K/uL (0-0.50); Eosinophils % (auto) 1.6 %; Immature Granulocytes # (auto) 0.03 K/uL (0.01-0.20); Immature Granulocytes % (auto) 0.3 %; Lymphocytes # (auto) 1.49 K/uL (1.2-3.4); Lymphocytes % (auto) 15.6 %; Monocytes # (auto) 0.93 K/uL (0.11-0.59); Monocytes % (auto) 9.7 %; Neutrophils # (auto) 6.93 K/uL (1.40-6.50); Neutrophils % (auto) 72.3 %
[2022-09-02] MEDS ORDERED: ALBUMIN 25% 12.5 GM/50 ML VIAL IV ONE (00:50)
[2022-09-02] MEDS ORDERED: DIGOXIN 250 MCG in SYRINGE 9 ML IV STA (00:57)
[2022-09-02 01:18] LABS: Partial Thromboplastin Ratio 1.1; Partial Thromboplastin Time 30.5 Seconds (21.0-31.0)
[2022-09-02] MEDS: POTASSIUM CHLORIDE / WTR 10 MEQ/100 ML PLCT IV SCH ×2 (01:21→03:41)
[2022-09-02] MEDS: MAGNESIUM SULFATE / D5W 1 GM/100 ML BAG IV SCH ×2 (01:21→03:41)
[2022-09-02 05:32] LABS: BUN Creatinine Ratio 20.5 (10-20); Calcium 8.9 mg/dl (8.6-10.3); Creatinine Clr Calc Pharmacy 45.9 ml/min; Est GFR (African American) 72.5 ml/min; Est GFR (Non-African American) 62.5 ml/min; Magnesium 2.2 mg/dl (1.7-2.4); Potassium 4.1 mmol/L (3.5-5.1)
[2022-09-02 05:38] LABS: Partial Thromboplastin Ratio 1.1; Partial Thromboplastin Time 31.1 Seconds (21.0-31.0)
[2022-09-02 06:00] LABS: Hematocrit (blood only) 40.7 % (37.0-47.0); Hemoglobin 13.7 g/dl (12.0-16.0); Mean Corpuscular Hemoglobin 32.1 pg (25.0-34.0); Mean Corpuscular Hgb Conc 33.7 g/dL (32.0-36.0); Mean Corpuscular Volume 95.3 fL (80.0-100.0); Mean Platelet Volume 11.9 fL (9.4-12.4); Platelet Count 142 K/uL (130-400); RDW Coefficient of Variation 16.5 % (11.5-14.5); RDW Standard Deviation 57.7 fL (36.4-46.3); Red Blood Count 4.27 M/uL (4.20-5.40); White Blood Count 8.45 K/ul (4.8-10.8)
[2022-09-02] MEDS ORDERED: METOPROLOL TARTRATE 1 MG/ML VIAL IV SCH (06:00)
[2022-09-02 06:01] LABS: Basophils # (auto) 0.04 K/uL (0-0.2); Basophils % (auto) 0.5 %; Eosinophils # (auto) 0.28 K/uL (0-0.50); Eosinophils % (auto) 3.3 %; Immature Granulocytes # (auto) 0.03 K/uL (0.01-0.20); Immature Granulocytes % (auto) 0.4 %; Lymphocytes # (auto) 1.35 K/uL (1.2-3.4); Monocytes # (auto) 0.86 K/uL (0.11-0.59); Monocytes % (auto) 10.2 %; Neutrophils # (auto) 5.89 K/uL (1.40-6.50); Neutrophils % (auto) 69.6 %; Platelet Estimate Normal (Normal); RBC Morphology Unremarkable
[2022-09-02] MEDS ORDERED: HEPARIN SODIUM/DEXTROSE 25,000 UNITS/500 ML BAG IV SCH (06:15)
[2022-09-02 06:38] LABS: Base Excess ABG 5.3 mEq/L (-9-1.8); HCO3 ABG 31 mmol/L (19-24); Oxygen Saturation ABG 98.9 % (90-95); PCO2 ABG 49 mmHg (35-46); PO2 ABG 122 mmHg (80-95); pH ABG 7.41 (7.35-7.45)
[2022-09-02 06:39] LABS: Allen Test Pos (Pos)
[2022-09-02] MEDS ORDERED: FUROSEMIDE INJ 20 MG/2 ML VIAL IV ONE (06:53)
--- NOTE | 2022-09-02 06:54 | XRay Report ---
XR chest 1V portable CLINICAL HISTORY: low o2 COMPARISON STUDY: Chest radiograph August 31, 2022. Chest CT December 13, 2021. FINDINGS: There is no pneumothorax. There are suspected trace bilateral pleural effusions. Cardiomedi astinal silhouette is stable. Cardiomegaly is unchanged. Mild interstitial thickening persists. IMPRESSION: Cardiomegaly with mild interstitial pulmonary edema and trace bilateral pleural effusion s. ACT 112: Negative or not required by law. Electronically signed by: Sukhwinder Chadwick M.D. 09/02/2022 6:53 AM
[2022-09-02] MEDS: Heparin IV Adult Wt-Based Low-Dose *NO* Bolus Protocol IV SCH (07:32)
[2022-09-02] MEDS: FAMOTIDINE 20 MG in SYRINGE 3 ML IV SCH ×2 (09:09→20:51)
[2022-09-02] MEDS: dilTIAZem HCL 120 MG CAPCR PO SCH (09:09)
[2022-09-02] MEDS: CEFEPIME 2,000 MG in SYRINGE 0 ML IV SCH ×2 (09:09→20:51)
[2022-09-02] MEDS: UMECLIDINIUM BROMIDE 62.5MCG/BLISTER 7 PUFFS/INHALER INH SCH (09:09)
[2022-09-02] MEDS: INSULIN ASPART PER UNIT CHARGE SC SCH ×4 (09:09→20:46)
[2022-09-02] MEDS: FLUTICASONE/VILANTEROL 200/25MCG 14 PUFFS/INHALER INH SCH (09:09)
[2022-09-02] MEDS: POTASSIUM CHLORIDE CRTAB 20 MEQ TABCR PO SCH (09:10)
[2022-09-02] MEDS: lisinopril 10 MG TAB PO SCH (09:10)
[2022-09-02] MEDS: EZETIMIBE 10 MG TABLET PO SCH (09:10)
[2022-09-02] MEDS: ATORVASTATIN 40 MG TAB PO SCH (09:10)
[2022-09-02] MEDS: APIXABAN 5 MG TABLET PO SCH ×2 (11:01→20:52)
--- NOTE | 2022-09-02 12:05 | Hospitalist Progress Note ---
Date of Service September 02, 2022 Assessment & Plan (1) TIA (transient ischemic attack): (2) UTI (urinary tract infection): (3) Delirium: (4) Hypoxia: (5) PAF (paroxysmal atrial fibrillation): (6) Restless leg: Plan 87yo F with PMH of aortic valve stenosis s/p TAVR, history of paroxysmal atrial fibrillation on Coumadin, history of COPD, interstitial lung disease, on chronic home oxygen 1 L during daytime and 2 L while sleeping, DM II, HLD, HTN, CAD, SANDRA, history of pulmonary emboli who presented to the ED 08/30 with sudden onset aphasia and is s/p tenecteplase in the ED. She was admitted to ICU post tPA for closer monitoring: MRI Brain 08/31: There is moderate patchy periventricular and deep white matter T2 hyperintensity throughout the cerebrum consistent with chronic small vessel disease and/or senescent changes. 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 No areas of diffusion restriction are seen to indicate acute stroke. CT, CTA head/neck- 1. There is no hemorrhage, mass effect, or evidence of acute territorial ischemia by CT criteria. 2. Unremarkable CT angiogram of the brain. 3. Unremarkable CT angiogram of the neck. TIA status post tPA-presented with sudden onset aphasia and is status post tPA 08/30 which probably aborted the CVA per neurology. TIA likely in setting of Afib with sub therapeutic INR. Seen by neuro and recommendations noted. Repeat [address] head unremarkable and anticoag started as per neuro recommendation. Eliquis started last night but today unable to give today due to her delirium/AMS. Started on heparin drip while off of eliquis. OP neuro f/u in 6-8 wks UTI-urine culture growing gram-negative bacilli. On empiric cefepime pending final urine clx results Delirium- resolved. Patient is much better today. Continue delirium precautions- very cautious use of zyprexa as it sedated her all day yesterday. Chronic A fib- continue cardizem, lopressor, eliquis. Hypoxia- on home oxygen at home which she uses intermittently H/o CAD: chronic, stable. DM II: Insulin management per glycemic pharmacist COPD: Stable, continue inhalers. Continue with baseline oxygen requirement. SANDRA: Continue with home CPAP RLS- Iron studies show some iron deficiency. Will start on oral iron. Can consider tylenol/ibuprofen or low dose requip. OP follow up with neuro. DVT prophylaxis: Dorothy Dispo- Transfer to [facility]. PT OT recommends rehab. Urine clx result pending. Admission and Anticipated Discharge Date Admission Date: August 30, 2022 Subjective Patient was seen and examined at bedside. She is much better today, almost back to her baseline. She is awake, alert, calm cooperative, sitting in chair, answering questions appropriately. No fever, chills, chest pain or shortness of breath, nausea or vomiting. She does not recall events from yesterday Review of Systems Review of Systems: All systems reviewed & are unremarkable except as noted in Subjective Physical Exam Physical Exam: General: Sitting comfortably in chair, not in acute distress, on NC HEENT: EOMI, CINDY, MMM Chest: Clear breath sounds bilaterally, no wheezes or crackles CVS: Irregular, normal heart sounds, no murmur Abdomen: Soft, non tender, not distended, normal bowel sounds Neuro: Awake, alert, oriented, answering questions appropriately Extremities: No cyanosis, clubbing or edema, varicosities noted in leg Results & Data Results & Data Vital Signs (Past 12 Hours) Vital Signs Temp Pulse Resp BP Pulse Ox Pulse Ox Pulse Ox 09/02/22 11:52 110/63 09/02/22 11:40 37.4 C 78 20 94 09/02/22 11:20 94 93 09/02/22 10:00 37.1 C 92 H 22 95 09/02/22 09:26 146/82 H 09/02/22 09:26 36.8 C 90 22 09/02/22 09:21 155/108 H 09/02/22 09:21 36.9 C 90 23 93 09/02/22 08:01 120/83 09/02/22 08:01 36.7 C 83 16 99 09/02/22 08:00 36.7 C 90 24 97 09/02/22 10:26 88 09/02/22 09:30 09/02/22 09:30 09/02/22 09:30 09/02/22 05:34 36.4 C L 133/97 09/02/22 05:34 97 H 19 100 09/02/22 04:01 148/85 H 09/02/22 04:01 36.3 C L 98 H 16 88 L 09/02/22 04:00 36.3 C L 100 H 18 95 09/02/22 02:00 36.7 C 97 H 14 100 09/02/22 05:38 95 H 133/97 09/02/22 00:42 99/63 L 09/02/22 00:42 36.8 C 104 H 15 93 09/02/22 01:19 101 H 09/02/22 00:44 112 H 99/63 L Pulse Ox O2 Del Method O2 Del Method O2 Flow Rate O2 Flow Rate O2 Flow Rate O2 Flow Rate 09/02/22 11:52 09/02/22 11:40 Nasal Cannula 2 09/02/22 11:20 90 2 2 2 09/02/22 10:00 Nasal Cannula 2 09/02/22 09:26 09/02/22 09:26 09/02/22 09:21 09/02/22 09:21 09/02/22 08:01 09/02/22 08:01 09/02/22 08:00 09/02/22 10:26 09/02/22 09:30 Nasal Cannula 09/02/22 09:30 Nasal Cannula 2 09/02/22 09:30 Nasal Cannula 2 09/02/22 05:34 09/02/22 05:34 09/02/22 04:01 09/02/22 04:01 09/02/22 04:00 09/02/22 02:00 09/02/22 05:38 09/02/22 00:42 09/02/22 00:42 09/02/22 01:19 09/02/22 00:44 Laboratory Results Short CBC 09/01/22 09/02/22 09/02/22 Range/Units 12:11 00:27 04:47 WBC 10.42 9.58 8.45 (4.8-10.8) K/ul Hgb 14.5 13.3 13.7 (12.0-16.0) g/dl Hct 43.0 39.8 40.7 (37.0-47.0) % Plt Count 180 174 142 (130-400) K/uL BMP 09/02/22 04:47 Sodium 139 Potassium 4.1 Chloride 103 Carbon Dioxide 30 BUN 17 Creatinine 0.83 Glucose 101 H Calcium 8.[address] 09/01/22 20:51 Exam(s): CT RIGHT KNEE Without Contrast EXAM: CT Right Lower Extremity Without Intravenous Contrast, Knee CLINICAL HISTORY: Reason for exam: pain, heparin. TECHNIQUE: Axial computed tomography images of the right knee without intravenous contrast. Automated exposure control was utilized for the study. A dose lowering technique was utilized adhering to the principles of ALARA. COMPARISON: None. FINDINGS: Bones/joints: Trace joint effusion. Diffuse osteoporosis. Degenerative arthrosis of the proximal tibiofibular articulation. Mild to moderate narrowing of the lateral joint compartment with mild narrowing of the medial joint compartment. Subchondral cystic changes along the posterior patella with mild narrowing of the patellofemoral space. No acute fracture. No dislocation. Soft tissues: Unremarkable. Vasculature: Vascular calcifications consistent with peripheral arterial disease. Tortuous venous structures along the medial aspect of the knee most compatible with nonspecific varicose veins. IMPRESSION: 1. Diffuse osteopenia with degenerative disease as described. 2. Trace joint effusion with no acute fracture or subluxation seen. 3. Peripheral arterial disease. Electronically signed by: Griselda Horvath MD 09/01/22 23:11 PM Chest X-Ray 09/02/22 06:11 XR chest 1V portable CLINICAL HISTORY: low o2 COMPARISON STUDY: Chest radiograph August 31, 2022. Chest CT December 13, 2021. FINDINGS: There is no pneumothorax. There are suspected trace bilateral pleural effusions. Cardiomediastinal silhouette is stable. Cardiomegaly is unchanged. Mild interstitial thickening persists. IMPRESSION: Cardiomegaly with mild interstitial pulmonary edema and trace bilateral pleural effusions. ACT 112: Negative or not required by law. Electronically signed by: Sukhwinder Chadwick M.D. 09/02/2022 6:53 AM Medications Administered Current Inpatient Medications Acetaminophen (Acetaminophen 325 Mg Tab) 650 mg PO Q6 PRN PRN Reason: fever, pain Stop: 09/29/22 18:51 Last Admin: 09/02/22 09:10 Dose: 650 mg Albuterol (Albuterol 0.083% Nebu Soln 3 Ml Vial) 2.5 mg INH Q4R PRN; Protocol PRN Reason: Shortness Of Breath Stop: 09/29/22 18:51 Albuterol (Albuterol Hfa 8 Gm Inhaler) 2 puffs INH Q4R PRN PRN Reason: Wheeze/Cough Stop: 09/29/22 18:51 Apixaban (Apixaban 5 Mg Tablet) 5 mg PO BID [facility] Stop: 10/02/22 09:44 Last Admin: 09/02/22 11:01 Dose: 5 mg Atorvastatin Calcium (Atorvastatin 40 Mg Tab) 40 mg PO QAM [facility] Stop: 09/30/22 08:59 Last Admin: 09/02/22 09:10 Dose: 40 mg Dextrose (Dextrose 50% 50 Ml Syringe) 25 - 50 ml IV UD PRN; Protocol PRN Reason: Hypoglycemia Protocol Stop: 09/29/22 17:56 Diltiazem HCl (Diltiazem Hcl 120 Mg Capcr) 120 mg PO QAM [facility] Stop: 09/30/22 08:59 Last Admin: 09/02/22 09:09 Dose: 120 mg Ezetimibe (Ezetimibe 10 Mg Tablet) 10 mg PO QAM [facility] Stop: 09/30/22 08:59 Last Admin: 09/02/22 09:10 Dose: 10 mg Fluticasone/Vilanterol (Fluticasone/Vilanterol 200/25mcg 14 Puffs/Inhaler) 1 puffs INH DAILY [facility] Stop: 09/30/22 08:59 Last Admin: 09/02/22 09:09 Dose: 1 puffs Furosemide (Furosemide 40 Mg Tab) 40 mg PO QAM [facility] Stop: 10/03/22 08:59 Glucagon (Glucagon For Inj 1 Mg Vial) 1 mg SQ UD PRN; Protocol PRN Reason: Hypoglycemia Protocol Stop: 09/29/22 17:56 Glucose (Glucose 10 Tab/Tube) 4 - 8 tab PO UD PRN; Protocol PRN Reason: Hypoglycemia Treatment Stop: 09/29/22 17:56 Glucose (Glucose 40% Gel 15 Gm Tube) 15 - 30 gm PO UD PRN; Protocol PRN Reason: Hypoglycemia Protocol Stop: 09/29/22 17:56 Famotidine 20 mg/ Syringe 5 mls @ 2.5 mls/min IV BID [facility] Stop: 09/30/22 08:59 Last Admin: 09/02/22 09:09 Dose: 2.5 mls/min Cefepime HCl 2,000 mg/ Syringe 20 mls @ 5 mls/min IV Q12H [facility]; Protocol Stop: 09/11/22 07:59 Last Admin: 09/02/22 09:09 Dose: 5 mls/min Insulin Aspart (Insulin Aspart Per Unit Charge) 0 units SC ACHS [facility] Stop: 09/30/22 16:29 Last Admin: 09/02/22 11:04 Dose: 1 units Lisinopril (Lisinopril 10 Mg Tab) 10 mg PO QAM [facility] Stop: 09/30/22 08:59 Last Admin: 09/02/22 09:10 Dose: 10 mg Metoprolol Tartrate (Metoprolol Tartrate 25 Mg Tab) 12.5 mg PO BID [facility] Stop: 09/30/22 20:59 Last Admin: 09/01/22 08:09 Dose: Not Given Miscellaneous (Carbohydrates For Hypoglycemia ) 15 - 30 gm PO UD PRN PRN Reason: Hypoglycemia Protocol Stop: 09/29/22 17:56 Miscellaneous Information (Pharmacy Glycemic Mgmt Consult) 1 each N/A UD PRN; Protocol PRN Reason: Consult Stop: 09/29/22 17:56 Nitroglycerin (Nitroglycerin Sl 0.4 Mg/Tab Tab) 0.4 mg SL UD PRN PRN Reason: Chest Pain Stop: 09/29/22 18:51 Nystatin (Nystatin Powder 15gm Btl) 1 appln EXT BID PRN PRN Reason: inflammed skin folds Stop: 09/30/22 22:20 Last Admin: 09/02/22 09:11 Dose: 1 appln Olanzapine (Olanzapine 10 Mg/2.1 Ml Sdv) 2.5 mg IM Q4H PRN PRN Reason: Anxiety/Agitation Stop: 09/30/22 22:33 Potassium Chloride (Potassium Chloride Crtab 20 Meq Tabcr) 20 meq PO DAILY [facility] Stop: 09/30/22 08:59 Last Admin: 09/02/22 09:10 Dose: 20 meq Umeclidinium [place] (Umeclidinium [place] 62.5mcg/Blister 7 Puffs/Inhaler) 1 puffs INH DAILY [facility] Stop: 09/30/22 08:59 Last Admin: 09/02/22 09:09 Dose: 1 puffs
--- NOTE | 2022-09-02 13:20 | Pharmacy Report ---
Pharmacy Glycemic Short Note 2 - Date of Service September 02, 2022 - Glycemic Short BSG Results (Last 24 hours): 09/01/22 09/01/22 09/02/22 16:29 21:31 04:47 Glucose 101 H POC Glucose 116 H 113 H 09/02/22 11:00 Glucose POC Glucose 145 H OUTPATIENT ANTIDIABETIC REGIMEN: * metformin 750 mg PO BID * HbA1C = 7.1% (08/31/22) ASSESSMENT: 09/02: * BSGS [phone] mg/dL yesterday with no insulin administered * Removed carb ratio this morning, patient tolerated breakfast, lunch BSG 145 mg/dL * Will monitor for remainder of the day, if patient continues to have BSGs can consider signing off 09/01 * BSGs 125-130-114 mg/dL with no insulin administered * Will remove basal scale, hold for now- fasting 115 mg/dL this AM * Will loosen carb ratio as patient has not required- may remove if BSGs remain stable * Starting heparin infusion (in dextrose). Continue to monitor 08/31 * Ms Elena is an 87 y/o F with a PMH of T2DM on metformin who presents with a stroke s/p TNK administration. * Patient was NPO this morning; now ordered diet. Fasting was 125 mg/dL. * For Lantus, scale with values of 0-15 units (none to weight-based stress of 2). * Novolog weight-based stress of 2. PLAN FOR INPATIENT GLYCEMIC CONTROL: * Hold outpatient oral diabetes medications * Basal insulin * HOLD * Bolus insulin * NovoLog per scale ACHS or Q6hrs while NPO * Goal Range: Low 140 mg/dL - High 180 mg/dL * Correction Factor: 30 mg/dL/unit * No Nutritional / Prandial insulin coverage
[2022-09-02] MEDS: MELATONIN 3 MG TAB PO PRN (20:51)
[2022-09-02] MEDS: METOPROLOL TARTRATE 25 MG TAB PO SCH (20:52)
[2022-09-03] MEDS: OLANZapine 10 MG/2.1 ML SDV IM PRN ×3 (01:33→13:01)
[2022-09-03 06:41] LABS: Basophils # (auto) 0.04 K/uL (0-0.2); Basophils % (auto) 0.5 %; Eosinophils # (auto) 0.27 K/uL (0-0.50); Eosinophils % (auto) 3.4 %; Hematocrit (blood only) 40.7 % (37.0-47.0); Hemoglobin 13.7 g/dl (12.0-16.0); Immature Granulocytes # (auto) 0.05 K/uL (0.01-0.20); Immature Granulocytes % (auto) 0.6 %; Lymphocytes # (auto) 1.41 K/uL (1.2-3.4); Lymphocytes % (auto) 17.9 %; Mean Corpuscular Hemoglobin 32.2 pg (25.0-34.0); Mean Corpuscular Hgb Conc 33.7 g/dL (32.0-36.0); Mean Corpuscular Volume 95.8 fL (80.0-100.0); Mean Platelet Volume 11.6 fL (9.4-12.4); Monocytes # (auto) 0.91 K/uL (0.11-0.59); Monocytes % (auto) 11.5 %; Neutrophils % (auto) 66.1 %; Platelet Count 183 K/uL (130-400); RDW Coefficient of Variation 16.4 % (11.5-14.5); RDW Standard Deviation 58.4 fL (36.4-46.3); Red Blood Count 4.25 M/uL (4.20-5.40); White Blood Count 7.88 K/ul (4.8-10.8)
[2022-09-03 07:01] LABS: Calcium 9.1 mg/dl (8.6-10.3); Creatinine Clr Calc Pharmacy 47.9 ml/min; Est GFR (African American) 75.8 ml/min; Est GFR (Non-African American) 65.4 ml/min; Potassium 4.2 mmol/L (3.5-5.1)
--- NOTE | 2022-09-03 08:40 | Pharmacy Report ---
Pharmacy Glycemic Sign Off Nt - Date of Service September 03, 2022 - Assessment & Plan ASSESSMENT: * Pharmacy was consulted by Dr Ryan on 08/30/22 for glycemic control and to write orders per [facility] inpatient glycemic control protocol. * Major changes made by pharmacy to antidiabetic regimen include: * D/C basal insulin scale, removed carb ratio, added metformin 500 mg XR (home dose 750 mg/can't make dose) * Patient has been receiving/requiring 0-1 units of insulin per day for adequ ate glycemic control * BSGs ranging 101 145 mg/dl * Regimen has only required minor adjustments over the past 48hrs to achieve this level of control * Do not anticipate further changes in patient status that would quickly deteriorate glycemic control (i.e. patient to be NPO for upcoming procedure, steroids tapering, starting tube feedings, etc). * Please see recommendations for outpatient antidiabetic regimen below. PLAN FOR INPATIENT GLYCEMIC CONTROL: No changes needed to current regimen. * Resume metformin XR 500 mg qAM (unable to make 750 mg home dose) * Continue NovoLog per scale ACHS/Q6hrs while NPO * Goal range = 110 140 mg/dl * CF = 30 mg/dl/unit * Pharmacy is signing off of glycemic consult and will no longer be making adjustments to inpatient regimen. Please feel free to re-consult if needed. Thank you.
[2022-09-03] MEDS: INSULIN ASPART PER UNIT CHARGE SC SCH ×2 (08:42→12:16)
[2022-09-03] MEDS: dilTIAZem HCL 120 MG CAPCR PO SCH (08:52)
[2022-09-03] MEDS: EZETIMIBE 10 MG TABLET PO SCH (08:52)
[2022-09-03] MEDS: APIXABAN 5 MG TABLET PO SCH ×2 (08:52→20:41)
[2022-09-03] MEDS: POTASSIUM CHLORIDE CRTAB 20 MEQ TABCR PO SCH (08:52)
[2022-09-03] MEDS: lisinopril 10 MG TAB PO SCH (08:52)
[2022-09-03] MEDS: METOPROLOL TARTRATE 25 MG TAB PO SCH ×3 (08:53→20:41)
[2022-09-03] MEDS: FERROUS SULFATE 325 MG TAB PO SCH (08:53)
[2022-09-03] MEDS: FUROSEMIDE 40 MG TAB PO SCH (08:53)
[2022-09-03] MEDS: ATORVASTATIN 40 MG TAB PO SCH (08:53)
[2022-09-03] MEDS: UMECLIDINIUM BROMIDE 62.5MCG/BLISTER 7 PUFFS/INHALER INH SCH (08:54)
[2022-09-03] MEDS: FLUTICASONE/VILANTEROL 200/25MCG 14 PUFFS/INHALER INH SCH (08:54)
[2022-09-03] MEDS: FAMOTIDINE 20 MG in SYRINGE 3 ML IV SCH ×2 (08:55→20:41)
[2022-09-03] MEDS: CEFEPIME 2,000 MG in SYRINGE 0 ML IV SCH (09:20)
--- NOTE | 2022-09-03 13:15 | Hospitalist Progress Note ---
Date of Service September 03, 2022 Assessment & Plan (1) TIA (transient ischemic attack): (2) UTI (urinary tract infection): (3) Delirium: (4) Hypoxia: (5) PAF (paroxysmal atrial fibrillation): (6) Restless leg: Plan 87yo F with PMH of aortic valve stenosis s/p TAVR, history of paroxysmal atrial fibrillation on Coumadin, history of COPD, interstitial lung disease, on chronic home oxygen 1 L during daytime and 2 L while sleeping, DM II, HLD, HTN, CAD, SANDRA, history of pulmonary emboli who presented to the ED 08/30 with sudden onset aphasia and is s/p tenecteplase in the ED. She was admitted to ICU post tPA for closer monitoring: MRI Brain 08/31: There is moderate patchy periventricular and deep white matter T2 hyperintensity throughout the cerebrum consistent with chronic small vessel disease and/or senescent changes. 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 No areas of diffusion restriction are seen to indicate acute stroke. CT, CTA head/neck- 1. There is no hemorrhage, mass effect, or evidence of acute territorial ischemia by CT criteria. 2. Unremarkable CT angiogram of the brain. 3. Unremarkable CT angiogram of the neck. TIA status post tPA-presented with sudden onset aphasia and is status post tPA 08/30 which probably aborted the CVA per neurology. - TIA likely in setting of Afib with sub therapeutic INR. - Seen by neuro and recommendations noted. Repeat 24 hr and 48-hour CT head unremarkable and anticoag started as per neuro recommendation. - Continue Eliquis - OP neuro f/u in 6-8 wks Klebsiella UTI-urine culture growing Klebsiella pneumoniae. Empiric cefepime discontinued to Ancef today. Change to oral antibiotic at discharge Delirium-had episode of delirium overnight, still confused today as stated above. Continue delirium precautions. Chronic A fib- continue cardizem, lopressor, eliquis. Heart rate elevated, will increase dose of Lopressor Hypoxia-resolved, on room air since yesterday. She uses home oxygen intermittently at home H/o CAD: chronic, stable. DM II: Blood sugar well controlled requiring very minimal insulin. A1c 7.1. Will not be aggressive given her age and comorbidities. Resumed metformin per glycemic pharmacist, insulin discontinued. COPD: Stable, continue inhalers. Continue with baseline oxygen requirement. SANDRA: Continue with home CPAP RLS- Iron studies show some iron deficiency. Started on oral iron. Can consider tylenol/ibuprofen or low dose requip. OP follow up with neuro. DVT prophylaxis: Dorothy Dispo- PT OT recommends rehab. Stable to go to rehab. Admission and Anticipated Discharge Date Admission Date: August 30, 2022 Subjective Patient was seen and examined at bedside. She is awake alert but confused- oriented to self. Overnight events noted - she was agitated and required Zyprexa. No fever, chills, chest pain or shortness of breath, nausea or vomiting Review of Systems Review of Systems: All systems reviewed & are unremarkable except as noted in Subjective Physical Exam Physical Exam: General: Sitting comfortably in bed, not in acute distress, on NC HEENT: EOMI, CINDY, MMM Chest: Clear breath sounds bilaterally, no wheezes or crackles CVS: Irregular, normal heart sounds, no murmur Abdomen: Soft, non tender, not distended, normal bowel sounds Neuro: Awake, alert, oriented to self, confused, answering simple questions Extremities: No cyanosis, clubbing or edema, varicosities noted in leg Results & Data Results & Data Vital Signs (Past 12 Hours) Vital Signs Temp Pulse Pulse Resp BP Pulse Ox O2 Del Method 09/03/22 11:35 36.7 C 102 H 18 147/70 H 93 Room Air 09/03/22 07:43 101 H 09/03/22 07:37 36.5 C 105 H 18 93 Room Air 09/03/22 03:20 36.7 C 89 18 134/83 93 Nasal Cannula O2 Flow Rate 09/03/22 11:35 09/03/22 07:43 09/03/22 07:37 09/03/22 03:20 2 Laboratory Results Short CBC 09/03/22 Range/Units 05:40 WBC 7.88 (4.8-10.8) K/ul Hgb 13.7 (12.0-16.0) g/dl Hct 40.7 (37.0-47.0) % Plt Count 183 (130-400) K/uL BMP 09/03/22 05:40 Sodium 140 Potassium 4.2 Chloride 104 Carbon Dioxide 29 BUN 24 H Creatinine 0.80 Glucose 111 H Calcium 9.1 Medications Administered Current Inpatient Medications Acetaminophen (Acetaminophen 325 Mg Tab) 650 mg PO Q6 PRN PRN Reason: fever, pain Stop: 09/29/22 18:51 Last Admin: 09/02/22 09:10 Dose: 650 mg Albuterol (Albuterol 0.083% Nebu Soln 3 Ml Vial) 2.5 mg INH Q4R PRN; Protocol PRN Reason: Shortness Of Breath Stop: 09/29/22 18:51 Albuterol (Albuterol Hfa 8 Gm Inhaler) 2 puffs INH Q4R PRN PRN Reason: Wheeze/Cough Stop: 09/29/22 18:51 Apixaban (Apixaban 5 Mg Tablet) 5 mg PO BID [facility] Stop: 10/02/22 09:44 Last Admin: 09/03/22 08:52 Dose: 5 mg Atorvastatin Calcium (Atorvastatin 40 Mg Tab) 40 mg PO QAM [facility] Stop: 09/30/22 08:59 Last Admin: 09/03/22 08:53 Dose: 40 mg Dextrose (Dextrose 50% 50 Ml Syringe) 25 - 50 ml IV UD PRN; Protocol PRN Reason: Hypoglycemia Protocol Stop: 09/29/22 17:56 Diltiazem HCl (Diltiazem Hcl 120 Mg Capcr) [facility] Stop: 09/30/22 08:59 Last Admin: 09/03/22 08:52 Dose: 120 mg Ezetimibe (Ezetimibe 10 Mg Tablet) 10 mg PO QAM [facility] Stop: 09/30/22 08:59 Last Admin: 09/03/22 08:52 Dose: 10 mg Ferrous Sulfate (Ferrous Sulfate 325 Mg Tab) [facility] Stop: 10/03/22 08:59 Last Admin: 09/03/22 08:53 Dose: 325 mg Fluticasone/Vilanterol (Fluticasone/Vilanterol 200/25mcg 14 Puffs/Inhaler) 1 puffs INH DAILY [facility] Stop: 09/30/22 08:59 Last Admin: 09/03/22 08:54 Dose: 1 puffs Furosemide (Furosemide 40 Mg Tab) 40 mg PO QAM [facility] Stop: 10/03/22 08:59 Last Admin: 09/03/22 08:53 Dose: 40 mg Glucagon (Glucagon For Inj 1 Mg Vial) 1 mg SQ UD PRN; Protocol PRN Reason: Hypoglycemia Protocol Stop: 09/29/22 17:56 Glucose (Glucose 10 Tab/Tube) 4 - 8 tab PO UD PRN; Protocol PRN Reason: Hypoglycemia Treatment Stop: 09/29/22 17:56 Glucose (Glucose 40% Gel 15 Gm Tube) 15 - 30 gm PO UD PRN; Protocol PRN Reason: Hypoglycemia Protocol Stop: 09/29/22 17:56 Famotidine 20 mg/ Syringe 5 mls @ 2.5 mls/min IV BID [facility] Stop: 09/30/22 08:59 Last Admin: 09/03/22 08:55 Dose: 2.5 mls/min Cefazolin Sodium (Ancef 2000mg) 2,000 mg in 15 mls @ 3.75 mls/min IV Q12H [facility] Stop: 09/11/22 19:59 Lisinopril (Lisinopril 10 Mg Tab) 10 mg PO QAM [facility] Stop: 09/30/22 08:59 Last Admin: 09/03/22 08:52 Dose: 10 mg Melatonin (Melatonin 3 Mg Tab) 3 mg PO HS PRN PRN Reason: Sleep Stop: 10/02/22 20:29 Last Admin: 09/02/22 20:51 Dose: 3 mg Metformin HCl (Metformin Hcl Er 500 Mg Tabcr) 500 mg PO QDB [facility] Stop: 10/04/22 07:29 Metoprolol Tartrate (Metoprolol Tartrate 25 Mg Tab) 12.5 mg PO TID [facility] Stop: 10/03/22 13:59 Miscellaneous (Carbohydrates For Hypoglycemia ) 15 - 30 gm PO UD PRN PRN Reason: Hypoglycemia Protocol Stop: 09/29/22 17:56 Nitroglycerin (Nitroglycerin Sl 0.4 Mg/Tab Tab) 0.4 mg SL UD PRN PRN Reason: Chest Pain Stop: 09/29/22 18:51 Nystatin (Nystatin Powder 15gm Btl) 1 appln EXT BID PRN PRN Reason: inflammed skin folds Stop: 09/30/22 22:20 Last Admin: 09/02/22 09:11 Dose: 1 appln Olanzapine (Olanzapine 10 Mg/2.1 Ml Sdv) 2.5 mg IM Q4H PRN PRN Reason: Anxiety/Agitation Stop: 09/30/22 22:33 Last Admin: 09/03/22 13:01 Dose: 2.5 mg Potassium Chloride (Potassium Chloride Crtab 20 Meq Tabcr) 20 meq PO DAILY [facility] Stop: 09/30/22 08:59 Last Admin: 09/03/22 08:52 Dose: 20 meq Umeclidinium [place] (Umeclidinium [place] 62.5mcg/Blister 7 Puffs/Inhaler) 1 puffs INH DAILY [facility] Stop: 09/30/22 08:59 Last Admin: 09/03/22 08:54 Dose: 1 puffs
[2022-09-03] MEDS: ceFAZolin 2000MG 2,000 MG/15 ML SYR IV SCH (20:41)
[2022-09-03] MEDS: MELATONIN 3 MG TAB PO PRN (22:49)
[2022-09-04] MEDS: METOPROLOL TARTRATE 25 MG TAB PO SCH ×3 (07:45→20:55)
[2022-09-04] MEDS: dilTIAZem HCL 120 MG CAPCR PO SCH (07:47)
[2022-09-04] MEDS: FUROSEMIDE 40 MG TAB PO SCH (07:47)
[2022-09-04] MEDS: FERROUS SULFATE 325 MG TAB PO SCH (07:47)
[2022-09-04] MEDS: EZETIMIBE 10 MG TABLET PO SCH (07:47)
[2022-09-04] MEDS: lisinopril 10 MG TAB PO SCH (07:48)
[2022-09-04] MEDS: UMECLIDINIUM BROMIDE 62.5MCG/BLISTER 7 PUFFS/INHALER INH SCH (07:48)
[2022-09-04] MEDS: metFORMIN HCL ER 500 MG TABCR PO SCH (07:48)
[2022-09-04] MEDS: FLUTICASONE/VILANTEROL 200/25MCG 14 PUFFS/INHALER INH SCH (07:49)
[2022-09-04] MEDS: ATORVASTATIN 40 MG TAB PO SCH (08:06)
[2022-09-04] MEDS: APIXABAN 5 MG TABLET PO SCH ×2 (08:07→20:54)
[2022-09-04] MEDS: ceFAZolin 2000MG 2,000 MG/15 ML SYR IV SCH ×2 (09:42→20:55)
[2022-09-04] MEDS: FAMOTIDINE 20 MG in SYRINGE 3 ML IV SCH ×2 (09:42→20:55)
[2022-09-04] MEDS: POTASSIUM CHLORIDE CRTAB 20 MEQ TABCR PO SCH (09:57)
[2022-09-04] MEDS ORDERED: OLANZapine 10 MG/2.1 ML SDV IM PRN (10:56)
--- NOTE | 2022-09-04 15:15 | Hospitalist Progress Note ---
Date of Service September 04, 2022 Assessment & Plan (1) TIA (transient ischemic attack): (2) UTI (urinary tract infection): (3) Delirium: (4) Hypoxia: (5) PAF (paroxysmal atrial fibrillation): (6) Restless leg: Plan 87yo F with PMH of aortic valve stenosis s/p TAVR, history of paroxysmal atrial fibrillation on Coumadin, history of COPD, interstitial lung disease, on chronic home oxygen 1 L during daytime and 2 L while sleeping, DM II, HLD, HTN, CAD, SANDRA, history of pulmonary emboli who presented to the ED 08/30 with sudden onset aphasia and is s/p tenecteplase in the ED. She was admitted to ICU post tPA for closer monitoring: MRI Brain 08/31: There is moderate patchy periventricular and deep white matter T2 hyperintensity throughout the cerebrum consistent with chronic small vessel disease and/or senescent changes. 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 No areas of diffusion restriction are seen to indicate acute stroke. CT, CTA head/neck- 1. There is no hemorrhage, mass effect, or evidence of acute territorial ischemia by CT criteria. 2. Unremarkable CT angiogram of the brain. 3. Unremarkable CT angiogram of the neck. TIA status post tPA-presented with sudden onset aphasia and is status post tPA 08/30 which probably aborted the CVA per neurology. - TIA likely in setting of Afib with sub therapeutic INR. - Seen by neuro and recommendations noted. Repeat 24 hr and 48-hour CT head unremarkable and anticoag started as per neuro recommendation. - Continue Eliquis - OP neuro f/u in 6-8 wks Klebsiella UTI-urine culture growing Klebsiella pneumoniae. Empiric cefepime 09/01, changed to Ancef 09/03 D3/7. Change to oral antibiotic at discharge Delirium- Having intermittent agitations requiring restraints and im zyprexa prn. Will start on po zyprexa hs to be able to take off restraints or prn im zyprexa to facilitate discharge to rehab. Continue delirium precautions. Chronic A fib- continue cardizem, lopressor, eliquis. Heart rate elevated, better after increasing dose of Lopressor Hypoxia- intermittent, received some lasix given CXR findings.She uses home oxygen intermittently at home H/o CAD: chronic, stable. DM II: Blood sugar well controlled requiring very minimal insulin. A1c 7.1. Will not be aggressive given her age and comorbidities. Resumed metformin per glycemic pharmacist, insulin discontinued. COPD: Stable, continue inhalers. Continue with baseline oxygen requirement. SANDRA: Continue with home CPAP RLS- Iron studies show some iron deficiency. Started on oral iron. Can consider tylenol/ibuprofen or low dose requip. OP follow up with neuro. DVT prophylaxis: Dorothy Dispo- PT OT recommends rehab. Unable to discharge to rehab as requiring im zyprexa prn and restraints for her agitations. Admission and Anticipated Discharge Date Admission Date: August 30, 2022 Subjective Patient was seen and examined at bedside. She is awake alert but confused and disoriented- on restraints, intermittently agitated. Overnight events noted. No fever, shortness of breath, vomiting noted. Review of Systems Review of Systems: Unobtainable due to cognitive status Physical Exam Physical Exam: General: Lying in bed, on restraints, on NC Chest: Clear breath sounds bilaterally, no wheezes or crackles CVS: Irregular, normal heart sounds, no murmur Abdomen: Soft, non tender, not distended, normal bowel sounds Neuro: Awake, alert, confused, disoriented, not following commands Extremities: No cyanosis, clubbing or edema, varicosities noted in leg Psych: Intermittently agitated requiring restraints Results & Data Results & Data Vital Signs (Past 12 Hours) Vital Signs Temp Pulse Resp BP BP Pulse Ox O2 Del Method 09/04/22 13:42 83 144/94 H 09/04/22 08:09 Nasal Cannula 09/04/22 07:44 36.6 C 81 130/91 92 Nasal Cannula 09/04/22 03:54 36.5 C 84 16 159/75 H 93 Nasal Cannula O2 Flow Rate 09/04/22 13:42 09/04/22 08:09 2 09/04/22 07:44 2 09/04/22 03:54 2 Medications Administered Current Inpatient Medications Acetaminophen (Acetaminophen 325 Mg Tab) 650 mg PO Q6 PRN PRN Reason: fever, pain Stop: 09/29/22 18:51 Last Admin: 09/02/22 09:10 Dose: 650 mg Albuterol (Albuterol 0.083% Nebu Soln 3 Ml Vial) 2.5 mg INH Q4R PRN; Protocol PRN Reason: Shortness Of Breath Stop: 09/29/22 18:51 Albuterol (Albuterol Hfa 8 Gm Inhaler) 2 puffs INH Q4R PRN PRN Reason: Wheeze/Cough Stop: 09/29/22 18:51 Apixaban (Apixaban 5 Mg Tablet) 5 mg PO BID [facility] Stop: 10/02/22 09:44 Last Admin: 09/04/22 08:07 Dose: Not Given Atorvastatin Calcium (Atorvastatin 40 Mg Tab) 40 mg PO QAM [facility] Stop: 09/30/22 08:59 Last Admin: 09/04/22 08:06 Dose: Not Given Dextrose (Dextrose 50% 50 Ml Syringe) 25 - 50 ml IV UD PRN; Protocol PRN Reason: Hypoglycemia Protocol Stop: 09/29/22 17:56 Diltiazem HCl (Diltiazem Hcl 120 Mg Capcr) 120 mg PO QAM [facility] Stop: 09/30/22 08:59 Last Admin: 09/04/22 07:47 Dose: 120 mg Ezetimibe (Ezetimibe 10 Mg Tablet) 10 mg PO QAM [facility] Stop: 09/30/22 08:59 Last Admin: 09/04/22 07:47 Dose: 10 mg Ferrous Sulfate (Ferrous Sulfate 325 Mg Tab) 325 mg PO QAM [facility] Stop: 10/03/22 08:59 Last Admin: 09/04/22 07:47 Dose: 325 mg Fluticasone/Vilanterol (Fluticasone/Vilanterol 200/25mcg 14 Puffs/Inhaler) 1 puffs INH DAILY [facility] Stop: 09/30/22 08:59 Last Admin: 09/04/22 07:49 Dose: 1 puffs Furosemide (Furosemide 40 Mg Tab) 40 mg PO QAM [facility] Stop: 10/03/22 08:59 Last Admin: 09/04/22 07:47 Dose: 40 mg Glucagon (Glucagon For Inj 1 Mg Vial) 1 mg SQ UD PRN; Protocol PRN Reason: Hypoglycemia Protocol Stop: 09/29/22 17:56 Glucose (Glucose 10 Tab/Tube) 4 - 8 tab PO UD PRN; Protocol PRN Reason: Hypoglycemia Treatment Stop: 09/29/22 17:56 Glucose (Glucose 40% Gel 15 Gm Tube) 15 - 30 gm PO UD PRN; Protocol PRN Reason: Hypoglycemia Protocol Stop: 09/29/22 17:56 Famotidine 20 mg/ Syringe 5 mls @ 2.5 mls/min IV BID [facility] Stop: 09/30/22 08:59 Last Admin: 09/04/22 09:42 Dose: 2.5 mls/min Cefazolin Sodium (Ancef 2000mg) 2,000 mg in 15 mls @ 3.75 mls/min IV Q12H [facility] Stop: 09/11/22 19:59 Last Admin: 09/04/22 09:42 Dose: 3.75 mls/min Lisinopril (Lisinopril 10 Mg Tab) 10 mg PO QAM [facility] Stop: 09/30/22 08:59 Last Admin: 09/04/22 07:48 Dose: 10 mg Melatonin (Melatonin 3 Mg Tab) 3 mg PO HS PRN PRN Reason: Sleep Stop: 10/02/22 20:29 Last Admin: 09/03/22 22:49 Dose: 3 mg Metformin HCl (Metformin Hcl Er 500 Mg Tabcr) 500 mg PO QDB [facility] Stop: 10/04/22 07:29 Last Admin: 09/04/22 07:48 Dose: 500 mg Metoprolol Tartrate (Metoprolol Tartrate 25 Mg Tab) 12.5 mg PO TID [facility] Stop: 10/03/22 13:59 Last Admin: 09/04/22 13:31 Dose: 12.5 mg Miscellaneous (Carbohydrates For Hypoglycemia ) 15 - 30 gm PO UD PRN PRN Reason: Hypoglycemia Protocol Stop: 09/29/22 17:56 Nitroglycerin (Nitroglycerin Sl 0.4 Mg/Tab Tab) 0.4 mg SL UD PRN PRN Reason: Chest Pain Stop: 09/29/22 18:51 Nystatin (Nystatin Powder 15gm Btl) 1 appln EXT BID PRN PRN Reason: inflammed skin folds Stop: 09/30/22 22:20 Last Admin: 09/02/22 09:11 Dose: 1 appln Olanzapine (Olanzapine 5 Mg Tablet) 5 mg PO HS [facility] Stop: 10/04/22 18:59 Olanzapine (Olanzapine 10 Mg/2.1 Ml Sdv) 2.5 mg IM Q4H PRN PRN Reason: Agitation Stop: 10/04/22 10:59 Potassium Chloride (Potassium Chloride Crtab 20 Meq Tabcr) 20 meq PO DAILY [facility] Stop: 09/30/22 08:59 Last Admin: 09/04/22 09:57 Dose: Not Given Umeclidinium Everett (Umeclidinium Everett 62.5mcg/Blister 7 Puffs/Inhaler) 1 puffs INH DAILY [facility] Stop: 09/30/22 08:59 Last Admin: 09/04/22 07:48 Dose: 1 puffs
[2022-09-04] MEDS ORDERED: FUROSEMIDE 40 MG TAB PO PRN (15:24)
[2022-09-04] MEDS ORDERED: OLANZapine 5 MG TABLET PO SCH (19:00)
[2022-09-04] MEDS ORDERED: OLANZAPINE 2.5 MG TAB PO SCH (21:00)
[2022-09-05 07:29] LABS: Calcium 9.5 mg/dl (8.6-10.3); Magnesium 1.9 mg/dl (1.7-2.4); Potassium 4.2 mmol/L (3.5-5.1)
[2022-09-05 07:35] LABS: BUN Creatinine Ratio 31.9 (10-20); Creatinine Clr Calc Pharmacy 52.1 ml/min; Est GFR (African American) 86.1 ml/min; Est GFR (Non-African American) 74.3 ml/min; Phosphorus 3.2 mg/dl (2.5-4.9)
[2022-09-05 07:40] LABS: Basophils # (auto) 0.07 K/uL (0-0.2); Basophils % (auto) 0.7 %; Eosinophils # (auto) 0.19 K/uL (0-0.50); Hematocrit (blood only) 48.5 % (37.0-47.0); Hemoglobin 16.7 g/dl (12.0-16.0); Immature Granulocytes # (auto) 0.04 K/uL (0.01-0.20); Immature Granulocytes % (auto) 0.4 %; Lymphocytes # (auto) 1.86 K/uL (1.2-3.4); Lymphocytes % (auto) 19.8 %; Mean Corpuscular Hemoglobin 32.7 pg (25.0-34.0); Mean Corpuscular Hgb Conc 34.4 g/dL (32.0-36.0); Mean Corpuscular Volume 95.1 fL (80.0-100.0); Mean Platelet Volume 10.9 fL (9.4-12.4); Monocytes # (auto) 0.91 K/uL (0.11-0.59); Monocytes % (auto) 9.7 %; Neutrophils # (auto) 6.34 K/uL (1.40-6.50); Neutrophils % (auto) 67.4 %; Platelet Count 216 K/uL (130-400); RDW Coefficient of Variation 16.5 % (11.5-14.5); White Blood Count 9.41 K/ul (4.8-10.8)
[2022-09-05] MEDS: FAMOTIDINE 20 MG in SYRINGE 3 ML IV SCH ×2 (09:00→20:21)
[2022-09-05] MEDS: ceFAZolin 2000MG 2,000 MG/15 ML SYR IV SCH ×2 (09:00→20:21)
[2022-09-05] MEDS: dilTIAZem HCL 120 MG CAPCR PO SCH (09:01)
[2022-09-05] MEDS: METOPROLOL TARTRATE 25 MG TAB PO SCH ×3 (09:01→20:54)
[2022-09-05] MEDS: UMECLIDINIUM BROMIDE 62.5MCG/BLISTER 7 PUFFS/INHALER INH SCH (09:01)
[2022-09-05] MEDS: FLUTICASONE/VILANTEROL 200/25MCG 14 PUFFS/INHALER INH SCH (09:01)
[2022-09-05] MEDS: APIXABAN 5 MG TABLET PO SCH (09:01)
[2022-09-05] MEDS: ATORVASTATIN 40 MG TAB PO SCH (09:01)
[2022-09-05] MEDS: metFORMIN HCL ER 500 MG TABCR PO SCH (09:01)
[2022-09-05] MEDS: lisinopril 10 MG TAB PO SCH (09:01)
[2022-09-05] MEDS: FERROUS SULFATE 325 MG TAB PO SCH (09:01)
[2022-09-05] MEDS: POTASSIUM CHLORIDE CRTAB 20 MEQ TABCR PO SCH (09:01)
[2022-09-05] MEDS: EZETIMIBE 10 MG TABLET PO SCH (09:01)
[2022-09-05] MEDS ORDERED: hydrALAZINE HCL 20 MG/ML VIAL IV PRN (12:13)
[2022-09-05] MEDS ORDERED: CARBOHYDRATES FOR HYPOGLYCEMIA PO PRN (12:15)
--- NOTE | 2022-09-05 12:33 | Hospitalist Progress Note ---
Date of Service September 05, 2022 Assessment & Plan (1) TIA (transient ischemic attack): (2) UTI (urinary tract infection): (3) Delirium: (4) Hypoxia: (5) PAF (paroxysmal atrial fibrillation): (6) Restless leg: Plan 87yo F with PMH of aortic valve stenosis s/p TAVR, history of paroxysmal atrial fibrillation on Coumadin, history of COPD, interstitial lung disease, on chronic home oxygen 1 L during daytime and 2 L while sleeping, DM II, HLD, HTN, CAD, SANDRA, history of pulmonary emboli who presented to the ED 08/30 with sudden onset aphasia and is s/p tenecteplase in the ED. She was admitted to ICU post tPA for closer monitoring: MRI Brain 08/31: There is moderate patchy periventricular and deep white matter T2 hyperintensity throughout the cerebrum consistent with chronic small vessel disease and/or senescent changes. 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 No areas of diffusion restriction are seen to indicate acute stroke. CT, CTA head/neck- 1. There is no hemorrhage, mass effect, or evidence of acute territorial ischemia by CT criteria. 2. Unremarkable CT angiogram of the brain. 3. Unremarkable CT angiogram of the neck. TIA status post tPA-presented with sudden onset aphasia and is status post tPA 08/30 which probably aborted the CVA per neurology. - TIA likely in setting of Afib - Seen by neuro and recommendations noted. Repeat 24 hr and 48-hour CT head unremarkable and anticoag started as per neuro recommendation. - Continue Eliquis. - OP neuro f/u in 6-8 wks Klebsiella UTI-urine culture growing Klebsiella pneumoniae. Empiric cefepime 09/01, changed to Ancef 09/03 D3/7. Change to oral antibiotic at discharge Delirium- Having intermittent agitations requiring restraints and im zyprexa prn. Continue delirium precautions. Discussed with nursing regarding removal of restraints and one-to-one observation as needed. Not taking her medication. Anticoagulation with Eliquis changed to Lovenox. Also, hydralazine ordered as needed for high blood pressure. Chronic A fib- continue cardizem, lopressor, eliquis. Heart rate elevated, better after increasing dose of Lopressor Hypoxia- intermittent, received some lasix given CXR findings.She uses home oxygen intermittently at home H/o CAD: chronic, stable. DM II: Blood sugar well controlled requiring very minimal insulin. A1c 7.1. Will not be aggressive given her age and comorbidities. Not taking oral medication. Subcu insulin ordered. COPD: Stable, continue inhalers. Continue with baseline oxygen requirement. SANDRA: Continue with home CPAP RLS- Iron studies show some iron deficiency. Started on oral iron. OP follow up with neuro. ropinirole ordered. DVT prophylaxis: Lovenox Discussed with her daughter Mike over the phone. Answered questions/queries. Dispo- PT OT recommends rehab. Unable to discharge to rehab as requiring im zyprexa prn and restraints for her agitations. Time spent evaluating patient, direct bedside care, chart review, placing orders, interpretation of diagnostic studies, discussion with consultants, patient, and family members, as well as other required patient management activities is 60 minutes. Please note the above document was generated using voice recognition software. It may contain grammatical, syntax or spelling errors. Any formal questions or concerns about the content, text or information contained within the body of this dictation should be directly addressed to the provider for clarification Admission and Anticipated Discharge Date Admission Date: August 30, 2022 Subjective Patient seen and examined at bedside. She is lying in the bed; appears delirious. Unable to answer any questions. She is not opening her eyes to verbal stimuli. Review of Systems Review of Systems: All systems reviewed & are unremarkable except as noted in Subjective Physical Exam Physical Exam: General: Lying in bed, on restraints. Appears lethargic; does not open her eyes with verbal stimuli. Chest: Clear breath sounds bilaterally, no wheezes or crackles CVS: Irregular, normal heart sounds, no murmur Abdomen: Soft, non tender, not distended, normal bowel sounds Neuro:Appears lethargic; does not open her eyes with verbal stimuli. Extremities: No cyanosis, clubbing or edema, varicosities noted in leg Psych: Intermittently agitated requiring restraints Results & Data Results & Data Vital Signs (Past 12 Hours) Vital Signs Temp Pulse Resp BP Pulse Ox O2 Del Method 09/05/22 10:58 36.4 C L 87 16 180/83 H 94 Room Air 09/05/22 07:37 36.6 C 104 H 18 169/98 H 94 Room Air Laboratory Results Laboratory Results WBC 9.41 K/ul (4.8-10.8) 09/05/22 06:59 RBC 5.10 M/uL (4.20-5.40) 09/05/22 06:59 Hgb 16.7 g/dl (12.0-16.0) H 09/05/22 06:59 Hct 48.5 % (37.0-47.0) H 09/05/22 06:59 MCV 95.1 fL (80.0-100.0) 09/05/22 06:59 MCH 32.7 pg (25.0-34.0) 09/05/22 06:59 MCHC 34.4 g/dL (32.0-36.0) 09/05/22 06:59 RDW Std Deviation 57.0 fL (36.4-46.3) H 09/05/22 06:59 RDW Coeff of Linda 16.5 % (11.5-14.5) H 09/05/22 06:59 Plt Count 216 K/uL (130-400) 09/05/22 06:59 MPV 10.9 fL (9.4-12.4) 09/05/22 06:59 Immature Gran % (Auto) 0.4 % 09/05/22 06:59 Neut % (Auto) 67.4 % 09/05/22 06:59 Lymph % (Auto) 19.8 % 09/05/22 06:59 Mower % (Auto) 9.7 % 09/05/22 06:59 Eos % (Auto) 2.0 % 09/05/22 06:59 Baso % (Auto) 0.7 % 09/05/22 06:59 Neut # (Auto) 6.34 K/uL (1.40-6.50) 09/05/22 06:59 Lymph # (Auto) 1.86 K/uL (1.2-3.4) 09/05/22 06:59 Mower # (Auto) 0.91 K/uL (0.11-0.59) H 09/05/22 06:59 Eos # (Auto) 0.19 K/uL (0-0.50) 09/05/22 06:59 Baso # (Auto) 0.07 K/uL (0-0.2) 09/05/22 06:59 Immature Gran # (Auto) 0.04 K/uL (0.01-0.20) 09/05/22 06:59 Platelet Estimate Normal (Normal) 09/02/22 04:47 RBC Morphology Unremarkable 09/02/22 04:47 PT 15.9 Seconds (9.0-12.0) H 09/01/22 12:11 POC INR 1.6 (0.9-1.1) H 08/30/22 16:16 INR 1.5 (0.9-1.1) H 09/01/22 12:11 APTT 31.1 Seconds (21.0-31.0) H 09/02/22 04:47 PTT Ratio 1.1 09/02/22 04:47 ABG pH 7.41 (7.35-7.45) 09/02/22 06:26 ABG pCO2 49 mmHg (35-46) H 09/02/22 06:26 ABG pO2 122 mmHg (80-95) H 09/02/22 06:26 ABG HCO3 31 mmol/L (19-24) H 09/02/22 06:26 ABG O2 Saturation 98.9 % (90-95) H 09/02/22 06:26 ABG Base Excess 5.3 mEq/L (-9-1.8) H 09/02/22 06:26 Melvin Test Pos (Pos) 09/02/22 06:26 Oxygen Given 4 L 09/02/22 06:26 Sodium 141 mmol/L (136-145) 09/05/22 06:59 Potassium 4.2 mmol/L (3.5-5.1) 09/05/22 06:59 Chloride 104 mmol/L (98-107) 09/05/22 06:59 Carbon Dioxide 26 mmol/L (21-32) 09/05/22 06:59 Anion Gap 11 (3-11) 09/05/22 06:59 BUN 23 mg/dl (6-23) 09/05/22 06:59 Creatinine 0.72 mg/dl (0.6-1.2) 09/05/22 06:59 Est Cr Clr Drug Dosing 52.1 ml/min 09/05/22 06:59 Est GFR ( Amer) 86.1 ml/min 09/05/22 06:59 Est GFR (Non-Af Amer) 74.3 ml/min 09/05/22 06:59 BUN/Creatinine Ratio 31.9 (10-20) H 09/05/22 06:59 Glucose 113 mg/dl (70-99(Fasting)) H 09/05/22 06:59 POC Glucose 107 mg/dl (70-99) H 09/05/22 11:34 Estimat Average Glucose 157 mg/dl 08/31/22 05:20 Hemoglobin A1c 7.1 % (4.5-5.6) H 08/31/22 05:20 Lactate 1.6 mmol/L (0.4-2.0) 09/01/22 07:58 Calcium 9.5 mg/dl (8.6-10.3) 09/05/22 06:59 Phosphorus 3.2 mg/dl (2.5-4.9) 09/05/22 06:59 Magnesium 1.9 mg/dl (1.7-2.4) 09/05/22 06:59 Iron 87 mcg/dl (35-150) 08/31/22 17:08 Transferrin 242 mg/dl (200-360) 08/31/22 17:08 Ferritin 44.3 ng/ml (8-388) 08/31/22 17:08 Total Bilirubin 0.3 mg/dl (0.2-1.0) 08/30/22 16:06 AST 20 U/L (13-39) 08/30/22 16:06 ALT 16 U/L (7-52) 08/30/22 16:06 Alkaline Phosphatase 48 U/L (34-104) 08/30/22 16:06 Troponin I High Sens 5.9 pg/ml (0-14) 08/30/22 16:06 Total Protein 5.6 gm/dl (6.0-8.3) L 08/30/22 16:06 Albumin 3.1 gm/dl (3.4-5.0) L 08/30/22 16:06 Globulin 2.5 gm/dl (2.5-4.0) 08/30/22 16:06 Albumin/Globulin Ratio 1.2 (0.9-2) 08/30/22 16:06 Triglycerides 123 mg/dl (0-150) 08/31/22 17:08 Cholesterol 162 mg/dl (0-200) 08/31/22 17:08 LDL Cholesterol, Calc 83 mg/dl 08/31/22 17:08 VLDL Cholesterol, Calc 25 mg/dl (0-30) 08/31/22 17:08 HDL Cholesterol 54 mg/dl 08/31/22 17:08 Cholesterol/HDL Ratio 3.0 (0-5) 08/31/22 17:08 Urine Color Yellow 09/01/22 01:45 Urine Appearance Turbid (Clear) A 09/01/22 01:45 Urine pH 5.5 (4.5-7.5) 09/01/22 01:45 Ur Specific [place] 1.010 (1.000-1.030) 09/01/22 01:45 Urine Protein 2+ (Negative) H 09/01/22 01:45 Urine Glucose (UA) Negative (Negative) 09/01/22 01:45 Urine Ketones Negative (Negative) 09/01/22 01:45 Urine Blood 3+ (Negative) H 09/01/22 01:45 Urine Nitrite Negative (Negative) 09/01/22 01:45 Urine Bilirubin Negative (Negative) 09/01/22 01:45 Urine Urobilinogen Negative (Negative) 09/01/22 01:45 Ur Leukocyte Esterase 3+ (Negative) H 09/01/22 01:45 Urine WBC (Auto) >30 /hpf (0-5) H 09/01/22 01:45 Urine RBC (Auto) >30 /hpf (0-4) H 09/01/22 01:45 U Hyaline Cast (Auto) 1-5 /lpf (0-5) 09/01/22 01:45 U Epithel Cells (Auto) >30 /lpf (0-5) H 09/01/22 01:45 Urine Bacteria (Auto) 4+ (Negative) H 09/01/22 01:45 Urine Yeast Not Reportable 09/01/22 01:45 Nasal Screen MRSA (PCR) Negative (Negative) 08/30/22 Unknown SARS-CoV-2, RNA, NAAT NEGATIVE (NEGATIVE) 08/30/22 16:23 Impressions Head CTA 08/30/22 15:[address] OF THE BRAIN; CT ANGIOGRAM OF THE BRAIN; CT ANGIOGRAM OF THE NECK CLINICAL HISTORY: Neurological deficit. Stroke like symptoms. Aphasia. COMPARISON STUDY: CT of the brain dated 12/31/2020. TECHNIQUE: Unenhanced axial CT scan of the brain is performed. Subsequently, following the IV administration of 117 of Optiray 320, CT angiogram of the head and neck was performed from the aortic arch to the vertex. Images are reviewed in the axial, sagittal, and coronal planes. 3-D MIPS images are created and assessed. IV contrast was administered without complication. All measurements were calculated based on NASCET criteria. A dose lowering technique was utilized adhering to the principles of ALARA. CT DOSE: 1158.93 mGy.cm FINDINGS: Brain parenchyma: There is age-related involutional change noting moderate to advanced subcortical and periventricular microangiopathic disease. There is no hemorrhage, mass effect, or evidence of acute territorial ischemia by CT criteria. There is no evidence of enhancing mass lesion on the angiogram phase images. The ventricles, sulci, and cisterns are prominent secondary to involutional change. Fallon-white matter differentiation is preserved. A chronic lacunar infarct is noted in the right thalamus. No extra-axial fluid collection is seen. Thoracic aorta: There is atherosclerotic calcification of the thoracic aorta. Visualized portions of the thoracic aorta are normal in caliber. The aortic arch demonstrates standard 3-vessel anatomy. Right carotid arterial system: The right common carotid artery is widely patent, as are the right internal and external carotid arteries. Calcified plaque is noted in the carotid bulb. Left carotid arterial system: The left common carotid artery is widely patent, as are the left internal and external carotid arteries. Calcified plaque is noted in the carotid bulb. Vertebral arteries: The vertebral arteries are widely patent bilaterally noting mild right-sided dominance. Subclavian arteries: Widely patent bilaterally. Intracranial vasculature: There is atherosclerotic calcification of the cavernous carotid and vertebral arteries. The internal carotid arteries are patent at the skull base, as are the anterior and middle cerebral arteries bilaterally. The vertebrobasilar system and posterior cerebral arteries are widely patent. The right vertebral artery is dominant. There is origin of the left posterior cerebral artery. A posterior communicating artery is seen on the right. There is no aneurysm, high-grade stenosis, or focal vessel cut off s een throughout the intracranial circulation. Jugular veins: Patent bilaterally. Dural sinuses: Patent. Lung apices: Partially visualized upper lobe lung parenchyma appears clear. Soft tissues: The visualized pharyngeal soft tissues are normal in appearance noting angiographic phase technique. The oropharyngeal airway appears widely patent. The salivary and thyroid glands are normal in appearance. No cervical lymphadenopathy is seen. Skeletal structures: The skeletal structures are osteopenic. The calvarium appears intact. The cervical spine is noting multilevel spondylosis. No lytic or blastic lesion is seen. Orbits: The bony orbits are intact. Orbital contents are normal as visualized noting bilateral ocular lens implants. Sinuses and mastoids: There is trace mucosal thickening in the right maxillary antrum. The remaining paranasal sinuses are clear. The mastoid air cells are well pneumatized. IMPRESSION: 1. There is no hemorrhage, mass effect, or evidence of acute territorial ischemia by CT criteria. 2. Unremarkable CT angiogram of the brain. 3. Unremarkable CT angiogram of the neck. ACT 112: Negative or not required by law. Electronically signed by: Freddy Dahl M.D. 08/30/2022 4:15 PM Neck CTA 08/30/22 15:[address] OF THE BRAIN; CT ANGIOGRAM OF THE BRAIN; CT ANGIOGRAM OF THE NECK CLINICAL HISTORY: Neurological deficit. Stroke like symptoms. Aphasia. COMPARISON STUDY: CT of the brain dated 12/31/2020. TECHNIQUE: Unenhanced axial CT scan of the brain is performed. Subsequently, following the IV administration of 117 of Optiray 320, CT angiogram of the head and neck was performed from the aortic arch to the vertex. Images are reviewed in the axial, sagittal, and coronal planes. 3-D MIPS images are created and assessed. IV contrast was administered without complication. All measurements were calculated based on NASCET criteria. A dose lowering technique was utilized adhering to the principles of ALARA. CT DOSE: 1158.93 mGy.cm FINDINGS: Brain parenchyma: There is age-related involutional change noting moderate to advanced subcortical and periventricular microangiopathic disease. There is no hemorrhage, mass effect, or evidence of acute territorial ischemia by CT criteria. There is no evidence of enhancing mass lesion on the angiogram phase images. The ventricles, sulci, and cisterns are prominent secondary to involutional change. Fallon-white matter differentiation is preserved. A chronic lacunar infarct is noted in the right thalamus. No extra-axial fluid collection is seen. Thoracic aorta: There is atherosclerotic calcification of the thoracic aorta. Visualized portions of the thoracic aorta are normal in caliber. The aortic arch demonstrates standard 3-vessel anatomy. Right carotid arterial system: The right common carotid artery is widely patent, as are the right internal and external carotid arteries. Calcified plaque is noted in the carotid bulb. Left carotid arterial system: The left common carotid artery is widely patent, as are the left internal and external carotid arteries. Calcified plaque is noted in the carotid bulb. Vertebral arteries: The vertebral arteries are widely patent bilaterally noting mild right-sided dominance. Subclavian arteries: Widely patent bilaterally. Intracranial vasculature: There is atherosclerotic calcification of the cavernous carotid and vertebral arteries. The internal carotid arteries are patent at the skull base, as are the anterior and middle cerebral arteries bilaterally. The vertebrobasilar system and posterior cerebral arteries are widely patent. The right vertebral artery is dominant. There is origin of the left posterior cerebral artery. A posterior communicating artery is seen on the right. There is no aneurysm, high-grade stenosis, or focal vessel cut off seen throughout the intracranial circulation. Jugular veins: Patent bilaterally. Dural sinuses: Patent. Lung apices: Partially visualized upper lobe lung parenchyma appears clear. Soft tissues: The visualized pharyngeal soft tissues are normal in appearance noting angiographic phase technique. The oropharyngeal airway appears widely patent. The salivary and thyroid glands are normal in appearance. No cervical lymphadenopathy is seen. Skeletal structures: The skeletal structures are osteopenic. The calvarium appears intact. The cervical spine is noting multilevel spondylosis. No lytic or blastic lesion is seen. Orbits: The bony orbits are intact. Orbital contents are normal as visualized noting bilateral ocular lens implants. Sinuses and mastoids: There is trace mucosal thickening in the right maxillary antrum. The remaining paranasal sinuses are clear. The mastoid air cells are well pneumatized. IMPRESSION: 1. There is no hemorrhage, mass effect, or evidence of acute territorial ischemia by CT criteria. 2. Unremarkable CT angiogram of the brain. 3. Unremarkable CT angiogram of the neck. ACT 112: Negative or not required by law. Electronically signed by: Freddy Dahl M.D. 08/30/2022 4:15 PM Brain MRI 08/30/22 18:06 Exam(s): MRI HEAD Without Contrast EXAM: MR Head Without Intravenous Contrast CLINICAL HISTORY: Reason for exam: stroke like symptoms. TECHNIQUE: Magnetic resonance images of the head/brain without intravenous contrast in multiple planes. COMPARISON: CT head from August 30, 2022 FINDINGS: Brain: There is moderate patchy periventricular and deep white matter T2 hyperintensity throughout the cerebrum consistent with chronic small vessel disease and/or senescent changes. 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 No areas of diffusion restriction are seen to indicate acute stroke. No hemorrhage. Ventricles: Unremarkable. No ventriculomegaly. Bones/joints: Unremarkable. Sinuses: Unremarkable as visualized. No acute sinusitis. Mastoid air cells: Unremarkable as visualized. No mastoid effusion. Orbits: Unremarkable as visualized. Other findings: No hemorrhage is identified. IMPRESSION: There is moderate patchy periventricular and deep white matter T2 hyperintensity throughout the cerebrum consistent with chronic small vessel disease and/or senescent changes. 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 No areas of diffusion restriction are seen to indicate acute stroke. Electronically signed by: Arthur Bingham MD 08/31/22 00:[address] 09/01/22 16:57 CT head/brain wo con CLINICAL HISTORY: 87 years-old Female with AMS post tPA- r/o intracranial bleed. Acutely altered mental status TECHNIQUE: Multiple axial CT images of the head were obtained without contrast. A dose lowering technique was utilized adhering to the principles of ALARA. CT DOSE: 625.80 mGy.cm COMPARISON: None. FINDINGS: No acute intracranial hemorrhage, midline shift, intracranial mass, hydrocephalus, territorial ischemia or abnormal extra-axial collection. Involutional changes with chronic microvascular ischemic disease. Chronic right thalamic lacunar infarct. Mildly motion degraded exam. The calvarium is intact. Prior bilateral lens repair. The paranasal sinuses, mastoid air cells, and middle ear cavities are clear. IMPRESSION: No acute intracranial abnormality. ACT 112: Negative or not required by law. The above report was generated using voice recognition software. It may contain grammatical, syntax or spelling errors. Electronically signed by: Gurjit Santoyo M.D. 09/01/2022 5:[address] 09/01/22 20:51 Exam(s): CT EXTREMITY RIGHT LOWER Without Contrast EXAM: CT Right Lower Extremity Without Intravenous Contrast CLINICAL HISTORY: Reason for exam: R thigh pain, heparin. TECHNIQUE: Axial computed tomography images of the right lower extremity without intravenous contrast. Automated exposure control was utilized for the study. A dose lowering technique was utilized adhering to the principles of ALARA. COMPARISON: None. FINDINGS: Bones/joints: Diffuse osteoporosis. Degenerative disease of bilateral hips. Degenerative disease at the level of the knee. The femur is normal with no distinct fracture or subluxation. Trace joint effusion. Soft tissues: Unremarkable. Vasculature: Vascular calcifications consistent with peripheral arterial disease. IMPRESSION: 1. Peripheral arterial disease. 2. Diffuse osteoporosis with degenerative disease of the right hip and knee. 3. No acute fracture or subluxation. Electronically signed by: Griselda Horvath MD 09/01/22 23:[address] 09/01/22 20:51 Exam(s): CT RIGHT KNEE Without Contrast EXAM: CT Right Lower Extremity Without Intravenous Contrast, Knee CLINICAL HISTORY: Reason for exam: pain, heparin. TECHNIQUE: Axial computed tomography images of the right knee without intravenous contrast. Automated exposure control was utilized for the study. A dose lowering technique was utilized adhering to the principles of ALARA. COMPARISON: None. FINDINGS: Bones/joints: Trace joint effusion. Diffuse osteoporosis. Degenerative arthrosis of the proximal tibiofibular articulation. Mild to moderate narrowing of the lateral joint compartment with mild narrowing of the medial joint compartment. Subchondral cystic changes along the posterior patella with mild narrowing of the patellofemoral space. No acute fracture. No dislocation. Soft tissues: Unremarkable. Vasculature: Vascular calcifications consistent with peripheral arterial disease. Tortuous venous structures along the medial aspect of the knee most compatible with nonspecific varicose veins. IMPRESSION: 1. Diffuse osteopenia with degenerative disease as described. 2. Trace joint effusion with no acute fracture or subluxation seen. 3. Peripheral arterial disease. Electronically signed by: Griselda Horvath MD 09/01/22 23:11 PM Chest X-Ray 09/02/22 06:11 XR chest 1V portable CLINICAL HISTORY: low o2 COMPARISON STUDY: Chest radiograph August 31, 2022. Chest CT December 13, 2021. FINDINGS: There is no pneumothorax. There are suspected trace bilateral pleural effusions. Cardiomediastinal silhouette is stable. Cardiomegaly is unchanged. Mild interstitial thickening persists. IMPRESSION: Cardiomegaly with mild interstitial pulmonary edema and trace bilateral pleural effusions. ACT 112: Negative or not required by law. Electronically signed by: Sukhwinder Chadwick M.D. 09/02/2022 6:53 AM
[2022-09-05] MEDS: ENOXAPARIN 80 MG/0.8 ML SYR SQ SCH ×2 (13:30→23:10)
[2022-09-05] MEDS: INSULIN ASPART PER UNIT CHARGE SC SCH ×2 (17:36→20:32)
[2022-09-05] MEDS: rOPINIRole HCL 0.25 MG TABLET PO SCH (20:55)
[2022-09-06 06:24] LABS: BUN Creatinine Ratio 34.1 (10-20); Calcium 9.1 mg/dl (8.6-10.3); Creatinine Clr Calc Pharmacy 45.8 ml/min; Est GFR (African American) 73.5 ml/min; Est GFR (Non-African American) 63.4 ml/min; Magnesium 1.9 mg/dl (1.7-2.4); Potassium 4.1 mmol/L (3.5-5.1)
[2022-09-06] MEDS: dilTIAZem HCL 120 MG CAPCR PO SCH (08:11)
[2022-09-06] MEDS: EZETIMIBE 10 MG TABLET PO SCH (08:13)
[2022-09-06] MEDS: METOPROLOL TARTRATE 25 MG TAB PO SCH ×3 (08:15→20:52)
[2022-09-06] MEDS: INSULIN ASPART PER UNIT CHARGE SC SCH ×4 (08:43→20:52)
[2022-09-06] MEDS: ceFAZolin 2000MG 2,000 MG/15 ML SYR IV SCH ×2 (08:45→20:52)
[2022-09-06] MEDS: FAMOTIDINE 20 MG in SYRINGE 3 ML IV SCH ×2 (08:45→20:57)
[2022-09-06] MEDS: FLUTICASONE/VILANTEROL 200/25MCG 14 PUFFS/INHALER INH SCH (09:37)
[2022-09-06] MEDS: UMECLIDINIUM BROMIDE 62.5MCG/BLISTER 7 PUFFS/INHALER INH SCH (09:37)
[2022-09-06] MEDS: FERROUS SULFATE 325 MG TAB PO SCH (10:02)
[2022-09-06] MEDS: ATORVASTATIN 40 MG TAB PO SCH (10:02)
[2022-09-06] MEDS: lisinopril 10 MG TAB PO SCH (10:03)
[2022-09-06] MEDS: POTASSIUM CHLORIDE CRTAB 20 MEQ TABCR PO SCH (10:03)
--- NOTE | 2022-09-06 11:43 | Hospitalist Progress Note ---
Date of Service September 06, 2022 Assessment & Plan (1) TIA (transient ischemic attack): (2) UTI (urinary tract infection): (3) Delirium: (4) Hypoxia: (5) PAF (paroxysmal atrial fibrillation): (6) Restless leg: Plan 87yo F with PMH of aortic valve stenosis s/p TAVR, history of paroxysmal atrial fibrillation on Coumadin, history of COPD, interstitial lung disease, on chronic home oxygen 1 L during daytime and 2 L while sleeping, DM II, HLD, HTN, CAD, SANDRA, history of pulmonary emboli who presented to the ED 08/30 with sudden onset aphasia and is s/p tenecteplase in the ED. She was admitted to ICU post tPA for closer monitoring: MRI Brain 08/31: There is moderate patchy periventricular and deep white matter T2 hyperintensity throughout the cerebrum consistent with chronic small vessel disease and/or senescent changes. 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 No areas of diffusion restriction are seen to indicate acute stroke. CT, CTA head/neck- 1. There is no hemorrhage, mass effect, or evidence of acute territorial ischemia by CT criteria. 2. Unremarkable CT angiogram of the brain. 3. Unremarkable CT angiogram of the neck. TIA status post tPA-presented with sudden onset aphasia and is status post tPA 08/30 which probably aborted the CVA per neurology. - TIA likely in setting of Afib - Seen by neuro and recommendations noted. Repeat 24 hr and 48-hour CT head unremarkable and anticoag started as per neuro recommendation. - Continue Eliquis. - OP neuro f/u in 6-8 wks Klebsiella UTI-urine culture growing Klebsiella pneumoniae. Empiric cefepime 09/01, changed to Ancef 09/03 D4/7. Change to oral antibiotic at discharge Delirium- Having intermittent agitations requiring restraints and im zyprexa prn. Continue delirium precautions. Discussed with nursing regarding removal of restraints and one-to-one observation as needed. Not taking her medication. Anticoagulation with Eliquis changed to Lovenox. Also, hydralazine ordered as needed for high blood pressure. On 09/06; patient appears to be alert, oriented to self; closer to baseline. Chronic A fib- continue cardizem, lopressor, eliquis. Heart rate elevated, better after increasing dose of Lopressor Hypoxia- intermittent, received some lasix given CXR findings.She uses home oxygen intermittently at home. Currently at 2 L of oxygen. H/o CAD: chronic, stable. DM II: Blood sugar well controlled requiring very minimal insulin. A1c 7.1. Will not be aggressive given her age and comorbidities. Not taking oral medication. Subcu insulin ordered. COPD: Stable, continue inhalers. Continue with baseline oxygen requirement. SANDRA: Continue with home CPAP RLS- Iron studies show some iron deficiency. Started on oral iron. OP follow up with neuro. ropinirole ordered. DVT prophylaxis: Lovenox Dispo- PT OT recommends rehab. Patient's delirium is improving; off restraint and has not required IM Zyprexa. Possible discharge tomorrow AM. Case management on board. Time spent evaluating patient, direct bedside care, chart review, placing orders, interpretation of diagnostic studies, discussion with consultants, patient, and family members, as well as other required patient management activities is 60 minutes. Please note the above document was generated using voice recognition software. It may contain grammatical, syntax or spelling errors. Any formal questions or concerns about the content, text or information contained within the body of this dictation should be directly addressed to the provider for clarification Admission and Anticipated Discharge Date Admission Date: August 30, 2022 Subjective Patient seen and examined at bedside. She is awake, alert and oriented to self. She is eating by herself. Denies any pain or discomfort. Review of Systems Review of Systems: All systems reviewed & are unremarkable except as noted in Subjective Physical Exam Physical Exam: General: Awake, alert oriented to self. Not in distress. Chest: Clear breath sounds bilaterally, no wheezes or crackles CVS: Irregular, normal heart sounds, no murmur Abdomen: Soft, non tender, not distended, normal bowel sounds Neuro: Alert, oriented to self; follows simple commands. Extremities: No cyanosis, clubbing or edema, varicosities noted in leg Psych: Calm and cooperative. Results & Data Results & Data Vital Signs (Past 12 Hours) Vital Signs Temp Pulse Resp BP Pulse Ox O2 Del Method O2 Flow Rate 09/06/22 09:41 Nasal Cannula 2 09/06/22 08:00 36.4 C L 87 16 163/97 H 98 Nasal Cannula 3 09/06/22 03:14 36.6 C 83 16 116/72 94 Nasal Cannula 3 Laboratory Results Laboratory Results WBC 9.41 K/ul (4.8-10.8) 09/05/22 06:59 RBC 5.10 M/uL (4.20-5.40) 09/05/22 06:59 Hgb 16.7 g/dl (12.0-16.0) H 09/05/22 06:59 Hct 48.5 % (37.0-47.0) H 09/05/22 06:59 MCV 95.1 fL (80.0-100.0) 09/05/22 06:59 MCH 32.7 pg (25.0-34.0) 09/05/22 06:59 MCHC 34.4 g/dL (32.0-36.0) 09/05/22 06:59 RDW Std Deviation 57.0 fL (36.4-46.3) H 09/05/22 06:59 RDW Coeff of Linda 16.5 % (11.5-14.5) H 09/05/22 06:59 Plt Count 216 K/uL (130-400) 09/05/22 06:59 MPV 10.9 fL (9.4-12.4) 09/05/22 06:59 Immature Gran % (Auto) 0.4 % 09/05/22 06:59 Neut % (Auto) 67.4 % 09/05/22 06:59 Lymph % (Auto) 19.8 % 09/05/22 06:59 [place] % (Auto) 9.7 % 09/05/22 06:59 Eos % (Auto) 2.0 % 09/05/22 06:59 Baso % (Auto) 0.7 % 09/05/22 06:59 Neut # (Auto) 6.34 K/uL (1.40-6.50) 09/05/22 06:59 Lymph # (Auto) 1.86 K/uL (1.2-3.4) 09/05/22 06:59 [place] # (Auto) 0.91 K/uL (0.11-0.59) H 09/05/22 06:59 Eos # (Auto) 0.19 K/uL (0-0.50) 09/05/22 06:59 Baso # (Auto) 0.07 K/uL (0-0.2) 09/05/22 06:59 Immature Gran # (Auto) 0.04 K/uL (0.01-0.20) 09/05/22 06:59 Platelet Estimate Normal (Normal) 09/02/22 04:47 RBC Morphology Unremarkable 09/02/22 04:47 PT 15.9 Seconds (9.0-12.0) H 09/01/22 12:11 POC INR 1.6 (0.9-1.1) H 08/30/22 16:16 INR 1.5 (0.9-1.1) H 09/01/22 12:11 APTT 31.1 Seconds (21.0-31.0) H 09/02/22 04:47 PTT Ratio 1.1 09/02/22 04:47 ABG pH 7.41 (7.35-7.45) 09/02/22 06:26 ABG pCO2 49 mmHg (35-46) H 09/02/22 06:26 ABG pO2 122 mmHg (80-95) H 09/02/22 06:26 ABG HCO3 31 mmol/L (19-24) H 09/02/22 06:26 ABG O2 Saturation 98.9 % (90-95) H 09/02/22 06:26 ABG Base Excess 5.3 mEq/L (-9-1.8) H 09/02/22 06:26 Melvin Test Pos (Pos) 09/02/22 06:26 Oxygen Given 4 L 09/02/22 06:26 Sodium 142 mmol/L (136-145) 09/06/22 05:26 Potassium 4.1 mmol/L (3.5-5.1) 09/06/22 05:26 Chloride 105 mmol/L (98-107) 09/06/22 05:26 Carbon Dioxide 28 mmol/L (21-32) 09/06/22 05:26 Anion Gap 9 (3-11) 09/06/22 05:26 BUN 28 mg/dl (6-23) H 09/06/22 05:26 Creatinine 0.82 mg/dl (0.6-1.2) 09/06/22 05:26 Est Cr Clr Drug Dosing 45.8 ml/min 09/06/22 05:26 Est GFR ( Amer) 73.5 ml/min 09/06/22 05:26 Est GFR (Non-Af Amer) 63.4 ml/min 09/06/22 05:26 BUN/Creatinine Ratio 34.1 (10-20) H 09/06/22 05:26 Glucose 98 mg/dl (70-99(Fasting)) 09/06/22 05:26 POC Glucose 105 mg/dl (70-99) H 09/06/22 07:48 Estimat Average Glucose 157 mg/dl 08/31/22 05:20 Hemoglobin A1c 7.1 % (4.5-5.6) H 08/31/22 05:20 Lactate 1.6 mmol/L (0.4-2.0) 09/01/22 07:58 Calcium 9.1 mg/dl (8.6-10.3) 09/06/22 05:26 Phosphorus 3.2 mg/dl (2.5-4.9) 09/05/22 06:59 Magnesium 1.9 mg/dl (1.7-2.4) 09/06/22 05:26 Iron 87 mcg/dl (35-150) 08/31/22 17:08 Transferrin 242 mg/dl (200-360) 08/31/22 17:08 Ferritin 44.3 ng/ml (8-388) 08/31/22 17:08 Total Bilirubin 0.3 mg/dl (0.2-1.0) 08/30/22 16:06 AST 20 U/L (13-39) 08/30/22 16:06 ALT 16 U/L (7-52) 08/30/22 16:06 Alkaline Phosphatase 48 U/L (34-104) 08/30/22 16:06 Troponin I High Sens 5.9 pg/ml (0-14) 08/30/22 16:06 Total Protein 5.6 gm/dl (6.0-8.3) L 08/30/22 16:06 Albumin 3.1 gm/dl (3.4-5.0) L 08/30/22 16:06 Globulin 2.5 gm/dl (2.5-4.0) 08/30/22 16:06 Albumin/Globulin Ratio 1.2 (0.9-2) 08/30/22 16:06 Triglycerides 123 mg/dl (0-150) 08/31/22 17:08 Cholesterol 162 mg/dl (0-200) 08/31/22 17:08 LDL Cholesterol, Calc 83 mg/dl 08/31/22 17:08 VLDL Cholesterol, Calc 25 mg/dl (0-30) 08/31/22 17:08 HDL Cholesterol 54 mg/dl 08/31/22 17:08 Cholesterol/HDL Ratio 3.0 (0-5) 08/31/22 17:08 Urine Color Yellow 09/01/22 01:45 Urine Appearance Turbid (Clear) A 09/01/22 01:45 Urine pH 5.5 (4.5-7.5) 09/01/22 01:45 Ur Specific [place] 1.010 (1.000-1.030) 09/01/22 01:45 Urine Protein 2+ (Negative) H 09/01/22 01:45 Urine Glucose (UA) Negative (Negative) 09/01/22 01:45 Urine Ketones Negative (Negative) 09/01/22 01:45 Urine Blood 3+ (Negative) H 09/01/22 01:45 Urine Nitrite Negative (Negative) 09/01/22 01:45 Urine Bilirubin Negative (Negative) 09/01/22 01:45 Urine Urobilinogen Negative (Negative) 09/01/22 01:45 Ur Leukocyte Esterase 3+ (Negative) H 09/01/22 01:45 Urine WBC (Auto) >30 /hpf (0-5) H 09/01/22 01:45 Urine RBC (Auto) >30 /hpf (0-4) H 09/01/22 01:45 U Hyaline Cast (Auto) 1-5 /lpf (0-5) 09/01/22 01:45 U Epithel Cells (Auto) >30 /lpf (0-5) H 09/01/22 01:45 Urine Bacteria (Auto) 4+ (Negative) H 09/01/22 01:45 Urine Yeast Not Reportable 09/01/22 01:45 Nasal Screen MRSA (PCR) Negative (Negative) 08/30/22 Unknown SARS-CoV-2, RNA, NAAT NEGATIVE (NEGATIVE) 08/30/22 16:23 Impressions Head CTA 08/30/22 15:[address] OF THE BRAIN; CT ANGIOGRAM OF THE BRAIN; CT ANGIOGRAM OF THE NECK CLINICAL HISTORY: Neurological deficit. Stroke like symptoms. Aphasia. COMPARISON STUDY: CT of the brain dated 12/31/2020. TECHNIQUE: Unenhanced axial CT scan of the brain is performed. Subsequently, following the IV administration of 117 of Optiray 320, CT angiogram of the head and neck was performed from the aortic arch to the vertex. Images are reviewed in the axial, sagittal, and coronal planes. 3-D MIPS images are created and assessed. IV contrast was administered without complication. All measurements were calculated based on NASCET criteria. A dose lowering technique was utilized adhering to the principles of ALARA. CT DOSE: 1158.93 mGy.cm FINDINGS: Brain parenchyma: There is age-related involutional change noting moderate to advanced subcortical and periventricular microangiopathic disease. There is no hemorrhage, mass effect, or evidence of acute territorial ischemia by CT criteria. There is no evidence of enhancing mass lesion on the angiogram phase images. The ventricles, sulci, and cisterns are prominent secondary to involutional change. [place]-white matter differentiation is preserved. A chronic lacunar infarct is noted in the right thalamus. No extra-axial fluid collection is seen. Thoracic aorta: There is atherosclerotic calcification of the thoracic aorta. Visualized portions of the thoracic aorta are normal in caliber. The aortic arch demonstrates standard 3-vessel anatomy. Right carotid arterial system: The right common carotid artery is widely patent, as are the right internal and external carotid arteries. Calcified plaque is noted in the carotid bulb. Left carotid arterial system: The left common carotid artery is widely patent, as are the left internal and external carotid arteries. Calcified plaque is noted in the carotid bulb. Vertebral arteries: The vertebral arteries are widely patent bilaterally noting mild right-sided dominance. Subclavian arteries: Widely patent bilaterally. Intracranial vasculature: There is atherosclerotic calcification of the cavernous carotid and vertebral arteries. The internal carotid arteries are patent at the skull base, as are the anterior and middle cerebral arteries bilaterally. The vertebrobasilar system and posterior cerebral arteries are widely patent. The right vertebral artery is dominant. There is origin of the left posterior cerebral artery. A posterior communicating artery is seen on the right. There is no aneurysm, high-grade stenosis, or focal vessel cut off seen throughout the intracranial circulation. Jugular veins: Patent bilaterally. Dural sinuses: Patent. Lung apices: Partially visualized upper lobe lung parenchyma appears clear. Soft tissues: The visualized pharyngeal soft tissues are normal in appearance noting angiographic phase technique. The oropharyngeal airway appears widely patent. The salivary and thyroid glands are normal in appearance. No cervical lymphadenopathy is seen. Skeletal structures: The skeletal structures are osteopenic. The calvarium appears intact. The cervical spine is noting multilevel spondylosis. No lytic or blastic lesion is seen. Orbits: The bony orbits are intact. Orbital contents are normal as visualized noting bilateral ocular lens implants. Sinuses and mastoids: There is trace mucosal thickening in the right maxillary antrum. The remaining paranasal sinuses are clear. The mastoid air cells are well pneumatized. IMPRESSION: 1. There is no hemorrhage, mass effect, or evidence of acute territorial ischemia by CT criteria. 2. Unremarkable CT angiogram of the brain. 3. Unremarkable CT angiogram of the neck. ACT 112: Negative or not required by law. Electronically signed by: Freddy Dahl M.D. 08/30/2022 4:15 PM Neck CTA 08/30/22 15:[address] OF THE BRAIN; CT ANGIOGRAM OF THE BRAIN; CT ANGIOGRAM OF THE NECK CLINICAL HISTORY: Neurological deficit. Stroke like symptoms. Aphasia. COMPARISON STUDY: CT of the brain dated 12/31/2020. TECHNIQUE: Unenhanced axial CT scan of the brain is performed. Subsequently, following the IV administration of 117 of Optiray 320, CT angiogram of the head and neck was performed from the aortic arch to the vertex. Images are reviewed in the axial, sagittal, and coronal planes. 3-D MIPS images are created and assessed. IV contrast was administered without complication. All measurements were calculated based on NASCET criteria. A dose lowering technique was utilized adhering to the principles of ALARA. CT DOSE: 1158.93 mGy.cm FINDINGS: Brain parenchyma: There is age-related involutional change noting moderate to advanced subcortical and periventricular microangiopathic disease. There is no hemorrhage, mass effect, or evidence of acute territorial ischemia by CT criteria. There is no evidence of enhancing mass lesion on the angiogram phase images. The ventricles, sulci, and cisterns are prominent secondary to involutional change. [place]-white matter differentiation is preserved. A chronic lacunar infarct is noted in the right thalamus. No extra-axial fluid collection is seen. Thoracic aorta: There is atherosclerotic calcification of the thoracic aorta. Visualized portions of the thoracic aorta are normal in caliber. The aortic arch demonstrates standard 3-vessel anatomy. Right carotid arterial system: The right common carotid artery is widely patent, as are the right internal and external carotid arteries. Calcified plaque is noted in the carotid bulb. Left carotid arterial system: The left common carotid artery is widely patent, as are the left internal and external carotid arteries. Calcified plaque is n oted in the carotid bulb. Vertebral arteries: The vertebral arteries are widely patent bilaterally noting mild right-sided dominance. Subclavian arteries: Widely patent bilaterally. Intracranial vasculature: There is atherosclerotic calcification of the cavernous carotid and vertebral arteries. The internal carotid arteries are patent at the skull base, as are the anterior and middle cerebral arteries bilaterally. The vertebrobasilar system and posterior cerebral arteries are widely patent. The right vertebral artery is dominant. There is origin of the left posterior cerebral artery. A posterior communicating artery is seen on the right. There is no aneurysm, high-grade stenosis, or focal vessel cut off seen throughout the intracranial circulation. Jugular veins: Patent bilaterally. Dural sinuses: Patent. Lung apices: Partially visualized upper lobe lung parenchyma appears clear. Soft tissues: The visualized pharyngeal soft tissues are normal in appearance noting angiographic phase technique. The oropharyngeal airway appears widely patent. The salivary and thyroid glands are normal in appearance. No cervical lymphadenopathy is seen. Skeletal structures: The skeletal structures are osteopenic. The calvarium appears intact. The cervical spine is noting multilevel spondylosis. No lytic or blastic lesion is seen. Orbits: The bony orbits are intact. Orbital contents are normal as visualized noting bilateral ocular lens implants. Sinuses and mastoids: There is trace mucosal thickening in the right maxillary antrum. The remaining paranasal sinuses are clear. The mastoid air cells are well pneumatized. IMPRESSION: 1. There is no hemorrhage, mass effect, or evidence of acute territorial ischemia by CT criteria. 2. Unremarkable CT angiogram of the brain. 3. Unremarkable CT angiogram of the neck. ACT 112: Negative or not required by law. Electronically signed by: Freddy Dahl M.D. 08/30/2022 4:15 PM Brain MRI 08/30/22 18:06 Exam(s): MRI HEAD Without Contrast EXAM: MR Head Without Intravenous Contrast CLINICAL HISTORY: Reason for exam: stroke like symptoms. TECHNIQUE: Magnetic resonance images of the head/brain without intravenous contrast in multiple planes. COMPARISON: CT head from August 30, 2022 FINDINGS: Brain: There is moderate patchy periventricular and deep white matter T2 hyperintensity throughout the cerebrum consistent with chronic small vessel disease and/or senescent changes. 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 No areas of diffusion restriction are seen to indicate acute stroke. No hemorrhage. Ventricles: Unremarkable. No ventriculomegaly. Bones/joints: Unremarkable. Sinuses: Unremarkable as visualized. No acute sinusitis. Mastoid air cells: Unremarkable as visualized. No mastoid effusion. Orbits: Unremarkable as visualized. Other findings: No hemorrhage is identified. IMPRESSION: There is moderate patchy periventricular and deep white matter T2 hyperintensity throughout the cerebrum consistent with chronic small vessel disease and/or senescent changes. 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 No areas of diffusion restriction are seen to indicate acute stroke. Electronically signed by: Arthur Bingham MD 08/31/22 00:[address] 09/01/22 16:57 CT head/brain wo con CLINICAL HISTORY: 87 years-old Female with AMS post tPA- r/o intracranial bleed. Acutely altered mental status TECHNIQUE: Multiple axial CT images of the head were obtained without contrast. A dose lowering technique was utilized adhering to the principles of ALARA. CT DOSE: 625.80 mGy.cm COMPARISON: None. FINDINGS: No acute intracranial hemorrhage, midline shift, intracranial mass, hydrocephalus, territorial ischemia or abnormal extra-axial collection. Involutional changes with chronic microvascular ischemic disease. Chronic right thalamic lacunar infarct. Mildly motion degraded exam. The calvarium is intact. Prior bilateral lens repair. The paranasal sinuses, mastoid air cells, and middle ear cavities are clear. IMPRESSION: No acute intracranial abnormality. ACT 112: Negative or not required by law. The above report was generated using voice recognition software. It may contain grammatical, syntax or spelling errors. Electronically signed by: Gurjit Santoyo M.D. 09/01/2022 5:[address] 09/01/22 20:51 Exam(s): CT EXTREMITY RIGHT LOWER Without Contrast EXAM: CT Right Lower Extremity Without Intravenous Contrast CLINICAL HISTORY: Reason for exam: R thigh pain, heparin. TECHNIQUE: Axial computed tomography images of the right lower extremity without intravenous contrast. Automated exposure control was utilized for the study. A dose lowering technique was utilized adhering to the principles of ALARA. COMPARISON: None. FINDINGS: Bones/joints: Diffuse osteoporosis. Degenerative disease of bilateral hips. Degenerative disease at the level of the knee. The femur is normal with no distinct fracture or subluxation. Trace joint effusion. Soft tissues: Unremarkable. Vasculature: Vascular calcifications consistent with peripheral arterial disease. IMPRESSION: 1. Peripheral arterial disease. 2. Diffuse osteoporosis with degenerative disease of the right hip and knee. 3. No acute fracture or subluxation. Electronically signed by: Griselda Horvath MD 09/01/22 23:[address] 09/01/22 20:51 Exam(s): CT RIGHT KNEE Without Contrast EXAM: CT Right Lower Extremity Without Intravenous Contrast, Knee CLINICAL HISTORY: Reason for exam: pain, heparin. TECHNIQUE: Axial computed tomography images of the right knee without intravenous contrast. Automated exposure control was utilized for the study. A dose lowering technique was utilized adhering to the principles of ALARA. COMPARISON: None. FINDINGS: Bones/joints: Trace joint effusion. Diffuse osteoporosis. Degenerative arthrosis of the proximal tibiofibular articulation. Mild to moderate narrowing of the lateral joint compartment with mild narrowing of the medial joint compartment. Subchondral cystic changes along the posterior patella with mild narrowing of the patellofemoral space. No acute fracture. No dislocation. Soft tissues: Unremarkable. Vasculature: Vascular calcifications consistent with peripheral arterial disease. Tortuous venous structures along the medial aspect of the knee most compatible with nonspecific varicose veins. IMPRESSION: 1. Diffuse osteopenia with degenerative disease as described. 2. Trace joint effusion with no acute fracture or subluxation seen. 3. Peripheral arterial disease. Electronically signed by: Griselda Horvath MD 09/01/22 23:11 PM Chest X-Ray 09/02/22 06:11 XR chest 1V portable CLINICAL HISTORY: low o2 COMPARISON STUDY: Chest radiograph August 31, 2022. Chest CT December 13, 2021. FINDINGS: There is no pneumothorax. There are suspected trace bilateral pleural effusions. Cardiomediastinal silhouette is stable. Cardiomegaly is unchanged. Mild interstitial thickening persists. IMPRESSION: Cardiomegaly with mild interstitial pulmonary edema and trace bilateral pleural effusions. ACT 112: Negative or not required by law. Electronically signed by: Sukhwinder Chadwick M.D. 09/02/2022 6:53 AM
[2022-09-06] MEDS: ENOXAPARIN 80 MG/0.8 ML SYR SQ SCH ×2 (13:00→23:36)
[2022-09-06] MEDS: rOPINIRole HCL 0.25 MG TABLET PO SCH (20:52)
[2022-09-07 06:58] LABS: Basophils # (auto) 0.04 K/uL (0-0.2); Basophils % (auto) 0.4 %; Eosinophils # (auto) 0.11 K/uL (0-0.50); Eosinophils % (auto) 1.2 %; Hematocrit (blood only) 43.8 % (37.0-47.0); Hemoglobin 15.2 g/dl (12.0-16.0); Immature Granulocytes # (auto) 0.07 K/uL (0.01-0.20); Immature Granulocytes % (auto) 0.8 %; Lymphocytes # (auto) 2.11 K/uL (1.2-3.4); Lymphocytes % (auto) 23.2 %; Mean Corpuscular Hemoglobin 32.6 pg (25.0-34.0); Mean Corpuscular Hgb Conc 34.7 g/dL (32.0-36.0); Mean Platelet Volume 11.3 fL (9.4-12.4); Monocytes # (auto) 0.74 K/uL (0.11-0.59); Monocytes % (auto) 8.1 %; Neutrophils # (auto) 6.01 K/uL (1.40-6.50); Neutrophils % (auto) 66.3 %; Platelet Count 204 K/uL (130-400); RDW Coefficient of Variation 15.8 % (11.5-14.5); RDW Standard Deviation 54.4 fL (36.4-46.3); Red Blood Count 4.66 M/uL (4.20-5.40); White Blood Count 9.08 K/ul (4.8-10.8)
[2022-09-07 07:10] LABS: BUN Creatinine Ratio 32.2 (10-20); Calcium 8.8 mg/dl (8.6-10.3); Creatinine Clr Calc Pharmacy 31.4 ml/min; Est GFR (African American) 45.9 ml/min; Est GFR (Non-African American) 39.6 ml/min; Magnesium 1.8 mg/dl (1.7-2.4); Potassium 3.7 mmol/L (3.5-5.1)
[2022-09-07] MEDS ORDERED: LACTATED RINGER'S 1,000 ML IV SCH (07:30)
[2022-09-07] MEDS: METOPROLOL TARTRATE 25 MG TAB PO SCH ×3 (08:05→21:39)
[2022-09-07] MEDS: ceFAZolin 2000MG 2,000 MG/15 ML SYR IV SCH ×2 (08:05→21:10)
[2022-09-07] MEDS: FAMOTIDINE 20 MG in SYRINGE 3 ML IV SCH ×2 (08:05→21:10)
[2022-09-07] MEDS: ATORVASTATIN 40 MG TAB PO SCH (08:06)
[2022-09-07] MEDS: FERROUS SULFATE 325 MG TAB PO SCH (08:06)
[2022-09-07] MEDS: dilTIAZem HCL 120 MG CAPCR PO SCH (08:07)
[2022-09-07] MEDS: EZETIMIBE 10 MG TABLET PO SCH (08:07)
[2022-09-07] MEDS: FLUTICASONE/VILANTEROL 200/25MCG 14 PUFFS/INHALER INH SCH (08:09)
[2022-09-07] MEDS: UMECLIDINIUM BROMIDE 62.5MCG/BLISTER 7 PUFFS/INHALER INH SCH (08:09)
[2022-09-07] MEDS: POTASSIUM CHLORIDE CRTAB 20 MEQ TABCR PO SCH (08:11)
[2022-09-07] MEDS: INSULIN ASPART PER UNIT CHARGE SC SCH ×4 (08:15→21:10)
[2022-09-07 12:02] LABS: Creatinine Urine Random 176.7 mg/dl; Urine Potassium 54.9 mmol/L
[2022-09-07] MEDS: ENOXAPARIN 80 MG/0.8 ML SYR SQ SCH (12:11)
--- NOTE | 2022-09-07 12:46 | Hospitalist Progress Note ---
Date of Service September 07, 2022 Assessment & Plan (1) TIA (transient ischemic attack): (2) UTI (urinary tract infection): (3) Delirium: (4) Hypoxia: (5) PAF (paroxysmal atrial fibrillation): (6) Restless leg: Plan 87yo F with PMH of aortic valve stenosis s/p TAVR, history of paroxysmal atrial fibrillation on Coumadin, history of COPD, interstitial lung disease, on chronic home oxygen 1 L during daytime and 2 L while sleeping, DM II, HLD, HTN, CAD, SANDRA, history of pulmonary emboli who presented to the ED 08/30 with sudden onset aphasia and is s/p tenecteplase in the ED. She was admitted to ICU post tPA for closer monitoring: MRI Brain 08/31: There is moderate patchy periventricular and deep white matter T2 hyperintensity throughout the cerebrum consistent with chronic small vessel disease and/or senescent changes. 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 No areas of diffusion restriction are seen to indicate acute stroke. CT, CTA head/neck- 1. There is no hemorrhage, mass effect, or evidence of acute territorial ischemia by CT criteria. 2. Unremarkable CT angiogram of the brain. 3. Unremarkable CT angiogram of the neck. TIA status post tPA-presented with sudden onset aphasia and is status post tPA 08/30 which probably aborted the CVA per neurology. - TIA likely in setting of Afib - Seen by neuro and recommendations noted. Repeat 24 hr and 48-hour CT head u nremarkable and anticoag started as per neuro recommendation. - Continue Eliquis. - OP neuro f/u in 6-8 wks Acute kidney injury-creatinine up trended to 1.21 today. Patient had Del Castillo removed yesterday. Obtain bladder scan. Started on IV hydration with LR. Hold lisinopril and Lasix. Klebsiella UTI-urine culture growing Klebsiella pneumoniae. Empiric cefepime 09/01, changed to Ancef 09/03 D5/7. Change to oral antibiotic at discharge Delirium- Having intermittent agitations requiring restraints and im zyprexa prn. Continue delirium precautions. Discussed with nursing regarding removal of restraints and one-to-one observation as needed. Not taking her medication. Anticoagulation with Eliquis changed to Lovenox. Also, hydralazine ordered as needed for high blood pressure. Since 09/06; patient appears to be alert, oriented to self; closer to baseline. Resume oral medication Chronic A fib- continue cardizem, lopressor, eliquis. Heart rate elevated, better after increasing dose of Lopressor Hypoxia- intermittent, received some lasix given CXR findings.She uses home oxygen intermittently at home. Currently at 2 L of oxygen. H/o CAD: chronic, stable. DM II: Blood sugar well controlled requiring very minimal insulin. A1c 7.1. Will not be aggressive given her age and comorbidities. Subcu insulin ordered. COPD: Stable, continue inhalers. Continue with baseline oxygen requirement. SANDRA: Continue with home CPAP RLS- Iron studies show some iron deficiency. Started on oral iron. OP follow up with neuro. ropinirole ordered. DVT prophylaxis: Lovenox Dispo- PT OT recommends rehab. Patient's delirium is improving; off restraint and has not required IM Zyprexa. Case management on board. Time spent evaluating patient, direct bedside care, chart review, placing orders, interpretation of diagnostic studies, discussion with consultants, patient, and family members, as well as other required patient management activities is 60 minutes. Please note the above document was generated using voice recognition software. It may contain grammatical, syntax or spelling errors. Any formal questions or concerns about the content, text or information contained within the body of this dictation should be directly addressed to the provider for clarification Admission and Anticipated Discharge Date Admission Date: August 30, 2022 Subjective Patient seen and examined at bedside. She is sitting up on the chair comfortably; not in distress. She appears to be slightly confused but easily reoriented. Review of Systems Review of Systems: All systems reviewed & are unremarkable except as noted in Subjective Physical Exam Physical Exam: General: Awake, alert oriented to self. Not in distress. Chest: Clear breath sounds bilaterally, no wheezes or crackles CVS: Irregular, normal heart sounds, no murmur Abdomen: Soft, non tender, not distended, normal bowel sounds Neuro: Alert, oriented to self; follows simple commands. Extremities: No cyanosis, clubbing or edema, varicosities noted in leg Psych: Calm and cooperative. Results & Data Results & Data Vital Signs (Past 12 Hours) Vital Signs Temp Pulse Resp BP BP Pulse Ox O2 Del Method 09/07/22 11:22 36.4 C L 62 18 101/67 93 Room Air 06/26/23 07:25 36.6 C 83 18 132/75 97 Room Air 09/07/22 07:33 Room Air 09/07/22 03:18 36.4 C L 90 16 122/86 92 Nasal Cannula O2 Flow Rate 09/07/22 11:22 09/07/22 07:25 09/07/22 07:33 09/07/22 03:18 2 Laboratory Results Laboratory Results WBC 9.08 K/ul (4.8-10.8) 09/07/22 05:58 RBC 4.66 M/uL (4.20-5.40) 09/07/22 05:58 Hgb 15.2 g/dl (12.0-16.0) 09/07/22 05:58 Hct 43.8 % (37.0-47.0) 09/07/22 05:58 MCV 94.0 fL (80.0-100.0) 09/07/22 05:58 MCH 32.6 pg (25.0-34.0) 09/07/22 05:58 MCHC 34.7 g/dL (32.0-36.0) 09/07/22 05:58 RDW Std Deviation 54.4 fL (36.4-46.3) H 09/07/22 05:58 RDW Coeff of Linda 15.8 % (11.5-14.5) H 09/07/22 05:58 Plt Count 204 K/uL (130-400) 09/07/22 05:58 MPV 11.3 fL (9.4-12.4) 09/07/22 05:58 Immature Gran % (Auto) 0.8 % 09/07/22 05:58 Neut % (Auto) 66.3 % 09/07/22 05:58 Lymph % (Auto) 23.2 % 09/07/22 05:58 [place] % (Auto) 8.1 % 09/07/22 05:58 Eos % (Auto) 1.2 % 09/07/22 05:58 Baso % (Auto) 0.4 % 09/07/22 05:58 Neut # (Auto) 6.01 K/uL (1.40-6.50) 09/07/22 05:58 Lymph # (Auto) 2.11 K/uL (1.2-3.4) 09/07/22 05:58 [place] # (Auto) 0.74 K/uL (0.11-0.59) H 09/07/22 05:58 Eos # (Auto) 0.11 K/uL (0-0.50) 09/07/22 05:58 Baso # (Auto) 0.04 K/uL (0-0.2) 09/07/22 05:58 Immature Gran # (Auto) 0.07 K/uL (0.01-0.20) 09/07/22 05:58 Platelet Estimate Normal (Normal) 09/02/22 04:47 RBC Morphology Unremarkable 09/02/22 04:47 PT 15.9 Seconds (9.0-12.0) H 09/01/22 12:11 POC INR 1.6 (0.9-1.1) H 08/30/22 16:16 INR 1.5 (0.9-1.1) H 09/01/22 12:11 APTT 31.1 Seconds (21.0-31.0) H 09/02/22 04:47 PTT Ratio 1.1 09/02/22 04:47 ABG pH 7.41 (7.35-7.45) 09/02/22 06:26 ABG pCO2 49 mmHg (35-46) H 09/02/22 06:26 ABG pO2 122 mmHg (80-95) H 09/02/22 06:26 ABG HCO3 31 mmol/L (19-24) H 09/02/22 06:26 ABG O2 Saturation 98.9 % (90-95) H 09/02/22 06:26 ABG Base Excess 5.3 mEq/L (-9-1.8) H 09/02/22 06:26 Melvin Test Pos (Pos) 09/02/22 06:26 Oxygen Given 4 L 09/02/22 06:26 Sodium 140 mmol/L (136-145) 09/07/22 05:58 Potassium 3.7 mmol/L (3.5-5.1) 09/07/22 05:58 Chloride 104 mmol/L (98-107) 09/07/22 05:58 Carbon Dioxide 27 mmol/L (21-32) 09/07/22 05:58 Anion Gap 9 (3-11) 09/07/22 05:58 BUN 39 mg/dl (6-23) H 09/07/22 05:58 Creatinine 1.21 mg/dl (0.6-1.2) H D 09/07/22 05:58 Est Cr Clr Drug Dosing 31.4 ml/min 09/07/22 05:58 Est GFR ( Amer) 45.9 ml/min 09/07/22 05:58 Est GFR (Non-Af Amer) 39.6 ml/min 09/07/22 05:58 BUN/Creatinine Ratio 32.2 (10-20) H 09/07/22 05:58 Glucose 100 mg/dl (70-99(Fasting)) H 09/07/22 05:58 POC Glucose 145 mg/dl (70-99) H 09/07/22 11:51 Estimat Average Glucose 157 mg/dl 08/31/22 05:20 Hemoglobin A1c 7.1 % (4.5-5.6) H 08/31/22 05:20 Lactate 1.6 mmol/L (0.4-2.0) 09/01/22 07:58 Calcium 8.8 mg/dl (8.6-10.3) 09/07/22 05:58 Phosphorus 3.2 mg/dl (2.5-4.9) 09/05/22 06:59 Magnesium 1.8 mg/dl (1.7-2.4) 09/07/22 05:58 Iron 87 mcg/dl (35-150) 08/31/22 17:08 Transferrin 242 mg/dl (200-360) 08/31/22 17:08 Ferritin 44.3 ng/ml (8-388) 08/31/22 17:08 Total Bilirubin 0.3 mg/dl (0.2-1.0) 08/30/22 16:06 AST 20 U/L (13-39) 08/30/22 16:06 ALT 16 U/L (7-52) 08/30/22 16:06 Alkaline Phosphatase 48 U/L (34-104) 08/30/22 16:06 Troponin I High Sens 5.9 pg/ml (0-14) 08/30/22 16:06 Total Protein 5.6 gm/dl (6.0-8.3) L 08/30/22 16:06 Albumin 3.1 gm/dl (3.4-5.0) L 08/30/22 16:06 Globulin 2.5 gm/dl (2.5-4.0) 08/30/22 16:06 Albumin/Globulin Ratio 1.2 (0.9-2) 08/30/22 16:06 Triglycerides 123 mg/dl (0-150) 08/31/22 17:08 Cholesterol 162 mg/dl (0-200) 08/31/22 17:08 LDL Cholesterol, Calc 83 mg/dl 08/31/22 17:08 VLDL Cholesterol, Calc 25 mg/dl (0-30) 08/31/22 17:08 HDL Cholesterol 54 mg/dl 08/31/22 17:08 Cholesterol/HDL Ratio 3.0 (0-5) 08/31/22 17:08 Urine Color Yellow 09/01/22 01:45 Urine Appearance Turbid (Clear) A 09/01/22 01:45 Urine pH 5.5 (4.5-7.5) 09/01/22 01:45 Ur Specific [place] 1.010 (1.000-1.030) 09/01/22 01:45 Urine Protein 2+ (Negative) H 09/01/22 01:45 Urine Glucose (UA) Negative (Negative) 09/01/22 01:45 Urine Ketones Negative (Negative) 09/01/22 01:45 Urine Blood 3+ (Negative) H 09/01/22 01:45 Urine Nitrite Negative (Negative) 09/01/22 01:45 Urine Bilirubin Negative (Negative) 09/01/22 01:45 Urine Urobilinogen Negative (Negative) 09/01/22 01:45 Ur Leukocyte Esterase 3+ (Negative) H 09/01/22 01:45 Urine WBC (Auto) >30 /hpf (0-5) H 09/01/22 01:45 Urine RBC (Auto) >30 /hpf (0-4) H 09/01/22 01:45 U Hyaline Cast (Auto) 1-5 /lpf (0-5) 09/01/22 01:45 U Epithel Cells (Auto) >30 /lpf (0-5) H 09/01/22 01:45 Urine Bacteria (Auto) 4+ (Negative) H 09/01/22 01:45 Urine Yeast Not Reportable 09/01/22 01:45 Ur Random Creatinine 176.7 mg/dl 09/07/22 11:11 Urine Sodium 53 mmol/L 09/07/22 11:11 Urine Potassium 54.9 mmol/L 09/07/22 11:11 Urine Chloride 29 mmol/L 09/07/22 11:11 Nasal Screen MRSA (PCR) Negative (Negative) 08/30/22 Unknown SARS-CoV-2, RNA, NAAT NEGATIVE (NEGATIVE) 08/30/22 16:23 Impressions Head CTA 08/30/22 15:[address] OF THE BRAIN; CT ANGIOGRAM OF THE BRAIN; CT ANGIOGRAM OF THE NECK CLINICAL HISTORY: Neurological deficit. Stroke like symptoms. Aphasia. COMPARISON STUDY: CT of the brain dated 12/31/2020. TECHNIQUE: Unenhanced axial CT scan of the brain is performed. Subsequently, following the IV administration of 117 of Optiray 320, CT angiogram of the head and neck was performed from the aortic arch to the vertex. Images are reviewed in the axial, sagittal, and coronal planes. 3-D MIPS images are created and assessed. IV contrast was administered without complication. All measurements were calculated based on NASCET criteria. A dose lowering technique was utilized adhering to the principles of ALARA. CT DOSE: 1158.93 mGy.cm FINDINGS: Brain parenchyma: There is age-related involutional change noting moderate to advanced subcortical and periventricular microangiopathic disease. There is no hemorrhage, mass effect, or evidence of acute territorial ischemia by CT criteria. There is no evidence of enhancing mass lesion on the angiogram phase images. The ventricles, sulci, and cisterns are prominent secondary to involutional change. Fallon-white matter differentiation is preserved. A chronic lacunar infarct is noted in the right thalamus. No extra-axial fluid collection is seen. Thoracic aorta: There is atherosclerotic calcification of the thoracic aorta. Visualized portions of the thoracic aorta are normal in caliber. The aortic arch demonstrates standard 3-vessel anatomy. Right carotid arterial system: The right common carotid artery is widely patent, as are the right internal and external carotid arteries. Calcified plaque is noted in the carotid bulb. Left carotid arterial system: The left common carotid artery is widely patent, as are the left internal and external carotid arteries. Calcified plaque is noted in the carotid bulb. Vertebral arteries: The vertebral arteries are widely patent bilaterally noting mild right-sided dominance. Subclavian arteries: Widely patent bilaterally. Intracranial vasculature: There is atherosclerotic calcification of the cavernous carotid and vertebral arteries. The internal carotid arteries are patent at the skull base, as are the anterior and middle cerebral arteries bilaterally. The vertebrobasilar system and posterior cerebral arteries are widely patent. The right vertebral artery is dominant. There is origin of the left posterior cerebral artery. A posterior communicating artery is seen on the right. There is no aneurysm, high-grade stenosis, or focal vessel cut off seen throughout the intracranial circulation. Jugular veins: Patent bilaterally. Dural sinuses: Patent. Lung apices: Partially visualized upper lobe lung parenchyma appears clear. Soft tissues: The visualized pharyngeal soft tissues are normal in appearance noting angiographic phase technique. The oropharyngeal airway appears widely patent. The salivary and thyroid glands are normal in appearance. No cervical lymphadenopathy is seen. Skeletal structures: The skeletal structures are osteopenic. The calvarium appears intact. The cervical spine is noting multilevel spondylosis. No lytic or blastic lesion is seen. Orbits: The bony orbits are intact. Orbital contents are normal as visualized noting bilateral ocular lens implants. Sinuses and mastoids: There is trace mucosal thickening in the right maxillary antrum. The remaining paranasal sinuses are clear. The mastoid air cells are well pneumatized. IMPRESSION: 1. There is no hemorrhage, mass effect, or evidence of acute territorial ischemia by CT criteria. 2. Unremarkable CT angiogram of the brain. 3. Unremarkable CT angiogram of the neck. ACT 112: Negative or not required by law. Electronically signed by: Freddy Dahl M.D. 08/30/2022 4:15 PM Neck CTA 08/30/22 15:[address] OF THE BRAIN; CT ANGIOGRAM OF THE BRAIN; CT ANGIOGRAM OF THE NECK CLINICAL HISTORY: Neurological deficit. Stroke like symptoms. Aphasia. COMPARISON STUDY: CT of the brain dated 12/31/2020. TECHNIQUE: Unenhanced axial CT scan of the brain is performed. Subsequently, following the IV administration of 117 of Optiray 320, CT angiogram of the head and neck was performed from the aortic arch to the vertex. Images are reviewed in the axial, sagittal, and coronal planes. 3-D MIPS images are created and assessed. IV contrast was administered without complication. All measurements were calculated based on NASCET criteria. A dose lowering technique was utilized adhering to the principles of ALARA. CT DOSE: 1158.93 mGy.cm FINDINGS: Brain parenchyma: There is age-related involutional change noting moderate to advanced subcortical and periventricular microangiopathic disease. There is no hemorrhage, mass effect, or evidence of acute territorial ischemia by CT criteria. There is no evidence of enhancing mass lesion on the angiogram phase images. The ventricles, sulci, and cisterns are prominent secondary to involutional change. Fallon-white matter differentiation is preserved. A chronic lacunar infarct is noted in the right thalamus. No extra-axial fluid collection is seen. Thoracic aorta: There is atherosclerotic calcification of the thoracic aorta. Visualized portions of the thoracic aorta are normal in caliber. The aortic arch demonstrates standard 3-vessel anatomy. Right carotid arterial system: The right common carotid artery is widely patent, as are the right internal and external carotid arteries. Calcified plaque is noted in the carotid bulb. Left carotid arterial system: The left common carotid artery is widely patent, as are the left internal and external carotid arteries. Calcified plaque is noted in the carotid bulb. Vertebral arteries: The vertebral arteries are widely patent bilaterally noting mild right-sided dominance. Subclavian arteries: Widely patent bilaterally. Intracranial vasculature: There is atherosclerotic calcification of the cavernous carotid and vertebral arteries. The internal carotid arteries are patent at the skull base, as are the anterior and middle cerebral arteries bilaterally. The vertebrobasilar system and posterior cerebral arteries are widely patent. The right vertebral artery is dominant. There is origin of the left posterior cerebral artery. A posterior communicating artery is seen on the right. There is no aneurysm, high-grade stenosis, or focal vessel cut off seen throughout the intracranial circulation. Jugular veins: Patent bilaterally. Dural sinuses: Patent. Lung apices: Partially visualized upper lobe lung parenchyma appears clear. Soft tissues: The visualized pharyngeal soft tissues are normal in appearance noting angiographic phase technique. The oropharyngeal airway appears widely patent. The salivary and thyroid glands are normal in appearance. No cervical lymphadenopathy is seen. Skeletal structures: The skeletal structures are osteopenic. The calvarium appears intact. The cervical spine is noting multilevel spondylosis. No lytic or blastic lesion is seen. Orbits: The bony orbits are intact. Orbital contents are normal as visualized noting bilateral ocular lens implants. Sinuses and mastoids: There is trace mucosal thickening in the right maxillary antrum. The remaining paranasal sinuses are clear. The mastoid air cells are well pneumatized. IMPRESSION: 1. There is no hemorrhage, mass effect, or evidence of acute territorial ischemia by CT criteria. 2. Unremarkable CT angiogram of the brain. 3. Unremarkable CT angiogram of the neck. ACT 112: Negative or not required by law. Electronically signed by: Freddy Dahl M.D. 08/30/2022 4:15 PM Brain MRI 08/30/22 18:06 Exam(s): MRI HEAD Without Contrast EXAM: MR Head Without Intravenous Contrast CLINICAL HISTORY: Reason for exam: stroke like symptoms. TECHNIQUE: Magnetic resonance images of the head/brain without intravenous contrast in multiple planes. COMPARISON: CT head from August 30, 2022 FINDINGS: Brain: There is moderate patchy periventricular and deep white matter T2 hyperintensity throughout the cerebrum consistent with chronic small vessel disease and/or senescent changes. 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 No areas of diffusion restriction are seen to indicate acute stroke. No hemorrhage. Ventricles: Unremarkable. No ventriculomegaly. Bones/joints: Unremarkable. Sinuses: Unremarkable as visualized. No acute sinusitis. Mastoid air cells: Unremarkable as visualized. No mastoid effusion. Orbits: Unremarkable as visualized. Other findings: No hemorrhage is identified. IMPRESSION: There is moderate patchy periventricular and deep white matter T2 hyperintensity throughout the cerebrum consistent with chronic small vessel disease and/or senescent changes. 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 No areas of diffusion restriction are seen to indicate acute stroke. Electronically signed by: Arthur Bingham MD 08/31/22 00:[address] 09/01/22 16:57 CT head/brain wo con CLINICAL HISTORY: 87 years-old Female with AMS post tPA- r/o intracranial bleed. Acutely altered mental status TECHNIQUE: Multiple axial CT images of the head were obtained without contrast. A dose lowering technique was utilized adhering to the principles of ALARA. CT DOSE: 625.80 mGy.cm COMPARISON: None. FINDINGS: No acute intracranial hemorrhage, midline shift, intracranial mass, hydrocephalus, territorial ischemia or abnormal extra-axial collection. Involutional changes with chronic microvascular ischemic disease. Chronic right thalamic lacunar infarct. Mildly motion degraded exam. The calvarium is intact. Prior bilateral lens repair. The paranasal sinuses, mastoid air cells, and middle ear cavities are clear. IMPRESSION: No acute intracranial abnormality. ACT 112: Negative or not required by law. The above report was generated using voice recognition software. It may contain grammatical, syntax or spelling errors. Electronically signed by: Gurjit Santoyo M.D. 09/01/2022 5:[address] 09/01/22 20:51 Exam(s): CT EXTREMITY RIGHT LOWER Without Contrast EXAM: CT Right Lower Extremity Without Intravenous Contrast CLINICAL HISTORY: Reason for exam: R thigh pain, heparin. TECHNIQUE: Axial computed tomography images of the right lower extremity without intravenous contrast. Automated exposure control was utilized for the study. A dose lowering technique was utilized adhering to the principles of ALARA. COMPARISON: None. FINDINGS: Bones/joints: Diffuse osteoporosis. Degenerative disease of bilateral hips. Degenerative disease at the level of the knee. The femur is normal with no distinct fracture or subluxation. Trace joint effusion. Soft tissues: Unremarkable. Vasculature: Vascular calcifications consistent with peripheral arterial disease. IMPRESSION: 1. Peripheral arterial disease. 2. Diffuse osteoporosis with degenerative disease of the right hip and knee. 3. No acute fracture or subluxation. Electronically signed by: Griselda Horvath MD 09/01/22 23:[address] 09/01/22 20:51 Exam(s): CT RIGHT KNEE Without Contrast EXAM: CT Right Lower Extremity Without Intravenous Contrast, Knee CLINICAL HISTORY: Reason for exam: pain, heparin. TECHNIQUE: Axial computed tomography images of the right knee without intravenous contrast. Automated exposure control was utilized for the study. A dose lowering technique was utilized adhering to the principles of ALARA. COMPARISON: None. FINDINGS: Bones/joints: Trace joint effusion. Diffuse osteoporosis. Degenerative arthrosis of the proximal tibiofibular articulation. Mild to moderate narrowing of the lateral joint compartment with mild narrowing of the medial joint compartment. Subchondral cystic changes along the posterior patella with mild narrowing of the patellofemoral space. No acute fracture. No dislocation. Soft tissues: Unremarkable. Vasculature: Vascular calcifications consistent with peripheral arterial disease. Tortuous venous structures along the medial aspect of the knee most compatible with nonspecific varicose veins. IMPRESSION: 1. Diffuse osteopenia with degenerative disease as described. 2. Trace joint effusion with no acute fracture or subluxation seen. 3. Peripheral arterial disease. Electronically signed by: Griselda Horvath MD 09/01/22 23:11 PM Chest X-Ray 09/02/22 06:11 XR chest 1V portable CLINICAL HISTORY: low o2 COMPARISON STUDY: Chest radiograph August 31, 2022. Chest CT December 13, 2021. FINDINGS: There is no pneumothorax. There are suspected trace bilateral pleural effusions. Cardiomediastinal silhouette is stable. Cardiomegaly is unchanged. Mild interstitial thickening persists. IMPRESSION: Cardiomegaly with mild interstitial pulmonary edema and trace bilateral pleural effusions. ACT 112: Negative or not required by law. Electronically signed by: Sukhwinder Chadwick M.D. 09/02/2022 6:53 AM
[2022-09-07] MEDS: rOPINIRole HCL 0.25 MG TABLET PO SCH (21:40)
[2022-09-07] MEDS: APIXABAN 5 MG TABLET PO SCH (21:41)
[2022-09-08 06:18] LABS: Basophils # (auto) 0.05 K/uL (0-0.2); Basophils % (auto) 0.6 %; Eosinophils # (auto) 0.15 K/uL (0-0.50); Eosinophils % (auto) 1.8 %; Hematocrit (blood only) 45.5 % (37.0-47.0); Hemoglobin 15.7 g/dl (12.0-16.0); Immature Granulocytes # (auto) 0.05 K/uL (0.01-0.20); Immature Granulocytes % (auto) 0.6 %; Lymphocytes # (auto) 1.66 K/uL (1.2-3.4); Lymphocytes % (auto) 20.3 %; Mean Corpuscular Hemoglobin 32.2 pg (25.0-34.0); Mean Corpuscular Hgb Conc 34.5 g/dL (32.0-36.0); Mean Corpuscular Volume 93.2 fL (80.0-100.0); Mean Platelet Volume 11.3 fL (9.4-12.4); Monocytes # (auto) 0.79 K/uL (0.11-0.59); Monocytes % (auto) 9.7 %; Neutrophils # (auto) 5.48 K/uL (1.40-6.50); Platelet Count 187 K/uL (130-400); RDW Coefficient of Variation 15.5 % (11.5-14.5); RDW Standard Deviation 53.3 fL (36.4-46.3); Red Blood Count 4.88 M/uL (4.20-5.40); White Blood Count 8.18 K/ul (4.8-10.8)
[2022-09-08 06:39] LABS: Potassium 4.2 mmol/L (3.5-5.1)
[2022-09-08 06:49] LABS: BUN Creatinine Ratio 41.3 (10-20); Creatinine Clr Calc Pharmacy 50.2 ml/min; Est GFR (African American) 81.9 ml/min; Est GFR (Non-African American) 70.7 ml/min
[2022-09-08] MEDS: ceFAZolin 2000MG 2,000 MG/15 ML SYR IV SCH (07:54)
[2022-09-08] MEDS: METOPROLOL TARTRATE 25 MG TAB PO SCH ×3 (07:54→19:56)
[2022-09-08] MEDS: FAMOTIDINE 20 MG in SYRINGE 3 ML IV SCH (07:54)
[2022-09-08] MEDS: ATORVASTATIN 40 MG TAB PO SCH (07:55)
[2022-09-08] MEDS: APIXABAN 5 MG TABLET PO SCH ×2 (07:55→19:57)
[2022-09-08] MEDS: FLUTICASONE/VILANTEROL 200/25MCG 14 PUFFS/INHALER INH SCH (07:56)
[2022-09-08] MEDS: UMECLIDINIUM BROMIDE 62.5MCG/BLISTER 7 PUFFS/INHALER INH SCH (07:57)
[2022-09-08] MEDS: POTASSIUM CHLORIDE CRTAB 20 MEQ TABCR PO SCH (07:58)
[2022-09-08] MEDS: INSULIN ASPART PER UNIT CHARGE SC SCH ×4 (08:09→19:58)
[2022-09-08] MEDS: dilTIAZem HCL 120 MG CAPCR PO SCH (09:01)
[2022-09-08] MEDS: FERROUS SULFATE 325 MG TAB PO SCH (09:01)
[2022-09-08] MEDS: EZETIMIBE 10 MG TABLET PO SCH (09:01)
--- NOTE | 2022-09-08 12:29 | Hospitalist Progress Note ---
Date of Service September 08, 2022 Assessment & Plan (1) TIA (transient ischemic attack): (2) UTI (urinary tract infection): (3) Delirium: (4) Hypoxia: (5) PAF (paroxysmal atrial fibrillation): (6) Restless leg: Plan 87yo F with PMH of aortic valve stenosis s/p TAVR, history of paroxysmal atrial fibrillation on Coumadin, history of COPD, interstitial lung disease, on chronic home oxygen 1 L during daytime and 2 L while sleeping, DM II, HLD, HTN, CAD, SANDRA, history of pulmonary emboli who presented to the ED 08/30 with sudden onset aphasia and is s/p tenecteplase in the ED. She was admitted to ICU post tPA for closer monitoring: MRI Brain 08/31: There is moderate patchy periventricular and deep white matter T2 hyperintensity throughout the cerebrum consistent with chronic small vessel disease and/or senescent changes. 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 No areas of diffusion restriction are seen to indicate acute stroke. CT, CTA head/neck- 1. There is no hemorrhage, mass effect, or evidence of acute territorial ischemia by CT criteria. 2. Unremarkable CT angiogram of the brain. 3. Unremarkable CT angiogram of the neck. TIA status post tPA-presented with sudden onset aphasia and is status post tPA 08/30 which probably aborted the CVA per neurology. - TIA likely in setting of Afib - Seen by neuro and recommendations noted. Repeat 24 hr and 48-hour CT head u nremarkable and anticoag started as per neuro recommendation. - Continue Eliquis. - OP neuro f/u in 6-8 wks Acute kidney injury-creatinine up trended to 1.21 on September 07. Given IV hydration. Creatinine down trended. Hold lisinopril and Lasix for today. Klebsiella UTI-urine culture growing Klebsiella pneumoniae. Completed antibiotic course. Delirium- Having intermittent agitations requiring restraints and im zyprexa prn. Continue delirium precautions. Discussed with nursing regarding removal of restraints and one-to-one observation as needed. Not taking her medication. Anticoagulation with Eliquis changed to Lovenox. Also, hydralazine ordered as needed for high blood pressure. Since 09/06; patient appears to be alert, oriented to self; closer to baseline. Resume oral medications Chronic A fib- continue cardizem, lopressor, eliquis. Heart rate elevated, better after increasing dose of Lopressor Hypoxia- intermittent, received some lasix given CXR findings.She uses home oxygen intermittently at home. Currently on room air. H/o CAD: chronic, stable. DM II: Blood sugar well controlled requiring very minimal insulin. A1c 7.1. Will not be aggressive given her age and comorbidities. Subcu insulin ordered. COPD: Stable, continue inhalers. Continue with baseline oxygen requirement. SANDRA: Continue with home CPAP RLS- Iron studies show some iron deficiency. Started on oral iron. OP follow up with neuro. ropinirole ordered as per neurology recommendation. DVT prophylaxis: Lovenox Dispo- PT OT recommends rehab. Patient's delirium is improving; off restraint and has not required IM Zyprexa. Case management on board. Patient stable for transfer. Time spent evaluating patient, direct bedside care, chart review, placing orders, interpretation of diagnostic studies, discussion with consultants, patient, and family members, as well as other required patient management activities is 60 minutes. Please note the above document was generated using voice recognition software. It may contain grammatical, syntax or spelling errors. Any formal questions or concerns about the content, text or information contained within the body of this dictation should be directly addressed to the provider for clarification Admission and Anticipated Discharge Date Admission Date: August 30, 2022 Subjective Patient seen and examined at bedside. She is sitting up on the chair comfortably; not in distress. She is not delirious. Requires orientation from time to time Review of Systems Review of Systems: All systems reviewed & are unremarkable except as noted in Subjective Physical Exam Physical Exam: General: Awake, alert oriented to self. Not in distress. Chest: Clear breath sounds bilaterally, no wheezes or crackles CVS: Irregular, normal heart sounds, no murmur Abdomen: Soft, non tender, not distended, normal bowel sounds Neuro: Alert, oriented to self; follows simple commands. Extremities: No cyanosis, clubbing or edema, varicosities noted in leg Psych: Calm and cooperative. Results & Data Results & Data Vital Signs (Past 12 Hours) Vital Signs Temp Pulse Resp BP Pulse Ox O2 Del Method 09/08/22 07:22 36.6 C 80 18 145/84 H 95 Room Air 09/08/22 07:08 Room Air 09/08/22 03:31 83 18 167/84 H 91 Room Air Laboratory Results Laboratory Results WBC 8.18 K/ul (4.8-10.8) 09/08/22 05:30 RBC 4.88 M/uL (4.20-5.40) 09/08/22 05:30 Hgb 15.7 g/dl (12.0-16.0) 09/08/22 05:30 Hct 45.5 % (37.0-47.0) 09/08/22 05:30 MCV 93.2 fL (80.0-100.0) 09/08/22 05:30 MCH 32.2 pg (25.0-34.0) 09/08/22 05:30 MCHC 34.5 g/dL (32.0-36.0) 09/08/22 05:30 RDW Std Deviation 53.3 fL (36.4-46.3) H 09/08/22 05:30 RDW Coeff of Linda 15.5 % (11.5-14.5) H 09/08/22 05:30 Plt Count 187 K/uL (130-400) 09/08/22 05:30 MPV 11.3 fL (9.4-12.4) 09/08/22 05:30 Immature Gran % (Auto) 0.6 % 09/08/22 05:30 Neut % (Auto) 67.0 % 09/08/22 05:30 Lymph % (Auto) 20.3 % 09/08/22 05:30 [place] % (Auto) 9.7 % 09/08/22 05:30 Eos % (Auto) 1.8 % 09/08/22 05:30 Baso % (Auto) 0.6 % 09/08/22 05:30 Neut # (Auto) 5.48 K/uL (1.40-6.50) 09/08/22 05:30 Lymph # (Auto) 1.66 K/uL (1.2-3.4) 09/08/22 05:30 [place] # (Auto) 0.79 K/uL (0.11-0.59) H 09/08/22 05:30 Eos # (Auto) 0.15 K/uL (0-0.50) 09/08/22 05:30 Baso # (Auto) 0.05 K/uL (0-0.2) 09/08/22 05:30 Immature Gran # (Auto) 0.05 K/uL (0.01-0.20) 09/08/22 05:30 Platelet Estimate Normal (Normal) 09/02/22 04:47 RBC Morphology Unremarkable 09/02/22 04:47 PT 15.9 Seconds (9.0-12.0) H 09/01/22 12:11 POC INR 1.6 (0.9-1.1) H 08/30/22 16:16 INR 1.5 (0.9-1.1) H 09/01/22 12:11 APTT 31.1 Seconds (21.0-31.0) H 09/02/22 04:47 PTT Ratio 1.1 09/02/22 04:47 ABG pH 7.41 (7.35-7.45) 09/02/22 06:26 ABG pCO2 49 mmHg (35-46) H 09/02/22 06:26 ABG pO2 122 mmHg (80-95) H 09/02/22 06:26 ABG HCO3 31 mmol/L (19-24) H 09/02/22 06:26 ABG O2 Saturation 98.9 % (90-95) H 09/02/22 06:26 ABG Base Excess 5.3 mEq/L (-9-1.8) H 09/02/22 06:26 Melvin Test Pos (Pos) 09/02/22 06:26 Oxygen Given 4 L 09/02/22 06:26 Sodium 138 mmol/L (136-145) 09/08/22 05:30 Potassium 4.2 mmol/L (3.5-5.1) 09/08/22 05:30 Chloride 105 mmol/L (98-107) 09/08/22 05:30 Carbon Dioxide 25 mmol/L (21-32) 09/08/22 05:30 Anion Gap 8 (3-11) 09/08/22 05:30 BUN 31 mg/dl (6-23) H 09/08/22 05:30 Creatinine 0.75 mg/dl (0.6-1.2) D 09/08/22 05:30 Est Cr Clr Drug Dosing 50.2 ml/min 09/08/22 05:30 Est GFR ( Amer) 81.9 ml/min 09/08/22 05:30 Est GFR (Non-Af Amer) 70.7 ml/min 09/08/22 05:30 BUN/Creatinine Ratio 41.3 (10-20) H 09/08/22 05:30 Glucose 107 mg/dl (70-99(Fasting)) H 09/08/22 05:30 POC Glucose 182 mg/dl (70-99) H 09/08/22 11:27 Estimat Average Glucose 157 mg/dl 08/31/22 05:20 Hemoglobin A1c 7.1 % (4.5-5.6) H 08/31/22 05:20 Lactate 1.6 mmol/L (0.4-2.0) 09/01/22 07:58 Calcium 9.0 mg/dl (8.6-10.3) 09/08/22 05:30 Phosphorus 3.2 mg/dl (2.5-4.9) 09/05/22 06:59 Magnesium 1.8 mg/dl (1.7-2.4) 09/07/22 05:58 Iron 87 mcg/dl (35-150) 08/31/22 17:08 Transferrin 242 mg/dl (200-360) 08/31/22 17:08 Ferritin 44.3 ng/ml (8-388) 08/31/22 17:08 Total Bilirubin 0.3 mg/dl (0.2-1.0) 08/30/22 16:06 AST 20 U/L (13-39) 08/30/22 16:06 ALT 16 U/L (7-52) 08/30/22 16:06 Alkaline Phosphatase 48 U/L (34-104) 08/30/22 16:06 Troponin I High Sens 5.9 pg/ml (0-14) 08/30/22 16:06 Total Protein 5.6 gm/dl (6.0-8.3) L 08/30/22 16:06 Albumin 3.1 gm/dl (3.4-5.0) L 08/30/22 16:06 Globulin 2.5 gm/dl (2.5-4.0) 08/30/22 16:06 Albumin/Globulin Ratio 1.2 (0.9-2) 08/30/22 16:06 Triglycerides 123 mg/dl (0-150) 08/31/22 17:08 Cholesterol 162 mg/dl (0-200) 08/31/22 17:08 LDL Cholesterol, Calc 83 mg/dl 08/31/22 17:08 VLDL Cholesterol, Calc 25 mg/dl (0-30) 08/31/22 17:08 HDL Cholesterol 54 mg/dl 08/31/22 17:08 Cholesterol/HDL Ratio 3.0 (0-5) 08/31/22 17:08 Urine Color Yellow 09/01/22 01:45 Urine Appearance Turbid (Clear) A 09/01/22 01:45 Urine pH 5.5 (4.5-7.5) 09/01/22 01:45 Ur Specific Carlin 1.010 (1.000-1.030) 09/01/22 01:45 Urine Protein 2+ (Negative) H 09/01/22 01:45 Urine Glucose (UA) Negative (Negative) 09/01/22 01:45 Urine Ketones Negative (Negative) 09/01/22 01:45 Urine Blood 3+ (Negative) H 09/01/22 01:45 Urine Nitrite Negative (Negative) 09/01/22 01:45 Urine Bilirubin Negative (Negative) 09/01/22 01:45 Urine Urobilinogen Negative (Negative) 09/01/22 01:45 Ur Leukocyte Esterase 3+ (Negative) H 09/01/22 01:45 Urine WBC (Auto) >30 /hpf (0-5) H 09/01/22 01:45 Urine RBC (Auto) >30 /hpf (0-4) H 09/01/22 01:45 U Hyaline Cast (Auto) 1-5 /lpf (0-5) 09/01/22 01:45 U Epithel Cells (Auto) >30 /lpf (0-5) H 09/01/22 01:45 Urine Bacteria (Auto) 4+ (Negative) H 09/01/22 01:45 Urine Yeast Not Reportable 09/01/22 01:45 Ur Random Creatinine 176.7 mg/dl 09/07/22 11:11 Urine Sodium 53 mmol/L 09/07/22 11:11 Urine Potassium 54.9 mmol/L 09/07/22 11:11 Urine Chloride 29 mmol/L 09/07/22 11:11 Nasal Screen MRSA (PCR) Negative (Negative) 08/30/22 Unknown SARS-CoV-2, RNA, NAAT NEGATIVE (NEGATIVE) 08/30/22 16:23 Impressions Head CTA 08/30/22 15:[address] OF THE BRAIN; CT ANGIOGRAM OF THE BRAIN; CT ANGIOGRAM OF THE NECK CLINICAL HISTORY: Neurological deficit. Stroke like symptoms. Aphasia. COMPARISON STUDY: CT of the brain dated 12/31/2020. TECHNIQUE: Unenhanced axial CT scan of the brain is performed. Subsequently, following the IV administration of 117 of Optiray 320, CT angiogram of the head and neck was performed from the aortic arch to the vertex. Images are reviewed in the axial, sagittal, and coronal planes. 3-D MIPS images are created and assessed. IV contrast was administered without complication. All measurements were calculated based on NASCET criteria. A dose lowering technique was utilized adhering to the principles of ALARA. CT DOSE: 1158.93 mGy.cm FINDINGS: Brain parenchyma: There is age-related involutional change noting moderate to advanced subcortical and periventricular microangiopathic disease. There is no hemorrhage, mass effect, or evidence of acute territorial ischemia by CT criteria. There is no evidence of enhancing mass lesion on the angiogram phase images. The ventricles, sulci, and cisterns are prominent secondary to involuti onal change. Fallon-white matter differentiation is preserved. A chronic lacunar infarct is noted in the right thalamus. No extra-axial fluid collection is seen. Thoracic aorta: There is atherosclerotic calcification of the thoracic aorta. Visualized portions of the thoracic aorta are normal in caliber. The aortic arch demonstrates standard 3-vessel anatomy. Right carotid arterial system: The right common carotid artery is widely patent, as are the right internal and external carotid arteries. Calcified plaque is noted in the carotid bulb. Left carotid arterial system: The left common carotid artery is widely patent, as are the left internal and external carotid arteries. Calcified plaque is noted in the carotid bulb. Vertebral arteries: The vertebral arteries are widely patent bilaterally noting mild right-sided dominance. Subclavian arteries: Widely patent bilaterally. Intracranial vasculature: There is atherosclerotic calcification of the cavernous carotid and vertebral arteries. The internal carotid arteries are patent at the skull base, as are the anterior and middle cerebral arteries bilaterally. The vertebrobasilar system and posterior cerebral arteries are widely patent. The right vertebral artery is dominant. There is origin of the left posterior cerebral artery. A posterior communicating artery is seen on the right. There is no aneurysm, high-grade stenosis, or focal vessel cut off seen throughout the intracranial circulation. Jugular veins: Patent bilaterally. Dural sinuses: Patent. Lung apices: Partially visualized upper lobe lung parenchyma appears clear. Soft tissues: The visualized pharyngeal soft tissues are normal in appearance noting angiographic phase technique. The oropharyngeal airway appears widely patent. The salivary and thyroid glands are normal in appearance. No cervical lymphadenopathy is seen. Skeletal structures: The skeletal structures are osteopenic. The calvarium appears intact. The cervical spine is noting multilevel spondylosis. No lytic or blastic lesion is seen. Orbits: The bony orbits are intact. Orbital contents are normal as visualized noting bilateral ocular lens implants. Sinuses and mastoids: There is trace mucosal thickening in the right maxillary antrum. The remaining paranasal sinuses are clear. The mastoid air cells are well pneumatized. IMPRESSION: 1. There is no hemorrhage, mass effect, or evidence of acute territorial ischemia by CT criteria. 2. Unremarkable CT angiogram of the brain. 3. Unremarkable CT angiogram of the neck. ACT 112: Negative or not required by law. Electronically signed by: Freddy Dahl M.D. 08/30/2022 4:15 PM Neck CTA 08/30/22 15:[address] OF THE BRAIN; CT ANGIOGRAM OF THE BRAIN; CT ANGIOGRAM OF THE NECK CLINICAL HISTORY: Neurological deficit. Stroke like symptoms. Aphasia. COMPARISON STUDY: CT of the brain dated 12/31/2020. TECHNIQUE: Unenhanced axial CT scan of the brain is performed. Subsequently, following the IV administration of 117 of Optiray 320, CT angiogram of the head and neck was performed from the aortic arch to the vertex. Images are reviewed in the axial, sagittal, and coronal planes. 3-D MIPS images are created and assessed. IV contrast was administered without complication. All measurements were calculated based on NASCET criteria. A dose lowering technique was utilized adhering to the principles of ALARA. CT DOSE: 1158.93 mGy.cm FINDINGS: Brain parenchyma: There is age-related involutional change noting moderate to advanced subcortical and periventricular microangiopathic disease. There is no hemorrhage, mass effect, or evidence of acute territorial ischemia by CT criteria. There is no evidence of enhancing mass lesion on the angiogram phase i mages. The ventricles, sulci, and cisterns are prominent secondary to involutional change. Fallon-white matter differentiation is preserved. A chronic lacunar infarct is noted in the right thalamus. No extra-axial fluid collection is seen. Thoracic aorta: There is atherosclerotic calcification of the thoracic aorta. Visualized portions of the thoracic aorta are normal in caliber. The aortic arch demonstrates standard 3-vessel anatomy. Right carotid arterial system: The right common carotid artery is widely patent, as are the right internal and external carotid arteries. Calcified plaque is n oted in the carotid bulb. Left carotid arterial system: The left common carotid artery is widely patent, as are the left internal and external carotid arteries. Calcified plaque is noted in the carotid bulb. Vertebral arteries: The vertebral arteries are widely patent bilaterally noting mild right-sided dominance. Subclavian arteries: Widely patent bilaterally. Intracranial vasculature: There is atherosclerotic calcification of the cavernous carotid and vertebral arteries. The internal carotid arteries are patent at the skull base, as are the anterior and middle cerebral arteries bilat erally. The vertebrobasilar system and posterior cerebral arteries are widely patent. The right vertebral artery is dominant. There is origin of the left posterior cerebral artery. A posterior communicating artery is seen on the right. There is no aneurysm, high-grade stenosis, or focal vessel cut off seen throughout the intracranial circulation. Jugular veins: Patent bilaterally. Dural sinuses: Patent. Lung apices: Partially visualized upper lobe lung parenchyma appears clear. Soft tissues: The visualized pharyngeal soft tissues are normal in appearance noting angiographic phase technique. The oropharyngeal airway appears widely patent. The salivary and thyroid glands are normal in appearance. No cervical lymphadenopathy is seen. Skeletal structures: The skeletal structures are osteopenic. The calvarium appears intact. The cervical spine is noting multilevel spondylosis. No lytic or blastic lesion is seen. Orbits: The bony orbits are intact. Orbital contents are normal as visualized noting bilateral ocular lens implants. Sinuses and mastoids: There is trace mucosal thickening in the right maxillary antrum. The remaining paranasal sinuses are clear. The mastoid air cells are well pneumatized. IMPRESSION: 1. There is no hemorrhage, mass effect, or evidence of acute territorial ischemia by CT criteria. 2. Unremarkable CT angiogram of the brain. 3. Unremarkable CT angiogram of the neck. ACT 112: Negative or not required by law. Electronically signed by: Freddy Dahl M.D. 08/30/2022 4:15 PM Brain MRI 08/30/22 18:06 Exam(s): MRI HEAD Without Contrast EXAM: MR Head Without Intravenous Contrast CLINICAL HISTORY: Reason for exam: stroke like symptoms. TECHNIQUE: Magnetic resonance images of the head/brain without intravenous contrast in multiple planes. COMPARISON: CT head from August 30, 2022 FINDINGS: Brain: There is moderate patchy periventricular and deep white matter T2 hyperintensity throughout the cerebrum consistent with chronic small vessel disease and/or senescent changes. 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 No areas of diffusion restriction are seen to indicate acute stroke. No hemorrhage. Ventricles: Unremarkable. No ventriculomegaly. Bones/joints: Unremarkable. Sinuses: Unremarkable as visualized. No acute sinusitis. Mastoid air cells: Unremarkable as visualized. No mastoid effusion. Orbits: Unremarkable as visualized. Other findings: No hemorrhage is identified. IMPRESSION: There is moderate patchy periventricular and deep white matter T2 hyperintensity throughout the cerebrum consistent with chronic small vessel disease and/or senescent changes. 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 No areas of diffusion restriction are seen to indicate acute stroke. Electronically signed by: Arthur Bingham MD 08/31/22 00:[address] 09/01/22 16:57 CT head/brain wo con CLINICAL HISTORY: 87 years-old Female with AMS post tPA- r/o intracranial bleed. Acutely altered mental status TECHNIQUE: Multiple axial CT images of the head were obtained without contrast. A dose lowering technique was utilized adhering to the principles of ALARA. CT DOSE: 625.80 mGy.cm COMPARISON: None. FINDINGS: No acute intracranial hemorrhage, midline shift, intracranial mass, hydrocephalus, territorial ischemia or abnormal extra-axial collection. Involutional changes with chronic microvascular ischemic disease. Chronic right thalamic lacunar infarct. Mildly motion degraded exam. The calvarium is intact. Prior bilateral lens repair. The paranasal sinuses, mastoid air cells, and middle ear cavities are clear. IMPRESSION: No acute intracranial abnormality. ACT 112: Negative or not required by law. The above report was generated using voice recognition software. It may contain grammatical, syntax or spelling errors. Electronically signed by: Gurjit Santoyo M.D. 09/01/2022 5:[address] 09/01/22 20:51 Exam(s): CT EXTREMITY RIGHT LOWER Without Contrast EXAM: CT Right Lower Extremity Without Intravenous Contrast CLINICAL HISTORY: Reason for exam: R thigh pain, heparin. TECHNIQUE: Axial computed tomography images of the right lower extremity without intravenous contrast. Automated exposure control was utilized for the study. A dose lowering technique was utilized adhering to the principles of ALARA. COMPARISON: None. FINDINGS: Bones/joints: Diffuse osteoporosis. Degenerative disease of bilateral hips. Degenerative disease at the level of the knee. The femur is normal with no distinct fracture or subluxation. Trace joint effusion. Soft tissues: Unremarkable. Vasculature: Vascular calcifications consistent with peripheral arterial disease. IMPRESSION: 1. Peripheral arterial disease. 2. Diffuse osteoporosis with degenerative disease of the right hip and knee. 3. No acute fracture or subluxation. Electronically signed by: Griselda Horvath MD 09/01/22 23:[address] 09/01/22 20:51 Exam(s): CT RIGHT KNEE Without Contrast EXAM: CT Right Lower Extremity Without Intravenous Contrast, Knee CLINICAL HISTORY: Reason for exam: pain, heparin. TECHNIQUE: Axial computed tomography images of the right knee without intravenous contrast. Automated exposure control was utilized for the study. A dose lowering technique was utilized adhering to the principles of ALARA. COMPARISON: None. FINDINGS: Bones/joints: Trace joint effusion. Diffuse osteoporosis. Degenerative arthrosis of the proximal tibiofibular articulation. Mild to moderate narrowing of the lateral joint compartment with mild narrowing of the medial joint compartment. Subchondral cystic changes along the posterior patella with mild narrowing of the patellofemoral space. No acute fracture. No dislocation. Soft tissues: Unremarkable. Vasculature: Vascular calcifications consistent with peripheral arterial disease. Tortuous venous structures along the medial aspect of the knee most compatible with nonspecific varicose veins. IMPRESSION: 1. Diffuse osteopenia with degenerative disease as described. 2. Trace joint effusion with no acute fracture or subluxation seen. 3. Peripheral arterial disease. Electronically signed by: Griselda Horvath MD 09/01/22 23:11 PM Chest X-Ray 09/02/22 06:11 XR chest 1V portable CLINICAL HISTORY: low o2 COMPARISON STUDY: Chest radiograph August 31, 2022. Chest CT December 13, 2021. FINDINGS: There is no pneumothorax. There are suspected trace bilateral pleural effusions. Cardiomediastinal silhouette is stable. Cardiomegaly is unchanged. Mild interstitial thickening persists. IMPRESSION: Cardiomegaly with mild interstitial pulmonary edema and trace bilateral pleural effusions. ACT 112: Negative or not required by law. Electronically signed by: Sukhwinder Chadwick M.D. 09/02/2022 6:53 AM
[2022-09-08] MEDS: rOPINIRole HCL 0.25 MG TABLET PO SCH (19:57)
[2022-09-08] MEDS: FAMOTIDINE 20 MG TAB PO SCH (19:57)
[2022-09-09] MEDS: FAMOTIDINE 20 MG TAB PO SCH (07:30)
[2022-09-09] MEDS: FLUTICASONE/VILANTEROL 200/25MCG 14 PUFFS/INHALER INH SCH (07:30)
[2022-09-09] MEDS: FERROUS SULFATE 325 MG TAB PO SCH (07:30)
[2022-09-09] MEDS: METOPROLOL TARTRATE 25 MG TAB PO SCH (07:30)
[2022-09-09] MEDS: UMECLIDINIUM BROMIDE 62.5MCG/BLISTER 7 PUFFS/INHALER INH SCH (07:30)
[2022-09-09] MEDS: POTASSIUM CHLORIDE CRTAB 20 MEQ TABCR PO SCH (07:30)
[2022-09-09] MEDS: EZETIMIBE 10 MG TABLET PO SCH (07:30)
[2022-09-09] MEDS: dilTIAZem HCL 120 MG CAPCR PO SCH (07:31)
[2022-09-09] MEDS: ATORVASTATIN 40 MG TAB PO SCH (07:31)
[2022-09-09] MEDS: APIXABAN 5 MG TABLET PO SCH (07:31)
[2022-09-09 07:43] LABS: Basophils # (auto) 0.06 K/uL (0-0.2); Basophils % (auto) 0.7 %; Eosinophils # (auto) 0.28 K/uL (0-0.50); Eosinophils % (auto) 3.4 %; Hematocrit (blood only) 43.9 % (37.0-47.0); Hemoglobin 14.6 g/dl (12.0-16.0); Immature Granulocytes # (auto) 0.04 K/uL (0.01-0.20); Immature Granulocytes % (auto) 0.5 %; Lymphocytes # (auto) 1.51 K/uL (1.2-3.4); Lymphocytes % (auto) 18.6 %; Mean Corpuscular Hemoglobin 31.8 pg (25.0-34.0); Mean Corpuscular Hgb Conc 33.3 g/dL (32.0-36.0); Mean Corpuscular Volume 95.6 fL (80.0-100.0); Mean Platelet Volume 11.7 fL (9.4-12.4); Monocytes # (auto) 0.71 K/uL (0.11-0.59); Monocytes % (auto) 8.7 %; Neutrophils # (auto) 5.54 K/uL (1.40-6.50); Neutrophils % (auto) 68.1 %; Platelet Count 200 K/uL (130-400); RDW Coefficient of Variation 15.5 % (11.5-14.5); RDW Standard Deviation 54.6 fL (36.4-46.3); Red Blood Count 4.59 M/uL (4.20-5.40); White Blood Count 8.14 K/ul (4.8-10.8)
[2022-09-09 07:56] LABS: BUN Creatinine Ratio 38.6 (10-20); Calcium 8.7 mg/dl (8.6-10.3); Est GFR (African American) 95.3 ml/min; Est GFR (Non-African American) 82.2 ml/min; Potassium 4.3 mmol/L (3.5-5.1)
[2022-09-09] MEDS: INSULIN ASPART PER UNIT CHARGE SC SCH ×2 (08:19→12:05)
[2022-09-09] MEDS ORDERED: lisinopril 10 MG TAB PO SCH (09:00)
--- NOTE | 2022-09-09 13:18 | Discharge Summary ---
Date of Service September 09, 2022 Admission HPI Per Admitting Provider 87yo F with PMH of aortic valve stenosis s/p TAVR, history of paroxysmal atrial fibrillation on Coumadin, history of COPD, interstitial lung disease, on chronic home oxygen 1 L during daytime and 2 L while sleeping, DM II, HLD, HTN, CAD, SANDRA, history of pulmonary emboli presents 08/30 with strokelike symptoms. Patient's daughter was at bedside, patient nonverbal and not able to cooperate. Opens eyes. Most of the history obtained from ER physician, chart review and patient's daughter at bedside. Per patient's daughter they were having dinner and were done, after that they were talking and abruptly she could not speak that was around 2:40 PM. Then she was brought to the hospital, she did not appreciate any limb weakness. She did appreciate bilateral facial droop. She states that pt had been perfectly fine without any illness/runny nose/fever/cough/other visible symptoms in the last 1 week. She also states that the patient has been compliant with all of her medications. Per patient's daughter, patient did not use tobacco/drink alcohol/use illegal drugs. Medications reviewed with the patient's daughter. Currently takes Coumadin 5 mg daily. Patient uses walker for ambulation. Patient is DNR/DNI per patient's daughter at bedside. Admission Exam Per Admitting Provider GENERAL: Alert. NAD, on 2L. NC O2, appears frail/weak/ill HEENT: No pallor, no icterus. Pupils equal, round and reactive to light. Oral mucosa moist. NECK: No JVD, no neck masses. HEART: S1 and S2 heard. irregular rate and rhythm. No murmur, no gallop. RESPIRATORY SYSTEM: Normal AP diameter. No accessory muscle use. No wheezing, no crackles. ABDOMEN: Soft, bowel sounds present, nontender, no distention. CENTRAL NERVOUS SYSTEM: No facial droop. aphasic, can't follow commands, opens eyes spontaneously, limb muscle tone fair. EXTREMITIES: No edema, no erythema seen. Principal Diagnosis TIA UTI Delirium PAF Discharge Exam GENERAL: Alert and awake. NAD, on RA. HEENT: No pallor, no icterus. Pupils equal, round and reactive to light. Oral mucosa moist. NECK: No JVD, no neck masses. HEART: S1 and S2 heard. irregular rate and rhythm. No murmur, no gallop. RESPIRATORY SYSTEM: Normal AP diameter. No accessory muscle use. No wheezing, no crackles. ABDOMEN: Soft, bowel sounds present, nontender, no distention. CENTRAL NERVOUS SYSTEM: No facial droop. clear articulation, moves extremities. EXTREMITIES: No edema, no erythema seen. Discharge Data Allergies Allergy/AdvReac Type Severity Reaction Status Date / Time amoxicillin [From Augmentin] Allergy Intermediate Hives Verified 08/30/22 16:12 clavulanic acid Allergy Intermediate Hives Verified 08/30/22 16:12 [From Augmentin] gabapentin Allergy Intermediate ITCHY RED Verified 08/30/22 16:12 SPOTS ON FEET Penicillins Allergy Intermediate Hives Verified 08/30/22 16:12 Consultations 08/30/22 17:40 Consult Neurology Routine 08/30/22 17:44 Consult Machines Technician Routine 08/30/22 17:45 ED Decision to Admit Stat Ordered Studies 08/30/22 15:57 CT angio head w con Stat CT angio neck with con Stat CT head/brain wo con Stat 08/30/22 18:06 MRI Brain [MR brain wo con] Routine 08/31/22 17:05 CT head/brain wo con Urgent 09/01/22 16:57 CT head/brain wo con Urgent 09/01/22 20:51 CT femur RT wo con Urgent CT knee RT wo con Urgent Hospital Course (1) TIA (transient ischemic attack): (2) UTI (urinary tract infection): (3) Delirium: (4) Hypoxia: (5) PAF (paroxysmal atrial fibrillation): (6) Restless leg: Plan 87yo F with PMH of aortic valve stenosis s/p TAVR, history of paroxysmal atrial fibrillation on Coumadin, history of COPD, interstitial lung disease, on chronic home oxygen 1 L during daytime and 2 L while sleeping, DM II, HLD, HTN, CAD, SANDRA, history of pulmonary emboli who presented to the ED 08/30 with sudden onset aphasia and is s/p tenecteplase in the ED. She was admitted to ICU post tPA for closer monitoring: MRI Brain 08/31: There is moderate patchy periventricular and deep white matter T2 hyperintensity throughout the cerebrum consistent with chronic small vessel disease and/or senescent changes. 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 No areas of diffusion restriction are seen to indicate acute stroke. CT, CTA head/neck- 1. There is no hemorrhage, mass effect, or evidence of acute territorial ischemia by CT criteria. 2. Unremarkable CT angiogram of the brain. 3. Unremarkable CT angiogram of the neck. TIA status post tPA-presented with sudden onset aphasia and is status post tPA 08/30 which probably aborted the CVA per neurology. - TIA likely in setting of Afib - Seen by neuro and recommendations noted. Repeat 24 hr and 48-hour CT head unremarkable and anticoag started as per neuro recommendation. - Continue Eliquis and home aspirin. - OP neuro f/u in 6-8 wks Acute kidney injury-creatinine up trended to 1.21 on September 07. s/p ivf, resolved. c/w home meds. Klebsiella UTI-urine culture growing Klebsiella pneumoniae. Completed antibiotic course. Delirium- Since 09/06; patient appears to be alert, oriented to self; closer to baseline. c/w oral medications Chronic A fib- continue cardizem, lopressor, eliquis. Heart rate elevated, better after increasing dose of Lopressor Hypoxia- intermittent, received some lasix given CXR findings. She uses home oxygen intermittently at home. Currently on room air. H/o CAD: chronic, stable. DM II: Blood sugar well controlled requiring very minimal insulin. A1c 7.1. Will not be aggressive given her age and comorbidities. Subcu insulin or dered. COPD: Stable, continue inhalers. Continue with baseline oxygen requirement. SANDRA: Continue with home CPAP RLS- Iron studies show some iron deficiency. Started on oral iron. OP follow up with neuro. ropinirole ordered as per neurology recommendation. DVT prophylaxis: Lovenox Patient being discharged to home with home health with following instruction at the point of discharge: Follow-up with your primary care physician within a week time and likely you will need labs CBC/CMP/magnesium/phosphorus. Follow-up with neurology doctor in 6 to 8 weeks upon discharge. You have been started on iron therapy, continue to take as prescribed. Also you are started on ropinirole for your restless leg. You are started on eliquis and your warfarin has been stopped. Please make sure that you are able to get your medications today by calling your pharmacy before you leave the hospital so that your treatment continuity is not broken. Home Health Attestation I certify that this patient is under my care and that I, or a physicians social research assistant working with me, had a face to-face encounter that meets the home health [id number] encounter requirements with this patient. The encounter with the patient was in whole, or in part, for the following medical condition, which is the primary reason for home health care (list medical condition): CVA vs TIA, aphasia I certify that, based on my findings, the following services are medically necessary home health services: My clinical findings support the need for the above services because: Home Safety Assessment OT Assess ADL Status and Restore Function w ADLs PT Assessment for Endurance / Balance / Strength PT Eval for Safety and Mobility PT Eval for Safety, Gait Training, Assistive Devices PT Gait and Balance Training, Strengthening and Safety Safety Skilled Nsg Assessment Skilled Nsg Assessment for Complications r/t CVA Skilled Nsg Assess Pt Illness, Disease and Sx Monitoring S/S to Report to Provider Further, I certify that my clinical findings support that this patient is homebound (i.e. absences from home require considerable and taxing effort and are for medical reasons or amish services or infrequently or of short duration when for other reasons) because: Transportation Assistance/Unable to Leave Home Unassisted Certification for Home Health Services: Based on the above findings, I certify that this patient is confined to the home and needs intermittent halfway care, physical therapy and/or speech therapy or continues to need occupational therapy. The patient is under my care, and I have initiated the establishment of the plan of care. This patient will be followed by a physician who will periodically review the plan of care. Total Time Total Time Spent Total Time Spent (In Minutes): 50 Discharge Plan Discharge Items Patient Disposition: Home - Home Health Services Reason For Visit: APHASIA Discharge Diagnosis: TIA UTI Delirium PAF Activity: Resume your previous activity Non-emergency contact: Primary Care Provider Call non-emergency contact if: you have any medication questions and your temperature is above 101 Follow-up/Referrals: Jamie Vela, [Primary Care Provider] - Diet: Carb Consistent or DM2 Addtl Attending Provider Instructions: Follow-up with your primary care physician within a week time and likely you will need labs CBC/CMP/magnesium/phosphorus. Follow-up with neurology doctor in 6 to 8 weeks upon discharge. You have been started on iron therapy, continue to take as prescribed. Also you are started on ropinirole for your restless leg. You are started on eliquis and your warfarin has been stopped. Please make sure that you are able to get your medications today by calling your pharmacy before you leave the hospital so that your treatment continuity is not broken. Pending Studies at Discharge: No Stand-Alone Forms: [facility], Smoking Cessation Medications and DC Order Prescriptions: New Eliquis 5 mg Tablet 5 mg PO BID Qty: 60 0RF ferrous sulfate 325 mg (65 mg iron) Tablet,Delayed Release (Dr/Ec) 325 mg PO QAM Qty: 30 0RF atorvastatin 40 mg Tablet 40 mg PO QAM Qty: 30 0RF ropinirole 0.25 mg Tablet 0.25 mg PO HS Qty: 30 0RF melatonin 3 mg Tablet 3 mg PO HS PRN (Reason: sleep) Qty: 30 0RF Continued aspirin [Adriana Low Dose Aspirin] 81 mg Tablet,Delayed Release (Dr/Ec) 81 mg PO QAM diltiazem HCl 120 mg capsule,extended release 24hr 120 mg PO QAM albuterol sulfate 90 mcg/actuation HFA aerosol inhaler 2 puff INHALATION Q4H PRN (Reason: Wheeze/Cough) Rx Instructions: ADMINISTER WITH SPACER ezetimibe 10 mg tablet 10 mg PO QAM metformin 750 mg tablet extended release 24 hr 750 mg PO QAM lisinopril 10 mg tablet 10 mg PO QAM acetaminophen [Tylenol Extra Strength] 500 mg Tablet 500 mg PO Q4 PRN (Reason: Pain) multivitamin Tablet 1 tab PO DAILY furosemide [Lasix] 20 mg Tablet 40 mg PO QAM potassium chloride 20 mEq Tablet Extended Release 20 meq PO DAILY Rx Instructions: Take on days that you take lasix pantoprazole [Protonix] 40 mg Tablet,Delayed Release (Dr/Ec) 40 mg PO BID nitroglycerin [Nitrostat] 0.4 mg Tablet, Sublingual 0.4 mg sublingual DIRECTED PRN (Reason: Chest Pain) Incruse Ellipta 62.5 mcg/actuation Blister With Device 1 inh inhalation DAILY Qty: 30 0RF albuterol sulfate 2.5 mg /3 mL (0.083 %) Solution For Nebulization 2.5 mg INHALATION DIRECTED PRN (Reason: Shortness Of Breath) fluticasone furoate-vilanterol [Breo Ellipta] 200-25 mcg/dose blister with device 1 inh inhalation DAILY Changed metoprolol tartrate 25 mg tablet 12.5 mg PO TID Qty: 45 0RF Discontinued warfarin 5 mg tablet 5 mg PO QPM Discharge Orders: Discharge Order (Routine); Ordered 09/09/22 Ordered By: Rosalia Tobias/Other Patient Handouts: Managing Type 2 Diabetes Admission Data Admit Date/Time: 08/30/22 17:55 Attending Provider: Rosalia Ryan Admit Provider: Rosalia Ryan Primary Care Provider: Jamie Vela Other Providers: Anup Samano ; Rosalia Ryan ; Glenn Crouch ; [facility] ; [facility] ; [facility]
== END 2022-09-09 16:42 | disposition home health service (06) | DRG 62 ==
LOC: ED 15:57 → 1E 17:55 → SUATTDRO 17:55 → 1E 18:50 → 2N 09-02 12:25